=== PATIENT | male | born 1960 | race Caucasian/White ===

== ENCOUNTER 2016-07-30 10:29 | Inpatient (IN) | payer MEDICARE, MEDICAID ==
[2016-07-30] VITALS (8 sets, daily range): BP systolic 74–91; BP diastolic 51–60; PULSE 88–105; RESP 9–22; O2SAT 89–97
[~2016-07-30] VITALS: Ht 172.7 cm; Wt 64.6 kg
[~2016-07-30 10:29] MED LIST: ACET325T51 PEG; ATOR10TA66 PEG; BACL10TA PO; BISA10SU61 RC; CALCIUM PEG; CHOL500011 PEG; DEXT1DRO8 BOTH_EYES; ENTERAL NUTRITION FORMULA PEG; ESOM40CA41 PEG; FLUO20SO PEG; GLUC1VIA IJ; HYDR-4003 PEG; KPHOS TUBE; LEVO100T6 PEG; LISI-567 TUBE; NOV100I SUBQ; NPH,100V11 SUBQ; ONDA-53 TUBE
[2016-07-30] MEDS ORDERED: 0.9% Sodium Chloride 1,000 ML IV ONE ×2 (10:37→15:30)
--- NOTE | 2016-07-30 10:37 | ED.REPORT ---
HPI-General Illness Date of Service Jul 30, 2016 ED Provider: Philip Maynard MD 55 year old male with a history of DM, and ESRD presents to the ED via EMS from [facility] with decreased level of consciousness and low O2 saturation. Medics also report rhonchus breath sounds and expiratory wheezes at the intermediate. He is scheduled for dialysis today. Baseline nonverbal, post- stroke patient. Patient is DNR, DNI. Nursing Notes Stated Complaint: DECREASED LOC Nursing Notes Reviewed: Yes Allergies: Coded Allergies: No Known Allergies (Verified , 05/14/16) Scheduled ([calcium 1250mg/5ml]) 500 MG PEG q8 hours ([Kphos #2 [id number]]) 2 TAB TUBE BID ([Nepro Tube feed]) 50 CC TUBE Hr Atorvastatin Calcium (Atorvastatin Calcium) 10 Mg Tablet 5 MG TUBE HS Cholecalciferol (Vitamin D3) (Vitamin D3) 5,000 Unit Tablet 5,000 UNIT PEG DAILY Esomeprazole Magnesium (Nexium) 40 Mg Capsule.dr 40 MG PEG DAILY Fluoxetine Oral Soln (Fluoxetine Oral Soln) 20 Mg/5 Ml Solution 60 MG TUBE DAILY Levothyroxine (Levothyroxine) 100 Mcg Tablet 88 MCG PEG DAILY Lisinopril (Lisinopril) 20 Mg Tablet 20 MG TUBE DAILY NPH, Human Insulin Isophane (HUMulin-N U100 Insulin Vial) 100 Unit/1 Ml Vial 4 UNIT SUBQ q6hrs Scheduled PRN Acetaminophen (Acetaminophen) 325 Mg Tablet 650 MG PO Q4H PRN PRN For Pain Baclofen (Baclofen) 10 Mg Tablet 5 MG PO q4 hours PRN PRN For Hiccups Bisacodyl (Dulcolax Rectal) 10 Mg Supp.rect 10 MG RC DAILY PRN PRN For Constipation Dextran 70/Hypromellose/Pf (Artificial Tears Drops) 1 Each Droperette 2 DROP BOTH_EYES DAILY PRN PRN dry eyes Glucagon,Human Recombinant (Glucagen) 1 Mg/1 Ml Vial 0.5-1 MG IJ DAILY PRN PRN blood glucose abnormality Hydrocodone-Acetaminophen 5-325 mg (Hydrocodone-Acetaminophen 5-325 mg) 1 Each Tablet 1-2 TABLET PO Q4H PRN PRN For Pain Insulin Aspart (NovoLOG U100 Insulin Vial) 100 Unit/Ml Mdv 0-12 UNITS SUBQ TID PRN PRN sliding scale Ondansetron (Ondansetron) 4 Mg Tablet 8 MG TUBE q8 hours PRN PRN For Nausea General Time Seen by MD: 10:31 Transferred From: retirement Chief Complaint Altered mental status, Other (Low O2 Saturation) Hx Obtained From: EMS Arrived By: Ambulance Sudden in Onset?: No Context Related History: Reports Diabetes mellitus Past Medical History Past Medical History Notes: Code Status: DNR, DNI Pt is non-verbal and non-ambulatory at baseline post stroke Past Medical History 1. Type 1 diabetes mellitus, poorly controlled, with recurrent episodes of DKA. 2. Diabetic neuropathy. 3. Diabetic retinopathy. 4. Diabetic nephropathy. 5. End-stage renal disease, on hemodialysis (Wednesday, , and Saturdays). 6. Depression. 7. Hemorrhagic stroke in 2008 and 2014 with resulting dysphagia, expressive aphasia, and left-sided weakness. 8. Dysphagia with recurrent aspiration on modified diet (pureed with thickened liquids). 9. Cardiac arrest in 2008, VFib, thought secondary to amphetamines, hyperkalemia and DKA. 10. Seizure secondary to ruptured aneurysm/hemorrhagic stroke in 2008. 11. Hypothyroidism. 12. Anoxic brain injury secondary to cardiac arrest. 13. Hepatitis C per records. 14. Hepatitis B core antibody positive. 15. History of substance abuse. 16. Hypertension. 17. Ulcerative esophagitis with hematemesis in June 2014, with upper endoscopy at that time. 18. GERD Past Surgical History Left foot surgery Dialysis shunt Left arm fistula placed 06/29/16 Smoking History Former Smoker Social History Alcohol Use: Denies alcohol use Drug Use: In recovery, Meth Other Social History: Lives in intermediate Ambulatory Status Independent Review of Systems Unable to Obtain ROS Mental status Physical Exam Vital Signs Vital Signs Date Time Temp Pulse Resp B/P Pulse Ox O2 Delivery O2 Flow Rate FiO2 07/30/16 14:27 92 13 90/57 95 Non-Rebreather 10 07/30/16 13:25 91 14 90/55 96 Non-Rebreather 10 07/30/16 10:56 37.0 07/30/16 10:40 105 22 80/59 92 Non-Rebreather 15 Initial VS: Reviewed Head / Eyes: Atraumatic, Normocephalic Neck: Supple, Non-tender, Full range of motion Abdomen / GI: Soft, Non-tender, No guarding, No rebound, No distention Extremities: Vascular intact, Neuro intact, No swelling, No tenderness Skin: Warm, Dry, No cyanosis General/Constitutional: Well developed, Well nourished Alertness: Positive: Unresponsive Unconscious. Respiratory / Chest: No chest tenderness Wheezing / Retractions: Positive: Wheezing expiratory, Wheezing moderate Rales / Rhonchi: Positive: Rhonchi diffuse Cardiovascular: Heart rate NL, Regular rhythm, Heart sounds NL, Cap refill not delayed, Peripheral circulation NL Interpretation & Diagnostics Lab Results Interpretation Result Diagram: 07/30/16 1110 07/30/16 1110 Test 07/30/16 11:10 07/30/16 11:50 07/30/16 13:10 White Blood Count 25.3th/mm3 (3.8-10.1) Red Blood Count 3.78mil/mm3 (4.40-5.80) Hemoglobin 12.7g/dL (13.8-17.2) Hematocrit 39.1% (41.0-50.0) Mean Corpuscular Volume 103.4fL (81-100) Mean Corpuscular Hemoglobin 33.6pg (27.0-35.0) Mean Corpuscular Hemoglobin Concent 32.5% (32.0-37.0) Red Cell Distribution Width 13.2% (12.3-15.4) Platelet Count 236bil/L (150-400) Neutrophils (%) (Auto) 91.4% (40-74) Lymphocytes (%) (Auto) 3.9% (14-46) Monocytes (%) (Auto) 3.5% (4-12) Eosinophils (%) (Auto) 0.5% (0-5) Basophils (%) (Auto) 0.2% (0-3) Sodium Level 143mEq/L (134-144) Potassium Level 4.2mEq/L (3.5-5.2) Chloride Level 97mEq/L (97-108) Carbon Dioxide Level 25mmol/L (18-29) Blood Urea Nitrogen 42mg/dL (6-24) Creatinine 4.18mg/dL (0.76-1.27) Estimat Glomerular Filtration Rate 16mL/min (>59) Glucose Level 223mg/dL (60-99) Lactic Acid Level 2.0mmol/L (0.4-2.0) Calcium Level 9.3mg/dL (8.5-10.1) Phosphorus Level 6.4mg/dL (2.5-4.9) Magnesium Level 2.5mg/dL (1.6-2.6) Total Bilirubin 0.3mg/dL (0.0-1.2) Aspartate Amino Transf (AST/SGOT) 18U/L (0-50) Alanine Aminotransferase (ALT/SGPT) 18U/L (0-44) Alkaline Phosphatase 129U/L (25-150) Troponin T 0.104ug/L (0.0-0.011) Pro-B-Type Natriuretic Peptide 4201pg/mL (0-121) Total Protein 7.7g/dL (6.4-8.4) Albumin 3.6g/dL (3.4-5.0) Lipase 7U/L (13-60) Urine Color Yellow (YELLOW) Urine Appearance Hazy (CLEAR,HAZY) Urine pH 7.0 (5.0-8.0) Urine Specific [place] 1.020 (1.003-1.035) Urine Protein 100mg/dL (NEG,TRACE) Urine Glucose (UA) 500mg/dL (NEGATIVE) Urine Ketones Negativemg/dL (NEGATIVE) Urine Occult Blood Small (NEGATIVE) Urine Nitrite Negative (NEGATIVE) Urine Bilirubin Negative (NEGATIVE) Urine Urobilinogen Normalmg/dL (NORMAL) Urine Leukocyte Esterase Trace (NEGATIVE) Urine RBC 0-2/hpf (0-2) Urine WBC >50/hpf (0-5) Urine Epithelial Cells Occasional/hpf (NONE-MOD) Urine Crystals None seen (NONE SEEN) Urine Bacteria Few/hpf (NONE-FEW) Urine Hyaline Casts None/lpf (NONE) Urine Granular Casts None seen (NONE SEEN) Urine Waxy Casts None seen (NONE SEEN) Urine Red Blood Cell Casts None seen (NONE SEEN) Urine White Blood Cell Casts None seen (NONE SEEN) Urine Mucus None seen (None Seen) Urine Trichomonas None seen (NONE SEEN) Urine Yeast Few (NONE SEEN) Urinalysis Comment None Urine Culture Reflexed Indicated Prothrombin Time 10.4sec (8.1-12.5) Prothromb Time International Ratio 0.97ratio ECG Interpretation ECG Interpretation: Sinus rhythm, rate 97 Prolonged QT interval Time: 10:58 Interpreted by: ED physician X-Ray Chest Interpretation Chest Xray Interpretation: IMPRESSION: Right middle lobe atelectasis versus aspiration or pneumonia. Dictated by: Derik RODRIGUEZ Interpreted: Andra Lopez MD on 07/30/2016 at 12:21 Transcribed by: ILIANA on 07/30/2016 at 12:21 View: Portable, 1 view Interpretation / Wet Read by: Interpret - Radiologist Re-Eval/Medical Decision Source of Hx: Old records Time of Eval: 11:45 Re-Evaluation/Progress Note: Patient is still unconscious and unresponsive. Pressure is improving. Antibiotics administered. Fluids running. Awaiting radiology and laboratory results. Time of Eval: 12:35 Re-Evaluation/Progress Note: Nurse informed me that the patient is now awake and more alert. Responding to verbal stimuli. Patient is now accompanied by a family friend who is present, in lobby. Time of Eval: 13:40 Re-Evaluation/Progress Note: Talked to the friend of the patient who is concerned for the patient's health. I informed her that we are intervening maximally according to POLST form instructions, given that the patient does not want mechanical ventilation or critical care status drips. Consultation #1: Referral / Consult Name: Shaniqua Fulton MD Consulted With: Nephrology Call Returned at: 12:47 Note: Agrees to consult. Consultation #2: Requested Call at: 13:45 Call Returned at: 13:55 Note: Called patient's sister, Shonna, who is patient's power of admitted attorneys for healthcare. She affirms the accuracy of POLST form instructions. Consultation #3: Referral / Consult Name: Iván Durbin MD Consulted With: Hospitalist Call Returned at: 14:49 Health Information Systems Technician: Agrees with plan, Accepts admit Counseled Regarding: Diagnosis, Lab results Discharge & Departure Primary Impression: Sepsis Sepsis type: sepsis due to unspecified organism Qualified Code: A41.9 - Sepsis, unspecified organism Additional Impressions: Aspiration pneumonia Aspiration pneumonia type: unspecified Laterality: unspecified laterality Lung location: unspecified part of lung Qualified Code: J69.0 - Pneumonitis due to inhalation of food and vomit ESRF (end stage renal failure) Disposition: ADMITTED TO HOSPITAL Discharge Condition All VS Reviewed: Yes Condition: Stable Referrals: NOPCP (PCP) Scribe Attestation Portions of this note were transcribed by Sesar Valdovinos. I, Dr. Maynard, personally performed the history, physical exam and medical decision-making; I reviewed and confirmed the accuracy of the information in the transcribed note. Signed by: Sesar Valdovinos. 07/30/2016, *time* Philip Maynard MD Jul 30, 2016 10:37 SESAR VALDOVINOS Jul 30, 2016 10:43
[2016-07-30] MEDS ORDERED: Piperacillin-Tazo 3.375 Gm Inj 3.375 GM in Dextrose 5% Minibag Plus 50 ML IV ONE (10:40)
[2016-07-30] MEDS ORDERED: levoFLOXacin Inj 750 MG in IV Premix 1 EACH IV ONE (10:40)
[2016-07-30] MEDS ORDERED: Vancomycin Dose per Pharmacist XX ONE (10:40)
[2016-07-30 11:26] LABS: BASOPHILS % (AUTO) 0.2 % (0-3); EOSINOPHILS % (AUTO) 0.5 % (0-5); MONOCYTES % (AUTO) 3.5 % (4-12); Mean Corpuscular Hemoglobin 33.6 pg (27.0-35.0); Mean Corpuscular Volume 103.4 fL (81-100); NEUTROPHILS % (AUTO) 91.4 % (40-74); Platelet Count 236 bil/L (150-400)
[2016-07-30] MEDS ORDERED: Lidocaine 2% 6mL Topical Jelly ONE (11:28)
[2016-07-30] MEDS ORDERED: Vancomycin Inj 1,000 MG in IV Premix 1 EACH IV ONE (11:30)
[2016-07-30 12:19] LABS: Magnesium 2.5 mg/dL (1.6-2.6); Phosphorus 6.4 mg/dL (2.5-4.9)
--- NOTE | 2016-07-30 12:22 | DRSVH ---
PROCEDURE: X-RAY CHEST ONE VIEW, PORTABLE ([id number]) INDICATIONS: altered LOC, cough TECHNIQUE: One view of the chest was acquired. COMPARISON: [facility], CR, XR CHEST 1VW (PORTABLE), 07/20/2016, 10:29. FINDINGS: Surgical changes and devices: Stable positioning of right IJ double lumen dialysis catheter. Lungs and pleura: No pleural effusions or pneumothorax. Right middle lobe airspace opacity present with partial silhouetting of the right cardiac margin. Interstitium is prominent similar to prior ex amination.. Mediastinum: Mediastinal contours appear normal. Heart size is normal. Bones and chest wall: No suspicious bony lesions. Overlying soft tissues appear unremarkable. IMPRESSION: Right middle lobe atelectasis versus aspiration or pneumonia. Dictated by: Derik Spears [facility] Interpreted: Andra Lopez MD on 07/30/2016 at 12:21 Transcribed by: ILIANA on 07/30/2016 at 12:21 Approved by: Andra Lopez MD, PhD on 07/30/2016 at 16:43
[2016-07-30 12:23] LABS: TROPONIN T 0.104 ug/L (0.0-0.011)
[2016-07-30 12:54] LABS: APPEARANCE,URINE HAZY (CLEAR,HAZY); COLOR,URINE YELLOW (YELLOW); OCCULT BLOOD,URINE SMALL (NEGATIVE); UROBILINOGEN,URINE NORMAL (NORMAL); YEAST,URINE FEW (NONE SEEN)
[2016-07-30 13:32] LABS: INR 0.97 ratio
[2016-07-30] MEDS: 0.9% Sodium Chloride 1,000 ML IV SCH (14:57)
[2016-07-30] MEDS ORDERED: Alum-Mag Hydrox-Simeth 30 mL Suspension PO PRN (15:00)
[2016-07-30] MEDS ORDERED: Polyethylene Glycol (PEG) 17 Gm Powder PO PRN (15:00)
[2016-07-30] MEDS ORDERED: CALC500O PEG (15:52)
[2016-07-30] MEDS ORDERED: [UNRECOGNIZED DRUG - CODE] EXT (15:58)
[2016-07-30] MEDS ORDERED: ESOM40SU PEG (15:58)
[2016-07-30] MEDS ORDERED: LEVO150T5 PO (16:03)
[2016-07-30] MEDS ORDERED: LACT10SO60 PEG (16:11)
[2016-07-30] MEDS ORDERED: NA P1TAB PEG (16:11)
[2016-07-30] MEDS ORDERED: LISI10TA PEG (16:11)
[2016-07-30] MEDS ORDERED: [UNRECOGNIZED DRUG - OTHER] PEG (16:11)
[2016-07-30] MEDS: Heparin 5,000 Unit/mL Inj SUBQ SCH (16:30)
[2016-07-30] MEDS ORDERED: Glucose 40% Oral Gel 15 Gm Tube PO PRN (16:35)
--- NOTE | 2016-07-30 17:46 | PCM.CHPMED ---
Subjective Date of Service: Jul 30, 2016 Primary Physician: Admitting Physician: Iván Durbin MD Primary Care Physician: Nopalina Attending Physician: Iván Durbin MD Chief Complaint: Chief Complaint: decreased LOC and desat at [place]. History obtained from medical record. Pt is nonverbal. History of Present Illness: This is a very unfortunate 55 yo M with significant PMH of ESRD on HD TTS, CVA, bedridden status, dysphagia s/p G-tube placement, DM-1, HTN who was sent due to decreased LOC and desat O2. Upon arrival, he was found to be hypotensive BP 80/ 59, O2 92% with non-rebreather. Septic w/u was performed. CXR showed right middle lobe atelectasis versus aspiration or pneumonia. Rouse cath inserted with pus-like urine coming out. He received IV levaquin, vancomycin and zosyn in ED. During my visit, he remains hypotensive. We have ordered another IV bolus with NS 1 L. His initial blood work showed K of 4.2, HCO3 of 25, WBC of 25.3. Renal was consulted to continue HD while he is being hospitalized. PMH End-stage renal disease on hemodialysis Wednesday Type I diabetes mellitus History of cerebrovascular accident Traumatic brain injury Seizure disorder History of hep Bcore positive 2013 Vfib arrest AVF creation, right tunneled cath placement. HLD HTN Hypothyroidism Anemia of chronic kidney disease Diabetic retinopathy h/o [place] s/p G tube placement. Family History (+) DM, CAD in family. Social History Hx Alcohol Use: No Hx Substance Use: No Hx Tobacco Use: Yes Smoking Status: Former Smoker, Never Smoker Living Arrangement: [facility] PMH Bedside Blood Glucose: 202 Allergies: Coded Allergies: No Known Allergies (Verified , 05/14/16) Social History Hx Alcohol Use: Yes (can't verbalize how long ago, not current)Hx Substance Use : Yes (amphetamines/COCAINE in past)Hx Tobacco Use: Yes Smoking Status: Former Smoker Exam Vital Signs Vital Sign - Last Date Time Temp Pulse Resp B/P Pulse Ox O2 Delivery O2 Flow Rate FiO2 07/30/16 16:37 88 12 86/58 90 Non-Rebreather 12.00 07/30/16 15:51 36.6 General: Moderate Distress, Other (nonverbal) Head: Other (temporal muscle wasting) Eyes: Scleral Anicteric Mouth: Mucous Membranes Dry Chest & Lungs: Diminished breath sounds, Coarse breath sounds, Other (right tunneled cath in place: dry, clean and intact. ) Cardiovascular: Exam Unremarkable, Regular Rate/Rhythm, Normal S1, Normal S2 Abdomen: Distended, No hepatosplenomegaly, Other (G-tube in place, decreased BS. ) Genitourinary: Rouse Present (pus-like urine) Musculoskeletal: Other (generalized muscle atrophy) Extremities: No Edema Lab and Diagnostics Result Diagram: 07/30/16 1110 07/30/16 1110 Assessment & Plan Assessment 1. ESRD on HD TTS. 2. Septic shock 3. Suspected aspiration PNA. 4. Complicated UTI. 5. CVA, nonverbal, bedridden. 6. Dysphagia s/p G-tube placement. 7. DM-1 with nephropathy, retinopathy, neuropathy. 8. HTN with hypertensive nephrosclerosis. 9. DNR/DNI Plan: hold HD today given unstable hemodynamics and normal potassium level. start NS IVF bolus if not responded, will consider adding vasopressors. continue IV board spectrum abx. Thank you for allowing me to participate in the care of your patient. We will monitor along with you. Problems: Shaniqua Fulton MD Jul 30, 2016 17:25
--- NOTE | 2016-07-30 19:51 | NUR ---
Admit Note Pt. transferred from ED in room 2004 [facility]. Pt. arrived on a NRB mask 10L, Pt. accompanied w/ family. Pt. unable to verbalize due to CVA's, one blink is for "no" and two blinks is for "yes". Pt. hypotensive and diaphoretic, 1L of NS bolus given. SBP 70s-90's. Pt. is now on 12L NRB SpO2 100%. Pt. unable to PARSON, Q2 turns. Multiple family members at the bedside, orientated to light, Pt. seems more alert than report given by [employer]. Lung sounds coarse, rhonci, bilaterally, deep suctioning done per RTC. Sputum sample sent to lab.
[2016-07-30] MEDS: Piperacillin-Tazo 3.375 Gm Inj 3.375 GM in Dextrose 5% Minibag Plus 50 ML IV SCH (20:47)
[2016-07-30] MEDS: Insulin LISPRO 300 Unit/3 mL Inj SUBQ SCH (20:56)
--- NOTE | 2016-07-30 21:33 | PCM.HPMED ---
Subjective Date of Service Jul 30, 2016 Primary Provider: Admitting Physician: Iván Durbin MD Primary Care Physician: Nopcp Attending Physician: Iván Durbin MD Admit Status: From the Emergency Department, Full Admit, Remote Telemetry Chief Complaint: decreased LOC and desat at [place]. History obtained from medical record. Pt is nonverbal. History of Present Illness: This is a unfortunate 55-year-old, who is nonverbal secondary to a remote CVA. He also has end-stage renal disease and was due for dialysis today. He is accompanied by his caregiver. She notes that he has had recurrent aspiration pneumonia. Apparently had recently become less responsive and was brought to the hospital. In the ER he was found to be hypoxic and hypotensive. The patient was resuscitated and placed in nonrebreather. Chest x-ray indicated a probable aspiration pneumonia. Rouse was placed in the ER which indicated at purulent urine. He was started on empiric therapy for HCAP. The patient has been persistently hypotensive requiring ongoing fluid resuscitation. His white count 25,000. He was due for dialysis today however attention he will not be able to have dialysis. Nephrology has been consulted and dirty seen the patient. Typically he was dialyzed in Wednesday and Wednesday. Because he is nonverbal no other history of MRSA or review of systems is available. Review of Systems: Not obtainable Allergies Coded Allergies: No Known Allergies (Verified , 05/14/16) Home Medications Med history pending. PMH PMH End-stage renal disease on hemodialysis Wednesday Type I diabetes mellitus History of cerebrovascular accident Traumatic brain injury Seizure disorder History of hep Bcore positive 2013 Vfib arrest AVF creation, right tunneled cath placement. HLD HTN Hypothyroidism Anemia of chronic kidney disease Diabetic retinopathy h/o [place] s/p G tube placement. Surgical History Not obtainable Family History Family History (+) DM, CAD in family. Social History Hx Alcohol Use: Yes (can't verbalize how long ago, not current) Hx Substance Use: Yes (amphetamines/COCAINE in past) Hx Tobacco Use: Yes Smoking Status: Former Smoker Exam Vital Signs Vital Sign - Last Date Time Temp Pulse Resp B/P Pulse Ox O2 Delivery O2 Flow Rate FiO2 07/30/16 21:06 Supplement Oxygen 07/30/16 20:49 36.6 92 15 91/60 97 14.00 Exam The patient is nonverbal. Minimally arousable. Appears to be comfortable in no distress. Normal head. Nose and ears are normal Symmetric pupils R Dash is unremarkable. Neck is supple, no adenopathy. Normal thyroid Lungs labored breathing and scattered rhonchi Heart is regular Abdomen is soft nondistended with G-tube in place. There is no guarding or rebound Extremities are free of edema. Good radial pulses. Skin is free of rash or lesions. Muscle tone is poor. He is on a nonrebreather. He is not able to interact. Cranial nerves can not otherwise be evaluated because of inability to participate. Joints not obviously swollen or deformed Lab and Diagnostics Labs Troponin is minimally elevated, white count is elevated at 25,000 Result Diagram: 07/30/16 1110 07/30/16 1110 X-Rays, CTs and MRIs Right middle lobe infiltrate on chest x-ray Assessment & Plan 1. HCAP verses aspiration pneumonia. POA. Patient with triple antibiotic therapy for empiric coverage. 2. Acute hypoxic respiratory failure. POA. Patient is DO NOT RESUSCITATE. This point we will treat him with noninvasive oxygen delivery and if required BiPAP only. 3. End-stage renal disease. POA. For dialysis at this time. Patient is hypotensive. 4. Sepsis with hypotension. POA. Patient is given a fluid bolus and will have repeated boluses as needed. 5. Stroke with chronic hemiparesis POA. Follow clinically. 6. DM 2. POA. Correctional lispro and follow clinically. 7. Elevated troponin. POA. We will trend. I am sure the clinical significance of this given his chronic kidney disease. Patient is DO NOT RESUSCITATE. This is confirmed with his family who are at the bedside tonight. He is admitted inpatient status with a length of stay of over 2 nights anticipated Pain Evaluation: Adequate Pain Control Resuscitation Status: DNR/DNI:Do Not Resuscitate/Intubate Time spent 40 minute Iván Durbin MD Jul 30, 2016 21:33
[2016-07-30] MEDS ORDERED: 0.9% Sodium Chloride 500 ML IV ONE (22:25)
[2016-07-31] VITALS (8 sets, daily range): BP systolic 80–123; BP diastolic 49–71; PULSE 88–96; RESP 7–20; O2SAT 94–100
[2016-07-31] MEDS: 0.9% Sodium Chloride 1,000 ML IV SCH ×3 (01:00→20:57)
[2016-07-31] MEDS: Heparin 5,000 Unit/mL Inj SUBQ SCH ×3 (01:11→16:38)
[2016-07-31] MEDS: Insulin LISPRO 300 Unit/3 mL Inj SUBQ SCH ×4 (02:07→22:08)
[2016-07-31 03:50] LABS: BASOPHILS % (AUTO) 0.1 % (0-3); EOSINOPHILS % (AUTO) 0.4 % (0-5); MONOCYTES % (AUTO) 2.5 % (4-12); Mean Corpuscular Hemoglobin 33.7 pg (27.0-35.0); Mean Corpuscular Volume 104.3 fL (81-100); NEUTROPHILS % (AUTO) 93.1 % (40-74); Platelet Count 217 bil/L (150-400)
[2016-07-31 04:15] LABS: Magnesium 2.3 mg/dL (1.6-2.6)
[2016-07-31 04:17] LABS: TROPONIN T 0.082 ug/L (0.0-0.011)
--- NOTE | 2016-07-31 06:47 | NUR ---
Cardiac Pt BP systolically in 70's x2 MD notified and orders for 500mL bolus were given. Pt responded well to bolus as well as being turned onto right side. BP's systolically 80's to 100's. PT is non-verbal and does not follow commands. Tele SR 80's to 90's.
--- NOTE | 2016-07-31 10:03 | PCM.PNMED ---
Subjective Date of Service Jul 31, 2016 Subjective Patient's blood pressure has risen with some conservative fluid management. His systolic blood pressures in 100 100s. He still has some marked leukocytosis with white counts morning of 35.4 and a marked left shift. He is arousable and has a loud audible rhonchi that can be heard several pieces away from the bed. Does not appear to be in any respiratory distress at time of my evaluation. Exam Vital Signs Vital Sign - Last Date Time Temp Pulse Resp B/P Pulse Ox O2 Delivery O2 Flow Rate FiO2 07/31/16 09:21 Supplement Oxygen 07/31/16 09:04 37.0 95 20 104/61 95 8.00 Intake and Output 07/30/16 07/30/16 07/31/16 Cumulative From/Thru 15:00 23:00 07:00 07/30/16 10:56 - 07/31/16 06:46 Intake Total 1000 ml 0 ml 2640 ml 3640 ml Output Total 150 ml 0 ml 150 ml Balance 1000 ml -150 ml 2640 ml 3490 ml Intake Oral 0 ml 0 ml 0 ml IV Total 1000 ml 2640 ml 3640 ml Output Urine Total 150 ml 0 ml 150 ml Exam Lungs showed diffuse loud rhonchi in all lung drummond. There is also evidence some bibasilar rales and some occasional end expiratory wheezes. Abdomen soft systolic murmur. Abdomen soft without tenderness rebound guarding masses or hepatosplenomegaly. Extremities shows a clubbing cyanosis or edema however skin turgor is diminished. Lab and Diagnostics Result Diagram: 07/31/16 0306 07/31/16 0306 X-Rays, CTs and MRIs Right middle lobe infiltrate on chest x-ray Assessment & Plan Impression #1 end-stage renal disease dialysis dependent #2 sepsis #3 metabolic acidosis #4 dehydration #5 hypotension Recommendations #1 in light of his diabetes and fluid overloaded and his potassium being 4.2 dialysis for today and schedule him for routine treatment tomorrow. Obviously in light of his respiratory findings we need to aggressively after his pulmonary status and improve his pulmonary toilet. Resuscitation Status: DNR/DNI:Do Not Resuscitate/Intubate Cesar Guy DO Jul 31, 2016 10:03
[2016-07-31] MEDS: Piperacillin-Tazo 3.375 Gm Inj 3.375 GM in Dextrose 5% Minibag Plus 50 ML IV SCH ×2 (10:09→22:07)
--- NOTE | 2016-07-31 10:13 | NUR ---
NUTRITION ASSESSMENT: ASSESS: Pt is a 55yo M admitted to CCU for hypoxia, hypotensive and aspiration pneumonia. Pt resides at [facility] and is on long-term TF via PEG. Per [facility], home TF rate if 50ml/hr of Nepro and is NPO at baseline but according to family pt has been trying to eat again. Pt has ESRD on HD. Received verbal orders in morning rounds to start TF. According to RN, PEG tube looks a bit red and possible it may be leaking. PMHX: ESRD, T1DM, CVA, TBI, Seizures, [place], HTN, HLD LABS: Reviewed. Bun 49, [employer] 4.35, Glu 289, phos 6.0, Alb 3.3 MEDS: Reviewed. Insulin, Vit D GI: 0 BM recorded yet SKIN: Enrike 9 HOME TF: Nepro at 50ml/hr to provide 2070kcal/day and 93g pro (100% estimated needs). CURRENT WTS: 62.5kg, BMI 21.0kg/m2. DIET: NPO EST. NEEDS: Dialysis Kcals: 1875-2188kcal/day (30-35kcal/kg) Pro: 75-125g/day (1.2-2.0g/kg) Fluids: 1250-1565ml/day (20-25cc/kg) or per seed core operator NUTRITION DIAGNOSIS: 1.) Chew/swallow difficulty related to chronic dysphagia as evidence by need for jail TF via PEG and NPO per ST 2.) Increased nutrient needs related to increased demand for nutrients as evidence by pt on HD NUTRITION INTERVENTION: 1.) Recommend start TF of Nepro at 25ml/hr. Advance by 10ml q 4 hrs until reach goal rate of 50ml/hr. TF at goal rate provides 2070kcal and 93g pro (100% kcal and pro needs). If on IVF, flush 40ml q 4 hrs. If IVF off, fluid flush 100ml q 4 hrs. RN aware of TF orders MONITOR / EVAL: TF zoey/advance, wt, GI, labs, POC, nutrition status. Will continue to monitor per high nutrition risk guidelines
--- NOTE | 2016-07-31 11:49 | NUR ---
Social Work: Initial Assessment D: Per EMR review, pt is a 55 year old male admitted for aspiration pneumonis, ERSD, Sepsis. Pt is Medicare with [employer] supplement. PCP is Dr. Griselda Diana. NOK/DPOA is Shonna Miller, Sister, . Advanced directives on file. Readmit score is moderate, 4/8. Pt discussed in morning rounds. Pt comes from [facility] where he is a LTC resident. Pt with a G tube and tube feeds. [employer] [employer] [employer] met with pt's family at bedside. Family states pt is total assist at [facility] and uses a wheelchair at baseline. They would like for him to return there when ready. Pt completed dialysis at [facility], , S and transports via cabulance. t/c to [facility]; [employer] spoke with marketing information coordinatorDeepak. They can accept the pt back when medically stable. [employer] [employer] provided access. A: Pt who is a LTC resident at [facility]. P: Anticipate return to [facility] once medically ready via cabulance; [employer] to continue to follow. MIGUEL Cook Addendum: 07/31/16 at 1156 by NOVA KUO Amended: Links added.
--- NOTE | 2016-07-31 12:50 | PCM.PNMED ---
Subjective Date of Service Jul 31, 2016 Subjective Patient is more awake today. He is not able to communicate. He does not follow commands. He appears comfortable. Subjective and ROS are not obtainable. Exam Vital Signs Vital Sign - Last Date Time Temp Pulse Resp B/P Pulse Ox O2 Delivery O2 Flow Rate FiO2 07/31/16 09:21 Supplement Oxygen 07/31/16 09:04 37.0 95 20 104/61 95 8.00 Intake and Output 07/30/16 07/30/16 07/31/16 Cumulative From/Thru 15:00 23:00 07:00 07/30/16 10:56 - 07/31/16 06:46 Intake Total 1000 ml 0 ml 2640 ml 3640 ml Output Total 150 ml 0 ml 150 ml Balance 1000 ml -150 ml 2640 ml 3490 ml Intake Oral 0 ml 0 ml 0 ml IV Total 1000 ml 2640 ml 3640 ml Output Urine Total 150 ml 0 ml 150 ml Exam Awake. No distress. Normal skull. Anicteric sclerae, symmetric pupils Oropharynx no drip Neck is supple Lungs scattered rhonchi but no rales. Mild increase of rate Heart is regular without murmur Abdomen soft nondistended with a G-tube in place. Extremities are free of edema and good pedal and radial pulses. Skin is free of rash or lesions IVs and Medications Medications Reviewed: Medications were reviewed in detail Lab and Diagnostics Result Diagram: 07/31/16 0306 07/31/16 0306 X-Rays, CTs and MRIs Right middle lobe infiltrate on chest x-ray Assessment & Plan 1. HCAP verses aspiration pneumonia. POA. Patient with triple antibiotic therapy and we will hold any further vancomycin. We will treat this as aspiration with Zosyn only at this point. We will await for them microbiologic data. The patient will require some assistance with pulmonary toilet and suctioning. Iremains fairly guarded.. 2. Acute hypoxic respiratory failure. POA. Patient is DO NOT RESUSCITATE. This point we will treat him with noninvasive oxygen delivery and if required BiPAP only. The patient has not required any BiPAP and does appear slightly better today although he has more severe leukocytosis. We will follow clinically. 3. End-stage renal disease. POA. For dialysis at this time. Patient is hypotensive. This is not improved with fluid resuscitation. He was seen by nephrology and will have Drea's later today. His potassium is 4.2. 4. Sepsis with hypotension. POA. Patient is given a fluid bolus and will have repeated boluses were also given his blood pressure is better now. 5. Stroke with chronic hemiparesis POA. Follow clinically. 6. DM 2. POA. Correctional lispro and follow clinically. Continue with correctional lispro. 7. Elevated troponin. POA. We will trend. I am sure the clinical significance of this given his chronic kidney disease. No further workup. Patient is DO NOT RESUSCITATE. This is confirmed with his family who are at the bedside tonight. He is admitted inpatient status with a length of stay of over 2 nights anticipated Pain Evaluation: Adequate Pain Control Resuscitation Status: DNR/DNI:Do Not Resuscitate/Intubate Time spent 30 minute Iván Durbin MD Jul 31, 2016 12:50
--- NOTE | 2016-07-31 18:08 | NUR ---
Wound Care Pressure ulcer protocol received pt seen at bedside. 55 yo male, [facility] care resident Med hx Cardiac, CVA, tube feeding. Presents on P500 RICKEY bed, has stage 2 pressure injury right buttock 3 cm in diameter, present on admission. Heel red but blanches, fistula on left elbow. Recommend mepilex foam dressing at pressure ulcer, change q 48 hrs, frequent repositioning.
--- NOTE | 2016-07-31 18:42 | NUR ---
Shift Note Pt is non-verbal Tele SR 80-90s. No signs of symptoms of chest pain. Per shift report pt had been hypotensive overnight. Pt remained in high 90's to 100s systolically during day shift. Resp: Pt lungs upon initial assessment demonstrated audible wheezes/rhonchi/crackles. Nasal suctioning by RT produced large amounts of creamy frothy fluid from pt's nose and mouth. After suctioning there was an audible decrease in pt lung sounds. Pt placed on oxymask at 8L SAO2 95%. GI/: Pt started on Nepro tube feed @ 25ml/hr. Tolerating well. Pt. has a mid abdomen PEG tube, tube dressing changed and reinforced, some drainage noted from drain. Rouse in place draining to gravity. Urine leora with creamy sediment. Pt output approximately 100ml during shift. Neuro: Pt non verbal due to multiple strokes. Will open eyes to verbal. Per family he is not responding at his normal baseline.
[2016-08-01] VITALS (11 sets, daily range): BP systolic 95–127; BP diastolic 52–74; PULSE 87–105; RESP 10–22; O2SAT 84–96
[2016-08-01] MEDS: Heparin 5,000 Unit/mL Inj SUBQ SCH ×3 (01:31→16:21)
[2016-08-01] MEDS: Insulin LISPRO 300 Unit/3 mL Inj SUBQ SCH ×4 (03:40→21:36)
--- NOTE | 2016-08-01 06:18 | NUR ---
Tube Feed/Mentation/Skin Pt was increased on Nepro tube feed from 25ml/hr to 35ml/hr at 0330 The next 10ml/hr tube feed increase will be at 0730. Pt's tube feed goal is 50ml/hr. Pt has been refusing to answer all questions. Per report pt uses eye blinking to answer yes/no to questions when asked. Pt does look at the person whom is speaking to him but refused to answer questions. Pt's skin was sweaty and pt had frequent linen changes throughout the shift. Pt had a BM and had the mepilex covering the sacral area wounds replaced.
[2016-08-01] MEDS: 0.9% Sodium Chloride 1,000 ML IV SCH ×2 (06:57→16:57)
--- NOTE | 2016-08-01 08:51 | NUR ---
[facility] [place] arrived [place] [facility] [place] 243[facility]1 via bed for ordered dialysis per certified dialysis technician, Shakila. Report received from primary RN, Emely. Patient on tube feeding, oxymask on 8L, with right hand peripheral IV running at a TKO rate. Patient able to nod head and blink to communicate.
--- NOTE | 2016-08-01 09:27 | PCM.PNMED ---
Subjective Date of Service Aug 01, 2016 Subjective The patient's condition is about the same. He has had a slight dip in his blood pressure within the first 30 minutes of dialysis and this was corrected with turning off the ultrafiltration rate. Exam Vital Signs Vital Sign - Last Date Time Temp Pulse Resp B/P Pulse Ox O2 Delivery O2 Flow Rate FiO2 08/01/16 09:14 87 08/01/16 07:41 36.8 126/74 96 OxyMask 8.00 08/01/16 03:28 12 Intake and Output 07/31/16 07/31/16 08/01/16 Cumulative From/Thru 15:00 23:00 07:00 07/30/16 10:56 - 08/01/16 05:58 Intake Total 1079 ml 483 ml 5202 ml Output Total 75 ml 200 ml 425 ml Balance 1004 ml 283 ml 4777 ml Intake Oral 0 ml 0 ml 0 ml IV Total 987 ml 160 ml 4787 ml Tube Feeding 92 ml 293 ml 385 ml Tube Irrigant 30 ml 30 ml Output Urine Total 75 ml 200 ml 425 ml # Bowel Movements 1 1 Exam Patient is minimally arousable. Neck is supple without adenopathy thyromegaly or tenderness or distention. Lungs clear to auscultation though there were some rhonchi noted. Heart regular with soft systolic murmur. Abdomen is soft without any tenderness or rebound guarding masses or hepatosplenomegaly. Her saturation clubbing cyanosis or edema. Lab and Diagnostics Result Diagram: 07/31/16 0306 07/31/16 0306 X-Rays, CTs and MRIs Right middle lobe infiltrate on chest x-ray Assessment & Plan Impression #1 end-stage renal disease dialysis dependent #2 hypertension with hypertensive heart disease and hypertensive nephrosclerosis Recommendations #1 patient dialyzed today for for almost 2 potassium bath. We will try to take off minimal fluid in light of his pressure issues. Resuscitation Status: DNR/DNI:Do Not Resuscitate/Intubate Cesar Guy DO Aug 01, 2016 09:27
[2016-08-01] MEDS ORDERED: Ertapenem Inj 1,000 MG in 0.9% Sodium Chloride 50 ML IV SCH ×2 (12:00→12:30)
--- NOTE | 2016-08-01 12:04 | NUR ---
Dialysis note 4 hr HD tx. No net UF removed. Initial goal set for 1kg UF but pt hypotensive quickly within first [address] Guy said no UF for tx. See DTR for complete vitals. Off BP 131/79 HR 89.QB 400 thru R tunn catheter. Pt slept thru most of tx. Awake last hr. Lungs course with audible upper mucus and pt unable to follow cough command. Attempted to suction and pt tightly closes mouth. Catheter dsg changed. Dwelled with 1000/1 U heparin and secured. Report given and pt returned to floor stable.
--- NOTE | 2016-08-01 12:20 | NUR ---
NUTRITION FOLLOW-UP: ASSESS: 55 YO male admitted to CCU with hypoxia, hypotension and aspiration pneumonia. Pt resides at [facility] and requires PEG enteral feeding to meet his nutrient needs. Per [facility], home enteral feeding rate is 50ml/hr of Nepro, and patient is NPO at baseline, but according to family, pt has been trying to eat again. Enteral feeding initiated yesterday and is advancing toward goal rate. PMHX: ESRD requiring hemodialysis, T1DM, CVA, TBI, Seizures, PA, HTN, HLD. LABS: Reviewed. BUN 49, Cr 4.35, Glu 289, Phos 6.0, Alb 3.3. MEDS: Reviewed. Insulin. GI: BM x 1 today. SKIN: Enrike 9. Per Ciln[employer]ist, there is a stage 2 pressure injury right buttock. HOME PEG TF: Nepro at 50ml/hr to provide 2070kcal/day and 93g pro (100% estimated needs). CURRENT TF: Nepro rate currently 45 ml/hr, approaching goal rate 50 ml/hr. If on IVF, flush 40ml q 4 hrs. If IVF off, fluid flush 100ml q 4 hrs. WT:63.5 kg, BMI 21.0 kg/m2. Admit weight: 62.5kg, BMI 21.0kg/m2. DIET: NPO EST. 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 2) Increased nutrient needs related to increased demand for nutrients as evidence by pt on HD with chronic wounds - PERSISTS. NUTRITION INTERVENTION: 1) Recommend continuing advancing enteral feeding to goal rate, unless diet advanced by ST. Once PO intake consistently > 50% trays, recommend begin to taper enteral feeding. MONITOR / EVAL: Enteral feeding tolerance / advance, wt, GI, labs, POC, nutrition status. Will continue to monitor per moderate nutrition risk guidelines.
[2016-08-01] MEDS ORDERED: Ertapenem Inj 500 MG in 0.9% Sodium Chloride 50 ML IV SCH (12:27)
--- NOTE | 2016-08-01 12:31 | NUR ---
ANUJ Signed Verbal Consent from Family
[2016-08-01] MEDS: Ertapenem Inj 500 MG in 0.9% Sodium Chloride 50 ML IV SCH (14:34)
--- NOTE | 2016-08-01 14:36 | PCM.PNMED ---
Subjective Date of Service Aug 01, 2016 Subjective The patient is more awake and alert. He is able to try a speak but not really understandable. ROS and subjective not obtainable Exam Vital Signs Vital Sign - Last Date Time Temp Pulse Resp B/P Pulse Ox O2 Delivery O2 Flow Rate FiO2 08/01/16 09:14 87 08/01/16 07:41 36.8 126/74 96 OxyMask 8.00 08/01/16 03:28 12 Intake and Output 07/31/16 07/31/16 08/01/16 Cumulative From/Thru 15:00 23:00 07:00 07/30/16 10:56 - 08/01/16 05:58 Intake Total 1079 ml 483 ml 5202 ml Output Total 75 ml 200 ml 425 ml Balance 1004 ml 283 ml 4777 ml Intake Oral 0 ml 0 ml 0 ml IV Total 987 ml 160 ml 4787 ml Tube Feeding 92 ml 293 ml 385 ml Tube Irrigant 30 ml 30 ml Output Urine Total 75 ml 200 ml 425 ml # Bowel Movements 1 1 Exam Awake. No distress. Normal skull. Neck. Lungs are normal for scattered rhonchi but not labored. Normal rate. Heart is regular without murmur Abdomen is soft there is a G-tube in place. Extremities are free of edema. Good radial and pedal pulses No skin rash or lesions. IVs and Medications Medications Reviewed: Medications were reviewed in detail Lab and Diagnostics Result Diagram: 07/31/16 0306 07/31/16 0306 X-Rays, CTs and MRIs Right middle lobe infiltrate on chest x-ray Assessment & Plan 1. HCAP verses aspiration pneumonia. POA. Sputum indicates Escherichia coli, ESBL. The patient clinically improved on Zosyn. At this point we will renal dose him with ertapenem at 500 mg every 24 hours. He has end-stage renal disease.. 2. Acute hypoxic respiratory failure. POA. Patient is DO NOT RESUSCITATE. This point we will treat him with noninvasive oxygen delivery and if required BiPAP only. The patient has not required any BiPAP and does appear slightly better today although he has more severe leukocytosis. We will follow clinically. The patient is improving and has not required BiPAP in fact looks much better than 2 days ago. 3. End-stage renal disease. POA. For dialysis at this time. Hemodialysis per nephrology, including today. 4. Sepsis with hypotension. POA. Resolved 5. Stroke with chronic hemiparesis POA. Follow clinically. 6. DM 2. POA. Correctional lispro and follow clinically. Continue with correctional lispro. The patient has had hyperglycemia we will increase his Lantus and correctional lispro. 7. Elevated troponin. POA. We will trend. I am sure the clinical significance of this given his chronic kidney disease. No further workup. Patient is DO NOT RESUSCITATE. This is confirmed with his family who are at the bedside tonight. He is admitted inpatient status with a length of stay of over 2 nights anticipated Pain Evaluation: Adequate Pain Control Resuscitation Status: DNR/DNI:Do Not Resuscitate/Intubate Time spent 30 minute Iván Durbin MD Jul 31, 2016 12:50 Resuscitation Status: DNR/DNI:Do Not Resuscitate/Intubate Time spent 30 minutes Iván Durbin MD Aug 01, 2016 14:36
[2016-08-01] MEDS: Albuterol 2.5 mg/3 mL Inhalation Solution NEB PRN ×2 (18:07→20:56)
--- NOTE | 2016-08-01 18:35 | NUR ---
Shift Note Pt is non-verbal Tele SR 80-90s. No signs of symptoms of chest pain Pt on 6L NC by RT after nasal pharyngeal suctioning. Suctioning produced creamy sputum/discharge with some streaks of blood. Pt tube feed increased to 45ml/hr. Tolerating rate well. No bowel movement today, Rouse draining minimal creamy yellow urine to gravity Pt has been verbalizing today, words have been unidentifiable. Pt mostly non verbal due to multiple strokes. Will open eyes to verbal and look at the person speaking, will give thumbs up and nod head, pt has also smiled today.
[2016-08-02] VITALS (8 sets, daily range): BP systolic 111–142; BP diastolic 59–80; PULSE 94–101; RESP 16–18; O2SAT 89–94
[2016-08-02] MEDS: Insulin LISPRO 300 Unit/3 mL Inj SUBQ SCH ×4 (03:55→21:47)
[2016-08-02] MEDS: Heparin 5,000 Unit/mL Inj SUBQ SCH ×3 (03:55→16:18)
[2016-08-02] MEDS: 0.9% Sodium Chloride 1,000 ML IV SCH ×2 (03:55→12:30)
--- NOTE | 2016-08-02 06:47 | NUR ---
Nutrition/BGs/BP&HR Pt is now at tube feed goal of 50ml/hr and is tolerating the increase well. Pt's BGs have increased and pt is currently on low dose algorithm insulin. Last 2 BGs were 358 and 464. Pt's BP was low with SBP in the low 90s and pt was ST 100s. Pt NS was increased from 10ml/hr to 50ml/hr and the pt's SBP increased into the 100-110s and the HR decreased into the 90s-100s.
[2016-08-02] MEDS ORDERED: Insulin GLARgine 100 Unit/mL Syringe SUBQ ONE ×2 (10:30→22:20)
--- NOTE | 2016-08-02 10:52 | PCM.PNMED ---
Subjective Date of Service Aug 02, 2016 Subjective Patient's vital signs are stable as morning otherwise vision or change in his condition. Exam Vital Signs Vital Sign - Last Date Time Temp Pulse Resp B/P Pulse Ox O2 Delivery O2 Flow Rate FiO2 08/02/16 08:32 98 18 132/70 92 Nasal Cannula 5.00 08/02/16 03:37 36.8 Intake and Output 08/01/16 08/01/16 08/02/16 Cumulative From/Thru 15:00 23:00 07:00 07/30/16 10:56 - 08/02/16 06:45 Intake Total 92 ml 1401 ml 6695 ml Output Total 0 ml 50 ml 150 ml 625 ml Balance 0 ml 42 ml 1251 ml 6070 ml Intake Oral 0 ml 0 ml 0 ml IV Total 92 ml 368 ml 5247 ml Tube Feeding 972 ml 1357 ml Tube Irrigant 61 ml 91 ml Output Urine Total 50 ml 150 ml 625 ml Ultrafiltrate 0 ml 0 ml # Bowel Movements 1 Exam Patient is comatose and is arousable only to severe stimuli. Lungs clear to auscultations somewhat diminished bilaterally. Heart was regular and rhythmical with a soft systolic murmur. Abdomen soft nontender rebound guarding masses or hepatosplenomegaly. Extremities shows a clubbing cyanosis or edema. Lab and Diagnostics Result Diagram: 07/31/16 0306 07/31/16 0306 X-Rays, CTs and MRIs Right middle lobe infiltrate on chest x-ray Assessment & Plan Impression #1 end-stage renal disease dialysis dependent due to hypertension with hypertensive heart disease hypertensive nephrosclerosis Recommendations #1 intravenous dialysis on Wednesday. VTE Mechanical Devices: Intermittant Pneumatic CD Resuscitation Status: DNR/DNI:Do Not Resuscitate/Intubate Cesar Guy DO Aug 02, 2016 10:51
[2016-08-02 10:59] LABS: Mean Corpuscular Hemoglobin 33.5 pg (27.0-35.0); Mean Corpuscular Volume 103.2 fL (81-100)
--- NOTE | 2016-08-02 12:04 | DRSVH ---
PROCEDURE: X-RAY CHEST ONE VIEW, PORTABLE ([id number]) INDICATIONS: dyspnea TECHNIQUE: One view of the chest was acquired. COMPARISON: [facility], CR, XR CHEST 1VW (PORTABLE), 07/30/2016, 11:10. FINDINGS: Surgical changes and devices: Dual lumen dialysis catheter is stable. Lungs and pleura: No pleural effusions or pneumothorax. Increased opacification the lungs bilateral ly. Cephalization of pulmonary vasculature. Focal opacity in the mesial aspect of the right lung ba se is decreased in size compared to prior examination. Mediastinum: Mediastinal contours appear normal. Heart size is normal. Bones and chest wall: No suspicious bony lesions. Overlying soft tissues appear unremarkable. IMPRESSION: Findings suspicious for pulmonary edema as related to fluid overload. Please correlate with clinical data. Dictated by: Andra Lopez MD, PhD on 08/02/2016 at 12:02 Approved by: Andra Lopez MD, PhD on 08/02/2016 at 12:02
[2016-08-02] MEDS: Ertapenem Inj 500 MG in 0.9% Sodium Chloride 50 ML IV SCH (12:26)
--- NOTE | 2016-08-02 13:30 | PCM.PNMED ---
Subjective Date of Service Aug 02, 2016 Subjective Patient is awake. No distress. He can not speak at baseline. No distress. R less than subjective not obtainable Exam Vital Signs Vital Sign - Last Date Time Temp Pulse Resp B/P Pulse Ox O2 Delivery O2 Flow Rate FiO2 08/02/16 11:40 37.2 94 18 111/59 91 Nasal Cannula 5.00 Intake and Output 08/01/16 08/01/16 08/02/16 Cumulative From/Thru 15:00 23:00 07:00 07/30/16 10:56 - 08/02/16 06:45 Intake Total 92 ml 1401 ml 6695 ml Output Total 0 ml 50 ml 150 ml 625 ml Balance 0 ml 42 ml 1251 ml 6070 ml Intake Oral 0 ml 0 ml 0 ml IV Total 92 ml 368 ml 5247 ml Tube Feeding 972 ml 1357 ml Tube Irrigant 61 ml 91 ml Output Urine Total 50 ml 150 ml 625 ml Ultrafiltrate 0 ml 0 ml # Bowel Movements 1 Exam Patient's no acute distress. Normal skull. Anicteric sclera, conjugate gaze Neck supple Lungs are clear and scattered rhonchi normal effort rate Heart is regular without murmur gallop rub Abdomen is soft, G-tube in place Extremities are free of edema good pedal and radial pulses IVs and Medications Medications Reviewed: Medications were reviewed in detail Lab and Diagnostics Result Diagram: 08/02/16 1016 08/02/16 1016 X-Rays, CTs and MRIs Right middle lobe infiltrate on chest x-ray Assessment & Plan 1. HCAP verses aspiration pneumonia. POA. Sputum indicates Escherichia coli, ESBL. The patient clinically improved on Zosyn. At this point we will renal dose him with ertapenem at 500 mg every 24 hours. He has end-stage renal disease.. Patient is clinically improving. He has decreased oxygen demand. He may be appropriate for discharge next 1-2 days back to custodial facility. We will likely continue a 7-10 day course of ertapenem IV. 2. Acute hypoxic respiratory failure. POA. Patient is DO NOT RESUSCITATE. This point we will treat him with noninvasive oxygen delivery and if required BiPAP only. The patient has not required any BiPAP and does appear slightly better today although he has more severe leukocytosis. We will follow clinically. The patient is improving and has not required BiPAP in fact looks much better than 2 days ago. The patient continues to improve clinically. 3. End-stage renal disease. POA. For dialysis at this time. Hemodialysis per nephrology, next is tomorrow.. 4. Sepsis with hypotension. POA. Resolved 5. Stroke with chronic hemiparesis POA. Follow clinically. 6. DM 2. POA. Correctional lispro and follow clinically. Continue with correctional lispro. The patient has had hyperglycemia and will require more Lantus today. This is suggested. 7. Elevated troponin. POA. We will trend. I am sure the clinical significance of this given his chronic kidney disease. No further workup. VTE Mechanical Devices: Intermittant Pneumatic CD Resuscitation Status: DNR/DNI:Do Not Resuscitate/Intubate Time spent 30 minutes Iván Durbin MD Aug 02, 2016 13:30
--- NOTE | 2016-08-02 18:10 | NUR ---
activity, tube feeds, bg pt. turned q2hr; mepilex in place over sacrum, c/d/i; pt. able to suction mouth after coughing. Pt. at goal with tube feeds at 50 ml/hr and 10 ml flush q4 hrs. BG's 400's; notified; new order received for lantus 10 units.
[2016-08-02] MEDS ORDERED: Insulin GLARgine 100 Unit/mL Syringe SUBQ SCH (21:00)
[2016-08-02] MEDS ORDERED: Insulin Human REGular 300 Unit/3 mL Inj SUBQ ONE (22:20)
[2016-08-03] MEDS: Heparin 5,000 Unit/mL Inj SUBQ SCH ×3 (01:09→16:42)
[2016-08-03] MEDS ORDERED: Insulin Human REGular 300 Unit/3 mL Inj SUBQ ONE ×2 (02:00→02:55)
[2016-08-03 03:55] VITALS: BP 143/83; PULSE 99; RESP 16; O2SAT 91
--- NOTE | 2016-08-03 04:56 | NUR ---
Cardiac/Respiratory/GI/BGs Pt's BP this evening was SBP in the 140s. Tele: STachy 90s-110s. Pt SpO2 decreased to mid 80s so pt was increased from 5L NC to 8L oxymask and the pt's SpO2 is now 91-94%. RT was called to suction pt. Pt has been frequently encouraged to takes deep breaths and cough to clear secretions. Pt's tube feed is at goal rate of 50ml/hr and pt is tolerating the rate well. Pt's BG was 512 and when repeated the BG was 525. Pt was given the 5Units of Lispro per the low-dose algorithm that was in place in the [facility] and was given 10Units of Lantus. MD was notified and ordered that the pt be given 10Units Regular insulin and increase the Lantus to 20Units. Pt received another 10Units of Lantus to equal the 20Units ordered by the MD and received the 10Units of Regular. DC'd Lispro low-dose algorithm and replaced it with the Q6H Regular Insulin Medium Dose Algorithm. Pt's last BG was 441 and pt was given 10Units of Regular insulin at that time per MD's orders.
[2016-08-03 08:00] VITALS: PULSE 97
[2016-08-03 08:23] VITALS: BP 131/84; PULSE 99; RESP 20; O2SAT 98
[2016-08-03] MEDS: Insulin Human REGular 300 Unit/3 mL Inj SUBQ SCH ×3 (08:34→21:47)
[2016-08-03] MEDS ORDERED: Insulin GLARgine 100 Unit/mL Syringe SUBQ ONE (09:25)
--- NOTE | 2016-08-03 10:27 | PCM.PNMED ---
Subjective Date of Service Aug 03, 2016 Subjective The patient's condition is about the same. There was some problems with secretion mobilization however the time my evaluation his saturation of oxygen was 97%. Exam Vital Signs Vital Sign - Last Date Time Temp Pulse Resp B/P Pulse Ox O2 Delivery O2 Flow Rate FiO2 08/03/16 08:36 Supplement Oxygen 08/03/16 08:23 37.5 99 20 131/84 98 8.00 Intake and Output 08/02/16 08/02/16 08/03/16 Cumulative From/Thru 15:00 23:00 07:00 07/30/16 10:56 - 08/03/16 04:49 Intake Total 770 ml 656 ml 8121 ml Output Total 250 ml 225 ml 1100 ml Balance 520 ml 431 ml 7021 ml Intake Oral 0 ml 0 ml 0 ml IV Total 230 ml 104 ml 5581 ml Tube Feeding 505 ml 522 ml 2384 ml Tube Irrigant 35 ml 30 ml 156 ml Output Urine Total 250 ml 225 ml 1100 ml Gastric Drainage Total 0 ml 0 ml Ultrafiltrate 0 ml # Bowel Movements 1 Exam Lungs scattered rhonchi and diminished breath sounds bilaterally. Heart is regular with soft systolic murmur. Abdomen soft with diminished bowel sounds. Extremities show any evidence of edema. Lab and Diagnostics Result Diagram: 08/02/16 1016 08/02/16 1016 X-Rays, CTs and MRIs Right middle lobe infiltrate on chest x-ray Assessment & Plan Impression #1 end-stage renal disease dialysis dependent Recommendations number 1O Sameer ranges for his dialysis in the morning. VTE Mechanical Devices: Intermittant Pneumatic CD Resuscitation Status: DNR/DNI:Do Not Resuscitate/Intubate Cesar Guy DO Aug 03, 2016 10:27
[2016-08-03 10:57] LABS: Mean Corpuscular Hemoglobin 34.1 pg (27.0-35.0); Mean Corpuscular Volume 101.2 fL (81-100)
[2016-08-03 11:28] VITALS: BP 130/81; PULSE 100; RESP 22; O2SAT 89
[2016-08-03] MEDS: Ertapenem Inj 500 MG in 0.9% Sodium Chloride 50 ML IV SCH (13:05)
--- NOTE | 2016-08-03 13:34 | PCM.PNMED ---
Subjective Date of Service Aug 03, 2016 Subjective Patient is not able to communicate because of the chronic stroke. ROS and subjective are not obtainable. Exam Vital Signs Vital Sign - Last Date Time Temp Pulse Resp B/P Pulse Ox O2 Delivery O2 Flow Rate FiO2 08/03/16 11:28 37.4 100 22 130/81 89 Venturi Mask 8.00 Intake and Output 08/02/16 08/02/16 08/03/16 Cumulative From/Thru 15:00 23:00 07:00 07/30/16 10:56 - 08/03/16 04:49 Intake Total 770 ml 656 ml 8121 ml Output Total 250 ml 225 ml 1100 ml Balance 520 ml 431 ml 7021 ml Intake Oral 0 ml 0 ml 0 ml IV Total 230 ml 104 ml 5581 ml Tube Feeding 505 ml 522 ml 2384 ml Tube Irrigant 35 ml 30 ml 156 ml Output Urine Total 250 ml 225 ml 1100 ml Gastric Drainage Total 0 ml 0 ml Ultrafiltrate 0 ml # Bowel Movements 1 Exam Patient's no acute distress. Normal skull. Anicteric sclera, conjugate gaze Neck supple Lungs are clear and scattered rhonchi normal effort rate Heart is regular without murmur gallop rub Abdomen is soft, G-tube in place Extremities are free of edema good pedal and radial pulses Overall the patient appears fairly bright. He is slightly tachypneic today. IVs and Medications Medications Reviewed: Medications were reviewed in detail Lab and Diagnostics Result Diagram: 08/03/16 1015 08/03/16 1015 X-Rays, CTs and MRIs Right middle lobe infiltrate on chest x-ray Assessment & Plan 1. HCAP verses aspiration pneumonia. POA. Sputum indicates Escherichia coli, ESBL. The patient clinically improved on Zosyn. At this point we will renal dose him with ertapenem at 500 mg every 24 hours. He has end-stage renal disease.. Patient is clinically improving. He has decreased oxygen demand. He may be appropriate for discharge next 1-2 days back to [facility] facility. We will likely continue a 7-10 day course of ertapenem IV. No other real change today. He has slightly more check And likely this is resultant mild volume overload from his IV fluids. He is due for dialysis tomorrow and I think that he will be fine until then. 2. Acute hypoxic respiratory failure. POA. Patient is DO NOT RESUSCITATE. This point we will treat him with noninvasive oxygen delivery and if required BiPAP only. The patient has not required any BiPAP and does appear slightly better today although he has more severe leukocytosis. We will follow clinically. The patient is improving and has not required BiPAP in fact looks much better than 2 days ago. The patient continues to improve clinically. No new changes for today. 3. End-stage renal disease. POA. For dialysis at this time. Hemodialysis per nephrology, Wednesday is the next dialysis... 4. Sepsis with hypotension. POA. Resolved 5. Stroke with chronic hemiparesis POA. Follow clinically. This is stable. 6. DM 2. POA. Correctional lispro and follow clinically. Continue with correctional lispro. The patient needs to be hyperglycemic. We will give him additional load of Lantus this morning and increase his evening Lantus. We will continue correctional lispro every 6 hours. 7. Elevated troponin. POA. We will trend. I am sure the clinical significance of this given his chronic kidney disease. No further workup. Pain Evaluation: Adequate Pain Control VTE Mechanical Devices: Intermittant Pneumatic CD Resuscitation Status: DNR/DNI:Do Not Resuscitate/Intubate Time spent 30 minutes Iván Durbin MD Aug 03, 2016 13:34
[2016-08-03 16:30] VITALS: BP 144/85; PULSE 97; RESP 20; O2SAT 100
--- NOTE | 2016-08-03 18:41 | NUR ---
GI//respiratory/BG/activity Pt incontinent of stool this shift. Increasing urinary output, urine appears clear with some sediment. Cardiac: Pt SPO2 90-95% on 8L oxymask. BS continue to be above 300. AM dose of Glargine given with addition of Sliding scale Humulin insulin. Pt very somnolent during shift. Awake for only brief amounts of time before sleeping again.
[2016-08-03] MEDS ORDERED: Insulin GLARgine 100 Unit/mL Syringe SUBQ SCH (21:00)
[2016-08-03 21:16] VITALS: BP 143/83; PULSE 100; RESP 16; O2SAT 95
[2016-08-03] MEDS: Insulin GLARgine 100 Unit/mL Syringe SUBQ SCH (21:32)
[2016-08-04] VITALS (9 sets, daily range): BP systolic 114–146; BP diastolic 70–90; PULSE 94–103; RESP 16–24; O2SAT 91–97
[2016-08-04] MEDS: Heparin 5,000 Unit/mL Inj SUBQ SCH ×3 (00:05→16:27)
--- NOTE | 2016-08-04 02:52 | NUR ---
Vomit/Poss Aspiration Pt noted to have moist/gargled upper airway, LS coarse/ronchi throughout. Around midnight nursing encouraged pt to have pt cough up sputum but pt unable. Sats mid 90s on 8L. RT stated to try yanker suctioning before NT suctioning. Not much came out. Pt encouraged to cough again right after and then vomited maybe 50cc. Pt suctioned immediately and O2 turned up to 10L, RT called to do NT suction. Hard to tell if output was sputum or feeding as prior sputum suctioned in canister had yellowish tint in color too, (per RT this color of sputum has been pt's norm). RT stated original output w/ NT suctioning a little chunky, and rest looked more like sputum d/t mucous consistency. Pt sats 95-97 on 10L oxymask, no further vomiting. gastric residual checked after and was 10mL. notified, order given to give pt one of his PRN neb treatments and to order routine portable chest xray for this morning. Pt weaned back to 8L oxymask, current sats 93-95%, pt asleep, no s/sx of pain/distress Feeding was resumed and next gastric residual checked was 0 cc
[2016-08-04] MEDS: Insulin Human REGular 300 Unit/3 mL Inj SUBQ SCH ×4 (03:34→21:09)
[2016-08-04] MEDS: Albuterol 2.5 mg/3 mL Inhalation Solution NEB PRN (04:12)
[2016-08-04 05:37] LABS: BASOPHILS % (AUTO) 0.2 % (0-3); MONOCYTES % (AUTO) 4.9 % (4-12); Mean Corpuscular Hemoglobin 34.3 pg (27.0-35.0); Mean Corpuscular Volume 102.3 fL (81-100); NEUTROPHILS % (AUTO) 86.1 % (40-74); Platelet Count 241 bil/L (150-400)
--- NOTE | 2016-08-04 08:51 | DRSVH ---
PROCEDURE: X-RAY CHEST ONE VIEW, PORTABLE ([id number]) INDICATIONS: POSSIBLE ASPIRATION TECHNIQUE: One view of the chest was acquired. COMPARISON: [facility], CR, XR CHEST 1VW (PORTABLE), 08/02/2016, 11:12. [facility], CR, XR CHEST 1VW (PORTABLE), 07/30/2016, 11:10. [facility], CR, XR CHEST 1VW (PO RTABLE), 07/20/2016, 10:29. FINDINGS: Surgical changes and devices: Right internal jugular ventral hemodialysis catheter has been placed, t ip of which is in the mid SVC. Lungs and pleura: No pleural effusions or pneumothorax. There is moderate to severe diffuse intersti tial pulmonary opacity, which appears slightly increased compared to 1.1.17. Mediastinum: Mediastinal contours appear normal. Heart size is normal. Bones and chest wall: No suspicious bony lesions. Overlying soft tissues appear unremarkable. IMPRESSION: 1. Increased bilateral edema versus atypical pneumonia. Dictated by: Royer Cowan M.D. on 08/04/2016 at 8:49 Approved by: Royer Cowan M.D. on 08/04/2016 at 8:49
--- NOTE | 2016-08-04 09:09 | NUR ---
Off floor for dialysis Report given to MOC RN and Shakila pickle pumper. Tele notified.
--- NOTE | 2016-08-04 10:14 | PCM.PNMED ---
Subjective Date of Service Aug 04, 2016 Subjective The patient is unchanged. He is scheduled for dialysis today and his orders have been written. Exam Vital Signs Vital Sign - Last Date Time Temp Pulse Resp B/P Pulse Ox O2 Delivery O2 Flow Rate FiO2 08/04/16 09:05 Supplement Oxygen 08/04/16 08:26 36.8 103 24 146/90 93 8.00 Intake and Output 08/03/16 08/03/16 08/04/16 Cumulative From/Thru 15:00 23:00 07:00 07/30/16 10:56 - 08/04/16 06:23 Intake Total 891 ml 0 ml 9012 ml Output Total 250 ml 150 ml 1500 ml Balance 641 ml -150 ml 7512 ml Intake Oral 0 ml 0 ml 0 ml IV Total 185 ml 5766 ml Tube Feeding 671 ml 3055 ml Tube Irrigant 35 ml 191 ml Output Urine Total 250 ml 150 ml 1500 ml Gastric Drainage Total 0 ml Ultrafiltrate 0 ml # Bowel Movements 1 Exam Neck is supple without adenopathy thyromegaly or jugular venous distention. Lungs showed some scattered rhonchi. Heart is regular with a soft systolic murmur. Abdomen soft without any tenderness rebound guarding masses or hepatosplenomegaly. Extremities do not transiting clubbing cyanosis or edema. Lab and Diagnostics Result Diagram: 08/04/16 0400 08/04/16 0400 X-Rays, CTs and MRIs Right middle lobe infiltrate on chest x-ray Assessment & Plan Impression #1 end-stage renal disease dialysis dependent Recommendations #1 patient to be dialyzed today. 4 hours for routine treatment on a 3 potassium bath. He will be given 1200 heparin and 500 in our for anticoagulation and attempt to 3-4 L of fluid off as tolerated. From my point of view he can be discharged whenever primary team's says it is appropriate. VTE Mechanical Devices: Intermittant Pneumatic CD Resuscitation Status: DNR/DNI:Do Not Resuscitate/Intubate Cesar Guy DO Aug 04, 2016 10:14
--- NOTE | 2016-08-04 13:06 | NUR ---
NUTRITION FOLLOW-UP: ASSESS: 55 YO male admitted to CCU with hypoxia, hypotension and aspiration pneumonia. Pt resides at [facility] and requires PEG enteral feeding to meet his nutrient needs. Per [facility], home enteral feeding rate is 50 ml/hr of Nepro, and patient is NPO at baseline, but according to family, pt has been trying to eat again. Enteral feeding advanced to goal, appears well tolerated. PMHX: ESRD requiring hemodialysis, T1DM, CVA, TBI, Seizures, [place], HTN, HLD. LABS: Reviewed. K+ 3.4, BUN 65, Cr 4.81, Glu 185, Alb 2.4 MEDS: Reviewed. Insulin. GI: 1 BM 08/01. SKIN: Enrike 9. Per [employer], there is a stage 2 pressure injury right buttock. HOME PEG TF: Nepro at 50ml/hr to provide 2070kcal/day and 93g pro (100% estimated needs). CURRENT TF: Nepro rate at goal rate 50 ml/hr. If on IVF, flush 40ml q 4 hrs. If IVF off, fluid flush 100ml q 4 hrs. WT:64.0 kg, BMI 21.5 kg/m2. Admit weight: 62.5 kg, BMI 21.0 kg/m2. DIET: NPO ESTIMATED NEEDS: Dialysis Calories: 0875-6692 kcal/day (30-35 kcal/kg BW) Protein: 75-125 g/day (1.2-2.0 g/kg BW) Fluids: 0770-0563 ml/day (20-25 cc/kg) or per labor supervisor NUTRITION DIAGNOSIS: 1) Chew/swallow difficulty related to chronic dysphagia as evidence by need for snf TF via PEG and NPO per ST - [facility]. 2) Increased nutrient needs related to increased demand for nutrients as evidence by pt on HD with chronic wounds - [facility]. NUTRITION INTERVENTION: 1) Continue current TF as ordered. MONITOR/EVALUATE: Enteral feeding tolerance, wt, GI, labs, POC, nutrition status. Follow per moderate nutrition risk guidelines.
--- NOTE | 2016-08-04 14:05 | NUR ---
Dialysis Complete Pt completed dialysis. Per report from accountant assistant removed 1.8L. [employer] notified.
--- NOTE | 2016-08-04 14:11 | NUR ---
Dialysis note 4 hr HD tx. 1900ml net UF removed. UF rate adj for BP changes. See DTR for complete vitals. SBP in the 80's-low 100's. Off BP 101/68. Isolation droplet/contract for EColi sputum Pt appears comfortable, non-verbal, turned Q2. Tube feeds running. QB 500 thru R tunn catheter. Dsg c/d/i. Dwelled with 1000/1 U Heparin and returned to floor stable.
[2016-08-04] MEDS: Ertapenem Inj 500 MG in 0.9% Sodium Chloride 50 ML IV SCH (14:13)
--- NOTE | 2016-08-04 15:48 | NUR ---
Social Work Note: Continued Discharge Planning Data& Assessment:Per MD in morning rounds, pt is slowly medically improving and getting closer to being medically ready to discharge. Pt oxygen needs are decreasing and pt no longer requires Bipap at this time. SW to continue to follow for possible IV abx at discharge, SW requested if this is prescribed, if it could be arranged to be administered during dialysis. SW to continue to follow for discharge planning needs. No other discharge needs identified at this time. 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 SW to continue to follow to r/o IV abx. No other discharge needs identified at this time. MIGUEL Lema
--- NOTE | 2016-08-04 17:11 | PCM.PNMED ---
Subjective Date of Service Aug 04, 2016 Subjective Patient is unable to communicate. No ROS or subjective or obtainable. He appears to be comfortable. Exam Vital Signs Vital Sign - Last Date Time Temp Pulse Resp B/P Pulse Ox O2 Delivery O2 Flow Rate FiO2 08/04/16 09:05 Supplement Oxygen 08/04/16 08:26 36.8 103 24 146/90 93 8.00 Intake and Output 08/03/16 08/03/16 08/04/16 Cumulative From/Thru 15:00 23:00 07:00 07/30/16 10:56 - 08/04/16 06:23 Intake Total 891 ml 0 ml 9012 ml Output Total 250 ml 150 ml 1500 ml Balance 641 ml -150 ml 7512 ml Intake Oral 0 ml 0 ml 0 ml IV Total 185 ml 5766 ml Tube Feeding 671 ml 3055 ml Tube Irrigant 35 ml 191 ml Output Urine Total 250 ml 150 ml 1500 ml Gastric Drainage Total 0 ml Ultrafiltrate 0 ml # Bowel Movements 1 Exam Alert. No distress. Neck is supple Lungs are clear with scattered rhonchi normal effort. Heart is regular without murmur. Abdomen soft nondistended, PEG tube is in place. Extremities are free of edema with good pedal pulses. Skin is free of rash Lab and Diagnostics Result Diagram: 08/04/16 0400 08/04/16 0400 X-Rays, CTs and MRIs Right middle lobe infiltrate on chest x-ray Assessment & Plan 1. HCAP verses aspiration pneumonia. POA. Sputum indicates Escherichia coli, ESBL. The patient clinically improved on Zosyn. At this point we will renal dose him with ertapenem at 500 mg every 24 hours. He has end-stage renal disease.. Patient is clinically improving. He has decreased oxygen demand. He may be appropriate for discharge next 1-2 days back to long-term facility. We will likely continue a 7-10 day course of ertapenem IV. No other real change today. He has slightly more check And likely this is resultant mild volume overload from his IV fluids. The patient appears to be slowly improving clinically. He did have a fever yesterday. We will continue him on his current regimen but Q potentially transfer him back to long-term facility in the next 1-2 days and continue IV ertapenem there. 2. Acute hypoxic respiratory failure. POA. Patient is DO NOT RESUSCITATE. This point we will treat him with noninvasive oxygen delivery and if required BiPAP only. The patient has not required any BiPAP and does appear slightly better today although he has more severe leukocytosis. We will follow clinically. The patient is improving and has not required BiPAP in fact looks much better than 2 days ago. The patient continues to improve clinically. No new changes for today. The patient has been stable and required no additional ventilatory support. 3. End-stage renal disease. POA. For dialysis at this time. Hemodialysis per nephrology, he dialyzed today. 4. Sepsis with hypotension. POA. Resolved 5. Stroke with chronic hemiparesis POA. Follow clinically. This is stable. 6. DM 2. POA. Correctional lispro and follow clinically. Continue with correctional lispro. The patient needs to be hyperglycemic. We will give him additional load of Lantus this morning and increase his evening Lantus. We will continue correctional lispro every 6 hours. 7. Elevated troponin. POA. We will trend. I am sure the clinical significance of this given his chronic kidney disease. No further workup. Pain Evaluation: Adequate Pain Control VTE Mechanical Devices: Intermittant Pneumatic CD VTE Mechanical Devices: Intermittant Pneumatic CD Resuscitation Status: DNR/DNI:Do Not Resuscitate/Intubate Time spent 30 minutes Iván Durbin MD Aug 04, 2016 17:11
[2016-08-04] MEDS: Insulin GLARgine 100 Unit/mL Syringe SUBQ SCH (21:10)
[2016-08-05 00:23] VITALS: BP 105/65; PULSE 94; RESP 24; O2SAT 95
[2016-08-05] MEDS: Heparin 5,000 Unit/mL Inj SUBQ SCH ×2 (00:27→08:24)
[2016-08-05] MEDS: Insulin Human REGular 300 Unit/3 mL Inj SUBQ SCH ×3 (02:14→15:07)
[2016-08-05 04:49] VITALS: BP 104/63; PULSE 91; RESP 20; O2SAT 99
--- NOTE | 2016-08-05 06:14 | NUR ---
O2/Diarrhea Pt sats maintaining mid to high 90s, O2 titrated down to 6.5L oxymask at one point and sats maintained. PRN suctioning done with yanker and once RT did NT suctioning at beginning of shift. Pt sats down to 90-91 this morning, O2 turned back to 8L, sats now 94-95%. Pt's upper airway sounds gargled and he is not able to clear secretions, yanker not forced too far as pt gags easily and vomited a little during shift report. RT called to try NT suctioning again this morning when able. Pt having diarrhea throughout night. This has been irritating to pt's sore on his buttock. Pt checked and cleaned w/ change in mepilex often. informed of new diarrhea in pt w/ tube feedings and antibiotics, in case any stool samples should be sent, no orders given at this time.
[2016-08-05 08:14] VITALS: BP 127/76; PULSE 90; RESP 24; O2SAT 97
[2016-08-05 10:22] VITALS: PULSE 92
--- NOTE | 2016-08-05 10:38 | NUR ---
Spoke with Deepak in admissions at [facility] and he said yes they can accept patient today as long as patient can get dose of ABX here before discharge. They can accommodate up to 8L of oxygen as well. Updated MIGUEL and Addendum: 08/05/16 at 1501 by HORACE SCHNEIDER CM Arranged BLS transport via [facility] for 1600 returning to [facility] and they know patient is on 6.5 liters of oxygen. Updated MIGUEL
--- NOTE | 2016-08-05 11:40 | PCM.DIMED ---
Discharge Instructions Date of Service Aug 05, 2016 Dates of Hospitalization Jul 30, 2016 at 15:03 Discharge Diagnosis Discharge Diagnosis 1. Aspiration pneumonia, improving. 2. Sepsis with hypotension. Improved. 3. End-stage renal disease, POA. Continues with dialysis. 4. Diabetes mellitus 2, controlled. 5. Remote CVA with hemiparesis, POA. Stable 6. Acute hypoxic respiratory failure, improved Diet Other (PEG tube for tube feeds, nothing by mouth otherwise) Activity No restrictions Call your provider Fever or Chills, Shortness of breath Patient Instructions 1. Resume tube feedings at C4. 2. Ertapenem 500 mg IV daily through Aug 08. Iván Durbin MD Aug 05, 2016 11:40
[2016-08-05] MEDS ORDERED: ERTA1VIA2 IV (11:47)
[2016-08-05 11:56] VITALS: BP 136/80; PULSE 91; RESP 18; O2SAT 95
[2016-08-05 11:57] LABS: Mean Corpuscular Hemoglobin 33.8 pg (27.0-35.0); Mean Corpuscular Volume 101.7 fL (81-100)
[2016-08-05] MEDS: Ertapenem Inj 500 MG in 0.9% Sodium Chloride 50 ML IV SCH (12:13)
--- NOTE | 2016-08-05 15:18 | NUR ---
Social Work Note: Discharge Data& Assessment: Per pt is medically improved and ready to discharge back to [facility] as a [facility] care pt via BLS at 4:00p.m. Sameer Person is a 55 year old male admitted on 07/30/2017 for ESRD, Sepsis and aspiration pneumonia. Per MD pt is medically improved and ready to discharge on IV ertapenem. Pt sister, pt, MD, RN and facility all updated and agreeable to plan. Pt remains on . Ambulance company aware. Pt sister communicated understanding that pt meets criteria for BLS transportation at this time but if for some reason Medicare does not agree, the pt would be liable for the cost. Pt and pt sister deny any other needs. No other discharge needs identified. All updated and agreeable to plan. Plan: Per pt is medically improved and ready to discharge back to [facility] as a [facility] care pt via BLS at 4:00p.m. Pt and pt sister deny any other needs. No other discharge needs identified. All updated and agreeable to plan. MIGUEL Lema
--- NOTE | 2016-08-05 16:21 | PCM.PNMED ---
Subjective Date of Service Aug 05, 2016 Subjective Nursing reports diarrhea overnight. No blood noted. Patient remains unchanged. He is nonverbal but follows commands appropriately with hand shaking and closing /opening eyes upon command. He tolerated dialysis with no complications yesterday. I/O was 2518/2049 yesterday. Exam Vital Signs Vital Sign - Last Date Time Temp Pulse Resp B/P Pulse Ox O2 Delivery O2 Flow Rate FiO2 08/05/16 11:56 36.7 91 18 136/80 95 Room Air 08/05/16 08:14 8.00 Intake and Output 08/04/16 08/04/16 08/05/16 Cumulative From/Thru 15:00 23:00 07:00 07/30/16 10:56 - 08/05/16 06:49 Intake Total 749 ml 770 ml 465 ml 54675 ml Output Total 1900 ml 50 ml 3450 ml Balance -1151 ml 770 ml 415 ml 7546 ml Intake Oral 0 ml 0 ml IV Total 129 ml 165 ml 18 ml 6078 ml Tube Feeding 559 ml 540 ml 407 ml 4561 ml Tube Irrigant 61 ml 65 ml 40 ml 357 ml Output Urine Total 50 ml 1550 ml Gastric Drainage Total 0 ml Ultrafiltrate 1900 ml 1900 ml # Bowel Movements 4 5 Exam General: nonverbal, somnolent, chronically-ill appearance, no acute distress. Neck: supple without adenopathy thyromegaly or jugular venous distention. Lungs: coarse breath sounds with some scattered rhonchi. Heart: regular rate and rhythm with a soft systolic murmur. Abdomen: soft without any tenderness rebound guarding masses or hepatosplenomegaly. Extremities: no clubbing, cyanosis, or edema. IVs and Medications Medications Reviewed: Medications were reviewed in detail Lab and Diagnostics Result Diagram: 08/05/16 1150 08/05/16 1150 X-Rays, CTs and MRIs Right middle lobe infiltrate on chest x-ray Assessment & Plan 55 yo M with significant PMH of ESRD on HD TTS, CVA, bedridden status, dysphagia s/p G-tube placement, DM-1, HTN who was sent due to decreased LOC and desat O2. 1. ESRD, chronic. - can be discharged whenever primary team's says it is appropriate. - Continue HD dialysis outpatient. 2. DM 2. POA. - continue home medications on discharge. Pain Evaluation: Adequate Pain Control VTE Mechanical Devices: Intermittant Pneumatic CD Resuscitation Status: DNR/DNI:Do Not Resuscitate/Intubate Attending Statement Patient was seen and examined with the family development extension specialist discussed the patient's plan. he can be discharged. Tatiana Li DO Aug 05, 2016 16:21 Cesar Guy DO Aug 05, 2016 16:31
--- NOTE | 2016-08-05 16:31 | NUR ---
Discharge Pt discharged for transport by [facility] ambulance to [facility] [place], [place]. Pt IV's dc'd intact. Telemetry was removed and tech notified. Pt tubefeed was discontinued, tubing was flushed and tube was secured for transport. RN to RN report was given to Pauline at [facility]. Pt's belongings were gathered for transport with patient. Report was given to EMT's for transport.
--- NOTE | 2016-09-07 13:23 | PCM.DC.MED ---
Discharge Summary Date of Service Aug 05, 2016 Dates of Hospitalization Date of Hospital Admission Jul 30, 2016 at 15:03 Date of Discharge: Sep 05, 2016 Providers: Admitting Physician: Didier Durbin MD Primary Care Physician: Nopcp Attending Physician: Didier Durbin MD Diagnosis at Time of Discharge Diagnosis at Time of Discharge 1. Aspiration pneumonia, improving. 2. Sepsis with hypotension. Improved. 3. End-stage renal disease, POA. Continues with dialysis. 4. Diabetes mellitus 2, controlled. 5. Remote CVA with hemiparesis, POA. Stable 6. Acute hypoxic respiratory failure, improved Consultations Nephrology, Dr. Guy Procedures XRay, CTs & MRIs Right middle lobe infiltrate on chest x-ray Other Diagnostics None Brief History This is a unfortunate 55-year-old, who is nonverbal secondary to a remote CVA. He also has end-stage renal disease and was due for dialysis today. He is accompanied by his caregiver. She notes that he has had recurrent aspiration pneumonia. Apparently had recently become less responsive and was brought to the hospital. In the ER he was found to be hypoxic and hypotensive. The patient was resuscitated and placed in nonrebreather. Chest x-ray indicated a probable aspiration pneumonia. Rouse was placed in the ER which indicated at purulent urine. He was started on empiric therapy for HCAP. The patient has been persistently hypotensive requiring ongoing fluid resuscitation. His white count 25,000. He was due for dialysis today however attention he will not be able to have dialysis. Nephrology has been consulted and dirty seen the patient. Typically he was dialyzed in Wednesday and Wednesday. Because he is nonverbal no other history of MRSA or review of systems is available. Hospital Course 55 yo M with significant PMH of ESRD on HD TTS, CVA, bedridden status, dysphagia s/p G-tube placement, DM-1, HTN who was sent due to decreased LOC and desat O2. 1. ESRD, chronic. - can be discharged whenever primary team's says it is appropriate. - Continue HD dialysis outpatient. 2. DM 2. POA. - continue home medications on discharge. Hospital course: Patient was admitted for recurrent aspiration pneumonia. He was treated for pna with IV Abx. He was dialyzed while in the hospital and improved substantially. At the time of discharge he was felt to be stable for discharge. Exam As documented. Exam Alert and oriented, Lungs clear CV RRR, no MGR Abdomen soft, NT No edema PEG Test 07/30/16 11:10 07/30/16 11:50 07/30/16 13:10 07/31/16 03:06 Lactic Acid Level 2.0mmol/L (0.4-2.0) Pro-B-Type Natriuretic Peptide 4201pg/mL (0-121) Lipase 7U/L (13-60) Urine Color Yellow (YELLOW) Urine Appearance Hazy (CLEAR,HAZY) Urine pH 7.0 (5.0-8.0) Urine Specific [place] 1.020 (1.003-1.035) Urine Protein 100mg/dL (NEG,TRACE) Urine Glucose (UA) 500mg/dL (NEGATIVE) Urine Ketones Negativemg/dL (NEGATIVE) Urine Occult Blood Small (NEGATIVE) Urine Nitrite Negative (NEGATIVE) Urine Bilirubin Negative (NEGATIVE) Urine Urobilinogen Normalmg/dL (NORMAL) Urine Leukocyte Esterase Trace (NEGATIVE) Urine RBC 0-2/hpf (0-2) Urine WBC >50/hpf (0-5) Urine Epithelial Cells Occasional/hpf (NONE-MOD) Urine Crystals None seen (NONE SEEN) Urine Bacteria Few/hpf (NONE-FEW) Urine Hyaline Casts None/lpf (NONE) Urine Granular Casts None seen (NONE SEEN) Urine Waxy Casts None seen (NONE SEEN) Urine Red Blood Cell Casts None seen (NONE SEEN) Urine White Blood Cell Casts None seen (NONE SEEN) Urine Mucus None seen (None Seen) Urine Trichomonas None seen (NONE SEEN) Urine Yeast Few (NONE SEEN) Urinalysis Comment None Urine Culture Reflexed Indicated Prothrombin Time 10.4sec (8.1-12.5) Prothromb Time International Ratio 0.97ratio Phosphorus Level 6.0mg/dL (2.5-4.9) Magnesium Level 2.3mg/dL (1.6-2.6) Troponin T 0.082ug/L (0.0-0.011) Test 08/02/16 02:30 08/04/16 04:00 08/05/16 11:50 Procalcitonin 7.12ng/mL (See Comment) Neutrophils (%) (Auto) 86.1% (40-74) Lymphocytes (%) (Auto) 6.3% (14-46) Monocytes (%) (Auto) 4.9% (4-12) Eosinophils (%) (Auto) 2.0% (0-5) Basophils (%) (Auto) 0.2% (0-3) White Blood Count 19.0th/mm3 (3.8-10.1) Red Blood Count 3.61mil/mm3 (4.40-5.80) Hemoglobin 12.2g/dL (13.8-17.2) Hematocrit 36.7% (41.0-50.0) Mean Corpuscular Volume 101.7fL (81-100) Mean Corpuscular Hemoglobin 33.8pg (27.0-35.0) Mean Corpuscular Hemoglobin Concent 33.2% (32.0-37.0) Red Cell Distribution Width 13.6% (12.3-15.4) Platelet Count 192bil/L (150-400) Sodium Level 137mEq/L (134-144) Potassium Level 4.0mEq/L (3.5-5.2) Chloride Level 96mEq/L (97-108) Carbon Dioxide Level 25mmol/L (18-29) Blood Urea Nitrogen 46mg/dL (6-24) Creatinine 3.20mg/dL (0.76-1.27) Estimat Glomerular Filtration Rate 22mL/min (>59) Glucose Level 202mg/dL (60-99) Calcium Level 8.5mg/dL (8.5-10.1) Total Bilirubin 0.3mg/dL (0.0-1.2) Aspartate Amino Transf (AST/SGOT) 60U/L (0-50) Alanine Aminotransferase (ALT/SGPT) 44U/L (0-44) Alkaline Phosphatase 146U/L (25-150) Total Protein 6.8g/dL (6.4-8.4) Albumin 2.8g/dL (3.4-5.0) Microbiology Results Bood and sputum Cx negative at tie of discharge Discharge Medications Discharge Medications ([Nepro Tube feed]) 50 CC PEG Hr (Reported) Atorvastatin Calcium (Atorvastatin Calcium) 10 Mg Tablet 5 MG PEG HS (Reported) Calcium Carbonate (Calcium Carbonate) 500 Mg/5 Ml Oral.susp 500 MG PEG TID ( Reported) Cholecalciferol (Vitamin D3) (Vitamin D3) 5,000 Unit Tablet 5,000 UNIT PEG DAILY (Reported) Ertapenem Sodium (Invanz) 1 Gm Vial.port 500 MG IV DAILY Prescribed by: DIDIER DURBIN MD Esomeprazole Magnesium (Nexium Powder Pack) 40 Mg Suspdr.pkt 40 MG PEG DAILY ( Reported) Fluoxetine Oral Soln (Fluoxetine Oral Soln) 20 Mg/5 Ml Solution 60 MG PEG DAILY (Reported) Lactulose (Lactulose) 20 Gm/30 Ml Solution 20 GM PEG DAILY (Reported) Levothyroxine (Levothyroxine) 150 Mcg Tablet 150 MCG PO DAILY (Reported) Lisinopril (Lisinopril) 10 Mg Tablet 10 MG PEG DAILY (Reported) NPH, Human Insulin Isophane (HUMulin-N U100 Insulin Vial) 100 Unit/1 Ml Vial 0- 7 UNIT SUBQ q6hrs (Reported) Na Phos,M-B/K Phos,Monob (K-Phos #2 Tablet) 1 Each Tablet 1 EACH PEG BID ( Reported) Phosphorus (K-Phos Neutral Tablet) 250 Mg Tablet 250 MG PEG BID (Reported) As needed Acetaminophen (Acetaminophen) 325 Mg Tablet 650 MG PEG Q4H PRN PRN pain/fever ( Reported) Baclofen (Baclofen) 10 Mg Tablet 5 MG PO q4 hours PRN PRN For Hiccups (Reported ) Bisacodyl (Dulcolax Rectal) 10 Mg Supp.rect 10 MG RC DAILY PRN PRN For Constipation (Reported) Dextran 70/Hypromellose/Pf (Artificial Tears Drops) 1 Each Droperette 2 DROP BOTH_EYES DAILY PRN PRN dry eyes (Reported) Glucagon,Human Recombinant (Glucagen) 1 Mg/1 Ml Vial 0.5-1 MG IJ DAILY PRN PRN blood glucose abnormality (Reported) Hydrocodone-Acetaminophen 5-325 mg (Hydrocodone-Acetaminophen 5-325 mg) 1 Each Tablet 1-2 TABLET PEG Q4H PRN PRN For Pain (Reported) Insulin Aspart (NovoLOG U100 Insulin Vial) 100 Unit/Ml Mdv 0-12 UNITS SUBQ TID PRN PRN sliding scale (Reported) Mineral Oil/I-Prop Myr/Water (Hydrocerin Lotion) 236 Ml Lotion 1 APPLIC EXT Q6H PRN PRN dry skin (Reported) Ondansetron (Ondansetron) 4 Mg Tablet 8 MG TUBE q8 hours PRN PRN For Nausea ( Reported) Followup Plan Disposition: SNF Discharge Diet: Other (PEG tube for tube feeds, nothing by mouth otherwise) Discharge Activity: No restrictions Patient Instructions 1. Resume tube feedings at C4. 2. Ertapenem 500 mg IV daily through Aug 08. Time spent 40 minutes Didier Durbin MD Sep 07, 2016 13:23
== END 2016-08-05 16:10 | DRG 871 ==
LOC: SED 10:29 → PCC 15:03
PROVIDERS: ADMIT Hospitalist; ATTEND Hospitalist
PROC: 3E0G76Z Introduction of Nutritional Substance into Upper GI, Via Natural or Artificial Opening (ICD-10-PCS; 2016-07-31)
PROC: 0HD8XZZ Extraction of Buttock Skin, External Approach (ICD-10-PCS; 2016-07-31)
PROC: 5A1D60Z (ICD-10-PCS; principal; 2016-08-04)
DX: A41.9 Sepsis, unspecified organism (principal); N18.6 End stage renal disease; J69.0 Pneumonitis due to inhalation of food and vomit; J96.01 Acute respiratory failure with hypoxia; I12.0 Hypertensive chronic kidney disease with stage 5 chronic kidney disease or end stage renal disease; G81.94 Hemiplegia, unspecified affecting left nondominant side; Z66 Do not resuscitate; E03.9 Hypothyroidism, unspecified; G40.909 Epilepsy, unspecified, not intractable, without status epilepticus; D63.1 Anemia in chronic kidney disease; E11.319 Type 2 diabetes mellitus with unspecified diabetic retinopathy without macular edema; I69.991 Dysphagia following unspecified cerebrovascular disease; I69.920 Aphasia following unspecified cerebrovascular disease; E78.5 Hyperlipidemia, unspecified; E11.21 Type 2 diabetes mellitus with diabetic nephropathy; F32.9 Major depressive disorder, single episode, unspecified; K21.9 Gastro-esophageal reflux disease without esophagitis; E11.40 Type 2 diabetes mellitus with diabetic neuropathy, unspecified; Z74.01 Bed confinement status; Z79.4 Long term (current) use of insulin; Z99.2 Dependence on renal dialysis; Z87.820 Personal history of traumatic brain injury

== ENCOUNTER 2016-08-06 10:16 | Emergency (ER) | payer MEDICARE, MEDICAID ==
[~2016-08-06 10:16] MED LIST changes: +CALC500O PEG; -CALCIUM PEG; +ERTA1VIA2 IV; -ESOM40CA41 PEG; +ESOM40SU PEG; -KPHOS TUBE; +LACT10SO60 PEG; -LEVO100T6 PEG; +LEVO150T5 PO; -LISI-567 TUBE; +LISI10TA PEG; +NA P1TAB PEG; +[UNRECOGNIZED DRUG - CODE] EXT; +[UNRECOGNIZED DRUG - OTHER] PEG
--- NOTE | 2016-08-06 10:27 | ED.REPORT ---
HPI-General Illness Date of Service Aug 06, 2016 ED Provider: Dr. Lockhart Pt is a 55 y/o male w/ a hx of nonverbal secondary to remote CVA, recurrent aspiration pneumonia secondary to chronic dysphagia, ESRD on hemodialysis (T/R/S ), type 1 diabetes, V-fib cardiac arrest, anoxic brain injury, HTN, ulcerative esophagitis, presenting to the ED via EMS from [facility] due to decreased LOC today. He was recently admitted 07/30/16 and discharged 08/05/16 due to aspiration pneumonia in the setting of becoming increasingly unresponsive. At that time he was hypoxic and hypotensive and required aggressive fluid resuscitation. The discharge summary from that visit has not yet been written at the time of interview. He is somnolent and nonverbal, nobody is at bedside, therefore no further history able to be obtained. According to his SNF. His baseline is being able to communicate by using thumbs up or down. Nursing Notes Stated Complaint: DECREASED LOC Nursing Notes Reviewed: Yes Allergies: Coded Allergies: No Known Allergies (Verified , 05/14/16) Scheduled ([Nepro Tube feed]) 50 CC PEG Hr Atorvastatin Calcium (Atorvastatin Calcium) 10 Mg Tablet 5 MG PEG HS Calcium Carbonate (Calcium Carbonate) 500 Mg/5 Ml Oral.susp 500 MG PEG TID Cholecalciferol (Vitamin D3) (Vitamin D3) 5,000 Unit Tablet 5,000 UNIT PEG DAILY Ertapenem Sodium (Invanz) 1 Gm Vial.port 500 MG IV DAILY Esomeprazole Magnesium (Nexium Powder Pack) 40 Mg Suspdr.pkt 40 MG PEG DAILY Fluoxetine Oral Soln (Fluoxetine Oral Soln) 20 Mg/5 Ml Solution 60 MG PEG DAILY Lactulose (Lactulose) 20 Gm/30 Ml Solution 20 GM PEG DAILY Levothyroxine (Levothyroxine) 150 Mcg Tablet 150 MCG PO DAILY Lisinopril (Lisinopril) 10 Mg Tablet 10 MG PEG DAILY NPH, Human Insulin Isophane (HUMulin-N U100 Insulin Vial) 100 Unit/1 Ml Vial 0- 7 UNIT SUBQ q6hrs Na Phos,M-B/K Phos,Monob (K-Phos #2 Tablet) 1 Each Tablet 1 EACH PEG BID Phosphorus (K-Phos Neutral Tablet) 250 Mg Tablet 250 MG PEG BID Scheduled PRN Acetaminophen (Acetaminophen) 325 Mg Tablet 650 MG PEG Q4H PRN PRN pain/fever Baclofen (Baclofen) 10 Mg Tablet 5 MG PO q4 hours PRN PRN For Hiccups Bisacodyl (Dulcolax Rectal) 10 Mg Supp.rect 10 MG RC DAILY PRN PRN For Constipation Dextran 70/Hypromellose/Pf (Artificial Tears Drops) 1 Each Droperette 2 DROP BOTH_EYES DAILY PRN PRN dry eyes Glucagon,Human Recombinant (Glucagen) 1 Mg/1 Ml Vial 0.5-1 MG IJ DAILY PRN PRN blood glucose abnormality Hydrocodone-Acetaminophen 5-325 mg (Hydrocodone-Acetaminophen 5-325 mg) 1 Each Tablet 1-2 TABLET PEG Q4H PRN PRN For Pain Insulin Aspart (NovoLOG U100 Insulin Vial) 100 Unit/Ml Mdv 0-12 UNITS SUBQ TID PRN PRN sliding scale Mineral Oil/I-Prop Myr/Water (Hydrocerin Lotion) 236 Ml Lotion 1 APPLIC EXT Q6H PRN PRN dry skin Ondansetron (Ondansetron) 4 Mg Tablet 8 MG TUBE q8 hours PRN PRN For Nausea General Time Seen by MD: 10:26 Chief Complaint Other Hx Obtained From: EMS Unable to Obtain Hx: Patient condition Arrived By: Ambulance Past Medical History Past Medical History Notes: Code Status: DNR, DNI Pt is non-verbal and non-ambulatory at baseline post stroke Past Medical History 1. Type 1 diabetes mellitus, poorly controlled, with recurrent episodes of DKA. 2. Diabetic neuropathy. 3. Diabetic retinopathy. 4. Diabetic nephropathy. 5. End-stage renal disease, on hemodialysis (Wednesday, , and Saturdays). 6. Depression. 7. Hemorrhagic stroke in 2008 and 2014 with resulting dysphagia, expressive aphasia, and left-sided weakness. 8. Dysphagia with recurrent aspiration on modified diet (pureed with thickened liquids). 9. Cardiac arrest in 2008, VFib, thought secondary to amphetamines, hyperkalemia and DKA. 10. Seizure secondary to ruptured aneurysm/hemorrhagic stroke in 2008. 11. Hypothyroidism. 12. Anoxic brain injury secondary to cardiac arrest. 13. Hepatitis C per records. 14. Hepatitis B core antibody positive. 15. History of substance abuse. 16. Hypertension. 17. Ulcerative esophagitis with hematemesis in June 2014, with upper endoscopy at that time. 18. GERD 19. Recurrent aspiration pneumonia Past Surgical History Left foot surgery Dialysis shunt Left arm fistula placed 06/29/16 Smoking History Former Smoker Social History Alcohol Use: Denies alcohol use Drug Use: In recovery, Meth Other Social History: Lives in halfway Ambulatory Status Independent Review of Systems Unable to Obtain ROS Mental status Physical Exam Vital Signs Vital Signs Date Time Temp Pulse Resp B/P Pulse Ox O2 Delivery O2 Flow Rate FiO2 08/06/16 10:31 36.6 82 16 125/76 98 Nasal Cannula 4 Initial VS: Reviewed, Vital signs normal ENT: Mucous membranes moist, Conjunctiva normal, No scleral icterus General/Constitutional: No acute distress Appearance / Presentation: Positive: Cachectic Somnolent Head / Eyes: Atraumatic, Normocephalic, PERRL (2mm bilat) Respiratory / Chest: Atraumatic, No respiratory distress, No retractions Spontaneously breathing with oxygen saturation of 96% on 5L O2 of nasal cannula. Very coarse breath sounds bilaterally Dialysis catheter present in the right anterior chest wall, clean dressing with no signs of infection Cardiovascular: Heart rate NL, Regular rhythm, Heart sounds NL, No gallop, No murmurs, No rubs, Cap refill not delayed, Peripheral circulation NL Abdomen: Atraumatic, Soft, Non-tender, No palpable mass Abdominal G-tube present in the LUQ. Clean dressings with no signs of infection. Lower Extremity / Pelvis / MS: Atraumatic, No deformity, Neurologic intact, Vascular intact Wasting of the peripheral muscles Contractures about the bilateral feet Skin: Atraumatic, No rash, Warm, Dry Rash / Lesion Notes: No rash about groin region NEURO: Somnolent Does not participate in exam Chronic appearing contractures of lower extremities No gross lateralizing deficits Extremely limited due to underlying deficits and current impairment Interpretation & Diagnostics Lab Results Interpretation Result Diagram: 08/06/16 1106 08/06/16 1106 Test 08/06/16 11:06 White Blood Count 15.5th/mm3 (3.8-10.1) Red Blood Count 3.30mil/mm3 (4.40-5.80) Hemoglobin 11.0g/dL (13.8-17.2) Hematocrit 33.7% (41.0-50.0) Mean Corpuscular Volume 102.1fL (81-100) Mean Corpuscular Hemoglobin 33.3pg (27.0-35.0) Mean Corpuscular Hemoglobin Concent 32.6% (32.0-37.0) Red Cell Distribution Width 13.3% (12.3-15.4) Platelet Count 208bil/L (150-400) Neutrophils (%) (Auto) 72.6% (40-74) Lymphocytes (%) (Auto) 10.3% (14-46) Monocytes (%) (Auto) 7.2% (4-12) Eosinophils (%) (Auto) 8.3% (0-5) Basophils (%) (Auto) 0.2% (0-3) Sodium Level 133mEq/L (134-144) Potassium Level 4.0mEq/L (3.5-5.2) Chloride Level 91mEq/L (97-108) Carbon Dioxide Level 23mmol/L (18-29) Blood Urea Nitrogen 66mg/dL (6-24) Creatinine 4.08mg/dL (0.76-1.27) Estimat Glomerular Filtration Rate 16mL/min (>59) Glucose Level 337mg/dL (60-99) Lactic Acid Level 1.2mmol/L (0.4-2.0) Calcium Level 8.5mg/dL (8.5-10.1) Total Bilirubin 0.3mg/dL (0.0-1.2) Aspartate Amino Transf (AST/SGOT) 48U/L (0-50) Alanine Aminotransferase (ALT/SGPT) 39U/L (0-44) Alkaline Phosphatase 158U/L (25-150) Total Protein 6.6g/dL (6.4-8.4) Albumin 2.6g/dL (3.4-5.0) ECG Interpretation ECG Interpretation: Sinus rhythm rate 82 Q waves anteroseptal leads Time: 10:52 Interpreted by: ED physician Normal ECG Interpretation: No acute ischemic changes, Normal axis, No change from prior ECGs (07/30/16) X-Ray Chest Interpretation Chest Xray Interpretation: IMPRESSION: Persistent, although improved appearance of increased pulmonary vascularity and bilateral opacities. Dictated by: Trudi Man M.D. on 08/06/2016 at 11:03 Approved by: Trudi Man M.D. on 08/06/2016 at 11:03 View: Portable, 1 view Interpretation / Wet Read by: Interpret - Radiologist CT Head Interpretation IMPRESSION: 1. No acute intracranial findings. 2. Extensive findings likely associated with chronic microvascular ischemic changes. Dictated by: Pauline Radford M.D. on 08/06/2016 at 12:03 Approved by: Pauline Radford M.D. on 08/06/2016 at 12:03 Study: Head CT no contrast Interpretation / Wet Read by: Interpret - Radiologist Re-Eval/Medical Decision Med Decision/Clinical Course Pt is a 55 y/o male w/ a hx of nonverbal secondary to remote CVA, recurrent aspiration pneumonia secondary to chronic dysphagia, ESRD on hemodialysis (T/R/S ), type 1 diabetes, V-fib cardiac arrest, anoxic brain injury, HTN, ulcerative esophagitis, presenting to the ED via EMS due to decreased LOC today. He was recently admitted 07/30/16 and discharged 08/05/16 due to aspiration pneumonia in the setting of becoming increasingly unresponsive. At that time he was hypoxic and hypotensive and required aggressive fluid resuscitation. The discharge summary from that visit has not yet been written at the time of interview. He is somnolent and nonverbal, nobody is at bedside, therefore no further history able to be obtained. The patient is with afebrile stable vital signs. Labs notable as below: CBC: Leukocytosis of 15.5, HCT of 33.7. CMP: BUN of 66, creatinine of 4.08 which is unremarkable due to hemodialysis, potassium 4.0, glucose 337, albumin low at 2.6, lactic acid 1.2 EKG and chest x-ray were obtained as documented above. The patient has significant alteration of mental status. It is unclear whether or not this is his baseline and chart review he is nonverbal. We considered several causes of the presumed alteration of mental status. We considered major head trauma, intracranial hemorrhage, subdural hematoma, epidural hematoma, brain tumor, cerebral mass lesion, cerebral contusion or stroke. For that reason, we obtained a CT of the head which showed no bleeding or brain abnormalities. We considered electrolyte or metabolic abnormality including hepatic encephalopathy, hyponatremia, acidosis, hypokalemia, hyperkalemia, hypoglycemia, and acute on chronic renal failure. His renal failure appears to be at baseline. He is somewhat hyperglycemic though I do not expect that this would explain his presentation today. We considered infectious etiologies, but the patient has no fever, and the lab tests are not compatible. He appears to be resolving. In addition, there is no evidence of cellulitis, or intra- abdominal infection. We considered toxicity of ethanol or drugs as an etiology of the alteration of mental status and we sent an ethanol concentration. The etiology of the alteration of mental status remained unclear at this point. We did administer Narcan with some improvement in his mental status. We contacted the patient's care facility and discussed his presentation today as I am unclear whether or not he is now at his regular baseline. As per that conversation he is not significantly off his regular baseline. The patient was discussed with Dr. Guy who is also quite familiar with the patient and asserts that he is at his regular baseline. At this time I see no indication for emergent admission. The patient can receive his dialysis later today or tomorrow. He is discharged back to his care facility in stable condition. Follow-up and return precautions were provided. Source of Hx: Old records Time of Eval: 12:36 Re-Evaluation/Progress Note: Pt rechecked. He is at his baseline as per many medical office technician. He will be discharged back to his SNF. Consultation : Referral / Consult Name: Cesar Guy DO Consulted With: Nephrology Call Returned at: 12:35 Pst Supervisor: Agrees with eval, Agrees with plan Note: Will consult during admit. They believe he is at his baseline and recommend he be discharged. He does not emergency need hemodialysis. Counseled Regarding: Diagnosis, Lab results, Need for follow-up, When/why to return to ED Discharge & Departure Primary Impression: Altered mental status Altered mental status type: unspecified Qualified Code: R41.82 - Altered mental status, unspecified Additional Impressions: Weakness Renal failure Gastrostomy tube dependent Dialysis patient Nonverbal Disposition: Home Discharge Condition All VS Reviewed: Yes Condition: Stable Referrals: NOPCP (PCP) Scribe Attestation Portions of this note were transcribed by Ap Abdi. I, Dr. Lockhart personally performed the history, physical exam and medical decision-making; I reviewed and confirmed the accuracy of the information in the transcribed note. Signed by Ap Abdi - Scribe - 08/06/16 - 1044 Cosme Lockhart MD Aug 06, 2016 10:27 AP ABDI Aug 06, 2016 10:52
[2016-08-06 10:31] VITALS: BP 125/76; PULSE 82; RESP 16; O2SAT 98
--- NOTE | 2016-08-06 11:05 | DRSVH ---
PROCEDURE: X-RAY CHEST ONE VIEW, PORTABLE ([id number]) INDICATIONS: dec SpO2 TECHNIQUE: One view of the chest was acquired. COMPARISON: [facility], CR, XR CHEST 1VW (PORTABLE), 08/04/2016, 3:10. FINDINGS: Surgical changes and devices: Right-sided dialysis catheter. Lungs and pleura: There is diffuse appearance of increased pulmonary vascularity and bilateral opacit ies, improved compared to 08/04/16. Mediastinum: Mediastinal contours appear normal. Heart size is normal. Bones and chest wall: No suspicious bony lesions. Overlying soft tissues appear unremarkable. IMPRESSION: Persistent, although improved appearance of increased pulmonary vascularity and bilateral opacities. Dictated by: Trudi Man M.D. on 08/06/2016 at 11:03 Approved by: Trudi Man M.D. on 08/06/2016 at 11:03
[2016-08-06 11:11] LABS: BASOPHILS % (AUTO) 0.2 % (0-3); EOSINOPHILS % (AUTO) 8.3 % (0-5); MONOCYTES % (AUTO) 7.2 % (4-12); Mean Corpuscular Hemoglobin 33.3 pg (27.0-35.0); Mean Corpuscular Volume 102.1 fL (81-100); NEUTROPHILS % (AUTO) 72.6 % (40-74); Platelet Count 208 bil/L (150-400)
[2016-08-06] MEDS ORDERED: Lidocaine 2% 6mL Topical Jelly ONE (11:43)
--- NOTE | 2016-08-06 12:05 | DRSVH ---
PROCEDURE: CT BRAIN WITHOUT CONTRAST ([id number]) INDICATIONS: ams TECHNIQUE: Noncontrast 4.5 mm thick angled axial sections acquired from the foramen magnum to the vertex, with c oronal reformats. COMPARISON: [facility], CT, CT BRAIN WO CON, 04/02/2015, 13:31. FINDINGS: Image quality: Excellent. CSF spaces: Basal cisterns are patent. No extra-axial fluid collections. The ventricles are symmet allan in size and shape. Brain: No intracranial bleeds or masses. There is marked cerebral volume loss for age, with resulta nt ventricular and sulcal prominence. There are extensive periventricular and deep white matter chronic condition nurse logan small vessel ischemic changes. There is intracranial internal carotid artery atherosclerosis. Skull and face: Calvarium and visualized facial bones appear intact, without suspicious lesions. Sinuses: Visualized sinuses and mastoids are clear. IMPRESSION: 1. No acute intracranial findings. 2. Extensive findings likely associated with chronic microvascular ischemic changes. Dictated by: Pauline Radford M.D. on 08/06/2016 at 12:03 Approved by: Pauline Radford M.D. on 08/06/2016 at 12:03
[2016-08-06 13:06] VITALS: BP 121/71; PULSE 81; RESP 16; O2SAT 98
--- NOTE | 2016-08-07 14:48 | PCM.DC.MED ---
Discharge Summary Date of Service Aug 05, 2016 Dates of Hospitalization Date of Hospital Admission 07/30/2016 Date of Discharge: Aug 05, 2016 Providers: Admitting Physician: Primary Care Physician: Nopcp Attending Physician: Diagnosis at Time of Discharge Diagnosis at Time of Discharge 1. Aspiration pneumonia, POA. Improved 2. Acute hypoxic respiratory failure, POA. Improved 3. Remote CVA with chronic hemiparesis and difficulty speaking. POA 4. End-stage renal disease, POA. Ongoing hemodialysis while in hospital. Consultations Dr. Guy, nephrology Procedures XRay, CTs & MRIs Serial chest x-rays, right middle lobe infiltrate. Brief History Patient presented with acute hypoxic respiratory failure, fever and a cough with a chest x-ray indicating pneumonia and context of chronic dysphagia.. Hospital Course This is a pleasant patient to has a chronic history of dysphagia and right hemiparesis secondary to stroke. Uses a G-tube for all feedings. He had apparently elected to start taking some food in through his mouth several weeks ago. He presented with acute dyspnea, hypoxic respiratory failure, in context of cough and probable aspiration pneumonia. The patient is admitted and treated with appropriate broad spectrum antibiotics. I will rub microbiologic tests were negative. The patient did clinically improve. He had a fairly significant oxygen demand which improved over the next 4 days. He had no fevers for lasting a half of his stay and his respiratory status was much better. He had minimal secretions are coughing. He was dialyzed serially throughout his stay without difficulty. On the day of discharge he appeared to be at baseline and stable for discharge. Exam Vital Signs (Last) Date Time Temp Pulse Resp B/P Pulse Ox O2 Delivery O2 Flow Rate FiO2 08/06/16 13:06 81 16 121/71 98 Nasal Cannula 4.5 08/06/16 10:31 36.6 Exam No acute distress. days Oropharynx without droop Neck supple. Lungs clear with normal effort Heart regular without murmur. Abdomen soft nondistended with a PEG in place. Extremities free of edema good pedal pulses. Test 08/06/16 11:06 White Blood Count 15.5th/mm3 (3.8-10.1) Red Blood Count 3.30mil/mm3 (4.40-5.80) Hemoglobin 11.0g/dL (13.8-17.2) Hematocrit 33.7% (41.0-50.0) Mean Corpuscular Volume 102.1fL (81-100) Mean Corpuscular Hemoglobin 33.3pg (27.0-35.0) Mean Corpuscular Hemoglobin Concent 32.6% (32.0-37.0) Red Cell Distribution Width 13.3% (12.3-15.4) Platelet Count 208bil/L (150-400) Neutrophils (%) (Auto) 72.6% (40-74) Lymphocytes (%) (Auto) 10.3% (14-46) Monocytes (%) (Auto) 7.2% (4-12) Eosinophils (%) (Auto) 8.3% (0-5) Basophils (%) (Auto) 0.2% (0-3) Sodium Level 133mEq/L (134-144) Potassium Level 4.0mEq/L (3.5-5.2) Chloride Level 91mEq/L (97-108) Carbon Dioxide Level 23mmol/L (18-29) Blood Urea Nitrogen 66mg/dL (6-24) Creatinine 4.08mg/dL (0.76-1.27) Estimat Glomerular Filtration Rate 16mL/min (>59) Glucose Level 337mg/dL (60-99) Lactic Acid Level 1.2mmol/L (0.4-2.0) Calcium Level 8.5mg/dL (8.5-10.1) Total Bilirubin 0.3mg/dL (0.0-1.2) Aspartate Amino Transf (AST/SGOT) 48U/L (0-50) Alanine Aminotransferase (ALT/SGPT) 39U/L (0-44) Alkaline Phosphatase 158U/L (25-150) Total Protein 6.6g/dL (6.4-8.4) Albumin 2.6g/dL (3.4-5.0) Discharge Medications Discharge Medications ([Nepro Tube feed]) 50 CC PEG Hr (Reported) Atorvastatin Calcium (Atorvastatin Calcium) 10 Mg Tablet 5 MG PEG HS (Reported) Calcium Carbonate (Calcium Carbonate) 500 Mg/5 Ml Oral.susp 500 MG PEG TID ( Reported) Cholecalciferol (Vitamin D3) (Vitamin D3) 5,000 Unit Tablet 5,000 UNIT PEG DAILY (Reported) Ertapenem Sodium (Invanz) 1 Gm Vial.port 500 MG IV DAILY Prescribed by: DIDIER HANDY MD Esomeprazole Magnesium (Nexium Powder Pack) 40 Mg Suspdr.pkt 40 MG PEG DAILY ( Reported) Fluoxetine Oral Soln (Fluoxetine Oral Soln) 20 Mg/5 Ml Solution 60 MG PEG DAILY (Reported) Lactulose (Lactulose) 20 Gm/30 Ml Solution 20 GM PEG DAILY (Reported) Levothyroxine (Levothyroxine) 150 Mcg Tablet 150 MCG PO DAILY (Reported) Lisinopril (Lisinopril) 10 Mg Tablet 10 MG PEG DAILY (Reported) NPH, Human Insulin Isophane (HUMulin-N U100 Insulin Vial) 100 Unit/1 Ml Vial 0- 7 UNIT SUBQ q6hrs (Reported) Na Phos,M-B/K Phos,Monob (K-Phos #2 Tablet) 1 Each Tablet 1 EACH PEG BID ( Reported) Phosphorus (K-Phos Neutral Tablet) 250 Mg Tablet 250 MG PEG BID (Reported) As needed Acetaminophen (Acetaminophen) 325 Mg Tablet 650 MG PEG Q4H PRN PRN pain/fever ( Reported) Baclofen (Baclofen) 10 Mg Tablet 5 MG PO q4 hours PRN PRN For Hiccups (Reported ) Bisacodyl (Dulcolax Rectal) 10 Mg Supp.rect 10 MG RC DAILY PRN PRN For Constipation (Reported) Dextran 70/Hypromellose/Pf (Artificial Tears Drops) 1 Each Droperette 2 DROP BOTH_EYES DAILY PRN PRN dry eyes (Reported) Glucagon,Human Recombinant (Glucagen) 1 Mg/1 Ml Vial 0.5-1 MG IJ DAILY PRN PRN blood glucose abnormality (Reported) Hydrocodone-Acetaminophen 5-325 mg (Hydrocodone-Acetaminophen 5-325 mg) 1 Each Tablet 1-2 TABLET PEG Q4H PRN PRN For Pain (Reported) Insulin Aspart (NovoLOG U100 Insulin Vial) 100 Unit/Ml Mdv 0-12 UNITS SUBQ TID PRN PRN sliding scale (Reported) Mineral Oil/I-Prop Myr/Water (Hydrocerin Lotion) 236 Ml Lotion 1 APPLIC EXT Q6H PRN PRN dry skin (Reported) Ondansetron (Ondansetron) 4 Mg Tablet 8 MG TUBE q8 hours PRN PRN For Nausea ( Reported) Followup Plan Disposition: [facility] facility Discharge Diet: Other (per PEG tube, resume previous tube feed instructions and type) Discharge Activity: No restrictions Follow-up with PCP in: 2 weeks Time spent 40 minutes Didier Handy MD Aug 07, 2016 14:48
== END 2016-08-06 13:12 | disposition home or self-care (01) ==
LOC: EDBD 10:16 → SED 10:16
DX: R41.82 Altered mental status, unspecified (principal); R53.1 Weakness; I12.9 Hypertensive chronic kidney disease with stage 1 through stage 4 chronic kidney disease, or unspecified chronic kidney disease; N19 Unspecified kidney failure; E10.29 Type 1 diabetes mellitus with other diabetic kidney complication; K21.9 Gastro-esophageal reflux disease without esophagitis; Z87.891 Personal history of nicotine dependence; Z87.19 Personal history of other diseases of the digestive system; Z86.73 Personal history of transient ischemic attack (TIA), and cerebral infarction without residual deficits; Z99.2 Dependence on renal dialysis; Z93.2 Ileostomy status; Z79.4 Long term (current) use of insulin; E10.40 Type 1 diabetes mellitus with diabetic neuropathy, unspecified; E10.319 Type 1 diabetes mellitus with unspecified diabetic retinopathy without macular edema; E10.21 Type 1 diabetes mellitus with diabetic nephropathy

== ENCOUNTER 2016-09-14 10:58 | Inpatient (IN) | payer MEDICARE, MEDICAID ==
[~2016-09-14] VITALS: Ht 172.7 cm; Wt 58.3 kg
[2016-09-14 10:40] VITALS: BP 142/78; PULSE 91; RESP 18; O2SAT 100
--- NOTE | 2016-09-14 11:18 | NUR ---
Admit Pt admitted from [facility] at 1045 via BLS transport. Report taken from RN at [facility]. Pt is A&Ox3. Max assist to bed from stretcher. 4L O2. VSS. Mepilex on sacrum changed. Put order in for p500 bed and wound consult. Blanchable redness on heels floated on pillows. Care continues.
[2016-09-14] MEDS ORDERED: Alum-Mag Hydrox-Simeth 30 mL Suspension PO PRN (13:10)
[2016-09-14] MEDS ORDERED: Ondansetron 2 mg/mL 2 mL Inj IVPUSH PRN (13:10)
[2016-09-14] MEDS ORDERED: Polyethylene Glycol (PEG) 17 Gm Powder PO PRN (13:10)
[2016-09-14 13:46] VITALS: BP 162/86; PULSE 89; RESP 20; O2SAT 98
--- NOTE | 2016-09-14 13:52 | PCM.HPMED ---
Subjective Date of Service Sep 14, 2016 Primary Provider: Admitting Physician: Sonu aPyne MD Primary Care Physician: Lamont Guerin MD Attending Physician: Sonu Payne MD Admit Status: Direct Admit Chief Complaint: History renal disease and hemodialysis. Basilar vein transposition History of Present Illness: This is a 55 years old male with multiple medical history lives at snf following an intracranial bleed. Patient is dysphoric, aphasic and unable to provide information about her condition. Was information was retrieved from his chart and from records sent from the snf., Patient is here today for hemodialysis and basilar vein transposition. No report of chest pain, shortness of breath, fever, chills, nausea, vomiting, abdominal pain, constipation, diarrhea. Patient is being arranged for surgery for tomorrow September 03/2017 Review of Systems: Review of system cannot be obtained. Patient is aphasic and dysphonic Allergies Coded Allergies: No Known Allergies (Verified , 09/14/16) Home Medications Tylenol 325 mg orally every 4 hours as needed Amlodipine 10 mg orally daily Artificial tears Atorvastatin 10 mg PEG tube daily Baclofen 10 mg half tablet every 4 hours as needed Referring doing milligram orally daily Dulcolax suppository as nasal constipation Fluoxetine 20 mg/5 mL solution the epidural and in GlucaGen as needed for hypoglycemia Humalog per sliding scale Hydrocortisone 5 mg via PEG tube every 4-6 hours when necessary for pain Levothyroxine 88 g orally daily Lisinopril 20 mg orally daily Nexium 40 mg orally daily Prozac 20 mg PEG Tube Daily Vitamin D3 5000 Units Via PEG Tube Daily Zofran 8 Mg Via PEG Tube Every 8 Hours When Necessary PMH Hypertension, CVA, intracranial bleed, dysphagia, hypothyroidism, insulin- dependent diabetes, depression, dysphonia, BPH, history of cardiac arrest ventricular fibrillation, history of aspiration pneumonia, anemia of chronic disease, end-stage renal disease on hemodialysis diabetes with retinopathy, history of MS, Surgical History PEG tube placement Family History Mother of complication of diabetes Social History Hx Alcohol Use: Yes (can't verbalize how long ago, not current) Hx Substance Use: Yes (amphetamines/COCAINE in past) Hx Tobacco Use: Yes Smoking Status: Former Smoker Living Arrangement: Jail Facility Exam Vital Signs Vital Sign - Last Date Time Temp Pulse Resp B/P Pulse Ox O2 Delivery O2 Flow Rate FiO2 09/14/16 11:36 Supplement Oxygen 09/14/16 10:40 91 18 142/78 100 4.00 Exam Gen. Chronically ill-appearing in bed comfortably Neck: Supple, no JVD Chest: Normal respiratory efforts Lung: Clear bilaterally,, no wheezing Heart: s1-s2 regular rate and rhythm, no gallop, no murmur Abdomen: soft nontender, nondistended. peg tube in place, entry site is clean and not apparently infected Extremity: No edema, tenderness Neuro: Aphasic. Lab and Diagnostics Labs Data pending Assessment & Plan 1. ESRD on HD via permacath : Patient is on hemodialysis via right IJ permacath. He is transferred here for left iliac vein transposition. Vascular surgery Dr. Durbin is on the case. Patient is scheduled for surgery tomorrow 09/15/2016 2. Dysphagia : As a result of CVA. Patient is Peg tube feed : Continue with his previous formula. Nutrition PermCath 3. Insulin-dependent diabetes : Resume home insulin therapy. Sliding scale insulin with coverage. Obtain albumin A1c was admitted to control 4. Hypertension: Controlled. Continue hormone therapy considered 5. Hypothyroidism: Continue hormonal supplement 6. Hyperlipidemia: On statin 7. Anemia of chronic disease/anemia of renal failure This is a 55 years old male with past medical history of insulin- dependent diabetes mellitus type II, hypertension, hyperlipidemia. Patient is bedridden, aphasic, has severe dysphagia and PEG tube feeding following an intracranial hemorrhage with blood and a ventricular left thalamus back in 2014. Patient is in today to the hospital from snf by his primary care for basilic ventricles position by doctor Ash Durbin. Patient is admitted under the hospitalist services. Plan of care is detailed above. Obtain CBC, metabolic panel, hemoglobin A1c. Nothing by mouth after midnight Hemodialysis expected for today. Pain Evaluation: Adequate Pain Control VTE Prophylaxis: Sub-Q Heparin (Unfractionated) Resuscitation Status: DNR/DNI:Do Not Resuscitate/Intubate Time spent 75 minutes Sonu Payne MD Sep 14, 2016 13:52
[2016-09-14 14:13] LABS: BASOPHILS % (AUTO) 0.5 % (0-3); EOSINOPHILS % (AUTO) 7.9 % (0-5); MONOCYTES % (AUTO) 9.5 % (4-12); Mean Corpuscular Hemoglobin 34.3 pg (27.0-35.0); Mean Corpuscular Volume 102.8 fL (81-100); NEUTROPHILS % (AUTO) 66.8 % (40-74); Platelet Count 231 bil/L (150-400)
[2016-09-14] MEDS: Insulin Human REGular 300 Unit/3 mL Inj SUBQ SCH ×2 (14:17→22:20)
--- NOTE | 2016-09-14 14:17 | NUR ---
Pt off Unit Pt off unit to [facility] for HD.
[2016-09-14 14:25] VITALS: BP 124/72; PULSE 87
[2016-09-14 14:37] LABS: Magnesium 2.6 mg/dL (1.6-2.6)
[2016-09-14 14:57] VITALS: BP 97/57; PULSE 77; RESP 16; O2SAT 98
--- NOTE | 2016-09-14 14:59 | NUR ---
pt arrived to [facility] for DIALYSIS at ~1410 via bed report received from SS RN ([facility]) pt alert and cooperative 98% sat on 2.5L NC mainframe systems programmer at bedside
[2016-09-14] MEDS ORDERED: LISI-571 G-TUBE (15:09)
[2016-09-14] MEDS ORDERED: Albuterol-Ipratropium 3 mL Inhalation Solution NEB PRN ×2 (15:15)
[2016-09-14] MEDS ORDERED: NA P1TAB PEG (15:54)
--- NOTE | 2016-09-14 15:55 | NUR ---
Med Req Pt's med req was faxed from [facility] and completed.
[2016-09-14] MEDS ORDERED: Ondansetron 8 mg ODT Tablet TUBE PRN (17:20)
[2016-09-14] MEDS ORDERED: [UNRECOGNIZED DRUG - OTHER] PEG SCH (17:20)
[2016-09-14] MEDS ORDERED: Artificial Tears 15 mL Ophthalmic Solution BOTH_EYES PRN (17:20)
--- NOTE | 2016-09-14 18:47 | NUR ---
Dialysis note: 4 hrs tx. 2000 ml net UF. Right catheter, dsg changed, no s/s of infection noted. Pls see DTR for VS details. Qb 400. Heparin prime given. O2 @ 2.5 L via NC on. Pt tolerated treatment. Catheter flushed, heparin dwelled and secured. Report given to Deanna ALLISON. Stable at time of transfer.
--- NOTE | 2016-09-14 18:48 | NUR ---
pt returned to [facility] post DIALYSIS at ~1850 via bed see database administrator note, intervention, and/or graphic flow for treatment details report returned to primary nurse SS RN
[2016-09-14 19:52] VITALS: BP 108/70; PULSE 90; RESP 18; O2SAT 99
[2016-09-14] MEDS ORDERED: HYDROcodone-APAP 5-325 mg Tablet PO PRN (20:20)
--- NOTE | 2016-09-14 20:56 | CONS ---
[address] [address] CONSULTATION REPORT PATIENT: JOANNE FIGUEROA : 1960 MR#: [id number] ADMIT: 09/14/2016 JOB ID: [id number] DATE OF SERVICE: HISTORY: The patient is a rather unfortunate, 55-year-old, white male, who was admitted for medical stabilization prior to a basilic vein transposition for his dialysis access. Renal consultation is being sought for further evaluation and management of his chronic kidney disease and end-stage renal disease. The patient has a history of multiple medical problems including a significant stroke, which has left him with residual right-sided weakness, swallowing difficulties, and aphasia. This occurred in approximately 2008. He also has a history of hypertension, intracranial hemorrhage, insulin-requiring diabetes mellitus, and cardiac arrest. He has been on dialysis for several years. He normally dialyzes on Wednesday, Wednesday, and Wednesday, and today is his regular dialysis day. He was recently hospitalized last month for pneumonia, and he was sent back to an extended care facility where he lives. He denies any chest pain, shortness of breath, or fever. He does endorse some degree of coughing. Again, the patient is aphasic and is somewhat difficult to get a full history on. PAST MEDICAL HISTORY: 1. Significant for end-stage renal disease, dialysis dependent, secondary to diabetes and hypertensive renal disease. 2. Hypertension with hypertensive heart disease and hypertensive nephrosclerosis. 3. Diabetic nephropathy. 4. Prior stroke with intracranial hemorrhage, hypothyroidism, BPH, and history of VFib arrest, aspiration pneumonia, and myocardial infarction. PAST SURGICAL HISTORY: Significant for several access placements and a PEG tube placement. ALLERGIES: He is not allergic to any food or any medication. SOCIAL HISTORY: He currently resides in an extended care facility and is cared for by the nursing staff. There is a remote history of alcohol, tobacco, and substance abuse. FAMILY HISTORY IS: Unknown. REVIEW OF SYSTEMS: As detailed above, otherwise unobtainable. HOME MEDICATIONS INCLUDE: Amlodipine, atorvastatin, baclofen, fluoxetine, insulin, hydrocortisone via his PEG tube, levothyroxine, lisinopril, Nexium, Prozac, and vitamin D. PHYSICAL EXAMINATION: Revealed a pale somewhat cachectic appearing, 55-year-old, white male who looks considerably older than his stated age. His blood pressure was 98/56 with a heart rate of 82. HEENT examination is remarkable for pale sclerae. Neck is supple without adenopathy, thyromegaly, or jugular venous distention. Lungs showed diffuse rhonchi and expiratory wheezes in both lung drummond more pronounced on the right as compared to the left and a few bibasilar rales were noted. Heart was regular and rhythmical with a soft systolic murmur. Abdomen was soft with a PEG tube in place. There was no tenderness, rebound guarding, masses or hepatosplenomegaly. Extremities do not show us any clubbing, cyanosis, or edema. Skin turgor was good and there is no evidence of any rashes. His right side had a spastic paralysis noted. LABORATORY EXAMINATION: On admission, his white count was 13,000, hemoglobin 10.9, hematocrit 32.7, MCV was elevated at 102. His differential showed 66 segs and 8% eos. Sodium is 134, potassium 4.6, chloride 91, CO2 of 26, BUN and creatinine were 51 and 3.3, his glucose was 284. There is no current chest x-ray noted. IMPRESSION: 1. End-stage renal disease, dialysis dependent. 2. Pneumonia. 3. Diabetic nephropathy. 4. Hypertension with hypertensive heart disease and hypertensive nephrosclerosis. RECOMMENDATION: I would like to get a chest x-ray and start him on some albuterol treatments, and I will notify the primary team to address his pulmonary issues including antibiotics. At this point, until we get the pulmonary issues stabilized, I feel we should probably hold his planned surgery for a day or so. The patient was seen in dialysis and his current orders are four hours of on a Revaclear dialyzer, 2 potassium bath with 137 sodium. His blood flow is to be 400 with a dialysate flow of 600 and a bicarb of 35. Will try to take 2-3 L of fluid off. Once again, I would like to thank you for allowing me to participate in the care of this rather unfortunate patient. I will be following him closely with you.
--- NOTE | 2016-09-14 21:04 | DRSVH ---
PROCEDURE: X-RAY CHEST ONE VIEW, PORTABLE ([id number]) INDICATIONS: pneumonia TECHNIQUE: One view of the chest was acquired. COMPARISON: [facility], CR, XR CHEST 1VW (PORTABLE), 08/06/2016, 10:29. FINDINGS: Surgical changes and devices: Right internal jugular central venous catheter is unchanged in position with the tip in the superior vena cava approximately 2 cm from the cavoatrial junction. Lungs and pleura: No pleural effusions or pneumothorax. There is diffuse bilateral pulmonary edema which appears slightly increased. A few more confluent peripheral left opacities are redemonstrated. Mediastinum: Mediastinal contours appear prominent likely due to technique. Heart size is normal. Bones and chest wall: No suspicious bony lesions. Overlying soft tissues appear unremarkable. IMPRESSION: 1. Slightly increased pulmonary edema with persistent peripheral left-sided opacities which may refl ect infection or asymmetric edema. Dictated by: Yoshi Kendall M.D. on 09/14/2016 at 21:00 Approved by: Yoshi Kendall M.D. on 09/14/2016 at 21:02
[2016-09-14] MEDS: Calcium Carbonate 1250 mg/5 mL Suspension PEG SCH (22:19)
[2016-09-14] MEDS: Sodium-Potassium Phosphorus Packet PEG SCH (22:19)
--- NOTE | 2016-09-14 23:47 | PROG NOTE ---
[address] [address] PROGRESS NOTE PATIENT: JOANNE FIGUEROA : 1960 MR#: [id number] ADMIT: 09/14/2016 JOB ID: [id number] DATE: 09/14/2016 PROGRESS NOTE: The patient is admitted for preoperative stabilization prior to a planned left brachial basilic fistula transposition for tomorrow. He has previously been come into Day Surgery and had very high glucoses. He is being admitted to the Hospitalist Service. I spoke with Dr. Miguel Cheatham yesterday as well as a couple of weeks ago about him. I also spoke with Dr. Peters about his need for inpatient dialysis. This was done so that he would be stabilized and ready for his operation tomorrow and not have to cancel like he has had to in the past. The patient is aphasic but is able to communicate by raising his thumb. He understands he is to have his operation tomorrow. He was able to raise his thumb and indicates to me that it is on his left upper extremity. I have then marked him. PLAN: Proceed tomorrow to the operating room.
[2016-09-15] VITALS (11 sets, daily range): BP systolic 98–117; BP diastolic 54–68; PULSE 86–94; RESP 11–18; O2SAT 94–100
[2016-09-15] MEDS: Insulin Human REGular 300 Unit/3 mL Inj SUBQ SCH ×4 (02:16→20:40)
--- NOTE | 2016-09-15 02:21 | NUR ---
care activity patient remains npo for surgery in am. turned every 2 hours with heels floated. changed mepilex to sacrum. multiple open areas (whitish color) with small amt of yellow drainage, dry flaky red skin. patient on p500 bed. denies pain at this time. care ongoing.
[2016-09-15] MEDS ORDERED: 0.9% Sodium Chloride 500 ML IV SCH ×2 (05:00→09:05)
--- NOTE | 2016-09-15 06:54 | PCM.HPANE ---
Patient Data Surgeon Admitting Provider:Sonu Payne MD Attending Provider:Sonu Payne MD Primary Care Physician:Lamont Guerin MD Other Provider:Beverly Guajardo Anesthesia Reason for Visit End Stage Renal Failure Ht/WT & BMI Height (Feet): 5 Height (Inches): 8.00 Weight (Kilograms): 59.900 Body Mass Index 20.01 Allergies Coded Allergies: No Known Allergies (Verified , 09/14/16) Past Anesthesia History Anesthesia History: Denies:: Anesthesia Reactions, Fam Anesthesia Reaction, Fam Malignant Hypertherm, Malignant Hyperthermia Diabetes History Hx Diabetes?: Yes Type of Diabetes: Type I Glycemic Control: Insulin Dependent Current Bedside Blood Glucose: 146 MRSA MRSA: Yes (HX of) Medications Blood Thinner: Aspirin Reported Medications Na Phos,M-B/K Phos,Monob (K-Phos #2 Tablet)1 Each Tablet2 Each PEG BID 09/14/16 Lisinopril 5 Mg Tablet5 Mg G-TUBE DAILY #30 TABLET Ref 0 09/14/16 Lactulose 20 Gm/30 Ml Hcjdoifo82 Gm PEG DAILY 07/30/16 Levothyroxine 150 Mcg Ighcdo214 Mcg PO DAILY Ref 0 07/30/16 Esomeprazole Magnesium (Nexium Powder Pack)40 Mg Suspdr.pkt40 Mg PEG DAILY Ref 0 07/30/16 Calcium Carbonate 500 Mg/5 Ml Oral.jsbr845 Mg PEG TID 07/30/16 Hydrocodone-Acetaminophen 5-325 mg 1 Each Tablet1-2 Tablet PEG Q4H PRN For Pain Ref 0 02/17/16 Cholecalciferol (Vitamin D3) (Vitamin D3)5,000 Unit Tablet5,000 Unit PEG DAILY 02/17/16 Insulin Aspart (NovoLOG U100 Insulin Vial)100 Unit/Ml Mdv0-12 Units SUBQ TID PRN sliding scale #10 02/17/16 NPH, Human Insulin Isophane (HUMulin-N U100 Insulin Vial)100 Unit/1 Ml Vial0-7 Unit SUBQ q6hrs #1 VIAL Ref 0 02/17/16 [Nepro Tube feed] No Conflict Check50 Cc PEG Hr 01/13/16 Ondansetron 4 Mg Tablet8 Mg TUBE q8 hours PRN For Nausea 09/09/15 Fluoxetine Oral Soln 20 Mg/5 Ml Grxshldo92 Mg PEG DAILY #120 08/12/15 Glucagon,Human Recombinant (Glucagen)1 Mg/1 Ml Vial0.5-1 Mg IJ DAILY PRN blood glucose abnormality 08/12/15 Bisacodyl (Dulcolax Rectal)10 Mg Supp.rect10 Mg RC DAILY PRN For Constipation 30 Days Ref 0 08/12/15 Baclofen 10 Mg Tablet5 Mg PO q4 hours PRN For Hiccups Ref 0 08/12/15 Acetaminophen 325 Mg Dkevse819 Mg PEG Q4H PRN pain/fever Ref 0 08/12/15 Dextran 70/Hypromellose/Pf (Artificial Tears Drops)1 Each Droperette2 Drop BOTH_ EYES DAILY PRN dry eyes #1 BOTTLE 08/12/15 Atorvastatin Calcium 10 Mg Tablet5 Mg PEG HS 09/13/14 Discontinued Reported Medications Lisinopril 10 Mg Mkbmha59 Mg PEG DAILY 30 Days Ref 0 07/30/16 Phosphorus (K-Phos Neutral Tablet)250 Mg Kdxwfj921 Mg PEG BID 30 Days Ref 0 07/30/16 Na Phos,M-B/K Phos,Monob (K-Phos #2 Tablet)1 Each Tablet1 Each PEG BID 07/30/16 Mineral Oil/I-Prop Myr/Water (Hydrocerin Lotion)236 Ml Lotion1 Applic EXT Q6H PRN dry skin 07/30/16 Discontinued Scripts Ertapenem Sodium (Invanz)1 Gm Vial.enjt115 Mg IV DAILY #3 Prov:Iván Durbin MD 08/05/16 History History of ENT Problems?: Yes HEENT History: Positive for:: Cataracts (S/P EYE LASER PROCEDURES (DIABETIC RETINOPATHY)) Dysphagia (late effect of stroke) Denies:: Sinus Problem Hx of Heart Problems?: Yes Cardiovascular History: Positive for:: Chest Pain Hypertension (hyperlipidemia) Denies:: Cardiac Surgery Congestive Heart Failure Edema Heart Murmur (ECHO 08/2015 EF 75-80%) Irregular Heartbeat Pacemaker Thrombophlebitis Valvular Heart Disease Hx of Respiratory Problem?: Yes Respiratory History: Positive for:: Pneumonia (Aspiration pneumonia. 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) Dizziness Seizures (R/T RUPT BRAIN ANEURYSM 08/2008 ON NO SEIZURE MEDS CURRENTLY) Denies:: Alzheimer's Disease Headaches Parkinson's Disease Hx of GI Problems?: Yes Gastrointestinal History: Positive for:: Gastroesphageal Reflux Hepatitis (Hepatitis C & B) Denies:: Diverticulitis Gastrointestinal Bleeding Heartburn Hiatal Hernia Rectal Bleeding Hx of Problems?: Yes Genitourinary History: Positive for:: HX of Hemodialysis (DIALYSIS // S /P A/V FISTULA ESRD/DIALYSIS ACCESS=CURRENT PROBLEM) Urinary Tract Infection (Several times per family) Denies:: Kidney Stones HX of Peritoneal Dialysis: No Male Hx: Denies:: Prostate Problems Scrotal Mass Testicular Surgery Skin History: Positive for:: Pressure Ulcers (COCCYX WOUND) Denies:: History Skin Disorders? (eczema) Hx Musculoskeletal Problems?: Yes Musculoskeletal History: Positive for:: Musculoskeletal Trauma (S/P LT FOOT RPR) Denies:: Back Injury Joint Replacement Hx of Psycho/Social Problems?: Yes Psycho Social History: Positive for:: Hx Depression Suicide Attempt (has had in the past) Denies:: Anxiety Bipolar Disorder Hx Surgeries?: Yes (A/V FISTULA,LT FOOT RPR,PEG TUBE,EYE LASER PROCEDURES) Hx Any Other Health Problems?: Yes Other History: Positive for:: Endocrine Disease (VERY INCONSISTENT BG'S) Hospitalization (Multiple hospitalizations for DKA and cardiac arrest ) Thyroid Disease Denies:: Cancer History Blood Transfusions: Denies:: Blood Transfuse Reaction Blood Transfusions Hx Diabetes: YesBedside Blood Glucose: 146 Hx Alcohol Use: Yes (can't verbalize how long ago, not current)Hx Substance Use : Yes (amphetamines/COCAINE in past) Smoking Status: Former Smoker Have You Smoked inLast 12 mo: No Stop/Bang Treated for Sleep Apnea?: No Do You Have a CPAP Machine?: No S-Snoring: Do You Snore Loudly: No T-Tired: feel tired, fatigued: No O-Obsered: Observed not breath: No P-Blood Pressure: treated: Yes B- Body Mass Index > 35 kg/m2: No A- Age over 50: Yes N- Neck Large Circumference: No G- Gender Male: Yes LEMUEL Total Score: 2 Risk Assessment Category Category 1A: Patient has history of documented sleep apnea, and HAS NOT received any narcotic, sedative or anesthesia administration during this stay. Category 1B: Patient has history of documented sleep apnea, and HAS received any narcotic , sedative or anesthesia administration during this stay Category 2: Patient has SUSPECTED Obstructive Sleep Apnea, and HAS received any narcotic , sedative or anesthesia administration during this stay. Category 3: Patient has SUSPECTED Obstructive Sleep Apnea and HAS NOT received narcotic, sedative or anesthesia administration during this stay. Category 4: Outpatient in Procedural Areas with known sleep apnea or who screen positive for High Risk via the STOP/BANG questionnaire. Exam Exam Vital Signs Vital Signs Date Time Temp Pulse Resp B/P Pulse Ox O2 Delivery O2 Flow Rate FiO2 09/15/16 04:39 36.5 94 18 117/62 94 Nasal Cannula 2.00 General Appearance: Alert, Oriented X3, Cooperative HEENT/AIRWAY: MP 2, Neck Movement ([place], no teeth, FROM), Mouth Opening (WNL) , Other Lungs: Clear to Auscultation Heart: Exam Unremarkable Additional Information S/p CVA Aphasic - does give thumbs up and whispers short reponses. Meds/Labs/Diagnostics Admission Meds Current Medications Insulin Human Regular (HUMulin-R Insulin Inj) * Medium Dose Insu... Q6 SUBQ Last administered on 09/14/16 22:20; Start 09/14/16 at 14:30 Atorvastatin Calcium (Lipitor) 5 mg HS PEG Last administered on 09/14/16 22:19 ; Start 09/14/16 at 21:00 Calcium Carbonate (Calcium Carbonate Suspension) 500 mg TID PEG Last administered on 09/14/16 22:19; Start 09/14/16 at 20:30 Potassium/ Phosphorus/Sodium (Phos-NaK Powder) 2 ea BID PEG Last administered on 09/14/16 22:19; Start 09/14/16 at 20:30 Bedside Blood Glucose: 146 Labs Test 09/14/16 13:59 09/14/16 14:50 White Blood Count 13.0th/mm3 (3.8-10.1) Red Blood Count 3.18mil/mm3 (4.40-5.80) Hemoglobin 10.9g/dL (13.8-17.2) Hematocrit 32.7% (41.0-50.0) Mean Corpuscular Volume 102.8fL (81-100) Mean Corpuscular Hemoglobin 34.3pg (27.0-35.0) Mean Corpuscular Hemoglobin Concent 33.3% (32.0-37.0) Red Cell Distribution Width 13.3% (12.3-15.4) Platelet Count 231bil/L (150-400) Neutrophils (%) (Auto) 66.8% (40-74) Lymphocytes (%) (Auto) 13.9% (14-46) Monocytes (%) (Auto) 9.5% (4-12) Eosinophils (%) (Auto) 7.9% (0-5) Basophils (%) (Auto) 0.5% (0-3) Sodium Level 134mEq/L (134-144) Potassium Level 4.6mEq/L (3.5-5.2) Chloride Level 91mEq/L (97-108) Carbon Dioxide Level 26mmol/L (18-29) Blood Urea Nitrogen 51mg/dL (6-24) Creatinine 3.30mg/dL (0.76-1.27) Estimat Glomerular Filtration Rate 21mL/min (>59) Glucose Level 284mg/dL (60-99) Calcium Level 9.1mg/dL (8.5-10.1) Magnesium Level 2.6mg/dL (1.6-2.6) Hemoglobin A1c 8.0% (4.8-5.6) Plan Impression Patient chart reviewed, patient interviewed and anesthestic plan with risks, benefits, and alternatives discussed, and informed consent obtained. NPO Status: MN, TUBE FEEDING STOPED, MED'S GIVEN PER TUBE AT 0530 ASA Physical Status: ASA4 Life Threatening Anesthetic Plan: GA Bene/Risks/Altern/Consents: Yes HP Complete Prior to Induction: Yes Pedro Luis Tyler MD Sep 15, 2016 06:54
--- NOTE | 2016-09-15 07:26 | NUR ---
iv access- npo called iv therapy for iv access. informed of fistula placement on the left. patient has been npo since midnight.
[2016-09-15] MEDS ORDERED: Propofol 10,000 mCg/mL 20 mL Inj ONE (07:42)
[2016-09-15] MEDS ORDERED: Phenylephrine/NS 100 mCg/mL 10 mL Syringe IVPUSH ONE (07:42)
[2016-09-15] MEDS ORDERED: fentaNYL-PF 50 mCg/mL 2 mL Inj ONE (07:42)
[2016-09-15] MEDS ORDERED: EPHEDrine/NS 5 mg/mL 5 mL Syringe ONE (07:42)
[2016-09-15] MEDS ORDERED: Insulin GLARgine 100 Unit/mL Syringe SUBQ ONE (07:55)
[2016-09-15] MEDS ORDERED: Insulin LISPRO 300 Unit/3 mL Inj SUBQ ONE (08:05)
--- NOTE | 2016-09-15 08:15 | NUR ---
OR/Blood sugar Pt blood sugar was 200 this am, Dr Payne at bedside, Verbal order received to give 10 Units Regular insulin before surgery. 10 Units administered, Angie and Shayla RNs aware, will recheck BS in OR. Pt left for OR at 0805
[2016-09-15] MEDS: Azithromycin Inj 500 MG in Dextrose 5% w/Vial Mate 250 ML IV SCH ×2 (08:30→09:23)
[2016-09-15] MEDS: Lactulose 20 Gm/30 mL 30 mL Syrup PEG SCH (08:30)
[2016-09-15] MEDS: Sodium-Potassium Phosphorus Packet PEG SCH ×2 (08:30→22:13)
[2016-09-15] MEDS: Calcium Carbonate 1250 mg/5 mL Suspension PEG SCH ×2 (08:30→14:30)
[2016-09-15] MEDS: FLUoxetine 4 mg/mL 118 mL Solution PEG SCH (08:30)
[2016-09-15] MEDS: Piperacillin-Tazo 3.375 Gm Inj 3.375 GM in Dextrose 5% Minibag Plus 50 ML IV SCH ×3 (08:30→20:46)
--- NOTE | 2016-09-15 08:54 | PCM.PNMED ---
Subjective Date of Service Sep 15, 2016 Subjective Patient seen and examined at bedside. No significant overnight events /. He is afebrile, no leukocytosis but chest x- ray is worrisome for persistent left lower lobe opacity . No chest pain, no shortness of breath, no fever, no chills. Blood sugars under 200 his morning . Insulin regimen being a diagnosis for goal of bs less than 150. Patient is scheduled for basilar vein transposition today Exam Vital Signs Vital Sign - Last Date Time Temp Pulse Resp B/P Pulse Ox O2 Delivery O2 Flow Rate FiO2 09/15/16 04:39 36.5 94 18 117/62 94 Nasal Cannula 2.00 Intake and Output 09/14/16 09/14/16 09/15/16 Cumulative From/Thru 15:00 23:00 07:00 09/14/16 11:23 - 09/15/16 05:59 Intake Total 60 ml 0 ml 60 ml Output Total 2000 ml 80 ml 2080 ml Balance -2000 ml -20 ml 0 ml -2020 ml Intake Oral 0 ml 0 ml Tube Irrigant 60 ml 60 ml Output Gastric Drainage Total 80 ml 80 ml Ultrafiltrate 2000 ml 2000 ml # Voids 1 1 Exam Gen. Chronically ill-appearing in bed comfortably. No acute distress Neck: Supple, no JVD, trachea is midline Chest: Normal respiratory efforts, no chest wall tenderness Lung: Clear bilaterally,, no wheezing Heart: s1-s2 regular rate and rhythm, no gallop, no murmur Abdomen: soft non tender, non distended. peg tube in place, entry site is clean and not apparently infected. Audible bowel sounds all quadrants Extremity: No edema, tenderness, no cyanosis Neuro: Aphasic. IVs and Medications Medications Reviewed: Medications were reviewed in detail Lab and Diagnostics Result Diagram: 09/14/16 1359 09/14/16 1359 X-Rays, CTs and MRIs Chest x-ray reviewed : Slightly increased pulmonary edema with persistent peripheral left-sided opacities which may reflect infection or asymmetric edema. Assessment & Plan 1. ESRD on HD via permacath : Patient is on hemodialysis via right IJ permacath. He is transferred here for left iliac vein transposition. Vascular surgery Dr. Durbin is on the case. Patient is scheduled for surgery tomorrow 09/15/2016 2. Dysphagia : As a result of CVA. Patient is Peg tube feed : Continue with his previous formula. Nutrition PermCath 3. Insulin-dependent diabetes : Resume home insulin therapy. Sliding scale insulin with coverage. Obtain albumin A1c was admitted to control 4. Hypertension: Controlled. Continue hormone therapy considered 5. Hypothyroidism: Continue hormonal supplement 6. Hyperlipidemia: On statin 7. Anemia of chronic disease/anemia of renal failure 8 . HCAP : chest x-ray showed slightly increased pulmonary edema with persistent peripheral left-sided opacities which may reflect infection or asymmetric edema. Patient is afebrile, has no leukocytosis but possibility of pneumonia is being entertained. This is a very sick patient with a myriad of medical issues, immunocompromised and has Motrin for compensation. We will start the Zosyn and azithromycin. Patient is clinically and hemodynamically stable. He underwent dialysis yesterday. Nephrology following, case discussed over the phone. Possibility of ongoing pneumonia is being considered Checks x-ray showed slightly increased pulmonary edema compared with previous x- ray and there is persistent peripheral left-sided opacities which may reflect infection or asymmetric edema. Empiric antibiotics started as patient does not have too much room for compensation. Obtain procalcitonin level. Start Lantus 10 units subcutaneously daily for uncontrolled diabetes. A1c is 8. His blood sugar is 200 his morning. Regular Insulin 10 units is being given prior to surgery. Goal blood sugar of less than 150. I discuss with the staff in the operating room anesthesiology team to keep in touch with me if his blood sugar continued to rise. Pre and post operatively Patient is scheduled for basilar vein transposition today. Repeat CBC and BMP in a.m.. VTE Prophylaxis: Sub-Q Heparin (Unfractionated) Resuscitation Status: DNR/DNI:Do Not Resuscitate/Intubate Time spent 35 minutes Sonu Payne MD Sep 15, 2016 08:54
[2016-09-15] MEDS ORDERED: Atropine 0.4 mg/mL Inj IVPUSH PRN (09:05)
[2016-09-15] MEDS ORDERED: Phenylephrine 10,000 mCg/mL Inj IVPUSH PRN (09:05)
[2016-09-15] MEDS ORDERED: Ondansetron 2 mg/mL 2 mL Inj IVPUSH PRN (09:05)
[2016-09-15] MEDS ORDERED: HYDROmorphone 1 mg/mL Inj IVPUSH PRN (09:05)
[2016-09-15] MEDS ORDERED: Labetalol 5 mg/mL 4 mL Inj IV PRN (09:05)
[2016-09-15] MEDS ORDERED: fentaNYL-PF 50 mCg/mL 2 mL Inj IVPUSH PRN (09:05)
[2016-09-15] MEDS ORDERED: hydrALAZINE 20 mg/mL Inj IVPUSH PRN (09:05)
[2016-09-15] MEDS ORDERED: EPHEDrine Sulfate 50 mg/mL Inj IVPUSH PRN (09:05)
[2016-09-15] MEDS ORDERED: 0.9% Sodium Chloride 500 ML IV ONE (09:36)
[2016-09-15] MEDS ORDERED: Heparin 1,000 Unit/mL 10 mL Inj IRRIGATION ONE (09:42)
[2016-09-15] MEDS ORDERED: Bupivacaine-MPF 0.5% 30 mL Inj INFILTRATE ONE (09:42)
[2016-09-15] MEDS ORDERED: HYDROmorphone 1 mg/mL 2 mL Solution PO PRN (12:20)
--- NOTE | 2016-09-15 12:24 | PCM.ANEP1 ---
Post Anesthesia Phase 1 PACU Phase 1 Assessment Vital Signs Vital Signs Date Time Temp Pulse Resp B/P Pulse Ox O2 Delivery O2 Flow Rate FiO2 09/15/16 12:10 90 12 100/66 100 Simple Mask 10 09/15/16 11:55 89 12 107/62 100 Simple Mask 10 09/15/16 11:51 36.6 86 12 109/68 99 Simple Mask 10 09/15/16 04:39 36.5 94 18 117/62 94 Nasal Cannula 2.00 Anesthetic Administered: GA Level of Alertness: Sleeping, hard to arouse PARSON's with Equal Strength: Yes Pain: Yes Nausea or Vomiting: No Airway Device: Oralpharangeal Airway Oxygen Delivery: Simple Mask Lungs: Normal Air Movement Pedro Luis Tyler MD Sep 15, 2016 12:24
--- NOTE | 2016-09-15 13:24 | NUR ---
Post op pt arrived back at 1300, no complaints of pain or nausea, resting comfortably, JR drain to left arm, incision line C/D/I. See post op assessment.
--- NOTE | 2016-09-15 13:41 | PCM.ANEP2 ---
Post Anesthesia Evaluation ASA/CMS Post Anesthesia VS in Patient's Normal Range?: Yes Resp Stable; Airway Patent?: Yes CV Function & Hydration Stable: Yes Mental Status Recovered?: Yes Pain control Satisfactory?: Yes N/V Control Satisfactory?: Yes Pedro Luis Tyler MD Sep 15, 2016 13:40
--- NOTE | 2016-09-15 14:15 | NUR ---
NUTRITION ASSESSMENT: ASSESS: 55 yo M admitted for end stage renal failure. Pt to have basilar vein transposition today. Pt with PEG tube and chronic PEG tube feeding of Nepro at 50 ML/hr per last admit. Pt may have been starting to eat at home. Pt has history of severe dysphagia but has a renal diet ordered. RD spoke with RN and MD about making pt NPO until ST eval can be completed. Unsigned TF ordered have been placed in chart pending MD authorization. PMHX: ESRD on HD, T1DM, CVA, TBI, Seizures, SD, HTN, HLD, intracranial hemorrhage. LABS: Reviewed. BUN 51, Cr 3.30, Glu 284, A1C 8.0. MEDS: Reviewed. GI: 0 BM recorded yet HOME TF: Nepro at 50 ml/hr to provide 2070 kcal/day and 93 g pro (100% estimated needs). CURRENT WTS: 59.9 kg. DIET: Renal EST. NEEDS: Dialysis Kcals: 3115-7717 kcal/day (30-35 kcal/kg) Pro: 70-120 g/day (1.2-2.0 g/kg) NUTRITION DIAGNOSIS: 1.) Chew/swallow difficulty related to chronic dysphagia as evidence by need for intermediate TF via PEG. 2.) Increased nutrient needs related to increased demand for nutrients as evidence by pt on HD NUTRITION INTERVENTION: 1.) Recommend TF of Nepro at 25ml/hr. Advance by 10ml every 4 hours as tolerated until goal rate of 50ml/hr. TF at goal rate provides 2070 kcal and 93 g pro (100% kcal and pro needs). If on IVF, flush 40 ml every 4 hrs. If IVF off, fluid flush 50 ml every 2 hours. Unsigned orders placed in chart pending MD authorization. 2.) Strongly recommend pt be made NPO until ST eval can be completed as pt with history of severe dysphagia. MD aware of this recommendations. MONITOR / EVAL: TF start/tolerance/advance, ST eval, weight, GI, labs, nutrition status. Will continue to monitor per high nutrition risk guidelines Addendum: 09/16/16 at [address] Tube feedings started 09/15. Pt tolerating well.
--- NOTE | 2016-09-15 15:56 | NUR ---
Social Work-attempted initial assessment: Data:EMR Reviewed. Pt is on day 55 y/o male who was admitted on 09/14/16 for end stage renal per H&P. Pt's insurance is [facility] and [facility] supp and PCP is Rik Guerin MD. EMR reviewed. SW attempted to see pt and complete initial assessment, but pt currently out for room for procedure. SW spoke with Leelee admissions at 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 Guerin to follow. SW will continue to follow. Assessment:Pt who is a senior care care at [facility]. Plan:Pt to discharge back to [facility] with Dr. Guerin to follow. Paperwork in the chart. SW will continue to follow. MIGUEL Payton
--- NOTE | 2016-09-15 18:03 | NUR ---
Diet/Tube feeding Pt had a general Renal diet ordered, eat some with SOURCING COORDINATOR 1:1 feed, family arrived after and stated he is always NPO since he silently aspirates. informed MD. Diet changed to NPO. Tube feeding started in his Peg tube at 25mls/hour will advance as per protocol to goal range. Pt complained of arm pain where procedure was done, administered liquid Dilaudid into Peg tube, pt stated pain was good.
--- NOTE | 2016-09-15 18:19 | NUR ---
Wound Care Pt presents with multiple stage 2 pressure ulcers at his right, left buttock and coccyx all POA. Buttock pressure ulcers are 2 cm L x 1.5 cm W x0.1 cm D. Coccyx ulcer 1` cm L x 0.8 cm x 0.2 cm deep. Recommend shield wipes to periwound skin daily and mepilex sacral dressing changed PRN. Pt is on a P500 bed.
--- NOTE | 2016-09-15 22:03 | OP ---
[address] [address] OPERATIVE REPORT PATIENT: JOANNE FIGUEROA : 1960 MR#: [id number] ADMIT: 09/14/2016 JOB ID: [id number] DATE OF SURGERY: 09/15/2016 SURGEON: Ash Durbin MD. B[employer] M[employer] CARRIAGE OPERATOR: 1. Nora Adkins MD. 2. Gary Harris PA-C. PREOPERATIVE DIAGNOSIS(ES): 1. End-stage renal failure. 2. Insulin-dependent diabetes mellitus. 3. History of intracerebral hemorrhage. POSTOPERATIVE DIAGNOSIS(ES): 1. End-stage renal failure. 2. Insulin-dependent diabetes mellitus. 3. History of intracerebral hemorrhage. PROCEDURE: Left upper arm basilic vein transposition. INDICATIONS: A 55-year-old man who has an intracerebral bleed. He is a brittle diabetic and has end-stage renal failure, on dialysis. He has had poor venous access. Currently dialyzed through a tunneled catheter. Three months ago, I performed a left brachiobasilic fistula and he is now here for transposition. He was admitted yesterday because of his brittle diabetes and to have inpatient dialysis prior to his operation today. FINDINGS: He had an excellent thrill in the fistula, but his fistula was not very long. It was not long enough to be tunneled and so I superficialized it by elevating it and creating subcutaneous bridges beneath it, but at the conclusion of the procedure, he again had an excellent thrill in his fistula. PROCEDURE: At the beginning and end of the operation, SCOAP checklist was completed. An LMA anesthetic was induced. Using ChloraPrep, he was prepped and draped in the usual fashion. An incision was designed along his left medial upper arm and infiltrated with 0.5% plain bupivacaine. The incision was started distally and then progressed proximally. The fistula was identified and the vein was exposed. Branches were divided after placing 3-0 silk ties and clips, or on larger veins, 3-0 silk suture ligature on both sides and then the vein divided. After completely freeing up the vein, it was divided distally at an oblique angle and then withdrawn to get it out from the sensory forearm nerve. Prior to doing so, I made a francine along its anterior border to prevent twisting. As stated above, it was apparent I would not have the length to do typical tunneling. The vein was flushed with heparinized saline, and then I reanastomosed the vein to itself with running 6-0 Prolene. The vein was once again flushed with heparinized saline prior to completing the anastomosis. After completing the anastomosis, there was excellent antegrade flow through the fistula. To superficialize it, I placed horizontal mattress sutures of 3-0 Vicryl deep to the vein, elevating it. After that was done, deep to the subcutaneous tissue and into the open space of his upper arm, I placed a 15-Turkish Hemovac drain and it was secured with 2-0 nylon. The skin was closed with running subcuticular 4-0 Vicryl, then a sterile dressing applied. The estimated blood loss was 25 cc. There were no apparent complications. The final sponge, needle, and instrument counts were announced as correct and he was returned to the recovery room in stable condition. Critical assistance was provided by Nora Adkins MD. Without his assistance, I could not have done the operation.
[2016-09-16] VITALS (7 sets, daily range): BP systolic 95–128; BP diastolic 58–74; PULSE 74–93; RESP 16–18; O2SAT 98–100
[2016-09-16] MEDS: Calcium Carbonate 1250 mg/5 mL Suspension PEG SCH ×4 (04:21→19:53)
[2016-09-16] MEDS: Insulin Human REGular 300 Unit/3 mL Inj SUBQ SCH (04:27)
--- NOTE | 2016-09-16 06:20 | NUR ---
Blood sugar/ Late Meds Bloos sugar 366, sliding scale , 8 units Humulin R- , On tube feed, @ 35, . 2030 Meds administered by Student RN and Teacher/ clinical instructor.
[2016-09-16] MEDS: Azithromycin Inj 500 MG in Dextrose 5% w/Vial Mate 250 ML IV SCH (08:54)
[2016-09-16] MEDS ORDERED: Insulin GLARgine 100 Unit/mL Syringe SUBQ ONE (09:20)
[2016-09-16] MEDS: Piperacillin-Tazo 3.375 Gm Inj 3.375 GM in Dextrose 5% Minibag Plus 50 ML IV SCH ×2 (10:26→19:53)
[2016-09-16] MEDS: Lactulose 20 Gm/30 mL 30 mL Syrup PEG SCH (10:28)
[2016-09-16] MEDS: FLUoxetine 4 mg/mL 118 mL Solution PEG SCH (10:29)
[2016-09-16] MEDS: Sodium-Potassium Phosphorus Packet PEG SCH ×2 (10:29→19:54)
[2016-09-16 10:38] LABS: Mean Corpuscular Hemoglobin 34.1 pg (27.0-35.0); Mean Corpuscular Volume 104.8 fL (81-100)
--- NOTE | 2016-09-16 12:47 | PCM.PNMED ---
Subjective Date of Service Sep 16, 2016 Subjective Follow-up follow uncontrolled diabetes, healthcare associated pneumonia. Patient seen and examined at bedside. Plan of care discussed with nursing staff . He is aphasic and cannot be interviewed. He nodded no pain. Blood sugar is quite elevated today, with fingertips of 430. Patient is afebrile Exam Vital Signs Vital Sign - Last Date Time Temp Pulse Resp B/P Pulse Ox O2 Delivery O2 Flow Rate FiO2 09/16/16 11:16 Supplement Oxygen 09/16/16 08:44 36.7 86 16 123/70 100 2.50 Intake and Output 09/15/16 09/15/16 09/16/16 Cumulative From/Thru 14:59 22:59 06:59 09/14/16 11:23 - 09/16/16 06:08 Intake Total 701 ml 400 ml 204 ml 1365 ml Output Total 25 ml 20 ml 20 ml 2145 ml Balance 676 ml 380 ml 184 ml -780 ml Intake Oral 400 ml 0 ml 400 ml IV Total 701 ml 204 ml 905 ml Tube Irrigant 60 ml Output Gastric Drainage Total 80 ml Drainage Total 20 ml 20 ml 40 ml Ultrafiltrate 2000 ml Estimated Blood Loss 25 ml 25 ml # Voids 0 1 Exam General: Acutely ill-appearing. In no active distress. Airway cannot Neck: Supple no JVD, trachea is midline. Chest: Normal respiratory effort, no chest wall tenderness. Normal lung bilaterally, no crackle, no wheezing. Heart: S1-S2 regular rate and rhythm no gallop no murmur. Abdomen: Entry site of PEG tube is clean, dry not infected. Audible bowel sounds all quadrants, no tenderness. Extremity: No edema, no cyanosis. Neurologically: Aphasic. No acute deficit Psych: al mood is depressed IVs and Medications Medications Reviewed: Medications were reviewed in detail Lab and Diagnostics Result Diagram: 09/16/16 1015 09/16/16 1015 X-Rays, CTs and MRIs Chest x-ray reviewed : Slightly increased pulmonary edema with persistent peripheral left-sided opacities which may reflect infection or asymmetric edema. Assessment & Plan 1. ESRD on HD via permacath : Patient is on hemodialysis via right IJ permacath. Patient is status left basilar vein transposition. 2. Dysphagia : As a result of CVA. Patient is Peg tube feed : Continue with his previous formula. 3. Insulin-dependent diabetes : Blood sugar is out of control and has been in and 300 range since peg feeding resumed despite use of basal insulin with Lantus and sliding scale. His morning blood sugar was 430 and patient is started and insulin drip . Close monitoring and adjustment of insulin regimen for diabetic control. 4. Hypertension: Controlled. 5. Hypothyroidism: Continue hormonal supplement 6. Hyperlipidemia: On statin 7. Anemia of chronic disease/anemia of renal failure 8 . HCAP : chest x-ray showed slightly increased pulmonary edema with persistent peripheral left-sided opacities which may reflect infection or asymmetric edema. Patient is afebrile, has no leukocytosis but possibility of pneumonia is being entertained. This is a very sick patient with a myriad of medical issues, immunocompromised . Empiric Zosyn and azithromycin started. Repeat chest x-ray in am Patient is clinically and hemodynamically stable though he requested today and physical examination. Retrograde has been uncontrollable and 430 today. He is put on an insulin drip. Hemodialysis per nephrology Repeat CBC , BMP, chest x-ray in a.m.. Pain Evaluation: Adequate Pain Control VTE Prophylaxis: Sub-Q Heparin (Unfractionated) VTE Mechanical Devices: Intermittant Pneumatic CD Resuscitation Status: DNR/DNI:Do Not Resuscitate/Intubate Time spent 35 minutes Sonu Payne MD Sep 16, 2016 12:47
--- NOTE | 2016-09-16 13:29 | PROG NOTE ---
[address] [address] PROGRESS NOTE PATIENT: JOANNE FIGUEROA : 1960 MR#: [id number] ADMIT: 09/14/2016 JOB ID: [id number] DATE: 09/16/2016 SUBJECTIVE: The patient is seen in followup. He is postoperative day one following his left basilic vein transposition. Postoperatively he has been running very high glucoses. He has a glucose this morning of 460. DATE: EXAMINATION: He is alert, in no distress. Pain seems to be minimal. Temperature 36.7, brachial blood pressure 123/70, pulse 86, respiratory rate 16, O2 sat on 2.5 L is 100%. His left arm incision is healing well. He has an excellent thrill in his fistula. His Boby-Bliss drain has put out 20 cc overnight. LABORATORY RESULTS: White blood cell count is 11.2, hematocrit 32.6, platelet count 247,000. A procalcitonin was drawn yesterday at noon just after his operation. It is 1.19. Sodium 134, potassium 4.3, glucose this morning 460. IMPRESSION: 1. Postoperative day one, left basilic vein transposition. His fistula is patent and incision looks good and his Boby-Bliss drainage is typical. 2. Diabetes, very out of control, very common after operations because of the stress response with surgery and ideally glucoses are kept under 180. I would recommend an insulin drip. 3. Possible pneumonia. I have reviewed his chest x-ray with Dr. Cowan in Radiology. The problem with the procalcitonin is that the general anesthetic that he had causes a false positive elevation of a procalcitonin, and by the timing, it was drawn just after his operation. I am not entirely convinced he has a pneumonia. 4. He needs significantly better control of his glucoses.
[2016-09-16] MEDS: Insulin Human REGular 100 Units/100 mL NS IV SCH ×2 (13:58)
--- NOTE | 2016-09-16 14:26 | NUR ---
blood sugar P: bed side blood glucose around noon 453 I: Primary RN notified , new order obtained for insulin drip E: RN started insulin drip per non DKA insulin drip protocol
[2016-09-16] MEDS ORDERED: Insulin Human REGular 300 Unit/3 mL Inj SUBQ SCH (14:30)
--- NOTE | 2016-09-16 14:32 | PCM.PNMED ---
Subjective Date of Service Sep 16, 2016 Subjective Patient is doing well postoperatively. He has a Boby-Bliss drain in the left antecubital area and has minimal pain. Exam Vital Signs Vital Sign - Last Date Time Temp Pulse Resp B/P Pulse Ox O2 Delivery O2 Flow Rate FiO2 09/16/16 14:06 36.4 92 18 128/73 99 Nasal Cannula 2.00 Intake and Output 09/15/16 09/15/16 09/16/16 Cumulative From/Thru 15:00 23:00 07:00 09/14/16 11:23 - 09/16/16 06:08 Intake Total 701 ml 400 ml 204 ml 1365 ml Output Total 25 ml 20 ml 20 ml 2145 ml Balance 676 ml 380 ml 184 ml -780 ml Intake Oral 400 ml 0 ml 400 ml IV Total 701 ml 204 ml 905 ml Tube Irrigant 60 ml Output Gastric Drainage Total 80 ml Drainage Total 20 ml 20 ml 40 ml Ultrafiltrate 2000 ml Estimated Blood Loss 25 ml 25 ml # Voids 0 1 Exam Neck is supple without adenopathy thyromegaly or mass distention. Lungs scattered rhonchi but are much more clear than previous exam. A soft systolic murmur. Abdomen is soft without any tenderness rebound guarding masses or hepatosplenomegaly. Extremities do not show any evidence of clubbing cyanosis or edema. Skin turgor is good Lab and Diagnostics Result Diagram: 09/16/16 1015 09/16/16 1015 X-Rays, CTs and MRIs Chest x-ray reviewed : Slightly increased pulmonary edema with persistent peripheral left-sided opacities which may reflect infection or asymmetric edema. Assessment & Plan Impression #1 end-stage renal disease dialysis dependent Recommendations #1 issue is we dialyze today for 4 hours on a revaclear dialyzer , 3 potassium bath, blood flow of 300-400, dialysate flow 600, temperature 35, 35 bicarbonate and 5% so sodium modeling. VTE Prophylaxis: Sub-Q Heparin (Unfractionated) VTE Mechanical Devices: Intermittant Pneumatic CD Resuscitation Status: DNR/DNI:Do Not Resuscitate/Intubate Cesar Guy DO Sep 16, 2016 14:32
--- NOTE | 2016-09-16 15:47 | NUR ---
Social Work: Initial Assessment Data: See Initial Assessment. Pt is a 55 year old male admitted 09/14/16 for end stage renal failure per H&P. Pt's insurance is Medicare with [facility] Supp and PCP is Rik Geurin MD. PATRICIAK is sister Shonna Miller, . Pt is unable to speak, but will thumbs up/thumbs down. EMR reviewed. SW met with pt at bedside to discuss discharge plan, SW role explained. 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 Pt uses wheelchair at baseline and has a peg tube. Pt is agreeable to returning to [facility] upon discharge. SHAYLA called Juanita, admissions at [facility] [phone], and [facility] has agreed to take pt back upon discharge with Dr. Guerin to follow. Paperwork in chart. Pt has no terminal make up operator care insurance or VA benefits. SHAYLA called sister, Shonna, to verify that DPOA paperwork is on file. Shonna is DPOA. Shonna agreeable for pt to discharge back to [facility] when medically stable. SW will continue to follow. Assessment: Pt who will return to [facility] Plan: Pt to discharge back to [facility] when medically stable with Dr. Guerin to follow. 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 Paperwork in chart. Social Work will continue to follow. MIGUEL Garcia Addendum: 09/16/16 at 1609 by JOAQUIM REBOLLAR SS Amended: Links added.
--- NOTE | 2016-09-16 16:18 | NUR ---
Insulin Drip Pt BGL checked at approx 1200 was 453. Spoke to hospitalist, ordered insulin drip. Pt needed new IV, two staff members attempted x3, called IVT successful Insulin gtt started at approx 1353, per algorithm started at 5u/hr. Pt taken up to [facility] for dialysis at 1400.
--- NOTE | 2016-09-16 18:42 | NUR ---
Dialysis MOC Patient arrived to unit in hospital bed. Report received by hiram Jhaveri RN. Insulin infusing and titrated to goal range. Currently infusing at 0.5 unit/hr. Report given to [facility]EE[facility]. Will transport when staff available.
--- NOTE | 2016-09-16 18:50 | NUR ---
Dialysis Note: 4 hr tx, 0 net UF. Attempted to remove 1.3 mL UF but turned UF off r/t hypotension. Dresg changed CHG. No s/s infection. Pt slept or rested through tx. On insulin drip titrated down to 0.2 through tx. Last BG at 1835 was 121. Blood returned and limbs dwelled with Heparin 1000 and secured. Pt returned to floor stable. Please see DTR for complete record of VS.
--- NOTE | 2016-09-16 19:00 | NUR ---
PM Assessment Unable to perform as patient was off the unit from 1400 to 1900
[2016-09-16] MEDS ORDERED: Insulin GLARgine 100 Unit/mL Syringe SUBQ SCH (21:00)
--- NOTE | 2016-09-17 04:04 | NUR ---
Pain/ Insulin Drip Pt. had facial grimaces that looked like pt. was in pain. When asked if in pain, pt. thumbed up yes. PO Tylenol given. Pt. is now sleeping. Pt's blood sugars have now stabilized in the 110's. Will continue to monitor.
[2016-09-17 05:30] VITALS: BP 96/57; PULSE 77; RESP 16; O2SAT 92
[2016-09-17 05:52] VITALS: PULSE 78; RESP 18; O2SAT 99
[2016-09-17 08:01] LABS: Mean Corpuscular Hemoglobin 33.8 pg (27.0-35.0); Mean Corpuscular Volume 105.8 fL (81-100)
[2016-09-17] MEDS ORDERED: 0.9% Sodium Chloride 250 ML ONE (08:45)
[2016-09-17] MEDS: Sodium-Potassium Phosphorus Packet PEG SCH (08:48)
[2016-09-17] MEDS: Calcium Carbonate 1250 mg/5 mL Suspension PEG SCH ×2 (08:48→16:16)
[2016-09-17] MEDS: Azithromycin Inj 500 MG in Dextrose 5% w/Vial Mate 250 ML IV SCH (08:48)
[2016-09-17] MEDS: Lactulose 20 Gm/30 mL 30 mL Syrup PEG SCH (08:49)
[2016-09-17] MEDS: FLUoxetine 4 mg/mL 118 mL Solution PEG SCH (08:49)
--- NOTE | 2016-09-17 08:51 | DRSVH ---
PROCEDURE: X-RAY CHEST ONE VIEW, PORTABLE ([id number]) INDICATIONS: Pneumonia TECHNIQUE: One view of the chest was acquired. COMPARISON: [facility], CR, XR CHEST 1VW (PORTABLE), 09/14/2016, 19:26. FINDINGS: Surgical changes and devices: Stable position of right IJ double-lumen dialysis catheter. Lungs and pleura: No pleural effusions or pneumothorax. Interval increase in diffuse, widespread bi lateral interstitial and basilar air space opacities.. Mediastinum: Mediastinal contours appear normal. Heart size is normal. Bones and chest wall: No suspicious bony lesions. Overlying soft tissues appear unremarkable. IMPRESSION: Diffuse pulmonary edema likely related to fluid overload but pneumonia involving the lung bases cannot be excluded. Dictated by: Derik Spears RR Interpreted: Lorraine Pickens MD on 09/17/2016 at 8:49 Transcribed by: SHIRAZ on 09/17/2016 at 8:50 Approved by: Lorraine Pickens M.D. on 09/17/2016 at 9:06
--- NOTE | 2016-09-17 09:05 | PROG NOTE ---
[address] [address] PROGRESS NOTE PATIENT: JOANNE FIGUEROA : 1960 MR#: [id number] ADMIT: 09/14/2016 JOB ID: [id number] DATE: 09/17/2016 SUBJECTIVE: The patient is postoperative day two following left basilic vein transposition. Yesterday, he had very high glucoses. He is on an insulin infusion. Much better control today. The patient actually for the first time since I have met him spoke legibly. He told me he is not having pain. He was dialyzed yesterday. PHYSICAL EXAMINATION: Temperature is 36.3, brachial blood pressure 96/57, pulse 78, respiratory rate 18, O2 sat on 2 L is 99%. His left upper arm incision is healing well. He has an excellent thrill in his fistula. His Boby-Bliss drain put out 10 cc of light serosanguineous fluid overnight. I stripped it, and it is not thrombosed. He had 20 cc out all of yesterday. LABORATORY RESULTS: White count 10,200, hematocrit is 31, platelet count 235,000. His electrolytes from today are pending. His last bedside glucose was 103. IMPRESSION: Improved. PLAN: He remains on Zosyn for possible pneumonia. He is also on azithromycin. The question is does he truly have a pneumonia. If he does not, the antibiotics can be stopped, and he can be discharged. At this time I would plan to take out the Boby-Bliss drain before discharge. If he is to stay here today, then it will come out tomorrow.
[2016-09-17 09:32] VITALS: PULSE 77; RESP 16; O2SAT 98
[2016-09-17] MEDS ORDERED: Insulin GLARgine 100 Unit/mL Syringe SUBQ ONE (11:20)
[2016-09-17] MEDS: Piperacillin-Tazo 3.375 Gm Inj 3.375 GM in Dextrose 5% Minibag Plus 50 ML IV SCH (11:24)
--- NOTE | 2016-09-17 11:26 | NUR ---
NUTRITION FOLLOW-UP: ASSESS: 55 yo M admitted for end stage renal failure. Pt is POD 2 for basilar vein transposition. Pt with PEG tube and chronic PEG tube feeding of Nepro at 50 ML/hr. Shahla TF well at goal rate. BG levels were running high post-op, likely due to stress from surgery but are now controlled much better. Pt's wt has decreased ~5kg since last admit in August. He is currently NPO. There is some concern for pneumonia. Pt is on chronic dialysis for ESRD. Nephrology is following. Pt has been experiencing diarrhea, likely due to lactulose. PMHX: ESRD on HD, T1DM, CVA, TBI, Seizures, WI, HTN, HLD, intracranial hemorrhage. LABS: Reviewed. Mathematical Sciences Professor 1.88, Ca 8.2, Alb 3.0 MEDS: Reviewed. Insulin, calcium carbonate GI: BMx1 09/17, diarrhea HOME TF: Nepro at 50 ml/hr to provide 2070 kcal/day and 93 g pro (100% estimated needs). CURRENT TF: Nepro at 50ml/hr to provide 2070 kcal/day and 93 g pro (100% estimated needs). CURRENT WTS: 58.3kg, BMI 19.5kg/m2, admit wt 59.9kg. wt at last admit 08/05/16: 64kg. IBW 70kg DIET: NPO EST. NEEDS: Dialysis Kcals: 3391-7497 kcal/day (30-35 kcal/kg) Pro: 70-120 g/day (1.2-2.0 g/kg) NUTRITION DIAGNOSIS: 1.) Chew/swallow difficulty related to chronic dysphagia as evidence by need for halfway TF via PEG.-PERSISTS 2.) Increased nutrient needs related to increased demand for nutrients as evidence by pt on HD-PERSISTS NUTRITION INTERVENTION: 1.) Continue TF at goal rate of 50ml/hr. TF at goal rate provides 2070 kcal and 93 g pro (100% kcal and pro needs). If on IVF, flush 40 ml every 4 hrs. If IVF off, fluid flush 50 ml every 2 hours. 2.) If pt's wt continues to decrease, recommend re-evaluate TF goal rate to help prevent further wt loss. 3.) Pt has not had a ST eval so recommend continue with NPO status as pt has severe dysphagia. MONITOR / EVAL: TF tolerance, ST eval, weight, GI, labs, nutrition status. Will continue to monitor per high nutrition risk guidelines
[2016-09-17] MEDS ORDERED: INSU100V7 SUBQ (11:27)
--- NOTE | 2016-09-17 11:31 | PCM.DIMED ---
Discharge Instructions Date of Service Sep 17, 2016 Dates of Hospitalization Sep 14, 2016 at 10:59 Discharge Diagnosis Discharge Diagnosis Uncontrolled diabetes, ESRD on HD, Dysphagia , H/o CVA , Hypertension, Depreesion, HCAP , hypothyroidism, Hyperlipidemia, PEG feeding , Anemia of renal failure, H/o ICB Diet Diabetic Activity No restrictions Call your provider Fever or Chills, Shortness of breath Patient Instructions cbc in 3 days to follow up white cell count Follow-up with PCP in: 1 week (Primary care doctor ) Sonu Payne MD Sep 17, 2016 11:31
[2016-09-17] MEDS ORDERED: PIPE3.376 IV (11:33)
[2016-09-17] MEDS ORDERED: AZIT500T5 PEG (11:33)
[2016-09-17] MEDS: Insulin Human REGular 100 Units/100 mL NS IV SCH ×2 (12:25)
--- NOTE | 2016-09-17 12:43 | NUR ---
faxed dc orders to [facility], packet ready and on chart. Addendum: 09/17/16 at 1525 by AMY JUNE SS faxed [facility] transport request in, requesting pt be picked up at 2pm. Received CB they will be picking up pt at 4:15p. Advised CUSHION FORMER>
--- NOTE | 2016-09-17 13:34 | NUR ---
Social Work Discharge: Order for discharge acknowledged. Plan is SNF transfer to [facility]. SW met with patient at bedside who was made aware of transfer today and states being in agreement. SW spoke to [facility] rep who was made aware and bed available today. 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 Discharge paperwork faxed by UR specialist to facility. SW contacted and left voice mail message for patient family Shonna, who was advised of transfer today. SW to follow. PLAN: Transfer to [facility] today, Transport at 3pm today. SW to follow Gurwinder RIVERA
--- NOTE | 2016-09-17 14:15 | PCM.DC.MED ---
Discharge Summary Date of Service Sep 17, 2016 Dates of Hospitalization Date of Hospital Admission Sep 14, 2016 at 10:59 Date of Discharge: Sep 17, 2016 Providers: Admitting Physician: Sonu Yap MD Primary Care Physician: Lamont Guerin MD Attending Physician: Sonu Yap MD Diagnosis at Time of Discharge Diagnosis at Time of Discharge Uncontrolled diabetes, ESRD on HD, Dysphagia , H/o CVA , Hypertension, Depreesion, HCAP , hypothyroidism, Hyperlipidemia, PEG feeding , Anemia of renal failure, H/o ICB Consultations Vascular surgery, nephrology Procedures XRay, CTs & MRIs Chest x-ray reviewed : Slightly increased pulmonary edema with persistent peripheral left-sided opacities which may reflect infection or asymmetric edema. Brief History This is a 55 years old male with multiple medical history [facility]. Patient is dysphoric, aphasic and unable to provide information about her condition. Was information was retrieved from his chart and from records [facility] Patient is here today for hemodialysis and basilar vein transposition. No report of chest pain, shortness of breath, fever, chills, nausea, vomiting, abdominal pain, constipation, diarrhea. Hospital Course 1. ESRD on HD via permacath : Patient is on hemodialysis via right IJ permacath. Patient is status left basilar vein transposition. 2. Dysphagia : As a result of CVA. Patient is Peg tube feed he will continue with his formula via [facility] 3. Insulin-dependent diabetes Blood sugar was quite elevated and given a course of hospitalization ranging from 300-500 at some point . He was present insulin drip with significant improvement Patient is placed in basal insulin 20 units subcutaneous tennis daily. Will continue on a sliding scale insulin at the [facility]. Hemoglobin A1c is 8. Primary care doctor to adjust insulin regimen for adequate blood sugar control 4. Hypertension: Controlled. 5. Hypothyroidism: Continue hormonal supplement 6. Hyperlipidemia: On statin 7. Anemia of chronic disease/anemia of renal failure 8 . HCAP chest x-ray done during the course of hospitalization showed left-sided opacities which may reflect infection or asymmetric edema. Patient is afebrile, has no leukocytosis but possibility of pneumonia or aspiration pneumonia were considered This is a very sick patient with a myriad of medical issues, immunocompromised . He was treated with Empiric Zosyn and azithromycin . We will continue with the current antibiotics for another 3 days as outpatient. [facility] is [facility] to [facility] in [facility] condition. Case discussed with nephrology Dr. Guy prior to discharge Exam Vital Signs (Last) Date Time Temp Pulse Resp B/P Pulse Ox O2 Delivery O2 Flow Rate FiO2 09/17/16 09:32 77 16 98 Nasal Cannula 2.00 09/17/16 05:30 36.3 96/57 Exam General: In bed comfortably. No acute distress Neck: Supple no JVD, trachea is midline. Chest: Normal respiratory effort. Lung : Clear bilaterally, no crackle, no wheezing. Heart: S1-S2 regular rate and rhythm no gallop no murmur. Abdomen: Soft, non tender. BS + all quadrant Extremity: No edema, no cyanosis. Neurologically: Aphasic. No acute deficit Test 09/14/16 13:59 09/15/16 12:05 09/16/16 10:15 09/17/16 07:49 Neutrophils (%) (Auto) 66.8% (40-74) Lymphocytes (%) (Auto) 13.9% (14-46) Monocytes (%) (Auto) 9.5% (4-12) Eosinophils (%) (Auto) 7.9% (0-5) Basophils (%) (Auto) 0.5% (0-3) Magnesium Level 2.6mg/dL (1.6-2.6) Procalcitonin 1.19ng/mL (0.00-0.08) Hemoglobin A1c 8.0% (4.8-5.6) White Blood Count 10.2th/mm3 (3.8-10.1) Red Blood Count 2.93mil/mm3 (4.40-5.80) Hemoglobin 9.9g/dL (13.8-17.2) Hematocrit 31.0% (41.0-50.0) Mean Corpuscular Volume 105.8fL (81-100) Mean Corpuscular Hemoglobin 33.8pg (27.0-35.0) Mean Corpuscular Hemoglobin Concent 31.9% (32.0-37.0) Red Cell Distribution Width 13.6% (12.3-15.4) Platelet Count 235bil/L (150-400) Sodium Level 141mEq/L (134-144) Potassium Level 3.5mEq/L (3.5-5.2) Chloride Level 99mEq/L (97-108) Carbon Dioxide Level 30mmol/L (18-29) Blood Urea Nitrogen 15mg/dL (6-24) Creatinine 1.88mg/dL (0.76-1.27) Estimat Glomerular Filtration Rate 40mL/min (>59) Glucose Level 99mg/dL (60-99) Calcium Level 8.2mg/dL (8.5-10.1) Total Bilirubin 0.3mg/dL (0.0-1.2) Aspartate Amino Transf (AST/SGOT) 17U/L (0-50) Alanine Aminotransferase (ALT/SGPT) 15U/L (0-44) Alkaline Phosphatase 121U/L (25-150) Total Protein 6.3g/dL (6.4-8.4) Albumin 3.0g/dL (3.4-5.0) Discharge Medications Discharge Medications ([Nepro Tube feed]) 50 CC PEG Hr (Reported) Atorvastatin Calcium (Atorvastatin Calcium) 10 Mg Tablet 5 MG PEG HS (Reported) Azithromycin (Azithromycin) 500 Mg Tablet 500 MG PEG DAILY Prescribed by: SONU YAP MD Calcium Carbonate (Calcium Carbonate) 500 Mg/5 Ml Oral.susp 500 MG PEG TID ( Reported) Cholecalciferol (Vitamin D3) (Vitamin D3) 5,000 Unit Tablet 5,000 UNIT PEG DAILY (Reported) Esomeprazole Magnesium (Nexium Powder Pack) 40 Mg Suspdr.pkt 40 MG PEG DAILY ( Reported) Fluoxetine Oral Soln (Fluoxetine Oral Soln) 20 Mg/5 Ml Solution 60 MG PEG DAILY (Reported) Insulin Glargine (Lantus U100 Insulin Vial) 100 Unit/Ml Vial 15 UNIT SUBQ HS Prescribed by: SONU YAP MD Lactulose (Lactulose) 20 Gm/30 Ml Solution 20 GM PEG DAILY (Reported) Levothyroxine (Levothyroxine) 150 Mcg Tablet 150 MCG PO DAILY (Reported) Lisinopril (Lisinopril) 5 Mg Tablet 5 MG G-TUBE DAILY (Reported) NPH, Human Insulin Isophane (HUMulin-N U100 Insulin Vial) 100 Unit/1 Ml Vial 0- 7 UNIT SUBQ q6hrs (Reported) Na Phos,M-B/K Phos,Monob (K-Phos #2 Tablet) 1 Each Tablet 2 EACH PEG BID ( Reported) Piperacillin Sodium/Tazobactam (Zosyn 3.375 Gram Vial) 3.375 Gm Vial 3.375 GM IV Q8H Prescribed by: SONU YAP MD As needed Acetaminophen (Acetaminophen) 325 Mg Tablet 650 MG PEG Q4H PRN PRN pain/fever ( Reported) Baclofen (Baclofen) 10 Mg Tablet 5 MG PO q4 hours PRN PRN For Hiccups (Reported ) Bisacodyl (Dulcolax Rectal) 10 Mg Supp.rect 10 MG RC DAILY PRN PRN For Constipation (Reported) Dextran 70/Hypromellose/Pf (Artificial Tears Drops) 1 Each Droperette 2 DROP BOTH_EYES DAILY PRN PRN dry eyes (Reported) Glucagon,Human Recombinant (Glucagen) 1 Mg/1 Ml Vial 0.5-1 MG IJ DAILY PRN PRN blood glucose abnormality (Reported) Hydrocodone-Acetaminophen 5-325 mg (Hydrocodone-Acetaminophen 5-325 mg) 1 Each Tablet 1-2 TABLET PEG Q4H PRN PRN For Pain (Reported) Insulin Aspart (NovoLOG U100 Insulin Vial) 100 Unit/Ml Mdv 0-12 UNITS SUBQ TID PRN PRN sliding scale (Reported) Ondansetron (Ondansetron) 4 Mg Tablet 8 MG TUBE q8 hours PRN PRN For Nausea ( Reported) Followup Plan Disposition: prison Discharge Diet: Diabetic Discharge Activity: No restrictions Patient Instructions cbc in 3 days to follow up white cell count Follow-up with PCP in: 1 week (Primary care doctor ) Time spent 35 minutes. Patient seen and examined on the day of discharge Sonu Yap MD Sep 17, 2016 14:15
[2016-09-17 14:34] VITALS: BP 124/76; PULSE 86; RESP 16; O2SAT 98
--- NOTE | 2016-09-17 16:41 | NUR ---
Pt discharged at 1630 to [facility] via [facility] transport. All paperwork signed and questions answered. Pt friend accompanying Report called to Caitlin at . Pt left in a w/c assisted by director transportation. Pt left with JR drain intact to left FA as no orders were given when to d/c. Addendum: 09/17/16 at 1645 by CECE OGDEN RN MD notified of drain left in and to be removed tomorrow a.zhane at [facility] Addendum: 09/17/16 at 1650 by JEREMIE ELLISON RN Spoke to Pauline arias at [facility] about plan to remove JR drain Wednesday AM.
== END 2016-09-17 16:29 | DRG 981 ==
LOC: SAS 10:58 → OSC 10:59 → UNDODISIN 09-16 22:40
PROVIDERS: ADMIT Internal Medicine; ATTEND Internal Medicine
PROC: 5A1D00Z (ICD-10-PCS; 2016-09-14)
PROC: 05SC0ZZ Reposition Left Basilic Vein, Open Approach (ICD-10-PCS; principal; 2016-09-15 09:00)
PROC: 5A1D00Z (ICD-10-PCS; 2016-09-16)
DX: I13.11 Hypertensive heart and chronic kidney disease without heart failure, with stage 5 chronic kidney disease, or end stage renal disease (principal); N18.6 End stage renal disease; J18.9 Pneumonia, unspecified organism; I69.151 Hemiplegia and hemiparesis following nontraumatic intracerebral hemorrhage affecting right dominant side; E11.21 Type 2 diabetes mellitus with diabetic nephropathy; Z99.2 Dependence on renal dialysis; E11.319 Type 2 diabetes mellitus with unspecified diabetic retinopathy without macular edema; D63.1 Anemia in chronic kidney disease; E03.9 Hypothyroidism, unspecified; Z79.4 Long term (current) use of insulin; Z86.74 Personal history of sudden cardiac arrest; Z93.1 Gastrostomy status; I69.291 Dysphagia following other nontraumatic intracranial hemorrhage; I69.220 Aphasia following other nontraumatic intracranial hemorrhage; E78.5 Hyperlipidemia, unspecified; Y95 Nosocomial condition; E11.65 Type 2 diabetes mellitus with hyperglycemia

== ENCOUNTER 2016-11-05 06:02 | Inpatient (IN) | payer MEDICARE, MEDICAID ==
[2016-11-05] VITALS (14 sets, daily range): BP systolic 62–139; BP diastolic 27–76; PULSE 102–122; RESP 20–42; O2SAT 89–100
[~2016-11-05] VITALS: Ht 171.4 cm; Wt 77.8 kg
[~2016-11-05 06:02] MED LIST changes: +AZIT500T5 PEG; -ERTA1VIA2 IV; +INSU100V7 SUBQ; +LISI-571 G-TUBE; -LISI10TA PEG; +PIPE3.376 IV; -[UNRECOGNIZED DRUG - CODE] EXT; -[UNRECOGNIZED DRUG - OTHER] PEG
--- NOTE | 2016-11-05 06:04 | ED.REPORT ---
HPI-Dyspnea / Wheezing Date of Service Nov 05, 2016 ED Provider: Philip Maynard MD The patient is a 55 year old male with history of diabetes mellitus type I with neuropathy, retinopathy, and nephropathy, end-stage renal disease on hemodialysis, hemorrhagic stroke in 2008 and 2014 resulting in dysphagia, aphasia, and left-sided weakness, dysphagia with recurrent aspiration, cardiac arrest in 2008 secondary to amphetamines with anoxic brain injury, and hypertension, who was brought to the emergency department by EMS for difficulty breathing. The patient is currently residing at [facility]. Per records brought by [facility] the patient is DNR with limited interventions. Medics report the patient was sating 70 % on room air when they arrived with a heart rate in the 110's, respiratory rate of 45, and a low blood pressure. The patient denies any pain. He is able to answer yes or no questions by squeezing his hands. Nursing Notes Stated Complaint: PROBABLE ASPIRATION Nursing Notes Reviewed: Yes Allergies: Coded Allergies: No Known Allergies (Verified , 11/05/16) Scheduled ([Nepro Tube feed]) 50 CC PEG Hr Atorvastatin Calcium (Atorvastatin Calcium) 10 Mg Tablet 5 MG PEG HS Azithromycin (Azithromycin) 500 Mg Tablet 500 MG PEG DAILY Calcium Carbonate (Calcium Carbonate) 500 Mg/5 Ml Oral.susp 500 MG PEG TID Cholecalciferol (Vitamin D3) (Vitamin D3) 5,000 Unit Tablet 5,000 UNIT PEG DAILY Esomeprazole Magnesium (Nexium Powder Pack) 40 Mg Suspdr.pkt 40 MG PEG DAILY Fluoxetine Oral Soln (Fluoxetine Oral Soln) 20 Mg/5 Ml Solution 60 MG PEG DAILY Insulin Glargine (Lantus U100 Insulin Vial) 100 Unit/Ml Vial 15 UNIT SUBQ HS Lactulose (Lactulose) 20 Gm/30 Ml Solution 20 GM PEG DAILY Levothyroxine (Levothyroxine) 150 Mcg Tablet 150 MCG PO DAILY Lisinopril (Lisinopril) 5 Mg Tablet 5 MG G-TUBE DAILY NPH, Human Insulin Isophane (HUMulin-N U100 Insulin Vial) 100 Unit/1 Ml Vial 0- 7 UNIT SUBQ q6hrs Na Phos,M-B/K Phos,Monob (K-Phos #2 Tablet) 1 Each Tablet 2 EACH PEG BID Piperacillin Sodium/Tazobactam (Zosyn 3.375 Gram Vial) 3.375 Gm Vial 3.375 GM IV Q8H Scheduled PRN Acetaminophen (Acetaminophen) 325 Mg Tablet 650 MG PEG Q4H PRN PRN pain/fever Baclofen (Baclofen) 10 Mg Tablet 5 MG PO q4 hours PRN PRN For Hiccups Bisacodyl (Dulcolax Rectal) 10 Mg Supp.rect 10 MG RC DAILY PRN PRN For Constipation Dextran 70/Hypromellose/Pf (Artificial Tears Drops) 1 Each Droperette 2 DROP BOTH_EYES DAILY PRN PRN dry eyes Glucagon,Human Recombinant (Glucagen) 1 Mg/1 Ml Vial 0.5-1 MG IJ DAILY PRN PRN blood glucose abnormality Hydrocodone-Acetaminophen 5-325 mg (Hydrocodone-Acetaminophen 5-325 mg) 1 Each Tablet 1-2 TABLET PEG Q4H PRN PRN For Pain Insulin Aspart (NovoLOG U100 Insulin Vial) 100 Unit/Ml Mdv 0-12 UNITS SUBQ TID PRN PRN sliding scale Ondansetron (Ondansetron) 4 Mg Tablet 8 MG TUBE q8 hours PRN PRN For Nausea General Time Seen by MD: 06:02 Chief Complaint Shortness of breath Hx Obtained From: Patient, EMS Arrived By: Ambulance Sudden in Onset?: Yes Onset Occurred: Yesterday Symptom Duration: Since onset Location: : None Severity: Current: No pain currently Severity: Maximum: No pain Recent Healthcare: No recent hospitalization Similar Sx Previous: Yes Past Medical History Past Medical History Notes: Code Status: DNR, DNI Pt is non-verbal and non-ambulatory at baseline post stroke Past Medical History 1. Type 1 diabetes mellitus, poorly controlled, with recurrent episodes of DKA. 2. Diabetic neuropathy. 3. Diabetic retinopathy. 4. Diabetic nephropathy. 5. End-stage renal disease, on hemodialysis (Wednesday, , and Saturdays). 6. Depression. 7. Hemorrhagic stroke in 2008 and 2014 with resulting dysphagia, expressive aphasia, and left-sided weakness. 8. Dysphagia with recurrent aspiration on modified diet (pureed with thickened liquids). 9. Cardiac arrest in 2008, VFib, thought secondary to amphetamines, hyperkalemia and DKA. 10. Seizure secondary to ruptured aneurysm/hemorrhagic stroke in 2008. 11. Hypothyroidism. 12. Anoxic brain injury secondary to cardiac arrest. 13. Hepatitis C per records. 14. Hepatitis B core antibody positive. 15. History of substance abuse. 16. Hypertension. 17. Ulcerative esophagitis with hematemesis in June 2014, with upper endoscopy at that time. 18. GERD 19. Recurrent aspiration pneumonia Past Surgical History Left foot surgery Dialysis shunt Left arm fistula placed 06/29/16 Smoking History Former Smoker Social History Alcohol Use: Denies alcohol use Drug Use: In recovery, Meth Other Social History: Lives in residential Ambulatory Status Independent Review of Systems Respiratory: Reports: Shortness of breath Cardiovascular: Denies: Chest pain Musculoskeletal: Denies: Back pain Complete sys rev & neg: except as marked. GI: Reports: Vomiting, Denies: Abdominal pain Neurologic: Denies: Headache Physical Exam Initial Vital Signs Vital Signs (First) Date Time Temp Pulse Resp B/P Pulse Ox O2 Delivery O2 Flow Rate FiO2 11/05/16 06:22 37.8 112 42 90/44 94 Non-Rebreather 15 Initial VS: Reviewed Head / Eyes: Atraumatic, Normocephalic, PERRL ENT: Mucous membranes moist, Conjunctiva normal, No scleral icterus Abdomen / GI: Soft, Non-tender, No guarding, No rebound, No distention Extremities: No swelling Skin: Warm, Dry, No cyanosis Neurologic: Nonfocal Psychiatric: Mood/affect normal, Behavior normal, Normal thought content General/Constitutional: Awake, Alert, Cooperative Neck: No swelling, Non-tender Wheezing / Retractions: Positive: Wheezing moderate Rales / Rhonchi: Positive: Rales bilateral bases Diffuse dense loud bronchorous breathing throughout. Heart Sounds / Murmur: Positive: Heart sounds diminished Limited exam because the sound of his breathing is so loud. Lower extremities: Plantar flexion contractures of the ankles. Interpretation & Diagnostics Lab Results Interpretation Result Diagram: 11/05/16 0655 11/05/16 0655 Test 11/05/16 06:55 White Blood Count 5.6th/mm3 (3.8-10.1) Red Blood Count 4.20mil/mm3 (4.40-5.80) Hemoglobin 14.9g/dL (13.8-17.2) Hematocrit 43.4% (41.0-50.0) Mean Corpuscular Volume 103.3fL (81-100) Mean Corpuscular Hemoglobin 35.5pg (27.0-35.0) Mean Corpuscular Hemoglobin Concent 34.3% (32.0-37.0) Red Cell Distribution Width 13.2% (12.3-15.4) Platelet Count 179bil/L (150-400) Neutrophils (%) (Auto) 87.7% (40-74) Lymphocytes (%) (Auto) 7.4% (14-46) Monocytes (%) (Auto) 4.3% (4-12) Eosinophils (%) (Auto) 0% (0-5) Basophils (%) (Auto) 0.4% (0-3) Sodium Level 145mEq/L (134-144) Potassium Level 4.0mEq/L (3.5-5.2) Chloride Level 97mEq/L (97-108) Carbon Dioxide Level 23mmol/L (18-29) Blood Urea Nitrogen 53mg/dL (6-24) Creatinine 4.23mg/dL (0.76-1.27) Estimat Glomerular Filtration Rate 16mL/min (>59) Glucose Level 214mg/dL (60-99) Lactic Acid Level 5.1mmol/L (0.4-2.0) Calcium Level 10.5mg/dL (8.5-10.1) Magnesium Level 2.4mg/dL (1.6-2.6) Total Bilirubin 0.5mg/dL (0.0-1.2) Aspartate Amino Transf (AST/SGOT) 44U/L (0-50) Alanine Aminotransferase (ALT/SGPT) 67U/L (0-44) Alkaline Phosphatase 191U/L (25-150) Troponin T 0.188ug/L (0.0-0.011) Pro-B-Type Natriuretic Peptide 4776pg/mL (0-121) Total Protein 9.4g/dL (6.4-8.4) Albumin 4.3g/dL (3.4-5.0) ECG Interpretation ECG Interpretation: Sinus tachycardia with a rate of 101 Old anteroseptal infarct Time: 10:18 Interpreted by: ED physician X-Ray Chest Interpretation Chest Xray Interpretation: Diffuse interstitial markings. No pneumothorax. No overt infiltrate. View: Portable, 1 view Interpretation / Wet Read by: Wet read ED physician Chest Xray Interpretation: IMPRESSION: 1. Interval placement of a left-sided central line catheter with the tip overlying the atrial caval junction. 2. Right-sided central line catheter is unchanged. 3. No pneumothorax. Dictated by: Marcel Tsai M.D. on 11/05/2016 at 9:00 Interpretation / Wet Read by: Interpret - Radiologist Procedures Central Line Placement Time: 09:12 Procedure Performed by: ED physician Consent / Setup / Site Prep: Consent from patient, Time-out performed, Oxygen administered, Pulse oximeter applied, residential monitor applied, Hand hygiene observed, Standard surgical scrub, Max barrier precaution, Sterile drapes applied, Head of bed at 30-60 deg Skin Preparation Agent: Hibiclens - Chlorhexidine Local Anesthesia: Lidocaine 1% Side / Location / Ultrasound: Internal jugular left, Ultrasound assisted Catheter / Lumen / Technique: Triple lumen, Seldinger technique, Good blood return, Secured w catheter device Post-Procedure / Complications: Antibiotic oint applied, Dressing placed, CXR neg for pneumothorax, Condition improved, Tolerated procedure well, Patient stable Re-Eval/Medical Decision Med Decision/Clinical Course Clarification of CODE STATUS: Upon arrival and was pacing my care on the pulsed form signed by the patient and Dr. Guerin stating that DO NOT RESUSCITATE was his desired status along with limited interventions. However after speaking to his sister who expressed that she thought that this was inaccurate, I tried to community with the patient who seemed also to express that he wanted full treatment. Then I spoke to the primary care doctor, Dr. Guerin, who reiterated that the patient has always been to his knowledge full treatment status. As soon as I was in position of this knowledge, we moved forward with central access and pressor support. Source of Hx: Old records, EMS Re-Evaluation/Progress #1: Time of Eval: 08:50 Re-Evaluation/Progress Note: Discussed the patient's case with his sister. Re-Evaluation/Progress #2: Time of Eval: 08:56 Re-Evaluation/Progress Note: Rechecked the patient. Discussed option for care. Discussed code status in detail with the patient. He answers yes with one finger and no with two fingers. He would like us to do CPR if his heart stops. He would like us to move forward with full treatment. Re-Evaluation/Progress #3: Time of Eval: 09:10 Re-Evaluation/Progress Note: Discussed plan for central line with the patient. Consultation #1: Referral / Consult Name: Cesar Guy DO Consulted With: Nephrology Call Returned at: 08:22 Respiratory Director: Will see patient, Agrees with eval, Agrees with plan Note: He agrees to consult. Consultation #2: Referral / Consult Name: Lmaont Guerin MD Consulted With: Primary care physician Call Returned at: 08:58 Respiratory Director: Agrees with eval, Agrees with plan Note: He has always known the patient to be full code and full treatment. Consultation #3: Referral / Consult Name: Cesar Guy DO Consulted With: Nephrology Call Returned at: 09:05 Respiratory Director: Agrees with eval, Agrees with plan Consultation #4: Referral / Consult Name: Jeff Duggan MD Call Returned at: 09:17 Note: Dr. Duggan (radiology) came to the room and reviewed the ultrasound for the central line. He feels the abnormality seen in the internal jugular is a valve. Consultation #5: Referral / Consult Name: Miguel Cheatham MD Consulted With: Hospitalist Call Returned at: 09:56 Respiratory Director: Will see patient, Agrees with eval, Agrees with plan, Accepts admit Note: Spoke with the resident about the patient's case. Counseled Regarding: Diagnosis, Lab results, Need for admission Discharge & Departure Impression: Primary Impression: Sepsis Sepsis type: sepsis due to unspecified organism Qualified Code: A41.9 - Sepsis, unspecified organism Additional Impressions: Aspiration pneumonia Aspiration pneumonia type: unspecified Laterality: unspecified laterality Lung location: unspecified part of lung Qualified Code: J69.0 - Pneumonitis due to inhalation of food and vomit HCAP (healthcare-associated pneumonia) Chronic kidney disease Chronic kidney disease stage: unspecified stage Qualified Code: N18.9 - Chronic kidney disease, unspecified Disposition: ADMITTED TO HOSPITAL Discharge Condition All VS Reviewed: Yes Condition: Stable Referrals: Lamont Guerin MD Crit Care Except Billable Proc Time Spent: 30-74 minutes Services Performed: Patient management by me, Time spent at bedside, Reviewing test results, Reviewing imaging, Discussing patient care, Documentation in record, Time with fam/surrogate Scribe Attestation Portions of this note were transcribed by Radha Mccloud. I, Dr. Maynard personally performed the history, physical exam and medical decision-making; I reviewed and confirmed the accuracy of the information in the transcribed note. Signed by: Sonia Granados, 11/05/2016 at 1025. copies to: Lamont Guerin MD, Kirk H MD Nov 05, 2016 06:04 RogersRadha Nov 05, 2016 06:08
[2016-11-05 07:10] LABS: BASOPHILS % (AUTO) 0.4 % (0-3); EOSINOPHILS % (AUTO) 0 % (0-5); MONOCYTES % (AUTO) 4.3 % (4-12); Mean Corpuscular Hemoglobin 35.5 pg (27.0-35.0); Mean Corpuscular Volume 103.3 fL (81-100); NEUTROPHILS % (AUTO) 87.7 % (40-74); Platelet Count 179 bil/L (150-400)
[2016-11-05 07:46] LABS: Magnesium 2.4 mg/dL (1.6-2.6)
[2016-11-05 07:54] LABS: TROPONIN T 0.188 ug/L (0.0-0.011)
--- NOTE | 2016-11-05 08:16 | DRSVH ---
PROCEDURE: X-RAY CHEST ONE VIEW, PORTABLE ([id number]) INDICATIONS: SHORTNESS OF BREATH TECHNIQUE: One view of the chest was acquired. COMPARISON: [facility], CR, XR CHEST 1VW (PORTABLE), 09/17/2016, 5:05. FINDINGS: Surgical changes and devices: Large bore right-sided central venous catheter with the tip projecting in the lower SVC as before. Lungs and pleura: Diffuse groundglass opacities are again present. Lung volumes are improved . No def inite focal consolidation although patchy opacities in the lung bases grossly unchanged. Mediastinum: Mediastinal contours appear normal. Heart size is normal. Bones and chest wall: No suspicious bony lesions. Overlying soft tissues appear unremarkable. IMPRESSION: Diffuse groundglass and patchy opacities likely representing pulmonary edema although please correlat e clinically to exclude superimposed infection. Overall, improved lung volumes with no new consolidat ion since yesterday. Dictated by: Leonardo Villalba M.D. on 11/05/2016 at 7:56 Approved by: Leonardo Villalba M.D. on 11/05/2016 at 8:14
[2016-11-05] MEDS ORDERED: levoFLOXacin Inj 750 MG in IV Premix 1 EACH IV ONE (08:25)
[2016-11-05] MEDS ORDERED: Vancomycin Dose per Pharmacist XX ONE (08:25)
[2016-11-05] MEDS ORDERED: Piperacillin-Tazo 3.375 Gm Inj 3.375 GM in Dextrose 5% Minibag Plus 50 ML IV ONE (08:25)
[2016-11-05] MEDS ORDERED: Vancomycin Inj 1,000 MG in IV Premix 1 EACH IV ONE (08:35)
[2016-11-05] MEDS ORDERED: Norepinephrine 8,000 mCg/250 mL NS Premix IV ONE (09:18)
[2016-11-05] MEDS ORDERED: Lactated Ringer's 1,000 ML IV PRN (09:37)
[2016-11-05] MEDS ORDERED: Vasopressin Inj 20 UNIT in 0.9% Sodium Chloride 100 ML IV SCH (09:37)
[2016-11-05] MEDS ORDERED: Lactated Ringer's 1,000 ML IV SCH (09:37)
[2016-11-05] MEDS ORDERED: DOBUTamine 500 mg/250 D5W 500,000 MCG in IV Premix 1 EACH IV PRN (09:37)
[2016-11-05] MEDS ORDERED: Ondansetron 2 mg/mL 2 mL Inj IVPUSH PRN (09:40)
[2016-11-05] MEDS ORDERED: Norepineph 8,000 mCg/250 mL NS 8,000 MCG in IV Premix 1 EACH IV SCH (09:40)
[2016-11-05] MEDS ORDERED: Acetaminophen IV 1,000 MG in IV Premix 1 EACH IV PRN (09:40)
--- NOTE | 2016-11-05 10:03 | DRSVH ---
PROCEDURE: X-RAY CHEST ONE VIEW, PORTABLE ([id number]) INDICATIONS: POST LINE TECHNIQUE: One view of the chest was acquired. COMPARISON: [facility], CR, XR CHEST 1VW (PORTABLE), 11/05/2016, 6:28. [facility], CR, XR CHEST 1VW (PORTABLE), 09/17/2016, 5:05. [facility], CR, XR CHEST 1VW (NAIDA BLE), 09/14/2016, 19:26. FINDINGS: Surgical changes and devices: There has been interval placement of a left-sided central line catheter with the tip located at the atrial caval junction. A dual-lumen right-sided central line catheter i s unchanged in position overlying the mid superior vena cava. Lungs and pleura: Aeration of the lungs is similar to the previous exam with patchy areas of airspace disease, more prominent within the right lung. The degree of airspace disease is similar. No new c onsolidation, effusion, or pneumothorax is evident. Mediastinum: Mediastinal contours appear normal. Heart size is normal. Bones and chest wall: No suspicious bony lesions. Overlying soft tissues appear unremarkable. IMPRESSION: 1. Interval placement of a left-sided central line catheter with the tip overlying the atrial caval junction. 2. Right-sided central line catheter is unchanged. 3. No pneumothorax. Dictated by: Marcel Tsai M.D. on 11/05/2016 at 9:00 Approved by: Marcel Tsai M.D. on 11/05/2016 at 9:01
[2016-11-05] MEDS ORDERED: Sodium Chloride LOK Flush 10 mL Syringe IVFLUSH PRN ×4 (10:05→10:10)
--- NOTE | 2016-11-05 10:07 | ABG ---
DateTimeAnalyzed 10:03:00 -_ pH ____7.406 - 7.350 7.450 pCO2 ___46.5__ -mmHg 35.0 45.0 pO2 ___57.7__ -mmHg 69.0 116 HCO3- ___28.6__ -mmol/L 22.0 26.0 ABE ____3.8__ -mmol/L -2.0 2.0 tHb ___12.1__ -g/dL O2Hb ___90.5__ -% COHb ____0.9__ -% MetHb ____0.8__ -% sO2 ___92.1__ -% 25.0 FIO2 __100.0__ -% Drawn By as - Date/Time Notified____ 10:07:00 -_ Spontaneous_RR ___33.0__ -b/min Liter_Flow ___15.0__ -L/min Oxygen Device 1 NON RE-ABRAHAM - Notified By ams - Notified Whom dr emelia - Age 48 -years B 750 -mmHg tO2 ___15.4__ -Vol% Iván test N/A -
[2016-11-05 10:43] LABS: Phosphorus 4.1 mg/dL (2.5-4.9)
[2016-11-05] MEDS ORDERED: Glucagon 1 mg/mL Inj IM PRN (10:45)
--- NOTE | 2016-11-05 11:12 | PCM.HPMED ---
Subjective Date of Service Nov 05, 2016 Primary Provider: Admitting Physician: Primary Care Physician: Jonh Attending Physician: Admit Status: From the Emergency Department Chief Complaint: Sepsis History of Present Illness: is a 55-year-old male with a pertinent past medical history of CVA from intracranial bleed resulting in dysphagia (with recurrent aspiration) and aphasia as well as a left-sided weakness, cardiac arrest in 2008 secondary to amphetamine use with anoxic brain injury, depression, end-stage renal disease on HD 3 times per week, diabetes mellitus type II, hypertension and tube feeding. At baseline patient is bedbound and dialysis dependent. Patient was brought to [facility] - ED via EMS from [facility] secondary to difficulty breathing. EMS states patient was saturating at 70% on room air upon arrival and tachycardic, tachypnea, and hypotensive. Upon interview patient is unable to verbalize answers to questions though he is able to communicate by squeezing his hands with a predetermined response i.e. give me one squeeze for yes. Unable to ascertain events leading up to admission. When asked if patient felt any pain he did not respond in the affirmative. Unable to ascertain review of systems Allergies Coded Allergies: No Known Allergies (Verified , 11/05/16) Home Medications Home meds per med rec: Acetaminophen 650 mg PEG every 4 when necessary Atorvastatin 5 mg PEG at bedtime Azithromycin 500 mg PEG daily Baclofen 5 mg by mouth every 4 when necessary Dulcolax 10 mg RC daily when necessary Calcium carbonate 500 mg PEG 3 times a day Vitamin D3 5000 units PEG daily Artificial teardrops daily Esomeprazole all 40 mg PEG daily Fluoxetine 600 mg PEG daily Glucagon, human a continent 0.5-1 mg IJ daily when necessary Hydrocodone acetaminophen 5/325 1 to 2 tablets PEG every 4 when necessary Insulin aspart 0-12 units subcutaneous 3 times a day when necessary Insulin glargine 15 units subcutaneous at bedtime Lactulose 20 g PEG daily Levothyroxine 150 g by mouth daily Lisinopril 5 mg G-tube daily Sodium phosphate 2 tablets PEG twice a day NPH 0-7 units subcutaneous every 6 hours Ondansetron 8 mg when necessary for nausea Zosyn 3.375 G IV Every 8 Nephro tube feeds 50 mL PEG per hour PMH Per ED report: 1. Type 1 diabetes mellitus, poorly controlled, with recurrent episodes of DKA. 2. Diabetic neuropathy. 3. Diabetic retinopathy. 4. Diabetic nephropathy. 5. End-stage renal disease, on hemodialysis (Wednesday, , and Saturdays). 6. Depression. 7. Hemorrhagic stroke in 2008 and 2014 with resulting dysphagia, expressive aphasia, and left-sided weakness. 8. Dysphagia with recurrent aspiration on modified diet (pureed with thickened liquids). 9. Cardiac arrest in 2008, VFib, thought secondary to amphetamines, hyperkalemia and DKA. 10. Seizure secondary to ruptured aneurysm/hemorrhagic stroke in 2008. 11. Hypothyroidism. 12. Anoxic brain injury secondary to cardiac arrest. 13. Hepatitis C per records. 14. Hepatitis B core antibody positive. 15. History of substance abuse. 16. Hypertension. 17. Ulcerative esophagitis with hematemesis in June 2014, with upper endoscopy at that time. 18. GERD 19. Recurrent aspiration pneumonia Surgical History Per ED report: Left foot surgery Dialysis shunt Left arm fistula placed 06/29/16 PEG tube Family History Mother passed from complications of diabetes Social History Hx Alcohol Use: No Hx Substance Use: Yes (history of methamphetamine abuse) Hx Tobacco Use: Yes Smoking Status: Former Smoker Living Arrangement: [facility] Facility Exam Vital Signs Vital Sign - Last Date Time Temp Pulse Resp B/P Pulse Ox O2 Delivery O2 Flow Rate FiO2 11/05/16 09:14 36.8 102 41 62/27 95 Non-Rebreather 15 Exam Patient exam completed in the emergency department prior to admission to CCU for an subsequent intubation with sedation General: Patient sitting up awake and alert in ER hospital bed appropriately interactive though nonverbal. Able to communicate by squeezing hand HEENT: Normocephalic, atraumatic. External ears without defect. Pupils equal, round, and reactive to light and accommodation. Neck: Supple with full range of motion. No jugular venous distension. No bruits. Right IJ in place Cardiovascular: Regular rate and rhythm with no murmurs, difficult to appreciate secondary to ambient ER noise Pulmonary: Wheezing and crackles upper anterior lobes. Abdomen: Soft, nontender, nondistended. PEG tube in place Extremities: No clubbing, cyanosis, edema, or lymphadenopathy appreciated. Skin: Normal temperature, turgor, and texture; no rash, ulcers, or subcutaneous nodules appreciated. Lab and Diagnostics Result Diagram: 11/05/1665411/05/16654 X-Rays, CTs and MRIs . X-RAY CHEST ONE VIEW, PORTABLE IMPRESSION: Diffuse groundglass and patchy opacities likely representing pulmonary edema although please correlate clinically to exclude superimposed infection. Overall , improved lung volumes with no new consolidation since yesterday. Dictated by: Leonardo Villalba M.D. on 11/05/2016 at 7:56 X-RAY CHEST ONE VIEW, PORTABLE IMPRESSION: Diffuse groundglass and patchy opacities likely representing pulmonary edema although please correlate clinically to exclude superimposed infection. Overall , improved lung volumes with no new consolidation since yesterday. Dictated by: Leonardo Villalba M.D. on 11/05/2016 at 7:56 Additional Diagnostics: pH ____7.406 - 7.350 7.450 pCO2 ___46.5__ -mmHg 35.0 45.0 pO2 ___57.7__ -mmHg 69.0 116 HCO3- ___28.6__ -mmol/L 22.0 26.0 Assessment & Plan is a 55-year-old gentleman with PMH CVA resulting in dysphagia and aphasia, history of CO leading to anoxic brain injury, depression, end-stage renal disease on HD, DM type II admitted to CCU for sepsis secondary to possible pneumonia. Hospital day 1 1. Severe Sepsis. Present on admission. Ongoing - Septic criteria met with tachycardia, tachypnea, hyperthermia, lactic acid 5.1 - Possible sources include pneumonia or GI. - Infectious disease following recommendations appreciated - Patient received levofloxacin, Zosyn, vancomycin and ED - Currently on meropenem, vancomycin - Pulmonology/ICU service following recommendations appreciated - Intubated and sedated - IV fluids 1 L in ED - IV NS 250 mL/hr - IV drips nor epi 0.5, fentanyl 50 - Echo pending 2. Acute hypoxic respiratory failure with hypoxia. Resonant admission. Ongoing - After admitted to CCU patient became increasingly dyspneic requiring intubation - Patient remains intubated and ventilated - Vent settings are FiO2 100%, PEEP 0, tidal volume 5:30, respiratory rate 20 3. Aspiration pneumonia. Present on admission. Ongoing - CXR showed glass patchy opacities possibly pneumonia/pulmonary edema - Pro calcitonin 7.09 - White count stable at 5.6 - Respiratory therapy suctioned copious amounts of green phlegm/sputum while in ED - We will continue to monitor - Antibiotics as in #1 4. End stage renal disease. Present on admission. Ongoing - Stage IV with GFR of 16 - Patient receives HD 3 times per week Wednesday - Nephrology consulted. Recommendations appreciated 5. Diabetes mellitus type I. Present on admission. Ongoing - A1c 09/16/2016 8.0, repeat A1c pending - Patient on home insulin glargine and insulin aspart - Correctional scale insulin 7. Hypernatremia. Present on admission. Ongoing - Most likely secondary to volume depletion - Fluid replacement as in #1 - Continue monitor 8. Elevated troponin. Present on admission. Ongoing - Most likely secondary to #4 - EKG showed anterior ST segment abnormalities consistent with previous infarct - Continue to monitor 9. Hyperlipidemia. Present on admission. Ongoing - Continue home statin Patient Status: Patient was admitted under inpatient status with expected length of stay greater than two midnights due to severity of presenting symptoms , risk of adverse event, and complexity of treatment plan. Pain Evaluation: Adequate Pain Control VTE Prophylaxis: Sub-Q Heparin (Unfractionated) Resuscitation Status: CPR: Attempt Resuscitation Attending Statement The patient was seen and examined together with Dr. Rae on 11/05/2016 and I agree with the history, exam and plan as outlined in the note above. . PRINCESS RAE DO Nov 05, 2016 09:37 Miguel Cheatham MD Nov 07, 2016 18:34
[2016-11-05] MEDS ORDERED: fentaNYL-PF 50 mCg/mL 2 mL Inj ONE (11:59)
[2016-11-05] MEDS ORDERED: fentaNYL-PF 50 mCg/mL 2 mL Inj IVPUSH ONE (12:15)
[2016-11-05] MEDS: 0.9% Sodium Chloride 1,000 ML IV SCH ×8 (12:23→20:45)
[2016-11-05] MEDS ORDERED: Meropenem Inj 2,000 MG in 0.9% Sodium Chloride 100 ML IV SCH (12:30)
[2016-11-05] MEDS: Vancomycin Dose per Pharmacist XX SCH (12:30)
[2016-11-05] MEDS ORDERED: GENTAMICIN IV ONE (12:30)
[2016-11-05] MEDS ORDERED: DEXTROSE 5% IV ONE (12:30)
[2016-11-05] MEDS: fentaNYL 2,500 mCg/250 mL IV Premix IV SCH (12:32)
--- NOTE | 2016-11-05 13:15 | ABG ---
DateTimeAnalyzed 13:11:00 -_ pH ____7.304 - pCO2 ___52.7__ -mmHg pO2 ___44.9__ -mmHg HCO3- ___25.4__ -mmol/L ABE ___-1.2__ -mmol/L tHb ___13.1__ -g/dL O2Hb ___78.0__ -% COHb ____1.0__ -% MetHb ____0.8__ -% sO2 ___79.4__ -% FIO2 __100.0__ -% PEEP ____0.0__ -cmH2O Set_RR ___20.0__ -b/min Vt __520.0__ -L Drawn By RN - Date/Time Notified____ 13:15:00 -_ Oxygen Device 1 VENTILATOR - Notified By BTL - Notified Whom ___DR. Ivan Kendregan -_ Age 48 -years B 750 -mmHg tO2 ___14.3__ -Vol%
[2016-11-05 13:22] LABS: BASOPHILS % (AUTO) 0.5 % (0-3); EOSINOPHILS % (AUTO) 0 % (0-5); MONOCYTES % (AUTO) 5.3 % (4-12); Mean Corpuscular Hemoglobin 34.4 pg (27.0-35.0); Mean Corpuscular Volume 105.6 fL (81-100); NEUTROPHILS % (AUTO) 79.1 % (40-74); Platelet Count 182 bil/L (150-400)
[2016-11-05] MEDS ORDERED: Glucose 40% Oral Gel 15 Gm Tube PO PRN (13:30)
[2016-11-05] MEDS ORDERED: Pantoprazole 4 mg/mL 10 mL Inj IVPUSH ONE (13:40)
--- NOTE | 2016-11-05 13:48 | DRSVH ---
PROCEDURE: X-RAY CHEST ONE VIEW, PORTABLE ([id number]) INDICATIONS: intubation TECHNIQUE: One view of the chest was acquired. COMPARISON: [facility], CR, XR CHEST 1VW (PORTABLE), 11/05/2016, 9:35. [facility], CR, XR CHEST 1VW (PORTABLE), 11/05/2016, 6:28. [facility], CR, XR CHEST 1VW (NAIDA BLE), 09/17/2016, 5:05. [facility], CR, XR CHEST 1VW (PORTABLE), 09/14/2016, 19:26. FINDINGS: Surgical changes and devices: Via a left sided central line catheter may have been slightly withdrawn in the interim with the tip now overlying the mid superior vena cava. The dual-lumen right-sided ce ntral line catheter is unchanged. There has been interval placement of an endotracheal tube with the tip positioned approximately 4.7 cm above the level of the vinayak. Lungs and pleura: Patchy alveolar and interstitial infiltrates are present throughout the lungs, more prominent within the right parahilar region, similar to the prior study. No lobar consolidation or pneumothorax is evident. Mediastinum: Mediastinal contours appear normal. Heart size is normal. Bones and chest wall: No suspicious bony lesions. Overlying soft tissues appear unremarkable. IMPRESSION: 1. Endotracheal tube appears to be appropriately positioned. 2. The aeration of the lungs is unchanged. No pneumothorax. Dictated by: Marcel Tsai M.D. on 11/05/2016 at 12:45 Approved by: Marcel Tsai M.D. on 11/05/2016 at 12:47
[2016-11-05] MEDS: Vasopressin Inj 20 UNIT in 0.9% Sodium Chloride 100 ML IV SCH ×2 (14:07→20:45)
[2016-11-05 14:11] LABS: Phosphorus 4.3 mg/dL (2.5-4.9)
[2016-11-05] MEDS ORDERED: Calcium Carbonate 1250 mg/5 mL Suspension PEG SCH (14:30)
--- NOTE | 2016-11-05 14:43 | PCM.CONPHA ---
Subjective Date of Service: Nov 05, 2016 Vancomycin dosing Reason for Pharmacy Consult: Vancomycin Dosing Assessment/Plan Assessment/Plan Patient is an 55 y.o. male receiving vancomycin for aspiration pneumonia. Concurrent abx include: meropenem and one dose of gentamicin. WBC count is 4 and the patient is afebrile. Patient is 58 kg, on HD wednesday, , and wednesday. Based on patient parameters vancomycin was loaded with 1000mg and will be dosed as needed with a morning random level drawn IF IT IS <20. Pharmacy will follow daily and adjust as appropriate. Thank you for the consult in the care of this patient. P PharmMiguel Barnhart Nov 05, 2016 14:43
--- NOTE | 2016-11-05 15:21 | NUR ---
NUTRITION ASSESSMENT: ASSESS: Pt is a 55yo M admitted to CCU for sepsis and aspiration pneumonia. Pt resides at [facility] and is on long-term TF via PEG. Home TF rate if 50ml/hr of Nepro and is NPO at baseline. Pt has ESRD on HD. Wt has been stable since last admit however wt has slowly decreased ~10kg in the last year. PMHX: ESRD, T1DM, CVA, TBI, Seizures, ID, HTN, HLD LABS: Reviewed. Na 146, Bun 58, Advisory Application Developer 3.86, Glu 113, Ca 8.2, ALT 47, Alb 3.2 MEDS: Reviewed. Insulin, Vit D, Ca carbonate GI: 0 BM recorded yet SKIN: no issues noted HOME TF: Nepro at 50ml/hr to provide 1980kcal/day and 89g pro (100% estimated needs). CURRENT WTS: 58.3kg, BMI 19.0kg/m2, IBW: 72.7kg, Adj BW: 69kg, UBW ~65-68kg DIET: NPO EST. NEEDS: Dialysis, wt gain Kcals: 1750-2330kcal/day (30-40kcal/kg) Pro: 70-120g/day (1.2-2.0g/kg) Fluids: 1165-1500ml/day (20-25cc/kg) or per account installation specialist NUTRITION DIAGNOSIS: 1.) Chew/swallow difficulty related to chronic dysphagia as evidence by need for long-term TF via PEG and NPO per ST 2.) Increased nutrient needs related to increased demand for nutrients as evidence by pt on HD 3.) Inadequate oral intake related to decreased ability to consume sufficient energy as evidenced by current NPO status NUTRITION INTERVENTION: 1.) Will monitor NPO status 2.) When pt is medically stable enough to start TF, recommend start TF of Nepro at 15ml/hr. Advance by 10ml q 6 hrs until reach goal rate of 55ml/hr (goal rate increased to aide in wt gain). TF at goal rate provides 2178kcal and 98g pro (100% kcal and pro needs). If on IVF, flush 40ml q 4 hrs. If IVF off, fluid flush 100ml q 4 hrs or per nephrology MONITOR / EVAL: NPO, tf start? wt, GI, labs, POC, nutrition status. Will continue to monitor per high nutrition risk guidelines
[2016-11-05] MEDS ORDERED: Dextrose 5% 0.45% NaCl 1,000 ML IV PRN (15:37)
--- NOTE | 2016-11-05 16:09 | DRSVH ---
[facility] [address] [place] [address] Echocardiogram Report Name: JOANNE FIGUEROA SStudy Date: 11/05/2016 Height: 69 in Hospital Exam Location: [facility] Weight: 129 lb Gender: Male BSA: 1.7 m2 : 1960 Age: 55 yrs BP: 139/53 mmHg Reason For Study: PRESSOR SUPPORT Ordering Physician: Performed By: Anil Rangel Interpretation Summary There is normal left ventricular wall thickness. There are no focal wall motion abnormalities. The ejection fraction is estimated to be 50-55%. There is no significant valvular heart disease. Procedure: A two-dimensional transthoracic echocardiogram with color flow and Doppler was performed. The study quality was technically adequate. Comparison is made with the echocardiogram of 08/17/15. The patient was in normal sinus rhythm during the exam. The patient was tachycardic with a heart rate of 102-120 beats per minute. Left Ventricle: There is normal left ventricular wall thickness. The left ventricular cavity is small. The ejection fraction is estimated to be 50-55%. There are no focal wall motion abnormalities. Right Ventricle: The right ventricle is normal size. Atria: Both atria are normal in size. The interatrial septum is intact with no evidence for an atrial septal defect. Mitral Valve: The mitral valve is normal in structure and function. There is trace mitral regurgitation. Aortic Valve: The aortic valve opens well. No aortic regurgitation is present. Tricuspid Valve: The tricuspid valve is normal in structure and function. There is trace tricuspid regurgitation. The right ventricular systolic pressure is estimated at 24 mmHg assuming a right atrial pressure of 3 mm Hg. Pulmonic Valve: The pulmonic valve is not well visualized. Great Vessels: The aortic root is normal size. The dimensions of the ascending aorta are normal. The pulmonary artery is normal size. Pericardium/ Pleura There is no pericardial effusion. There is no pleural effusion. MMode/2D Measurements & Calculations LVIDd: 3.7 cm LA dimension: 2.6 cm RA long axis: 3.2 cm Ao root diam LVIDs: 1.9 cm FS: 48.5 % LA A2 area: 10.2 cm RA area: 8.0 cm Aortic Jxn EPSS: 0.52 cm LA A4 area: 8.9 cm RA vol: 16.7 ml IVSd: 0.81 cm LA length (vol): 3.8 cm RA : 9.7 ml/m2 asc Aorta LVPWd: 0.86 cmLA vol: 20.6 ml Diam: 3.0 cm LA vol index: 12.0 ml/m IVC diam: 1.1 cm EDV(MOD-sp2) LV plata. diameter/BSA LV sys. diameter/BSA (cm/m^2): 2.1 (cm/m^2): 1.1 Doppler Measurements & Calculations Ao V2 max MV E max lucian MV E/A: 0.79 TR max lucian : 97.2 cm/sec : 53.8 cm/sec Med Peak E' Lucian : 229.7 cm/sec Ao max PG MV A max lucian TR max PG : 3.8 mmHg : 67.8 cm/sec E/E' med: 10.9 : 21.1 mmHg Ao mean PG MV A dur: 0.10 sec : 2.4 mmHg MV dec time Ao V2 mean : 0.10 sec : 75.6 cm/sec Ao V2 VTI: 10.9 cm Electronically signed by: Nelson Marquez on [place] Physician:11/05/2016 04:09 PM
--- NOTE | 2016-11-05 16:13 | CONS ---
[address] [address] CONSULTATION REPORT PATIENT: JOANNE FIGUEROA : 1960 MR#: [id number] ADMIT: 11/05/2016 JOB ID: [id number] DATE OF SERVICE: 11/05/2016 INFECTIOUS DISEASE CONSULTATION: REASON FOR CONSULTATION: Septic shock. I thank Dr. Dias for this timely consultation. HISTORY OF THE PRESENT ILLNESS: The patient is an unfortunate 55-year-old gentleman known to me from some of his prior admissions. The patient has an underlying past medical history significant for anoxic brain injury following a prolonged code in 2008 and has been living at [facility] in [place] recently. 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 He also has type 1 diabetes. He has been admitted here many times with pneumonia including aspiration pneumonia with multi-drug resistant organisms as well as soft tissue infections and DKA. Within the past three or four months, he has had cultures which have grown MRSA as well as very resistant ESBL E. coli from the respiratory tract. Most recently, the patient was living at [facility] and receiving his three times per week dialysis without issue. He was admitted just this morning from [facility] with difficulty breathing. It was reported that he was saturating only 70% on room air and was gasping for breath with tachycardia and tachypnea. He was unable to answer any questions and was really not interactive. At this point, the patient is receiving vasopressors, intubated and sedated in the ICU with difficulties obtaining vascular access including an arterial line. We have discussed this case extensively with nursing, the ICU staff and the anesthesia staff and others involved in caring for this patient during this crisis situation this morning. No other history is available at this time. PHYSICAL EXAMINATION: Reveals a critically ill gentleman lying supine in the ICU. He has been afebrile during his brief admission 37.5 now. His pulse is running 100-120. He has a regular rate and rhythm at this point. His respiratory rate was in the 30s before intubation. He is now being ventilated on 100% FiO2. Blood pressure is running approximately 100-120 systolic but he is on fairly large doses of norepinephrine. Examination of the head reveals his head is generally sort plethoric this morning and it is unclear if that is chronic or old. His eyes are without conjunctivitis or scleral icterus, and even though he is somewhat sedated on the ventilator, he does move his eyes around voluntarily and seems to track to some degree. Nose appears normal. Oral endotracheal tube, oral gastric tube are in good position. A right upper chest dialysis line is present and appears free of infection. A left neck central line has been placed and it also appears benign. In his left arm just medial to the antecubital fossa, there is a weakly palpable thrill which must represent a fistula created for dialysis. Whether or not this functions at this point is unclear but given the fact he has a line in his right chest, I would tend to doubt it. His extremities are diffusely mottled and somewhat cool. The patient's lungs are coarse with bilateral rales and some scattered rhonchi. It is difficult to auscultate over the noise of the ventilator. Cardiac tones are heard and they are regular with some tachycardia but given the noise and commotion in the room one cannot appreciate a murmur or a rub. The patient's abdomen is soft and without organomegaly or ascites. He does not have a Rouse catheter as he is chronically anuric. The nurses report that earlier just after admission he produced a soft stool which was cleaned up. There was no evidence of any decubitus or skin breakdown. His joints are free of apparent effusion. His extremities somewhat wasted with bilateral foot drop consistent with his prolonged nonambulatory status. There are very weak peripheral pulses present in the hands and feet at this point, and the anesthesia team is having a very difficult time placing an arterial line anywhere in his arms. No significant skin rashes noted. There is no peripheral edema at all and the patient's skin turgor makes it appear that he is actually still somewhat dry. Neurologically we cannot evaluate though he is said to be aphasic and to have a hemiparesis, but this is not in evidence at this time as we cannot do a neuro examination. I should also note social history, family history and review of systems cannot be obtained as the patient is currently intubated and sedated, and even when awake, is apparently not especially verbal. Notes from his prior admissions simply reflect that he lives at [facility] where he is a nonsmoker, nondrinker. LABORATORY STUDIES: Include a white count this morning 5600. Differential includes 87% segs. No bands are seen, however. Creatinine is 4.23 and, of course, he is a dialysis patient. Lactic acid 5.1. ALT 67. A month ago when he was here for another reason was 15. Troponin is positive. BNP approximately 5000. Lipase is normal at 26. Procalcitonin 7.09. Note that on prior admissions, he has had many elevated procalcitonins with only one really that was ever normal. Urinalysis is not obtainable on this admission as he is not currently producing urine. Micro: Blood cultures from this admission are negative but they are only a few hours old so this is not at all surprising. In August he was briefly admitted and his blood cultures were negative. In late July, a sputum though grew an ESBL E. coli which was very resistant and really only susceptible to carbapenems and gentamicin. It was actually resistant to Tobra and amikacin as well as Zosyn. Coag-negative staph was also found in a blood culture during that late July admission but that is almost certainly a contaminant. Back in May 2016, a catheter site culture yielded MRSA and that MRSA was susceptible to linezolid but resistant to clinda. Previously there has been Proteus isolated from a catheter site which was not very resistant pathogen. Imaging today shows a chest x-ray with sort of scattered interstitial ground-glass infiltrates which looks more than anything else like heart failure. Previous films have also looked somewhat like that. IMPRESSION: This is an unfortunate gentleman who is had an anoxic brain injury almost a decade ago which has left him very neurologically impaired and also had a hemorrhagic CVA that left him aphasic and unable to walk. Added to that is type 1 diabetes and his ongoing dialysis. He is known to have highly resistant pathogens. He is now admitted with septic shock of uncertain duration and uncertain source. I see little in his chest x-ray to indicate this is pneumonia and it would not seem likely that he would have urosepsis. He has a benign feeling abdomen and is not currently having diarrhea, making intra-abdominal catastrophe or C. difficile less likely. He has had a percutaneous dialysis line in his right upper chest which, of course, is always a big risk factor for vascular infection and looking at the notes and cultures, he has had problems with infected lines in the past and I think this may be the most likely source. Nonetheless, will need to cover this patient very broadly. RECOMMENDATIONS: 1. I would discontinue his current antibiotics which include Zosyn and levo that were given in the emergency department. 2. Based on his prior susceptibilities with that ESBL E. coli, I would treat this patient with maximal dose meropenem which would, of course, be renally adjusted as well as gentamicin. Gentamicin should be reasonably safe in this person though it can, of course, produce ototoxicity in addition to the nephrotoxicity which he is not anymore at risk for. 3. Will also cover the patient with vanco as I think the possibility of a line associated gram-positive infection is very real. 4. Will. 5. We await the multiple pending cultures of blood and sputum. 6. Will continue to follow this patient with you. Note I will be out of town for the next three days but Dr. Noble who is the resident on the team will see the patient tomorrow and talk to me by telephone about him and I can always be reached by telephone myself with questions about this or any other patient. Note total time expended on this case exceeds 70 minutes.
[2016-11-05] MEDS: Dextrose 5% 1,000 ML IV SCH (16:26)
[2016-11-05] MEDS ORDERED: Insulin LISPRO 300 Unit/3 mL Inj SUBQ SCH (17:30)
--- NOTE | 2016-11-05 17:50 | ABG ---
DateTimeAnalyzed 17:47:00 -_ pH ____7.315 - pCO2 ___48.7__ -mmHg pO2 ___38.0__ -mmHg HCO3- ___24.1__ -mmol/L ABE ___-1.9__ -mmol/L tHb ___12.9__ -g/dL O2Hb ___69.8__ -% COHb ____0.7__ -% MetHb ____0.9__ -% sO2 ___70.9__ -% FIO2 ___80.0__ -% PEEP ____5.0__ -cmH2O Set_RR ___20.0__ -b/min Vt __550.0__ -L Drawn By RN - Date/Time Notified____ 17:50:00 -_ Oxygen Device 1 VENTILATOR - Notified By btl - Notified Whom ___Dr. Godinez Butch -___ Age 48 -years B 749 -mmHg tO2 ___12.6__ -Vol% Iván test N/A -
[2016-11-05 17:56] LABS: APPEARANCE,URINE CLOUDY (CLEAR,HAZY); COLOR,URINE DARK YELLOW (YELLOW); OCCULT BLOOD,URINE MODERATE (NEGATIVE); PH,URINE 6.5 (5.0-8.0); UROBILINOGEN,URINE NORMAL (NORMAL); YEAST,URINE MANY (NONE SEEN)
--- NOTE | 2016-11-05 17:56 | DRSVH ---
PROCEDURE: US ABDOMEN, LIMITED ([id number]) INDICATIONS: RUQ pain, Cholecystitis? TECHNIQUE: Real-time focused scanning was performed of the abdomen, with image documentation. COMPARISON: [facility], US, US ABDOMEN, 04/09/2016, 14:31. FINDINGS: Evaluation of the liver demonstrates no focal lesions. There is increased periportal echogenicity no kareen There is a small echogenic rounded lesion along the gallbladder wall which appears nonmobile. No def inite posterior acoustic shadowing. This measures up to approximately 7 mm. No gallbladder wall thi ckening or pericholecystic fluid. No definite intrahepatic biliary dilatation. The common bile duct is not well-visualized distally. Limited evaluation of the right kidney demonstrates no hydronephrosis. Visualized aorta is normal in caliber with the distal aorta not well-seen. No definite intra-abdominal free fluid visualized. IMPRESSION: 1. Increased periportal echogenicity in the liver is nonspecific but may reflect acute hepatitis. R ecommend correlation with laboratory values. 2. Round echogenic non-shadowing structure in the gallbladder is incompletely evaluated. The findin gs may represent a non-shadowing stone or polyp. No evidence of cholecystitis. Dictated by: Yoshi Kendall M.D. on 11/05/2016 at 17:49 Approved by: Yoshi Kendall M.D. on 11/05/2016 at 17:54
[2016-11-05] MEDS: Norepineph 8,000 mCg/250 mL NS 8,000 MCG in IV Premix 1 EACH IV PRN ×2 (18:28→20:46)
[2016-11-05] MEDS: Heparin 5,000 Unit/mL Inj SUBQ SCH (18:29)
--- NOTE | 2016-11-05 18:58 | NUR ---
Admit to CCU Pt arrived to CCU at aprox 1045. Pt alert, responsive using hand squeezing as pt is non-verbal at baseline. Pt SpO2 low 90s on NRB. Pt rapidly became diaphoretic and cold, further decrease in LOC. SpO2 dropped to 80s. Hospitalist team and pulmonary team notified and called anesthesia to intubate pt. 14mg IV Etomidate followed by 100mg Succinylcholine IVP administered at 1129, pt intubated at this time by anesthesia. Current Vent settings: FiO2 80%, PEEP 5, Vt 550, Rate 20. Titrating norepi for MAP 65. D5W at 50cc/hr for glucose source. NS 150. Sedated with Fentanyl at 75mcg/hr. Pt BG 60 at 1530, 1 amp D50 given and D5W gtt started. Last BG 101. L IJ placed in ED. R PIV in R FA. Pt with R chest dialysis catheter. LUE fistula. P/W erythema and broken skin to coccyx, pressure ulcer protocol initiated. Open area to L second toe, no drainage MANAGER CLINICAL.
[2016-11-05] MEDS: Acetaminophen IV 1,000 MG in IV Premix 1 EACH IV PRN (19:52)
[2016-11-05] MEDS: Albuterol-Ipratropium 3 mL Inhalation Solution NEB SCH ×2 (20:12→20:30)
[2016-11-05] MEDS: Famotidine Inj 20 MG in IV Premix 1 EACH IV SCH (20:45)
--- NOTE | 2016-11-05 23:36 | CONS ---
[address] [address] CONSULTATION REPORT PATIENT: JOANNE FIGUEROA : 1960 MR#: [id number] ADMIT: 11/05/2016 JOB ID: [id number] DATE OF SERVICE: 11/05/2016 CONSULTING PHYSICIAN: Miguel Cheatham MD REASON FOR CONSULTATION: 1. Respiratory failure. 2. Septic shock. HISTORY OF PRESENT ILLNESS: The patient is a 56-year-old, male with gruesome medical history. Suffers from end-stage renal disease, dialysis dependent, diabetes mellitus, hypertension, requires PEG-tube feeding. Status post CVA from an intracranial hemorrhage with subsequent dysphagia. Apparently, the patient was having a bit of a problem, then began vomiting. His sister, who is program management manager, indicates that whenever he vomits he often aspirates and develops respiratory failure. She states that 10 years ago he was intubated at the time of an RI, apparently self-extubated himself and ended up with damage to the airway with the sister describing scarring and difficulty speaking though it was unclear what role that had to play versus the stroke. In any case, he has apparently not been intubated since that time. No other history from the program management manager was available, and the patient was unresponsive and unable to give any history whatsoever. Review of the chart indicates he has diabetic neuropathy, diabetic retinopathy, diabetic nephropathy, end-stage renal disease, hemorrhagic stroke in 2008 and 2014 with subsequent dysphagia, expressive aphasia, left-sided weakness, hypothyroidism, hepatitis C per records, hep B core antibody positive, history of substance abuse, hypertension, ulcerative esophagitis, GERD, and recurrent aspiration pneumonia. SMOKING HISTORY: Former smoker. MEDICATIONS ON ADMISSION INCLUDE: Acetaminophen, atorvastatin, azithromycin via PEG daily, baclofen, Dulcolax, calcium carbonate, vitamin D, esomeprazole, fluoxetine, hydrocodone, insulin (aspart and glargine), lactulose, levothyroxine, lisinopril, sodium phosphate, ondansetron. Also receiving Zosyn. Also gets Nepro tube feeds. ALLERGIES: No known allergies. REVIEW OF SYSTEMS: Unable. OBJECTIVE: Temperature 37.6. Pulse 114. Respiratory rate 38. Blood pressure 70/40-mayra. O2 sat on OxyMask running at about 15 L is 87%. General appearance: Thin to the point of malnourished, male, lying in bed. Head lolling to the left side. No response to pain. No spontaneous movements. Eyes: Conjunctivae are pink. Pupils about 2 mm. Chest has markedly breath sounds. Somewhat of a gasping type of respiratory status. Lungs are filled with coarse crackles throughout. Heart: Rapid heart rate. Heart tones seem normal. Abdomen is soft. PEG tube in place. Extremities: Cool, pale. Bilateral foot drop. There is a scar on the proximal portion of the left upper extremity, reported site of a fistula or shunt. HOSPITAL COURSE: Anesthesiologist had been called prior to my arrival. Intubation is planned. I am in total agreement with the need for intubation. Sister, who is his program management manager and power of care asst states that he would wish intubation. The patient was intubated by anesthesia using etomidate and succinylcholine. Intubation was done extremely efficiently. Starting O2 sat was 91%. Jovanni O2 sat was 89% during the intubation. The tube was taped in place. Good color change noted. Attention was emergently directed to his blood pressure which at this point was 54/about 24. He was given fluids. Had already been on norepi at increasing doses without much effect. With fluid boluses, blood pressure christina nicely with pressures of high 90s, low one 100s over about 50 with MAPs in the low 70s. Laboratory shows a white count of 4000 with 79 polymorphonuclears, 15 lymphs, 5 monocytes. No eosinophils. Hemoglobin 12.9 down from 14.9, though the patient has received an unknown number of liters of fluid previously. MCV 105. Platelet count 182,000 and stable over the past six hours. Sodium 146, potassium 4.1, chloride 103, CO2 is 24, BUN 58, creatinine 3.86, glucose 113, calcium 8.2. Phosphorus 4.3, magnesium 2. Total bilirubin 0.4, AST 41, ALT 47, alkaline phos 119. Total protein 6.7, albumin 3.2. Troponin T elevated at 0.123. Lactic acid mildly elevated to 2.7 down from admitting value six hours previously of 5.1. Initial arterial blood gases on unknown concentration of oxygen, reportedly 15 L by OxyMask, shows pO2 of 57, pCO2 of 46, pH 7.40. Repeat gases after intubation with an FiO2 of 100%, PEEP was 0 in order to improve his venous return as his cardiac output was quite poor with cool, clammy periphery, thready, palpable radial artery, and ultrasound which showed very small vessels showed a venous gas of pCO2 of 52, pH of 7.30, bicarbonate 25. Saturation was 79. Mixed venous saturation was 79%. Initial chest x-ray showed diffuse ground-glass and patchy opacities, apparently similar to old films from September 2016 to which at the moment I do not have access. Over the next few hours, attempts were made to place a radial arterial line, although the artery was accessed, the catheter could not be threaded into the artery. It was felt that further attempts were not warranted. Wanted to avoid utilizing femoral vasculature. Changes were made in his norepi infusion. Norepi infusion was running at 0.1 mcg per kg per minute which calculates out to about 60 mcg per minute. With decrease in the norepi and the administration of fluids, blood pressure christina. Aspiration pneumonia. Presumably, the overall of that was related to aspiration; however, prior microbiologic studies show a sputum with extended spectrum beta lactamase E. coli digital producer sensitive to aminoglycosides, carbapenems. In addition, the catheter site of May 19, 2016 grew MRSA sensitive to linezolid, Bactrim, vancomycin, and tetracycline. Infectious disease consultation has already been obtained, and they will opine regarding antibiotic choice. End-stage renal failure. Creatinine in July and early August runs 3.63 to about 4.5, as high as high as 4.8. Most recent creatinine prior to this admission was 1.88 on September 17, 2016. The patient was receiving dialysis three times a week. He apparently does not put out any urine according to the sister. Has already received a considerable amount of fluid. We will try hemodynamic monitoring. Also get a stat echocardiogram to assess function of the left ventricle pressure and the right ventricle and possibly visualize IVC diameter. ASSESSMENT: 1. Septic shock. The patient is a healthcare-associated victim with a history of extended spectrum beta lactamases Escherichia coli. Antibiotic coverage will be delivered with that in mind. Our infectious disease colleagues will help considerably in their valued opinion. 2. Hypoxemic, hypercarbic, respiratory failure. The patient is in marked respiratory failure. Admission gases, presumably arterial, show a pO2 of 57 on 100%, CO2 of 46 with a pH of 7.40 suggesting a primary metabolic alkalosis and a primary respiratory acidosis. Expect that to worsen with renal function off dialysis and with septic shock. Will need to keep a close eye on that. 3. [facility] hemodynamic monitoring system. 4. Echocardiogram. 5. Intravenous fluids consisting of normal saline, currently having received about 1.25 L. Will decrease fluid to about 250 mL an hour utilizing normal saline. 6. Norepinephrine infusion currently at 0.5 mcg per kg per minute. 7. Stat repeat of CBC with differential, platelet count, CMP, magnesium, phosphorus, lactate and blood gases. Will have to obtain venous gases. 8. Consider capnography. 9. Discontinue lactated Ringer's. 10. Normal saline at 250 mL/hour pending echocardiographic evaluation of his fluid status. 11. DVT and stress ulcer prophylaxis. 12. Check thyroid status. Discussed the situation with the patient's sister both obtaining historical material as well as providing clinical status material. TIME SPENT: Time spent so far in critical care is 150 minutes.
[2016-11-06] VITALS (12 sets, daily range): BP systolic 83–142; BP diastolic 40–76; PULSE 78–123; RESP 15–20; O2SAT 91–100
--- NOTE | 2016-11-06 00:17 | CONS ---
[address] [address] CONSULTATION REPORT PATIENT: JOANNE FIGUEROA : 1960 MR#: [id number] ADMIT: 11/05/2016 JOB ID: [id number] CORRECTED REPORT: DATE OF SERVICE: 11/05/2016 HISTORY OF PRESENT ILLNESS: The patient is a very unfortunate 55-year-old white male who is well known to me from previous consultations for chronic kidney disease. He was admitted for sepsis and aspiration pneumonia, and has a history of end-stage renal disease. Renal consultation is being sought for further evaluation and management of his chronic kidney disease. He has a history dating back eight years to an anoxic brain injury following prolonged CPR. Since that time, he has been living at [facility] and requiring almost 24 hour care. There is a history of end-stage renal disease. He normally dialyzes three days a week on Wednesday, , Wednesday. The etiology of his renal failure is due to diabetes and other complicating issues. He has also had a history of a hemorrhagic stroke. He has had recurrent pneumonia in the past and there is a suspicion of aspiration pneumonia. At the time of admission, the patient was clearly in septic shock and he was given aggressive IV hydration, along with norepinephrine to attempt to increase blood pressure. He did have some improvement in his blood pressure with both interventions, and at this time they are currently tapering down his IV fluids. Although today is his dialysis day, he is clearly not fluid overloaded, nor is he hyperkalemic, and in light of his critical condition we will defer dialysis. Along with the IV hydration he was also intubated and mechanically ventilated. PAST MEDICAL HISTORY: Significant for end-stage renal disease, dialysis dependent, anoxic brain injury, diabetes with diabetic kidney disease, hypertension with hypertensive heart disease and hypertensive nephrosclerosis, anoxic brain injury along with a stroke. PAST SURGICAL HISTORY: Significant for attempted multiple AV fistulas which have failed. He currently has a right internal jugular PermCath and a PEG tube in. ALLERGIES: He is not allergic to any food or any medication. SOCIAL HISTORY: He currently does not smoke, drink, or take ethanol in. FAMILY HISTORY: Unavailable. REVIEW OF SYSTEMS: Detailed above, but otherwise is unknown at this time. PHYSICAL EXAMINATION: Revealed a pale, chronically ill, cachectic appearing 54-year-old white male who was sedated and on a mechanical ventilator at time of my evaluation. His blood pressure is 132/64 with a heart rate of 120. HEENT examination: Remarkable for sluggish pupils and pale sclerae. His oral and perioral membranes were also dry. Neck is supple without adenopathy, thyromegaly or jugular venous distention. Lungs showed some hyperresonance to percussion bilaterally and diffuse rhonchi with end-expiratory wheezes were noted bilaterally. Heart sounds were distant and difficult to hear in light of his loud rhonchorous lung sounds. Abdomen was not distended and bowel sounds were not noted. He did have some right upper quadrant fullness and some tenderness to palpation. Otherwise, there are no masses or evidence of rebound. Extremities were emaciated and no edema was noted. He did not have any clubbing or cyanosis. His skin turgor was diminished and there was no evidence of any rashes. LABORATORY EXAMINATION: At time of admission, his sodium is 146, potassium 4.1, chloride 103, bicarbonate 24, BUN and creatinine were 54 and 3.86, his glucose is 113. His white count was 4000, hemoglobin was 12.9, hematocrit 39.6, MCV was elevated at 105. His initial differential showed 87% segs. IMPRESSION: 1. End-stage renal disease. 2. Pneumonia with sepsis. 3. Dehydration secondary to sepsis. 4. Hypotension secondary to dehydration. RECOMMENDATION: I have discussed the case with Dr. Dias at length and I would like to get an ultrasound of his right upper quadrant to make sure there we are not missing an acute cholecystitis or acalculous cholecystitis. I would also try to taper down his IV fluids to keep his systolic blood pressure above 90. Obviously, IV antibiotics have been ordered by Dr. Brown from Infectious Disease. We need to closely follow his lab and vital signs, and I will make arrangements for his dialysis once he is a bit more stable. I would like to thank you for allowing me to participate in the care of this most unfortunate patient. I will be following him closely with you. Corrected by ELIJAH 12/24/16 at 11:41am CHARLY.
[2016-11-06] MEDS: Albuterol-Ipratropium 3 mL Inhalation Solution NEB SCH ×6 (00:27→21:14)
[2016-11-06] MEDS: Heparin 5,000 Unit/mL Inj SUBQ SCH ×4 (00:58→23:58)
--- NOTE | 2016-11-06 02:54 | PROCED ---
[address] [address] PROCEDURE NOTE PATIENT: JOANNE FIGUEROA : 1960 MR#: [id number] ADMIT: 11/05/2016 JOB ID: [id number] DATE OF SERVICE: PREOPERATIVE DIAGNOSIS(ES): POSTOPERATIVE DIAGNOSIS(ES): SURGEON: PROCEDURE NOTE: I was called to the bedside by the ICU team for emergent airway management for patient. After obtaining a sign out from the ICU team on the patient's current conditions, and assessing the patient who is clearly in acute respiratory failure with hypoxia on non-rebreather face mask with saturations in the high 80s to low 90s, I collected a team of ICU providers to provide intubation. A time-out was performed. Rapid sequence induction was utilized using cricoid pressure, 14 mg of etomidate, followed by 100 mg of succinylcholine were delivered intravenously through his central venous line, followed by direct laryngoscopy by myself using a MAC 4 blade, obtaining a grade one view. A 7.5 endotracheal tube was passed easily through his cords and secured 23 cm at the lips. Colorimetric change was observed, as well as end-tidal CO2 and bilateral breath sounds. Saturations never dropped below 86% and quickly recovered to the high 90s. She was placed on the ventilator and care was turned over to the ICU team. No apparent complications were observed and the patient tolerated the procedure well.
--- NOTE | 2016-11-06 02:57 | PROCED ---
[address] [address] PROCEDURE NOTE PATIENT: JOANNE FIGUEROA : 1960 MR#: [id number] ADMIT: 11/05/2016 JOB ID: [id number] DATE OF SERVICE: PREOPERATIVE DIAGNOSIS(ES): POSTOPERATIVE DIAGNOSIS(ES): SURGEON: PROCEDURE NOTE: After intubating the patient, the ICU team requested placement of an arterial line for invasive monitoring in a patient in septic shock, on high-dose norepinephrine. I proceeded to obtain an ultrasound to attempt to visualize his radial artery on both the left side and the right side with minimal success likely secondary to hypovolemia and shock. Using sterile technique and ultrasound guidance, I attempted two times on the left radial artery between his wrist and about 1 inch above the elbow, and was able on the second attempt to have pulsatile flow of blood through my angiocatheter, but was unable to pass the guidewire easily through the angiocatheter. Therefore, I aborted attempts on the left arm and moved to the right arm, where I again two times attempted radial artery catheterization. Was able to obtain pulsatile flow, but unable to pass the guidewire. After multiple attempts, and finding it difficult to pass a guidewire, implying highly calcific radial artery bilaterally, I told the ICU team that if the arterial monitoring was still desired I could attempt a femoral arterial line; at which time, the ICU team decided that further attempts at obtaining invasive monitoring were not indicated at this time. During the procedure, the patient was intubated and sedated. There were no apparent complications of arterial access. Pressure was held and hemostasis was observed on each puncture site in between attempts, and observed to made to me to be hemostatic prior to exiting his ICU room. Due to the extreme emergent nature of these cases, I did verbally obtain consent from the family member in the room, but written consent was obtained. No apparent complications of the procedure were observed. The ICU team was alerted that if further invasive monitoring was desired that they could contact me and I would be happy to attempt further.
[2016-11-06] MEDS: Norepineph 8,000 mCg/250 mL NS 8,000 MCG in IV Premix 1 EACH IV PRN ×4 (03:11→20:21)
[2016-11-06] MEDS: 0.9% Sodium Chloride 1,000 ML IV SCH ×2 (03:23→12:42)
[2016-11-06] MEDS: Acetaminophen IV 1,000 MG in IV Premix 1 EACH IV PRN (04:52)
[2016-11-06] MEDS ORDERED: Vancomycin Serum Trough XX ONE (05:00)
--- NOTE | 2016-11-06 05:01 | ABG ---
DateTimeAnalyzed 04:57:00 -_ pH ____7.274 - 7.350 7.450 pCO2 ___38.3__ -mmHg 35.0 45.0 pO2 ___95.1__ -mmHg 69.0 116 HCO3- ___17.2__ -mmol/L 22.0 26.0 ABE ___-8.6__ -mmol/L -2.0 2.0 tHb ___12.7__ -g/dL O2Hb ___95.7__ -% COHb ____0.5__ -% MetHb ____1.0__ -% sO2 ___97.2__ -% 25.0 FIO2 ___80.0__ -% PEEP ____5.0__ -cmH2O Set_RR ___20.0__ -b/min Vt __550.0__ -L Drawn By RB - Date/Time Notified____ 05:00:00 -_ Oxygen Device 1 VENTILATOR - Notified Whom MEGAN F, RN - Age 48 -years B 737 -mmHg tO2 ___17.1__ -Vol% Iván test _Positive -
[2016-11-06 05:11] LABS: Mean Corpuscular Hemoglobin 34.2 pg (27.0-35.0); Mean Corpuscular Volume 105 fL (81-100); Platelet Count 140 bil/L (150-400)
[2016-11-06] MEDS ORDERED: Sodium Bicarb (50 mEq) 8.4% 1 mEq/mL 50 mL Syringe IVPUSH ONE (05:20)
[2016-11-06 05:33] LABS: BASOPHILS % (AUTO) 0 % (0-3); EOSINOPHILS % (AUTO) 0 % (0-5); MONOCYTES % (AUTO) 2 % (4-12); NEUTROPHILS % (AUTO) 30 % (40-74)
[2016-11-06 05:52] LABS: Magnesium 1.8 mg/dL (1.6-2.6)
[2016-11-06 05:55] LABS: TROPONIN T 0.082 ug/L (0.0-0.011)
--- NOTE | 2016-11-06 06:30 | NUR ---
Hemodynamics/GI/ Patient lightly sedated on vent, Fentanyl at 75mcg/hr, FIO2 decreased to 70% this shift, awake at times and pleasant, HR 120's this AM, BP 142/77 at this time, follows commands and communicates with thumbs up and squeezes hands, NPO and attempted to place OG tube but without success since patient shook head "no" when asked if he can swallow while advancing the OG tube, coccyx is scabed and newly healed pressure ulcer present with redness and dry skin, critical Lactic acid 4.8 and positive blood culture bottle 1 of 8 gram + cocci resembling MD brenda notified, sister updated on POC last night, will continue to monitor. Addendum: 11/06/16 at 0642 by LOUISE BOJRA RN Amended: Links added.
--- NOTE | 2016-11-06 08:00 | PCM.PNMED ---
Subjective Date of Service Nov 06, 2016 Subjective Pulmonary Critical care consult follow-up Ventilation management Patient is a 55yom with MHx significant for cerebral aneurysm, hx methamphetamine, SD, hemorrhagic stroke and anoxic brain injury(2008) with recurrent aspiration pneumonia admitted for decrease mentation and SOB, subsequently found be in septic shock and acute hypoxic hypercapnic respiratory failure, thus requiring CCU transfer, pressor support, and intubation/ ventilation management. Overnight,respiratory status improved, FIO2 decreased to 60%, satting well. Lungs compliant, no auto peep. Still on Levophed at 0.75 and receiving 3L of NS over the 12hrs.Cardiac output ave. 5.5L. Tachycardic at 120. Fever spike Tmax 38.4C WBC 10.3, but with an impressive bademia 55. This AM, ABG showed metabolic acidosis, pH 7.27. He was given 1 amp bicarb. Urine positive Strep pneumo Ag and blood culture Gram positive cocci. Patient have been receiving DVT and GI prophylaxis. Today, patient AOx3, reports back pain and discomfort with ET tube. Exam Vital Signs Vital Sign - Last Date Time Temp Pulse Resp B/P Pulse Ox O2 Delivery O2 Flow Rate FiO2 11/06/16 04:45 117 129/71 100 80 11/06/16 04:00 38.4 20 Mechanical Ventilator 11/05/16 10:57 15.00 Intake and Output 11/05/16 11/05/16 11/06/16 Cumulative From/Thru 15:00 23:00 07:00 11/05/16 06:36 - 11/06/16 05:53 Intake Total 710 ml 3205 ml 3626 ml 7541 ml Output Total 400 ml 0 ml 400 ml Balance 710 ml 2805 ml 3626 ml 7141 ml Intake Oral 0 ml 0 ml IV Total 710 ml 3205 ml 3626 ml 7541 ml Output Urine Total 400 ml 0 ml 400 ml # Bowel Movements 0 0 Exam Gen: Lying comfortably at 30degree head tilt HEENT: PERRLA, Anicteric sclerae, moist conjunctivae, and no lid lag. Neck: supple, no JVD Cardio: tachy, sinus, no murmur rub or gallop appreciated, Right anterior chest central line and left central line in place Pulm: b/l air sound, crackles in the lower bases, coarse breathing throughout. no wheezes. Abd: positive bowel tone. Soft, nontender, nondistended. gastric tube in placed , non erythematous, loose however. Extremities: No clubbing, cyanosis, edema, or lymphadenopathy appreciated. Skin: Normal temperature, turgor, and texture; no rash, ulcers, or subcutaneous nodules appreciated. Neuro: Cranial nerves grossly intact. moving equally on all four limbs. Psyc: AoX3, appropriately responding with hand squeeze IVs and Medications Medications Reviewed: Medications were reviewed in detail Lab and Diagnostics Result Diagram: 11/06/16 0500 11/06/16 0450 X-Rays, CTs and MRIs . X-RAY CHEST ONE VIEW, PORTABLE IMPRESSION: Diffuse groundglass and patchy opacities likely representing pulmonary edema although please correlate clinically to exclude superimposed infection. Overall , improved lung volumes with no new consolidation since yesterday. Dictated by: Leonardo Villalba M.D. on 11/05/2016 at 7:56 X-RAY CHEST ONE VIEW, PORTABLE IMPRESSION: Diffuse groundglass and patchy opacities likely representing pulmonary edema although please correlate clinically to exclude superimposed infection. Overall , improved lung volumes with no new consolidation since yesterday. Dictated by: Leonardo Villalba M.D. on 11/05/2016 at 7:56 Additional Diagnostics pH ____7.406 - 7.350 7.450 pCO2 ___46.5__ -mmHg 35.0 45.0 pO2 ___57.7__ -mmHg 69.0 116 HCO3- ___28.6__ -mmol/L 22.0 26.0 Assessment & Plan Patient is a 55yom with MHx significant for cerebral aneurysm, hx methamphetamine, SD, hemorrhagic stroke and anoxic brain injury(2008) with recurrent aspiration pneumonia admitted for decrease mentation and SOB, subsequently found be in septic shock with acute hypoxic hypercapnic respiratory failure, thus transfer to CCU for pressor support and ventilation management. Patient doing well overnight, BP stable, levophed and fluid titrated down. O2 requirement also decreased. Underlining issues today, remains sepsis/bacterimic presumed strep pneumo and sepsis shock. Goal will be to ween down O2 needs and levophed off. ID Dr. Brown has been consulted and following. Problem list 1. Hypoxic hypercapnic respiratory failure 2. Sepsis shock 3. Pneumonia 3. ESRD Respiratory Hypoxic hypercapnic respiratory failure - 2nd to likely strep pneumonia, CRx- b/l infiltrate - Vent support, wean down FIO2, may consider extubation if FIO2 improves in the next 1-2days - ABG in the AM Infectious Sepsis Shock - MAP consistently >70, Cheta showing CO ~5L - Ween down levophed, back off fluids first though. Currently on 125cc/h NS - Not recommend trending lactic acid in the setting of ESRD Pneumonia - likely strep pneumo given positive urine antigen and blood cultured gram positive cocci - Strep pneumo antigen may be false positive, will need to check for any recent strep vaccination. Still possible to have aspiration pna - Cont abx vancomycin and meropenem as direct by Infectious disease Cardiovascular - Troponin flat - Echocardiogram unremarkable Hematologic - DVT propylaxis heparin Metabolic ESRD - Will try to dialyze today as BP is maintaining Alimentary - famotidine propylaxis in place Mild transaminitis - He has hx of hepatitis. No cirrhosis on Echo-abd. Patient however, receiving daily lactulose outpatient - Will get amonia level for baseline and cont lactulose Neurologic - AOx3 - Lazcano of ICU delirium Total time 60min VTE Prophylaxis: Sub-Q Heparin (Unfractionated) VTE Mechanical Devices: Intermittant Pneumatic CD Resuscitation Status: CPR: Attempt Resuscitation Attending Statement The patient was seen and examined together with Dr. Taylor on 11/06/2016 and I agree with the history, exam and plan as outlined in the note above. Hector Taylor DO Nov 06, 2016 08:00 Ivan Dias MD December 10, 2016 14:33
[2016-11-06] MEDS: Vasopressin Inj 20 UNIT in 0.9% Sodium Chloride 100 ML IV SCH ×2 (08:26→19:33)
[2016-11-06] MEDS ORDERED: FLUoxetine 4 mg/mL 118 mL Solution PEG SCH (08:30)
[2016-11-06] MEDS: Vancomycin Dose per Pharmacist XX SCH (08:30)
[2016-11-06] MEDS ORDERED: NPH,100V11 SUBQ (09:14)
[2016-11-06] MEDS ORDERED: ALBU0.63 INHALATION (09:19)
[2016-11-06] MEDS ORDERED: DEXT1DRO8 BOTH_EYES (09:20)
[2016-11-06] MEDS ORDERED: NA P133E23 RC (09:23)
[2016-11-06] MEDS ORDERED: OXYC1TAB24 PEG (09:24)
--- NOTE | 2016-11-06 09:27 | NUR ---
Med Rec: SNF would not provide medication administration record, so unable to discern last date/time of medications. Med list entered from SNF physician orders.
[2016-11-06] MEDS ORDERED: Gentamicin Per Pharmacist XX ONE (10:15)
--- NOTE | 2016-11-06 11:15 | DRSVH ---
PROCEDURE: X-RAY CHEST ONE VIEW, PORTABLE ([id number]) INDICATIONS: Vent TECHNIQUE: One view of the chest was acquired. COMPARISON: [facility], CR, XR CHEST 1VW (PORTABLE), 11/05/2016, 13:13. FINDINGS: Surgical changes and devices: Double-lumen central venous catheter from right sided approach appears normal, endotracheal tube appears normal also.. Lungs and pleura: No pleural effusions or pneumothorax. Lungs are abnormal, with a diffuse pneumoni a pattern slightly greater on the right than the left. Mediastinum: Mediastinal contours appear normal. Heart size is normal. Bones and chest wall: No suspicious bony lesions. Overlying soft tissues appear unremarkable. IMPRESSION: Stable appearing bilateral moderately severe to severe pneumonia, right greater than left . Lines and tubes in normal position. Dictated by: Jeff Duggan M.D. on 11/06/2016 at 11:07 Approved by: Jeff Duggan M.D. on 11/06/2016 at 11:14
--- NOTE | 2016-11-06 11:17 | NUR ---
NUTRITION FOLLOW-UP: ASSESS: Pt is a 55 YO male admitted with decreased mentation and SOB, subsequently found be in septic shock and acute hypoxic hypercapnic respiratory failure, thus requiring CCU transfer, pressor support, and intubation/ventilation management. Pt resides at [facility] and is on long-term enteral feeding via PEG tube. Home enteral feeding formula is Nepro, rate 50ml/hr. Per discussion during CCU rounds, PEG tube appears to be dislodged; surgery consult will be obtained. Patient is NPO at baseline related to hemorrhagic stroke and anoxic brain injury (2008). Nephrology consulted, as pt has ESRD, requiring HD. Wt has been stable since last admit; however wt has slowly decreased ~10kg in the last year. Following CCU rounds, lead hospitalist expressed significant concern related to patient's high blood glucose labs, despite A1c 6.6, which is at a significantly historic low. His average A1c is 9.94, calculated from 09/2008 - 09/2006. Hyperglycemia in critically ill patients is caused by a number of factors. Stress-induced hyperglycemia, commonly defined as blood glucose value >200 mg/dL, is an endogenous process resulting from the inflammatory response that occurs in critical illness. Patient's blood glucose labs have ranged from 113 - 214 since admission yesterday. Bedside glucose readings are significantly lower; reliability is indeterminate. The renal enteral formula is actually lower in carbohydrate content than the diabetes formula, and will maintain better electrolyte balance than the diabetes formula. PMHX: ESRD, T1DM, CVA, TBI, Seizures, ID, HTN, HLD. LABS: CO2 15, BUN 62, Cr 4.34, Glu 193, Lactic Acid 4.8, Ca 8.0, Procalcitonin 67.51. MEDS: Lactulose, synthroid, levophed, fentanyl, insulin. GI: 0 BM recorded. SKIN: newly healed pressure ulcer present with redness and dry skin, per nursing report. HOME ENTERAL FEEDING: Nepro at 50ml/hr to provide 1980kcal/day and 89g pro (100% estimated needs). WT: 58.3 kg, BMI 19.0kg/m2, IBW: 72.7kg, Adj BW: 69kg, UBW ~65-68kg DIET: NPO EST. NEEDS: Dialysis, wt gain Kcals: 1750-2330kcal/day (30-40kcal/kg) Pro: 70-120g/day (1.2-2.0g/kg) Fluids: 1165-1500ml/day (20-25cc/kg) or per production gear cutter NUTRITION DIAGNOSIS: 1) Chew/swallow difficulties related to chronic dysphagia as evidence by need for terminal gauger supervisor enteral feeding via PEG tube, and ongoing NPO status - PERSISTS. 2) Increased nutrient needs related to increased demand for nutrients as evidence by pt on HD, high risk for wounds - PERSISTS. 3) Inadequate oral intake related to decreased ability to consume sufficient energy as evidenced by current NPO status - PERSISTS. NUTRITION INTERVENTION: 1) Will monitor NPO status. 2) When PEG tube placement appropriately verified, authorization received to initiate enteral feeding. Will initiate Nepro renal formula at 15ml/hr, advance by 10ml q 6 hr to goal rate of 55ml/hr. Goal rate increased to aid in wt gain. Enteral feeding at goal rate will provide 2178kcal and 98g pro (100% kcal and pro needs). If on IVF, flush 40ml q 4 hrs. If IVF off, fluid flush 100ml q 4 hr or per nephrology recommendations. MONITOR / EVAL: NPO status, PEG tube placement status, enteral feeding start / advance / tolerance, wt, GI, labs, POC, nutrition status. Will continue to monitor per high nutrition risk guidelines.
[2016-11-06] MEDS: Chlorhexidine 0.12% 15 mL Oral Solution MT SCH ×4 (12:00→23:52)
[2016-11-06] MEDS: fentaNYL 2,500 mCg/250 mL IV Premix IV SCH ×2 (12:15→20:24)
[2016-11-06] MEDS: Dextrose 5% 1,000 ML IV SCH (13:26)
--- NOTE | 2016-11-06 14:46 | PCM.PHAPRO ---
Progress Date of Service: Nov 06, 2016 Vancomycin dosing Scr = 4.34. Pt on dialysis. WBC = 10.8, procal = 67.5, vanco trough = 12.9. Pt continues on IV vancomycin for pneumonia. Pt is also on meropenem. Pt also rec'd a one-time dose of IV gentamicin yesterday. Vancomycin random level today was 12.9. Will give vancomycin 750 mg IV x 1 dose after dialysis today. Vanco random level is ordered with am labs the next 2 days since it is unclear when patient's next HD session will be. Pharmacy will continue to follow this patient's IV vancomycin therapy with you. Caitlin Spaulding PharmD Nov 06, 2016 14:46
--- NOTE | 2016-11-06 17:32 | PCM.PNMED ---
Subjective Date of Service Nov 06, 2016 Subjective Overnight: Patient was awake at times and responding appropriately. Telemetry showed him in sinus tachycardia throughout the night rate in the 110's with some PVCs. 1 AMP bicarbonate given by night team Today: Patient remains intubated and sedated. Surgery assessed PEG tube found it to be patent. Exam Vital Signs Vital Sign - Last Date Time Temp Pulse Resp B/P Pulse Ox O2 Delivery O2 Flow Rate FiO2 11/06/16 16:57 104 83/45 93 60 11/06/16 07:29 37.4 20 Mechanical Ventilator 11/05/16 10:57 15.00 Intake and Output 11/05/16 11/05/16 11/06/16 Cumulative From/Thru 15:00 23:00 07:00 11/05/16 06:36 - 11/06/16 05:53 Intake Total 710 ml 3205 ml 3626 ml 7541 ml Output Total 400 ml 0 ml 400 ml Balance 710 ml 2805 ml 3626 ml 7141 ml Intake Oral 0 ml 0 ml IV Total 710 ml 3205 ml 3626 ml 7541 ml Output Urine Total 400 ml 0 ml 400 ml # Bowel Movements 0 0 Exam General: Patient intubated and sedated in no apparent distress resting comfortably in hospital bed at time of exam undergoing hemodialysis. HEENT: Normocephalic, atraumatic. ET tube in place Neck: No jugular venous distension. Left IJ in place Cardiovascular: Tachycardic rate with regular rhythm, no murmurs appreciated Pulmonary: Diffuse wheezing heard upper anterior lobes bilaterally. Abdomen: Soft, nondistended. PEG tube in place Extremities: No clubbing, cyanosis, edema, or lymphadenopathy appreciated. Skin: Normal temperature, turgor, and texture Neurological: Intubated and sedated Vent settings: FiO2 0.6, PEEP 5, RR 16, TV550 IV drips: Levophed 0.6, fentanyl 25 IV access: Left IJ, right dialysis shunt Ins and outs: In 3216, out 0, total 3226 IVs and Medications Medications Reviewed: Medications were reviewed in detail Lab and Diagnostics Result Diagram: 11/06/16 0500 11/06/16 0450 Microbiology Urine shows strep pneumo antigen, positive blood cultures 2 for gram-positive cocci activity is pending X-Rays, CTs and MRIs . X-RAY CHEST ONE VIEW, PORTABLE IMPRESSION: Diffuse groundglass and patchy opacities likely representing pulmonary edema although please correlate clinically to exclude superimposed infection. Overall , improved lung volumes with no new consolidation since yesterday. Dictated by: Leonardo Villalba M.D. on 11/05/2016 at 7:56 X-RAY CHEST ONE VIEW, PORTABLE IMPRESSION: Diffuse groundglass and patchy opacities likely representing pulmonary edema although please correlate clinically to exclude superimposed infection. Overall , improved lung volumes with no new consolidation since yesterday. Dictated by: Leonardo Villalba M.D. on 11/05/2016 at 7:56 US ABDOMEN, LIMITED IMPRESSION: 1. Increased periportal echogenicity in the liver is nonspecific but may reflect acute hepatitis. Recommend correlation with laboratory values. 2. Round echogenic non-shadowing structure in the gallbladder is incompletely evaluated. The findings may represent a non-shadowing stone or polyp. No evidence of cholecystitis. Dictated by: Yoshi Kendall M.D. on 11/05/2016 at 17:49 X-RAY CHEST ONE VIEW, PORTABLE IMPRESSION: Stable appearing bilateral moderately severe to severe pneumonia, right greater than left. Lines and tubes in normal position. Dictated by: Jeff Duggan M.D. on 11/06/2016 at 11:07 Cardiac Echo Impressions . Echocardiogram Report Interpretation Summary There is normal left ventricular wall thickness. There are no focal wall motion abnormalities. The ejection fraction is estimated to be 50-55%. There is no significant valvular heart disease. Electronically signed by: Nelson Marquez Additional Diagnostics pH ____7.406 - 7.350 7.450 pCO2 ___46.5__ -mmHg 35.0 45.0 pO2 ___57.7__ -mmHg 69.0 116 HCO3- ___28.6__ -mmol/L 22.0 26.0 Assessment & Plan is a 55-year-old gentleman with PMH CVA resulting in dysphagia and aphasia, history of AL leading to anoxic brain injury, depression, end-stage renal disease on HD, DM type II admitted to CCU for sepsis secondary to possible pneumonia. Hospital day date 2, ventilator day 2 1. Severe Sepsis. Present on admission. Ongoing - Septic criteria met with tachycardia, tachypnea, hyperthermia, lactic acid 5.1 - Possible sources include pneumonia or GI. - Infectious disease following recommendations appreciated - Patient received levofloxacin, Zosyn, vancomycin and ED - Currently on meropenem, vancomycin - MRSA preliminary result negative though patient has history of MRSA - Pulmonology/ICU service following recommendations appreciated - Intubated and sedated - IV NS 125 mL/hr - IV drips nor epi 0.6, fentanyl 25 - Echo shows no wall motion abnormalities, EF 50-55% and no significant valvular heart disease - Appropriate cultures and serologies pending 2. Acute hypoxic respiratory failure with hypoxia. Present on admission. Ongoing - After admitted to CCU patient became increasingly dyspneic requiring intubation, most likely secondary to #3 - Patient remains intubated and ventilated - Vent settings are FiO2 60 %, PEEP 5, tidal volume 550, respiratory rate 16 - FiO2 was weaned down today with success - ABG, CXR in a.m. 3. Pneumonia. Present on admission. Ongoing - Blood cultures grew gram-positive cocci, positive urine antigen for strep pneumo - CXR showed glass patchy opacities possibly pneumonia/pulmonary edema - Pro calcitonin trended up to 67,51 - White count trended up to 10.8 - Respiratory therapy suctioned copious amounts of green phlegm/sputum while in ED - We will continue to monitor - Continue Antibiotics as in #1 4. End stage renal disease. Present on admission. Ongoing - Stage IV with GFR of 16 - Patient receives HD 3 times per week - Nephrology consulted. Recommendations appreciated 5. Diabetes mellitus type I. Present on admission. Ongoing - A1c 6.6 - Patient on home insulin glargine and insulin aspart - Correctional scale insulin 7. Hypernatremia. Present on admission. Resolved - Most likely secondary to volume depletion - Fluid replacement as in #1 - Continue monitor 8. Elevated troponin. Present on admission. Ongoing - Most likely secondary to #4 - EKG showed anterior ST segment abnormalities consistent with previous infarct - Continue to monitor 9. Hyperlipidemia. Present on admission. Ongoing - Continue home statin 10. Transaminitis. Present on admission. Improving - ALT AST trending down - Ammonia level slightly elevated at 57 - Continue lactulose Disposition: Patient remains intubated and ventilated CCU status with blood pressure support. Pain Evaluation: Adequate Pain Control VTE Prophylaxis: Sub-Q Heparin (Unfractionated) VTE Mechanical Devices: Intermittant Pneumatic CD Resuscitation Status: CPR: Attempt Resuscitation Attending Statement The patient was seen and examined together with Dr. Rae on 11/06/2016 and I agree with the history, exam and plan as outlined in the note above. . PRINCESS RAE DO Nov 06, 2016 17:32 Miguel Cheatham MD Nov 07, 2016 18:41
--- NOTE | 2016-11-06 17:50 | NUR ---
Dialysis note: 3 1/2 hours tx 1000 ml net UF Right catheter, dsg changed, no s/s of infection noted Left upper arm AVF, (+) thrill by doppler Pls see DTR for VS details, cont. on Norepi gtt, increased PRN by primary RN Qb 400 w/ cath limbs reversed A-V V-A due to poor cath function No heparin given, Citrasate used instead On vent @ 60% FiO2 with sat in the 90's Pt on light sedation, Fentanyl gtt; would wake up at times; tolerated tx Catheter flushed, heparin dwelled and secured Report given to Soarida Banuelos RN Stable condition at end of tx
[2016-11-06] MEDS ORDERED: Vancomycin Inj 750 MG in 0.9% Sodium Chloride 250 ML IV ONE (18:00)
[2016-11-06] MEDS: Meropenem Inj 1,000 MG in 0.9% Sodium Chloride 100 ML IV SCH (18:09)
[2016-11-06] MEDS: Lactulose 20 Gm/30 mL 30 mL Syrup PEG SCH (18:21)
--- NOTE | 2016-11-06 19:52 | NUR ---
Hemodynamics.. Pt had stable B/P this am and was able to wean down to .2mcgs on Levophed gtt. Once pt started dialysis he required increased titration of gtt again. Fentanyl gtt weaned down to help achieve better B/P and pt remains calm with RASS of -1 on lower dose. Has been awake intermittently and nodding and squeezing hands appropriately. Noted on assessment at 0800 that the PEG tube flange was out around 1 inch. MD notified and PA from surgery was here to assess. Endo KEEGAN Rizo came to bedside and was able to confirm that tube was in correct position and the flange just needed to be pulled back flush to the abdomen. Was started on tube feeds and is zoey this well.
[2016-11-06] MEDS: Famotidine Inj 20 MG in IV Premix 1 EACH IV SCH (20:28)
[2016-11-07] VITALS (13 sets, daily range): BP systolic 90–133; BP diastolic 48–60; PULSE 103–112; RESP 16–21; O2SAT 91–100
[2016-11-07] MEDS: Albuterol-Ipratropium 3 mL Inhalation Solution NEB SCH ×6 (00:19→21:21)
[2016-11-07] MEDS: Norepineph 8,000 mCg/250 mL NS 8,000 MCG in IV Premix 1 EACH IV PRN ×4 (01:57→20:11)
[2016-11-07] MEDS: Chlorhexidine 0.12% 15 mL Oral Solution MT SCH ×6 (04:54→23:30)
[2016-11-07] MEDS: 0.9% Sodium Chloride 1,000 ML IV SCH ×2 (04:54→20:02)
[2016-11-07] MEDS: Vancomycin Serum Trough XX SCH (05:01)
--- NOTE | 2016-11-07 05:01 | ABG ---
DateTimeAnalyzed 04:58:00 -_ pH ____7.227 - pCO2 ___40.6__ -mmHg pO2 ___47.2__ -mmHg HCO3- ___16.2__ -mmol/L ABE __-10.4__ -mmol/L tHb ___11.1__ -g/dL O2Hb ___77.6__ -% COHb ____0.9__ -% MetHb ____1.0__ -% sO2 ___79.1__ -% FIO2 ___60.0__ -% PEEP ____5.0__ -cmH2O Set_RR ___16.0__ -b/min Vt __550.0__ -L Drawn By AF - Date/Time Notified____ 05:00:00 -_ Oxygen Device 1 VENTILATOR - Notified By af - Age 48 -years B 750 -mmHg tO2 ___12.1__ -Vol% Iván test N/A -
[2016-11-07 05:10] LABS: BASOPHILS % (AUTO) 0.1 % (0-3); EOSINOPHILS % (AUTO) 0.1 % (0-5); MONOCYTES % (AUTO) 1.6 % (4-12); Mean Corpuscular Hemoglobin 33.6 pg (27.0-35.0); Mean Corpuscular Volume 106.8 fL (81-100); NEUTROPHILS % (AUTO) 93.4 % (40-74); Platelet Count 104 bil/L (150-400)
--- NOTE | 2016-11-07 06:19 | NUR ---
Agitation/Hypotension/Respiratory Pt gets agitated with care. Restraints on. He opens eyes, follows commands and able to respond thumbs up/down. Increased Fentanyl to 30 mcg/hr. Weaned down Levophed to 0.4 mcg/kg/min with noted sys 90s-low 100s and MAP >60. During start of shift, 02sat in 90-92% on current ventilator settings. Suction and frequent oral care with scant amount of sputum noted. 02sat up to mid to high 90s at this time. Temp Max tonight 38.0. Tylenol suppository given with effectiveness noted. PEG tube patent. Increased tube feeding as ordered.
[2016-11-07] MEDS: Vasopressin Inj 20 UNIT in 0.9% Sodium Chloride 100 ML IV SCH ×2 (06:40→17:47)
[2016-11-07] MEDS: Dextrose 5% 1,000 ML IV SCH (08:15)
[2016-11-07] MEDS: Meropenem Inj 1,000 MG in 0.9% Sodium Chloride 100 ML IV SCH (08:22)
[2016-11-07] MEDS: Lactulose 20 Gm/30 mL 30 mL Syrup PEG SCH (08:22)
[2016-11-07] MEDS: Heparin 5,000 Unit/mL Inj SUBQ SCH ×3 (08:23→23:30)
[2016-11-07] MEDS: Vancomycin Dose per Pharmacist XX SCH (08:30)
[2016-11-07] MEDS: Insulin Human REGular Inj 100 UNIT in 0.9% Sodium Chloride-Pha MIX 100 ML IV SCH (08:30)
[2016-11-07] MEDS ORDERED: Albumin 25% 100 ML IV ONE ×2 (09:35→12:20)
--- NOTE | 2016-11-07 12:00 | PCM.PNNEPH ---
Subjective Date of Service Nov 07, 2016 Subjective The patient shows some mild improvement however he is still quite ill and dependent on the ventilator. His blood pressures are averaging in the 90 to low 100 range which is about normal for him. Exam Vital Signs Vital Sign - Last Date Time Temp Pulse Resp B/P Pulse Ox O2 Delivery O2 Flow Rate FiO2 11/07/16 09:08 114 94/48 97 60 11/07/16 08:30 37.9 21 Mechanical Ventilator 11/05/16 10:57 15.00 Intake and Output 11/06/16 11/06/16 11/07/16 Cumulative From/Thru 15:00 23:00 07:00 11/05/16 06:36 - 11/07/16 06:11 Intake Total 2397 ml 2002 ml 66288 ml Output Total 1000 ml 0 ml 0 ml 1400 ml Balance -1000 ml 2397 ml 2002 ml 11737 ml Intake Oral 0 ml 0 ml IV Total 2397 ml 1720 ml 68819 ml Tube Feeding 202 ml 202 ml Tube Irrigant 80 ml 80 ml Output Urine Total 0 ml 0 ml 400 ml Ultrafiltrate 1000 ml 1000 ml # Voids 0 0 # Bowel Movements 0 1 1 Exam Lungs showed a few scattered rhonchi. Heart is regular with soft systolic murmur. Abdomen soft without tenderness rebound guarding masses or hepatosplenomegaly. Extremities do not show any evidence of any clubbing cyanosis or edema. Skin turgor is good no evidence of any rashes. Lab and Diagnostics Result Diagram: 11/07/165 11/07/16454 Microbiology Urine shows strep pneumo antigen, positive blood cultures 2 for gram-positive cocci activity is pending X-Rays, CTs and MRIs . X-RAY CHEST ONE VIEW, PORTABLE IMPRESSION: Diffuse groundglass and patchy opacities likely representing pulmonary edema although please correlate clinically to exclude superimposed infection. Overall , improved lung volumes with no new consolidation since yesterday. Dictated by: Leonardo Villalba M.D. on 11/05/2016 at 7:56 X-RAY CHEST ONE VIEW, PORTABLE IMPRESSION: Diffuse groundglass and patchy opacities likely representing pulmonary edema although please correlate clinically to exclude superimposed infection. Overall , improved lung volumes with no new consolidation since yesterday. Dictated by: Leonardo Villalba M.D. on 11/05/2016 at 7:56 US ABDOMEN, LIMITED IMPRESSION: 1. Increased periportal echogenicity in the liver is nonspecific but may reflect acute hepatitis. Recommend correlation with laboratory values. 2. Round echogenic non-shadowing structure in the gallbladder is incompletely evaluated. The findings may represent a non-shadowing stone or polyp. No evidence of cholecystitis. Dictated by: Yoshi Kendall M.D. on 11/05/2016 at 17:49 X-RAY CHEST ONE VIEW, PORTABLE IMPRESSION: Stable appearing bilateral moderately severe to severe pneumonia, right greater than left. Lines and tubes in normal position. Dictated by: Jeff Duggan M.D. on 11/06/2016 at 11:07 Cardiac Echo Impressions . Echocardiogram Report Interpretation Summary There is normal left ventricular wall thickness. There are no focal wall motion abnormalities. The ejection fraction is estimated to be 50-55%. There is no significant valvular heart disease. Electronically signed by: Nelson Marquez Additional Diagnostics pH ____7.406 - 7.350 7.450 pCO2 ___46.5__ -mmHg 35.0 45.0 pO2 ___57.7__ -mmHg 69.0 116 HCO3- ___28.6__ -mmol/L 22.0 26.0 Plan Impression Impression #1 end-stage renal disease dialysis dependent #2 hypotension sepsis secondary to sepsis #3 dehydration #4 metabolic acidosis Recommendations #1 the patient is dialyzed today for 3 hours on a 3 potassium bath, no heparin, 40 bicarbonate, and will try to take 1-2-1/2 L of fluid off. We will also give 25 g of albumin at the start of his treatment and toward the end. Cesar Guy DO Nov 07, 2016 12:00
--- NOTE | 2016-11-07 12:03 | NUR ---
dialysis note 3 hr HD tx. 1000ml net UF removed. UF rate adj accordingly to keep SBP above 80 (pts BP averages low normally). See DTR for complete vitals data. QB 400 thru R tunnelled catheter. No Heparin given. Pt intubated and lightly sedated and appears comfortably. Albumin 25 gm IV given x 2 does during tx. Catheter dwelled with 1000/1 U heparin and secured.
--- NOTE | 2016-11-07 12:46 | DRSVH ---
PROCEDURE: X-RAY CHEST ONE VIEW, PORTABLE ([id number]) INDICATIONS: intubated. pna TECHNIQUE: One view of the chest was acquired. COMPARISON: None. FINDINGS: Surgical changes and devices: There is an endotracheal tube 5 cm above the vinayak. There is a double lumen catheter from the right internal jugular approach with the tip in the mid superior vena cava ar ea. threat monitoring analyst leads are seen over the chest. There is a left internal jugular catheter with the tip into the superior vena cava. Based are unchanged. Lungs and pleura: The bilateral common and she areas of density in the lung drummond consistent with pn eumonias. Mediastinum: Mediastinal contours appear normal. Heart size is normal. Bones and chest wall: No suspicious bony lesions. Overlying soft tissues appear unremarkable. IMPRESSION: No change is seen in the bilateral extensive infiltrates in the lungs or in the position of the tubes and catheters as described. Dictated by: Danny Hauser M.D. on 11/07/2016 at 12:42 Approved by: Danny Hauser M.D. on 11/07/2016 at 12:44
--- NOTE | 2016-11-07 14:30 | NUR ---
NUTRITION FOLLOW-UP: ASSESS: Pt is a 55 YO male admitted with decreased mentation and SOB, subsequently found be in septic shock and acute hypoxic hypercapnic respiratory failure, thus requiring CCU transfer, pressor support, and intubation/ventilation management. Pt resides at [facility] and is on long-term enteral feeding via PEG tube. Home enteral feeding formula is Nepro, rate 50ml/hr. Patient is NPO at baseline related to hemorrhagic stroke and anoxic brain injury (2008). Patient with end-stage renal disease, dialysis dependent, hypotension secondary to sepsis, dehydration, metabolic acidosis. Wt has been stable since last admit; however wt has slowly decreased ~10kg in the last year. PEG tube feeding rate currently 55 ml/hr, well tolerated, with minimal residuals. PMHX: ESRD, T1DM, CVA, TBI, Seizures, ND, HTN, HLD. LABS: CO2 14, BUN 36, Cr 2.75, Glu 247, A1c 6.6, Ca 7.7, AST 91, ALT 47, Ammonia 55, Alb 2.3. MEDS: Lactulose, synthroid, levophed, fentanyl, insulin, albumin. DIET: NPO. ENTERAL FEEDING: Nepro rate currently 55 ml/hr, advancing 10ml q 6 hr to goal rate of 55ml/hr. Goal rate increased to aid in wt gain. Enteral feeding at goal rate will provide 2178 kcal and 98 g pro (100% kcal and pro needs). If on IVF, flush 40ml q 4 hrs. If IVF off, fluid flush 100ml q 4 hr or per nephrology recommendations. GI: BM x 1 today. SKIN: Newly healed pressure ulcer present with redness and dry skin, per nursing report. HOME ENTERAL FEEDING: Nepro at 50ml/hr to provide 1980kcal/day and 89g pro (100% estimated needs). WT: 58.3 kg, BMI 19.0kg/m2, IBW: 72.7kg, Adj BW: 69kg, UBW ~65-68kg DIET: NPO EST. 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 2) Increased nutrient needs related to increased demand for nutrients as evidence by pt on HD, high risk for wounds - PERSISTS. 3) Inadequate oral intake related to decreased ability to consume sufficient energy as evidenced by current NPO status - IMPROVED WITH ENTERAL FEEDING. NUTRITION INTERVENTION: 1) No additional recommendation at this time. MONITOR / EVAL: NPO / vent status, enteral feeding advance / tolerance, wt, GI, labs, POC, nutrition status. Will continue to monitor per high nutrition risk guidelines.
--- NOTE | 2016-11-07 15:04 | PCM.PNMED ---
Subjective Date of Service Nov 07, 2016 Subjective Overnight: Patient remained agitated and points throughout shift restraints remained on. He is able to open eyes to voice and follow commands and responding with a thumbs up or thumbs down signal. The Levophed was weaned down to 0.4. Today: Patient remains intubated and sedated. At time of interview/exam patient receiving dialysis treatment. Exam Vital Signs Vital Sign - Last Date Time Temp Pulse Resp B/P Pulse Ox O2 Delivery O2 Flow Rate FiO2 11/07/16 12:19 97 60 11/07/16 09:08 114 94/48 11/07/16 08:30 37.9 21 Mechanical Ventilator 11/05/16 10:57 15.00 Intake and Output 11/06/16 11/06/16 11/07/16 Cumulative From/Thru 15:00 23:00 07:00 11/05/16 06:36 - 11/07/16 06:11 Intake Total 2397 ml 2002 ml 44734 ml Output Total 1000 ml 0 ml 0 ml 1400 ml Balance -1000 ml 2397 ml 2002 ml 47970 ml Intake Oral 0 ml 0 ml IV Total 2397 ml 1720 ml 78831 ml Tube Feeding 202 ml 202 ml Tube Irrigant 80 ml 80 ml Output Urine Total 0 ml 0 ml 400 ml Ultrafiltrate 1000 ml 1000 ml # Voids 0 0 # Bowel Movements 0 1 1 Exam General: Patient intubated and sedated in no apparent distress resting comfortably in hospital bed at time of exam undergoing hemodialysis. HEENT: Normocephalic, atraumatic. ET tube in place Neck: No jugular venous distension. Left IJ in place Cardiovascular: Tachycardic rate with regular rhythm, no murmurs appreciated Pulmonary: Diffuse wheezing heard upper anterior lobes bilaterally Abdomen: Soft, nondistended. PEG tube in place Extremities: No clubbing, cyanosis, edema, or lymphadenopathy appreciated. Skin: Normal temperature, turgor, and texture Neurological: Intubated and sedated Vent settings: FiO2 0.6, PEEP 5, RR 16, TV550 IV drips: Levophed 0.6, fentanyl 20 IV access: Left IJ, right dialysis shunt Ins and outs: Last 24 hours in 2001, out 1000, balance +1002 Ins and outs total 2 date: [place] [address], out 2400, total +9540 IVs and Medications Medications Reviewed: Medications were reviewed in detail Lab and Diagnostics Result Diagram: 11/07/16 0455 11/07/16 0455 Microbiology Urine shows strep pneumo antigen, positive blood cultures 2 for gram-positive cocci activity is pending X-Rays, CTs and MRIs . X-RAY CHEST ONE VIEW, PORTABLE IMPRESSION: Diffuse groundglass and patchy opacities likely representing pulmonary edema although please correlate clinically to exclude superimposed infection. Overall , improved lung volumes with no new consolidation since yesterday. Dictated by: Leonardo Villalba M.D. on 11/05/2016 at 7:56 X-RAY CHEST ONE VIEW, PORTABLE IMPRESSION: Diffuse groundglass and patchy opacities likely representing pulmonary edema although please correlate clinically to exclude superimposed infection. Overall , improved lung volumes with no new consolidation since yesterday. Dictated by: Leonardo Villalba M.D. on 11/05/2016 at 7:56 US ABDOMEN, LIMITED IMPRESSION: 1. Increased periportal echogenicity in the liver is nonspecific but may reflect acute hepatitis. Recommend correlation with laboratory values. 2. Round echogenic non-shadowing structure in the gallbladder is incompletely evaluated. The findings may represent a non-shadowing stone or polyp. No evidence of cholecystitis. Dictated by: Yoshi Kendall M.D. on 11/05/2016 at 17:49 X-RAY CHEST ONE VIEW, PORTABLE IMPRESSION: Stable appearing bilateral moderately severe to severe pneumonia, right greater than left. Lines and tubes in normal position. Dictated by: Jeff Duggan M.D. on 11/06/2016 at 11:07 X-RAY CHEST ONE VIEW, PORTABLE IMPRESSION: No change is seen in the bilateral extensive infiltrates in the lungs or in the position of the tubes and catheters as described. Dictated by: Danny Hauser M.D. on 11/07/2016 at 12:42 Cardiac Echo Impressions . Echocardiogram Report Interpretation Summary There is normal left ventricular wall thickness. There are no focal wall motion abnormalities. The ejection fraction is estimated to be 50-55%. There is no significant valvular heart disease. 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 Hospital day 3, ventilator day 3 1. Severe Sepsis. Present on admission. Ongoing - Septic criteria met with tachycardia, tachypnea, hyperthermia, lactic acid 5.1 - Possible sources include pneumonia or GI. - Infectious disease following recommendations appreciated - Patient received levofloxacin, Zosyn, vancomycin and ED - Currently on meropenem, vancomycin - MRSA preliminary result negative though patient has history of MRSA - Pulmonology/ICU service following recommendations appreciated - Intubated and sedated - IV NS 60 mL/hr - IV drips nor epi 0.6, fentanyl 25 - Echo shows no wall motion abnormalities, EF 50-55% and no significant valvular heart disease - Blood cultures +2 of 2 gram-positive cocci - Positive strep pneumo antigen 2. Acute hypoxic respiratory failure with hypoxia. Present on admission. Ongoing - After admitted to CCU patient became increasingly dyspneic requiring intubation, most likely secondary to #3 - Patient remains intubated and ventilated - Vent settings are FiO2 60 %, PEEP 5, tidal volume 550, respiratory rate 16 - FiO2 was weaned down today with success - ABG, CXR in a.m. 3. Pneumonia. Present on admission. Ongoing - Blood cultures grew gram-positive cocci, positive urine antigen for strep pneumo - CXR showed glass patchy opacities possibly pneumonia/pulmonary edema - Pro calcitonin trended up to 67,51 11/06/2016 - White continues to trend up 15.1 11/07/2069 - Respiratory therapy suctioned copious amounts of green phlegm/sputum while in ED - We will continue to monitor - Continue Antibiotics as in #1 4. End stage renal disease. Present on admission. Ongoing - Stage IV with GFR of 16 - Patient receives HD 3 times per week - Nephrology consulted. Recommendations appreciated - Patient continues to receive HD while in hospital 5. Diabetes mellitus type I. Present on admission. Ongoing - A1c 6.6 - Patient on home insulin glargine and insulin aspart - Correctional scale insulin 7. Hypernatremia. Present on admission. Resolved - Most likely secondary to volume depletion - Fluid replacement as in #1 - Continue monitor 8. Elevated troponin. Present on admission. Ongoing - Most likely secondary to #4 - EKG showed anterior ST segment abnormalities consistent with previous infarct - Continue to monitor 9. Hyperlipidemia. Present on admission. Ongoing - Continue home statin 10. Transaminitis. Present on admission. Improving - ALT AST remained labile - Ammonia level trending down, last measurement 55 - Continue lactulose Disposition: Patient remains intubated and ventilated CCU status with blood pressure support and receiving hemodialysis treatments. Pain Evaluation: Adequate Pain Control VTE Prophylaxis: Sub-Q Heparin (Unfractionated) VTE Mechanical Devices: Intermittant Pneumatic CD Resuscitation Status: CPR: Attempt Resuscitation Attending Statement The patient was seen and examined together with Dr. Rae on 11/07/2016 and I agree with the history, exam and plan as outlined in the note above. . PRINCESS RAE DO Nov 07, 2016 14:37 Miguel Cheatham MD Nov 07, 2016 18:42
--- NOTE | 2016-11-07 15:46 | PROG NOTE ---
[address] [address] PROGRESS NOTE PATIENT: JOANNE FIGUEROA : 1960 MR#: [id number] ADMIT: 11/05/2016 JOB ID: [id number] PULMONARY CRITICAL CARE FOLLOWUP: DATE: 11/07/2016 PROBLEM LIST: 1. Septic shock. 2. Hypoxemic hypercarbic respiratory failure. 3. Chronic renal failure, dialysis dependent. SUBJECTIVE: None. OBJECTIVE: Temperature 37.9 with T-max being 38. Pulse 100-114, respiratory rate 18-21 with ventilator set at about 16, blood pressure 90/51 to 109/56. O2 sat on FiO2 is 60%, PEEP of 5, is 97%. I and O shows 6 liters in. Urine output zero. Dialysis ultrafiltrate 1000 mL. General appearance: Sedated on ventilator. Apparently increasing fentanyl results in severe drop in his blood pressure. Sedatives have not been implemented. Underwent dialysis this morning. A bit hypotensive but he tolerated it fairly well. Given 50 g of albumin during the dialysis. Blood pressure seems to respond to some extent to fluids. Sedated, seems comfortable but when interfered with gets rather agitated. Eyes: Conjunctivae are pink. Chest is relatively clear anterolaterally in the upper lung drummond. There may be a few crackles in the bases. Heart: Regular rhythm. Heart tones normal. Abdomen is soft. Bowel tones present. Extremities: No pretibial edema. Currently receiving dialysis. Ventilator waveforms show the patient is fighting the ventilator with some air stacking and signs of wanting increased volume apparently on the ventilator waveforms though not terribly apparent with his ventilatory pattern. LABORATORY VALUES: White count of 15,100 with 93 polymorphonuclears, 2 lymphs, 1 monocyte. Hemoglobin 10.9. Platelet count 104,000 and falling. Sodium 142, potassium 3.9, chloride 100, CO2 is 14, BUN 36, creatinine 2.75. Glucose 247. Lactic acid yesterday was 4.8 Calcium 7.7. Total bilirubin 0.6, AST rising at 91, ALT stable at 47, alkaline phosphatase slowly rising at 106. Ammonia level minimally elevated at 55, upper limits normal being 53 mcg/dL. ASSESSMENT: 1. Multiple different modalities employed for improving the patient ventilator dyssynchrony. The patient had problems with pressure control, higher volumes, faster rates. Inspiratory flow was changed without effect. Seemed to do slightly better on the vent change to PRVC with a tidal volume 600, rate of 16, and FiO2 of 0.6, PEEP of 8, in which he was auto-PEEPing at about 9 and I/E ratio of 1:2. 2. Septic shock. Blood cultures growing what appeared to be Staphylococcus coagulase negative, left with positive streptococcal antigen. May need to expand our evaluation of infection. May need a re-evaluation of the lungs as well as abdomen and pelvis. Lines may need to be re-cultured as he does have dialysis lines in place. 3. Patient ventilator dyssynchrony as above. 4. Chronic renal failure. Multiple electrolyte abnormalities being addressed by the dialysis team. 5. Shock. I think he may need a little bit more volume. Was given albumin. Will see how he does with this. May need a bit more fluids as currently he is not putting out much urine and may be acting a little bit hypovolemic with requiring vasopressors. PLAN: 1. Multiple ventilatory modes evaluated settling on PRBC with tidal volume 600. PEEP has been raised in order to normalize his auto PEEP in order to allow him to initiate his own ventilatory rate if needed. 2. Consider increasing fluid. Will speak with Nephrology about giving him a bit more fluid. 3. May need to sedate him and possibly even paralyze him to get control of his respiratory problems in terms of the patient ventilator dyssynchrony. Will likely need a more robust blood pressure likely requiring fluids. 4. Ventilator at discussed at length with RT. TIME SPENT: Time spent so far in critical care, 60 minutes.
--- NOTE | 2016-11-07 18:50 | NUR ---
SEDATION/HEMODYNAMICS/VENTILATOR Patient required increasing amounts of sedation this shift, increasing from 30 mcg/hr of Fentanyl at beginning of shift, to 75 mcg/hr of Fentanyl by 1200. He appears to tolerate this infusion rate well, still awakens to stimulation, but is not agitated, restless or attempting to pull at lines/tubes. Blood pressure has maintained MAP >65 this shift, except during dialysis, but low BPs during dialysis normal per Dr. Guy. Levophed gtt decreased to 0.2 mcg/kg/min by end of shift, and BPs still within desired values. Adjustments made to ventilator as patient was fighting the vent this afternoon, double-stacking noted multiple times. Dr. Dias and RT changed vent settings to 60% FiO2/8 PEEP/16 Rate/600 Vt. Patient appears to be tolerating these settings well, but does become restless and fights the vent when stimulated (turns, etc...), can take 10-15 minutes to recover, and for vent to stabilize. Will continue to monitor vitals, sedation needs and respiratory status.
[2016-11-07] MEDS: Famotidine Inj 20 MG in IV Premix 1 EACH IV SCH (20:02)
[2016-11-07] MEDS: fentaNYL 2,500 mCg/250 mL IV Premix IV SCH (20:02)
[2016-11-08] VITALS (14 sets, daily range): BP systolic 81–115; BP diastolic 47–68; PULSE 92–118; RESP 16; O2SAT 91–98
[2016-11-08] MEDS: Albuterol-Ipratropium 3 mL Inhalation Solution NEB SCH ×6 (01:28→20:55)
[2016-11-08] MEDS: Chlorhexidine 0.12% 15 mL Oral Solution MT SCH ×5 (03:58→20:12)
[2016-11-08] MEDS: Dextrose 5% 1,000 ML IV SCH (04:15)
[2016-11-08] MEDS: Vasopressin Inj 20 UNIT in 0.9% Sodium Chloride 100 ML IV SCH ×2 (04:54→16:01)
[2016-11-08] MEDS: Vancomycin Serum Trough XX SCH (05:23)
[2016-11-08 05:37] LABS: Mean Corpuscular Hemoglobin 33.9 pg (27.0-35.0); Mean Corpuscular Volume 104.6 fL (81-100); Platelet Count 77 bil/L (150-400)
--- NOTE | 2016-11-08 05:53 | NUR ---
Sedation/Respiratory/Fever Temp max 38.7 Ax tonight. Ice packs, Tylenol suppository given with some effectiveness. made aware. Redrawn 2 sets of Blood Culture done. Pt sedated but still awakens during care/stimuli. Pt still gets slightly agitated during care but settle down quickly afterwards. Diminished in episode of double stacking of breaths noted through the night. Fentanyl gtt maintained at 75 mcg/hr for sedation through the night. Noted desaturation as low as 85-87% during turns. 02sat in mid 90s on current ventilator settings. (60%/03/17/). Norepinephrine down to 0.138 mcg/kg/min with Sys in 90s to low 100s. Map 60-65. Bladder scan amount 44 cc noted. Pt tolerating TF at goal of 55 ml/hr with minimal residual.
[2016-11-08 06:18] LABS: BASOPHILS % (AUTO) 0 % (0-3); EOSINOPHILS % (AUTO) 0 % (0-5); MONOCYTES % (AUTO) 3 % (4-12); NEUTROPHILS % (AUTO) 75 % (40-74)
--- NOTE | 2016-11-08 07:20 | DRSVH ---
PROCEDURE: X-RAY CHEST ONE VIEW, PORTABLE ([id number]) INDICATIONS: vent TECHNIQUE: One view of the chest was acquired. COMPARISON: [facility], CR, XR CHEST 1VW (PORTABLE), 11/07/2016, 3:30. FINDINGS: Surgical changes and devices: Endotracheal tube, large bore right-sided central venous catheter gross ly unchanged. Lungs and pleura: No pleural effusions or pneumothorax. Multifocal consolidative opacities scattered throughout the upper and lower lobes bilaterally are grossly unchanged. No definite new focal consol idation. Mediastinum: Mediastinal contours appear normal. Heart size is stable. Bones and chest wall: No suspicious bony lesions. Overlying soft tissues appear unremarkable. IMPRESSION: Grossly unchanged appearance since yesterday. Dictated by: Leonardo Villalba M.D. on 11/08/2016 at 7:17 Approved by: Leonardo Villalba M.D. on 11/08/2016 at 7:18
[2016-11-08] MEDS: Vancomycin Dose per Pharmacist XX SCH (09:30)
[2016-11-08] MEDS ORDERED: VANCOMYCIN IV ONE ×2 (09:30)
[2016-11-08] MEDS ORDERED: NS IV ONE ×2 (09:30)
[2016-11-08] MEDS ORDERED: Vancomycin Serum Trough XX ONE (09:30)
[2016-11-08] MEDS: Lactulose 20 Gm/30 mL 30 mL Syrup PEG SCH (09:30)
[2016-11-08] MEDS: Meropenem Inj 1,000 MG in 0.9% Sodium Chloride 100 ML IV SCH (09:31)
[2016-11-08] MEDS: Heparin 5,000 Unit/mL Inj SUBQ SCH ×2 (09:32→16:30)
--- NOTE | 2016-11-08 09:48 | ABG ---
DateTimeAnalyzed 09:41:34 -_ pH ____7.328 - pCO2 ___58.2__ -mmHg pO2 ___29.5__ -mmHg HCO3- ___30.5__ -mmol/L ABE ____4.1__ -mmol/L tHb ___10.1__ -g/dL O2Hb ___56.2__ -% COHb ____1.6__ -% MetHb ____0.0__ -% sO2 ___57.1__ -% FIO2 ___60.0__ -% PEEP ____8.0__ -cmH2O Vt __600.0__ -L Drawn By NB - Date/Time Notified____ 09:47:00 -_ Spontaneous_RR 16 -b/min Oxygen Device 1 VENTILATOR - Notified By NB - Notified Whom Shonna Pond, RN -____ Age 48 -years B 758 -mmHg K+ ____2.2__ -mmol/L tO2 ____7.9__ -Vol%
[2016-11-08] MEDS ORDERED: KCl 40 mEq/100 mL (CENTRAL) 40 MEQ in IV Premix 1 EACH IV ONE (10:10)
[2016-11-08] MEDS: Norepineph 8,000 mCg/250 mL NS 8,000 MCG in IV Premix 1 EACH IV PRN (11:29)
--- NOTE | 2016-11-08 11:49 | NUR ---
Social Work: Initial Assessment Data: See Initial Assessment. Pt is a 55 year old male admitted 11/05/16 for sepsis per H&P. Pt's insurance is Medicare with [facility] Supp and PCP is Rik Guerin MD. Pt is currently on the vent, unable to participate in conversation. Pt only communicates with thumbs up or down. EMR reviewed. Pt's readmission score is 6-high risk. SW attempted to reach sister Shonna Miller, , no response, message left. 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 Pt uses wheelchair at baseline and has a peg tube. 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 SHAYLA spoke with Khushi Gomes, admissions at [facility] [phone], Khushi confirms that they would be able to accept pt back when medically stable with Dr. Guerin to follow, access provided. [facility] to fax over DPOA/advanced directive paperwork and SW to place in the chart. Paperwork placed in the chart. SW will continue to follow. Assessment: Pt who will return to [facility]. Plan: Pt to discharge back to [facility] when medically stable with Dr. Guerin to follow. Pt is a [facility] care patient at this facility. Paperwork in chart. SW will continue to follow. MIGUEL Payton Addendum: 11/08/16 at 1157 by JOSSIE CRAFT SS Amended: Links added.
--- NOTE | 2016-11-08 11:53 | PCM.PNNEPH ---
Subjective Date of Service Nov 08, 2016 Subjective Patient's overall condition remains quite poor and most likely is probably terminal. He has had some episodes of hypo-glycemia although he is tolerating his tube feedings quite well. He had been having a coexistent insulin drip going. His blood pressures are ranging in the 80-90 range on pressors. He is still on 60% oxygen and +5 of PEEP. Exam Vital Signs Vital Sign - Last Date Time Temp Pulse Resp B/P Pulse Ox O2 Delivery O2 Flow Rate FiO2 11/08/16 11:41 Ventilator 11/08/16 11:31 36.9 95 16 112/52 93 65 11/05/16 10:57 15.00 Intake and Output 11/07/16 11/07/16 11/08/16 Cumulative From/Thru 15:00 23:00 07:00 11/05/16 06:36 - 11/08/16 05:47 Intake Total 1943 ml 1577 ml 61845 ml Output Total 1000 ml 0 ml 2400 ml Balance -1000 ml 1943 ml 1577 ml 28600 ml Intake Oral 0 ml 0 ml IV Total 1396 ml 1072 ml 73459 ml Tube Feeding 467 ml 425 ml 1094 ml Tube Irrigant 80 ml 80 ml 240 ml Output Urine Total 400 ml Gastric Drainage Total 0 ml 0 ml Ultrafiltrate 1000 ml 2000 ml # Voids 0 0 # Bowel Movements 0 0 1 Exam Lungs show diffuse rhonchi and rales in all lung drummond. Heart sounds are regular but distant. Abdomen is soft with some mild tympany to percussion and decreased bowel sounds. Next he has generalized edema throughout all 4 extremities. Lab and Diagnostics Result Diagram: 11/08/16 0530 11/08/16 0530 Microbiology Urine shows strep pneumo antigen, positive blood cultures 2 for gram-positive cocci activity is pending X-Rays, CTs and MRIs . X-RAY CHEST ONE VIEW, PORTABLE IMPRESSION: Diffuse groundglass and patchy opacities likely representing pulmonary edema although please correlate clinically to exclude superimposed infection. Overall , improved lung volumes with no new consolidation since yesterday. Dictated by: Leonardo Villalba M.D. on 11/05/2016 at 7:56 X-RAY CHEST ONE VIEW, PORTABLE IMPRESSION: Diffuse groundglass and patchy opacities likely representing pulmonary edema although please correlate clinically to exclude superimposed infection. Overall , improved lung volumes with no new consolidation since yesterday. Dictated by: Leonardo Villalba M.D. on 11/05/2016 at 7:56 US ABDOMEN, LIMITED IMPRESSION: 1. Increased periportal echogenicity in the liver is nonspecific but may reflect acute hepatitis. Recommend correlation with laboratory values. 2. Round echogenic non-shadowing structure in the gallbladder is incompletely evaluated. The findings may represent a non-shadowing stone or polyp. No evidence of cholecystitis. Dictated by: Yoshi Kendall M.D. on 11/05/2016 at 17:49 X-RAY CHEST ONE VIEW, PORTABLE IMPRESSION: Stable appearing bilateral moderately severe to severe pneumonia, right greater than left. Lines and tubes in normal position. Dictated by: Jeff Duggan M.D. on 11/06/2016 at 11:07 X-RAY CHEST ONE VIEW, PORTABLE IMPRESSION: No change is seen in the bilateral extensive infiltrates in the lungs or in the position of the tubes and catheters as described. Dictated by: Danny Hauser M.D. on 11/07/2016 at 12:42 Cardiac Echo Impressions . Echocardiogram Report Interpretation Summary There is normal left ventricular wall thickness. There are no focal wall motion abnormalities. The ejection fraction is estimated to be 50-55%. There is no significant valvular heart disease. Electronically signed by: Nelson Marquez Additional Diagnostics pH ____7.406 - 7.350 7.450 pCO2 ___46.5__ -mmHg 35.0 45.0 pO2 ___57.7__ -mmHg 69.0 116 HCO3- ___28.6__ -mmol/L 22.0 26.0 Plan Impression Impression #1 end-stage renal disease dialysis dependent #2 dehydration which is resolved #3 sepsis secondary to streptococcal pneumonia #4 hypoglycemia which is resolved Recommendations #1 if he does need insulin if it is advisable to use a much lower dose as the kidney normally degrades certain percentage of the insulin in the body. I will make arrangements to try to possibly dialyze for ultrafiltration him tomorrow however I feel his condition is most likely terminal. I have discussed the case with both Drs. Bowen and Dr. Larissa Guy,Cesar Escobedo DO Nov 08, 2016 11:53
--- NOTE | 2016-11-08 11:58 | NUR ---
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 They are able to accept back when appropriate. Dr. Rolando Covington is covering for Dr. Guerin until 11/19. Phone number for Dr. Covington is [phone] F:[phone]. MIGUEL Payton
[2016-11-08] MEDS: 0.9% Sodium Chloride 1,000 ML IV SCH (12:15)
--- NOTE | 2016-11-08 14:00 | PROG NOTE ---
[address] [address] PROGRESS NOTE PATIENT: JOANNE FIGUEROA : 1960 MR#: [id number] ADMIT: 11/05/2016 JOB ID: [id number] DATE: 11/08/2016 PROBLEM LIST: 1. Septic shock. 2. Hypoxemic hypercarbic respiratory failure. 3. Chronic renal failure, dialysis dependent. 4. MRSA pneumonia. 5. Positive urine antigen for Streptococcus pneumoniae. SUBJECTIVE: None. OBJECTIVE: Temperature 36.9, T-max being 38.5. Pulse 95, blood pressure 112/52 on norepinephrine at 0.15 mcg/kg/minute. O2 sat on FiO2 of 65%, PEEP of 8, is 95%. I and O shows 3.9 liters in, 1 liter of ultrafiltrate out. General appearance: Sedated with fentanyl 75 mcg/hour. The patient recently turned. Blood pressure dropped to 77/54. Slowly christina to its present value of 112/52. (Recall unable to arterial line.) Chest: Coarse crackles throughout both lung drummond. Currently with tidal volume of 600, rate of 16, PEEP of 8, FiO2 of 60% shows a pCO2 of 58, pCO2 of 732 and mixed venous O2 sat of 57%. Heart relatively regular. Heart tones seem normal. Abdomen soft. Quiet. Extremities: Warm. Cheetah studies show CVP of 18, cardiac index of 2.5 L, stroke volume index 22, SVV of 19, TPRI of 2270. Laboratory values show a white count of 13,300, with 75 polymorphonuclears, 10 bands, 12 lymphocytes, 3 monocytes. Hemoglobin 9.5, slowly dropping. Platelet count 77,000, slowly dropping. Sodium 142, potassium 2.8, chloride 100, CO2 24, BUN 31 and stable. Creatinine 2.4 and stable after dialysis yesterday. Lactic acid remains mildly elevated, 2.8. Calcium 8.3 with an albumin of 2.8. AST stable at 83. ALT stable at 40. Alkaline phos stable at 127. Ammonia level mildly elevated at 55, upper limits of normal being 53 mcg/dL. Vancomycin level 12.5 mcg/mL. Presumably represents a trough. Sputum studies show sputum positive for MRSA. VINCE to vancomycin is less than 0.5. Chest x-ray shows diffuse fluffiness throughout both lung drummond. Seems to be worsening significantly over the past 2-3 days. 1. Hypoxemic hypercarbic acute on chronic respiratory failure with MRSA pneumonia/ARDS pathology. Made multiple changes to his ventilator yesterday. Spent a number of hours trying to match his ventilatory needs and wants. Left with somewhat higher tidal volume than we would like with a tidal volume of about 8 mL/kg predicted body weight. However, at lower tidal volume and ultimately does get 700 mL. Attempts at sedation resulted in significant hypotension. In fact, even turning him today, resulted in a significant drop in his blood pressure. We are therefore left without the ability to sedate him heavily or certainly paralyze him at this point. His blood pressure is responding to the norepi. Do not know that we need vasopressin. 2. Shock. Some parameters indicate septic shock. Some parameters indicate cardiogenic shock. Some indicate need for fluid. Others indicate fluid overload. At this point we are holding reasonably firm with a reasonable cardiac output, reasonable stroke volume. The low mixed venous sat is truly concerning. In speaking with Nephrology and primary team, it was decided that he is significantly fluid overloaded and we would like to interdict all fluids at this point. Will continue on with the pressors seeing how we do. May need to either give albumin or gently give fluids. Will see how we do. However, fluids do not seem to have made much of a change. May need inotropes given his low mixed venous saturation and early goal-directed therapy would indicate that he should be on inotropes. However, with the pressure problems we have had, the question of whether he is vascular repleted raises the uncertainty of this goal. Will see how he does, monitoring him carefully for the moment. Blood pressure has risen spontaneously with less intervention. He is stabilizing after being rolled and will see how his hemodynamics do. Echocardiogram previously two days ago showed good EF, and by verbal report, there was collapse of the IVC, suggesting fluid depletion. Other studies suggest he is fluid overloaded. Cheetah hemodynamics suggest he requires fluid. Monitoring self- contradictory and leaves a bit of uncertainty, leaving us with clinical parameters. Extremities are warm, not mottled. 3. MRSA pneumonia. Situation has been complicated by various false leads. Initially, we had positive blood cultures. That has turned out to be noncoagulase Staph. The strep antigen in the urine led us to believe he had a Strep pneumoniae infection. Would wonder if he got vaccinated. Now growing MRSA. The patient continues to be febrile. Still having a left shift and signs of sepsis in spite of the antibiotics. He is now day three and would hope to see some improvement in that parameter relatively soon. However, he is extremely frail and likely has little reserve with progressive pulmonary and possibly cardiac dysfunction. The MRSA seems to be rather sensitive to the vancomycin. Do not know that it would be worth changing to linezolid at this point. Will discuss with ID. PLAN: 1. Continue current vent settings. Although we have decreased inspiratory time from a very slow flow of 1.25 to down to 1, which still is a slow inspiratory flow. Peak pressures and plateaus are about the same, running 35 and maybe 34 with PEEP of 8. 2. Continue vancomycin. 3. For the moment, will continue fluid interdiction, possibly utilizing albumin and possibly even fluids depending on how the monitoring goes. 4. Continue current pressor support. Time spent so far in critical care is 70 minutes.
--- NOTE | 2016-11-08 15:03 | NUR ---
Attempted to call Sister for ANUJ, no answer. SW to follow up. Caitlin Sidhu,[employer]
[2016-11-08] MEDS: fentaNYL 2,500 mCg/250 mL IV Premix IV SCH (18:59)
[2016-11-08] MEDS: Insulin Human REGular Inj 100 UNIT in 0.9% Sodium Chloride-Pha MIX 100 ML IV SCH (19:01)
[2016-11-08] MEDS ORDERED: 0.9% Sodium Chloride 1,000 ML IV SCH (20:05)
[2016-11-08] MEDS: Famotidine Inj 20 MG in IV Premix 1 EACH IV SCH (20:12)
--- NOTE | 2016-11-08 21:19 | PCM.PNMED ---
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 Levophed titrated down to 0.138 mcg/kg/min. Patient spiked a temperature of 38.7 overnight. This morning he was noted to desat to mid-80s. Patient is sedated and intubated and unable to provide any additional information. Exam Vital Signs Vital Sign - Last Date Time Temp Pulse Resp B/P Pulse Ox O2 Delivery O2 Flow Rate FiO2 11/08/16 20:55 115 107/62 92 65 11/08/16 17:00 Ventilator 11/08/16 17:00 37.6 16 11/05/16 10:57 15.00 Intake and Output 11/07/16 11/07/16 11/08/16 Cumulative From/Thru 15:00 23:00 07:00 11/05/16 06:36 - 11/08/16 05:47 Intake Total 1943 ml 1577 ml 58434 ml Output Total 1000 ml 0 ml 2400 ml Balance -1000 ml 1943 ml 1577 ml 99016 ml Intake Oral 0 ml 0 ml IV Total 1396 ml 1072 ml 36219 ml Tube Feeding 467 ml 425 ml 1094 ml Tube Irrigant 80 ml 80 ml 240 ml Output Urine Total 400 ml Gastric Drainage Total 0 ml 0 ml Ultrafiltrate 1000 ml 2000 ml # Voids 0 0 # Bowel Movements 0 0 1 Exam General: Patient intubated and sedated. No apparent distress. Opens eyes to voice. HEENT: Normocephalic, atraumatic. ET tube in place Neck: No jugular venous distension. Left IJ in place Cardiovascular: Tachycardic rate with regular rhythm, no murmurs appreciated Pulmonary: Coarse bilaterally. Abdomen: Soft, nondistended. PEG tube in place Extremities: No clubbing, cyanosis, edema, or lymphadenopathy appreciated. Skin: Normal temperature, turgor, and texture Neurological: Intubated and sedated IVs and Medications Medications Reviewed: Medications were reviewed in detail Lab and Diagnostics Result Diagram: 11/08/16 0530 11/08/16 1315 Microbiology Urine shows strep pneumo antigen, positive blood cultures 2 for gram-positive cocci activity is pending X-Rays, CTs and MRIs . X-RAY CHEST ONE VIEW, PORTABLE IMPRESSION: Diffuse groundglass and patchy opacities likely representing pulmonary edema although please correlate clinically to exclude superimposed infection. Overall , improved lung volumes with no new consolidation since yesterday. Dictated by: Leonardo Villalba M.D. on 11/05/2016 at 7:56 X-RAY CHEST ONE VIEW, PORTABLE IMPRESSION: Diffuse groundglass and patchy opacities likely representing pulmonary edema although please correlate clinically to exclude superimposed infection. Overall , improved lung volumes with no new consolidation since yesterday. Dictated by: Leonardo Villalba M.D. on 11/05/2016 at 7:56 US ABDOMEN, LIMITED IMPRESSION: 1. Increased periportal echogenicity in the liver is nonspecific but may reflect acute hepatitis. Recommend correlation with laboratory values. 2. Round echogenic non-shadowing structure in the gallbladder is incompletely evaluated. The findings may represent a non-shadowing stone or polyp. No evidence of cholecystitis. Dictated by: Yoshi Kendall M.D. on 11/05/2016 at 17:49 X-RAY CHEST ONE VIEW, PORTABLE IMPRESSION: Stable appearing bilateral moderately severe to severe pneumonia, right greater than left. Lines and tubes in normal position. Dictated by: Jeff Duggan M.D. on 11/06/2016 at 11:07 X-RAY CHEST ONE VIEW, PORTABLE IMPRESSION: No change is seen in the bilateral extensive infiltrates in the lungs or in the position of the tubes and catheters as described. Dictated by: Danny Hauser M.D. on 11/07/2016 at 12:42 Cardiac Echo Impressions . Echocardiogram Report Interpretation Summary There is normal left ventricular wall thickness. There are no focal wall motion abnormalities. The ejection fraction is estimated to be 50-55%. There is no significant valvular heart disease. 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 Hospital day 4, ventilator day 4 1. Severe Sepsis. Present on admission. Ongoing - Septic criteria met with tachycardia, tachypnea, hyperthermia, lactic acid 5.1 - Possible sources include pneumonia or GI. - Infectious Disease following. Recommendations appreciated - Currently on meropenem, vancomycin. Antibiotics per ID. - MRSA preliminary result negative though patient has history of MRSA - Pulmonology/ICU service following. Recommendations appreciated - Intubated and sedated - Discontinue IV NS - IV drips norepi at 0.150, fentanyl 25 - Echo shows no wall motion abnormalities, EF 50-55% and no significant valvular heart disease - Blood cultures +2 of 2 gram-positive cocci - Positive strep pneumo urine antigen 2. Acute hypoxic respiratory failure with hypoxia. Present on admission. Ongoing - After admitted to CCU patient became increasingly dyspneic requiring intubation, most likely secondary to #3 - Patient remains intubated and ventilated - Vent settings are FiO2 60 %, PEEP 8, tidal volume 600, respiratory rate 16 - Chest x-ray in AM - Pulmonology/ICU service following. Recommendations appreciated. 3. Pneumonia. Present on admission. Ongoing - Blood cultures grew gram-positive cocci, positive urine antigen for strep pneumo - CXR showed glass patchy opacities possibly pneumonia/pulmonary edema - Procalcitonin continues to trend up. 90 from 67 - We will continue to monitor - Continue Antibiotics as in #1 4. End stage renal disease. Present on admission. Ongoing - Stage IV with GFR of 16 - Patient receives HD 3 times per week - Nephrology consulted. Recommendations appreciated - Patient continues to receive HD while in hospital 5. Diabetes mellitus type I. Present on admission. Ongoing - A1c 6.6 - Patient on home insulin glargine and insulin aspart - Correctional scale insulin 7. Hypernatremia, acute. Present on admission. Resolved - Most likely secondary to volume depletion - Fluid replacement as in #1 - Continue monitor 8. Elevated troponin. Present on admission. Ongoing - Most likely secondary to #4 - EKG showed anterior ST segment abnormalities consistent with previous infarct - Continue to monitor 9. Hyperlipidemia, chronic. Present on admission. Ongoing - Continue home statin 10. Transaminitis. Present on admission. Improving - ALT AST remain labile - Ammonia level trending down, last measurement 55 - Continue lactulose Disposition: Patient remains intubated and ventilated CCU status with blood pressure support and receiving hemodialysis treatments. Palliative care consulted with anticipated meeting tomorrow Pain Evaluation: Adequate Pain Control VTE Prophylaxis: Sub-Q Heparin (Unfractionated) VTE Mechanical Devices: Intermittant Pneumatic CD Resuscitation Status: CPR: Attempt Resuscitation Attending Statement The patient was seen and examined together with Dr. Patel on 11/08/2016 and I agree with the history, exam and plan as outlined in the note above. . Darius Patel DO Nov 08, 2016 21:19 Miguel Cheatham MD Nov 09, 2016 10:44
[2016-11-08] MEDS ORDERED: Acetaminophen IV 1,000 MG in IV Premix 1 EACH IV PRN (21:35)
[2016-11-08] MEDS ORDERED: 0.9% Sodium Chloride 250 ML ONE (22:56)
[2016-11-09] VITALS (12 sets, daily range): BP systolic 91–123; BP diastolic 54–68; PULSE 99–110; RESP 14–16; O2SAT 91–100
[2016-11-09] MEDS: Chlorhexidine 0.12% 15 mL Oral Solution MT SCH ×6 (00:08→19:54)
[2016-11-09] MEDS: Heparin 5,000 Unit/mL Inj SUBQ SCH (00:08)
[2016-11-09] MEDS: Albuterol-Ipratropium 3 mL Inhalation Solution NEB SCH ×6 (00:33→20:17)
--- NOTE | 2016-11-09 00:50 | NUR ---
vented/pressor/hemodynamics .65 fio2 per vent, sats down to 88-91% on continuous rotation, sats starting to recover then turning again on rotation, rotation turned off and pt turned q2hrs manually, sats = 93=97%, pt appears to like being on his back on right side better then is left, hob up, resp rate /16 on vent, ls= course rhonchi t/o, faint end exp wheezes noted, nebs per rt, minimal whitish thick sputum per ett, oral care done, pt sedated on fentanyl gtt at 75mcg/hr, pt appears comfortable, pt opens eyes with stimulation and turning, does not follow commands, hypoactive bt's present, abd soft, fms in place with liquid brown stool, peg tube in place-wnl, mepilex on buttocks cdi, tf per orders, zoey well, hob up, insulin gtt infusing alg1-2, bg initially in upper 200 range now in mid 100 range on algorithm one, isol prec taken, right upper chest dialysis cath intact, left upper arm maturing fistula in place, bp on right arm, left ij intact, tele- st, hr 105-115, bp map>60 per orders, levophed gtt at 0.13-0.15mcg/kg/min, cvp=21-22, see flow sheet for Hemodynamic numbers, resident called and updated on pt's temp of 38.0 ax at 1999 and also updated on hemodynamic numbers per cheetah, tylenol iv order given, heat in room turned down and fan on , temp at mn=37.1ax, see ccu flow sheet, plan:possible dialysis tomorrow and palliative care consult per notes/orders, Addendum: 11/09/16 at 0602 by CHANEL STEWARD RN resident updated on pt's am lab results and HD numbers, sq heparin discontinued, scd's on, order for cdiff received for stool sample already in lab,
[2016-11-09] MEDS: Norepineph 8,000 mCg/250 mL NS 8,000 MCG in IV Premix 1 EACH IV PRN ×2 (01:41→18:20)
[2016-11-09] MEDS: Vasopressin Inj 20 UNIT in 0.9% Sodium Chloride 100 ML IV SCH ×2 (03:08→14:15)
--- NOTE | 2016-11-09 03:55 | ABG ---
DateTimeAnalyzed 03:52:00 -_ pH ____7.367 - pCO2 ___50.9__ -mmHg pO2 ___44.4__ -mmHg HCO3- ___28.5__ -mmol/L ABE ____3.1__ -mmol/L tHb ___10.0__ -g/dL O2Hb ___80.5__ -% COHb ____1.4__ -% MetHb ____1.1__ -% sO2 ___82.6__ -% FIO2 ___65.0__ -% PEEP ____8.0__ -cmH2O Vt __600.0__ -L Drawn By AF - Date/Time Notified____ 03:55:00 -_ Spontaneous_RR ___16.0__ -b/min Oxygen Device 1 VENTILATOR - Notified By AF - Age 48 -years B 756 -mmHg tO2 ___11.3__ -Vol% Iván test N/A -
[2016-11-09 04:02] LABS: Mean Corpuscular Hemoglobin 33.9 pg (27.0-35.0); Mean Corpuscular Volume 105.2 fL (81-100); Platelet Count 54 bil/L (150-400)
[2016-11-09 04:24] LABS: BASOPHILS % (AUTO) 0 % (0-3); EOSINOPHILS % (AUTO) 0 % (0-5); MONOCYTES % (AUTO) 0 % (4-12); NEUTROPHILS % (AUTO) 70 % (40-74)
[2016-11-09] MEDS: Meropenem Inj 1,000 MG in 0.9% Sodium Chloride 100 ML IV SCH (07:32)
--- NOTE | 2016-11-09 08:02 | PCM.PNMED ---
Subjective Date of Service Nov 09, 2016 Subjective Pulmonary Critical care consult follow-up Ventilation management Patient is a 55yom with MHx significant for cerebral aneurysm, hx methamphetamine, TN, hemorrhagic stroke and anoxic brain injury(2008) with recurrent aspiration pneumonia admitted for decrease mentation and SOB, subsequently found be in septic shock and acute hypoxic hypercapnic respiratory failure, thus requiring CCU transfer, pressor support, and intubation/ ventilation management. Patient remain stable overnight. Unresponsive to command for the past 2 days however. Fentanyl remained unchanged at 75mcg. MAP maintaining 65-70 on norepinephrine 0.14. Fluids cont to be held overnight. Cardiac output ~4L and CVP 15-high end of normal. Respiratory setting on TV 600, RR 16, PEEP 8, FIO2 65, low lung compliance P plateau 30. He has diaphragm spasm. VBG pH 7.36, pCO2 50.9, pO2 44.4, bicarb 28 He spikes fever, Tmax 38 overnight while on meropenem and vancomycin. Sputum grew MRSA, blood grew coag negative staph, and urine suggestive of Strep pneum ( Ag). Heparin was discontinue due to platelets 54 today. Tube feed at goal. FMS in placed, minimal output. Nursing reported massive bowel movement 1-2 days ago. Nursing staff have reported signs possible developing stage 1 sacral/coxygeal decubitus ulcer. Per report, there seems to be consensus from the hospitalist team,Solid Waste Analyst Dr. Miranda, and Keyliner Dr. Dias over the weekend that patient is terminally ill with multiple organ failure. He should most appropriately be on comfort care track. Exam Vital Signs Vital Sign - Last Date Time Temp Pulse Resp B/P Pulse Ox O2 Delivery O2 Flow Rate FiO2 11/09/16 04:00 105 11/09/16 04:00 Ventilator 11/09/16 04:00 37.4 16 114/63 99 65 11/05/16 10:57 15.00 Intake and Output 11/08/16 11/08/16 11/09/16 Cumulative From/Thru 15:00 23:00 07:00 11/05/16 06:36 - 11/09/16 05:47 Intake Total 30 ml 647 ml 1179 ml 18418 ml Output Total 0 ml 205 ml 50 ml 2655 ml Balance 30 ml 442 ml 1129 ml 45035 ml Intake Oral 30 ml 30 ml 60 ml IV Total 617 ml 532 ml 90876 ml Tube Feeding 567 ml 1661 ml Tube Irrigant 80 ml 320 ml Output Urine Total 0 ml 0 ml 0 ml 400 ml Stool Total 200 ml 50 ml 250 ml Gastric Drainage Total 5 ml 5 ml Ultrafiltrate 2000 ml # Voids 0 # Bowel Movements 1 3 5 Exam Gen: Lying at 30degree head tilt, intubated HEENT: PERRLA, Anicteric sclerae, uncoordinated eye movements Neck: supple, no JVD Cardio: sinus rhythm, no murmur rub or gallop appreciated, Right anterior chest central line and left central line in place Pulm: b/l air sound, no wheezes, increasing coarse breathing Abd: Soft, nontender, gastric tube in placed, non erythematous. Hypoactive bowel sound, mild distension, positive fluid wave Extremities: No clubbing, cyanosis, or lymphadenopathy appreciated. Anasarca Skin: Normal temperature, turgor, and texture; no rash, ulcers, or subcutaneous nodules appreciated. Neuro: unable to evaluate Lab and Diagnostics Result Diagram: 11/09/16 0313 11/09/16 0506 Microbiology Urine shows strep pneumo antigen, positive blood cultures 2 for gram-positive cocci activity is pending X-Rays, CTs and MRIs . X-RAY CHEST ONE VIEW, PORTABLE IMPRESSION: Diffuse groundglass and patchy opacities likely representing pulmonary edema although please correlate clinically to exclude superimposed infection. Overall , improved lung volumes with no new consolidation since yesterday. Dictated by: Leonardo Villalba M.D. on 11/05/2016 at 7:56 X-RAY CHEST ONE VIEW, PORTABLE IMPRESSION: Diffuse groundglass and patchy opacities likely representing pulmonary edema although please correlate clinically to exclude superimposed infection. Overall , improved lung volumes with no new consolidation since yesterday. Dictated by: Leonardo Villalba M.D. on 11/05/2016 at 7:56 US ABDOMEN, LIMITED IMPRESSION: 1. Increased periportal echogenicity in the liver is nonspecific but may reflect acute hepatitis. Recommend correlation with laboratory values. 2. Round echogenic non-shadowing structure in the gallbladder is incompletely evaluated. The findings may represent a non-shadowing stone or polyp. No evidence of cholecystitis. Dictated by: Yoshi Kendall M.D. on 11/05/2016 at 17:49 X-RAY CHEST ONE VIEW, PORTABLE IMPRESSION: Stable appearing bilateral moderately severe to severe pneumonia, right greater than left. Lines and tubes in normal position. Dictated by: Jeff Duggan M.D. on 11/06/2016 at 11:07 X-RAY CHEST ONE VIEW, PORTABLE IMPRESSION: No change is seen in the bilateral extensive infiltrates in the lungs or in the position of the tubes and catheters as described. Dictated by: Danny Hauser M.D. on 11/07/2016 at 12:42 Cardiac Echo Impressions . Echocardiogram Report Interpretation Summary There is normal left ventricular wall thickness. There are no focal wall motion abnormalities. The ejection fraction is estimated to be 50-55%. There is no significant valvular heart disease. Electronically signed by: Nelson Marquez Additional Diagnostics pH ____7.406 - 7.350 7.450 pCO2 ___46.5__ -mmHg 35.0 45.0 pO2 ___57.7__ -mmHg 69.0 116 HCO3- ___28.6__ -mmol/L 22.0 26.0 Assessment & Plan Patient is a 55yom with MHx significant for cerebral aneurysm, hx methamphetamine, TN, hemorrhagic stroke and anoxic brain injury(2008) with recurrent aspiration pneumonia admitted for decrease mentation and SOB, subsequently found be in septic shock with acute hypoxic hypercapnic respiratory failure, thus transfer to CCU for pressor support and ventilation management. Patient remains unresponsive. He continues to spike fevers with several possible infections that includes MRSA pneumonia, Strep pneumo, or coag negative stap while on meropenem and vancomycin. Hemodynamic management remains challenging, CVP and CO does not suggest fluid overload. Never the less, patient is up 14L, anasarca with coarse breathing, increasing O2 needs, and reduced lung compliance. He likely thirdspace given albumin 2.6. Patient still requires norepinephrine support, may need to add inotropic, dobutamine to increase CO. Today, patient developed diaphragm spasm and uncoordinated eye movement. He has hx of anoxic brain injuries in the past. This may represent a form of seizure. Overall, patient status has significantly decline over the past 2days. Palliative care consult has been ordered. Problem list 1. Hypoxic hypercapnic respiratory failure 2. Sepsis shock 3. Pneumonia 3. ESRD Respiratory Hypoxic hypercapnic respiratory failure - Possible pneumonia and likely contaminate by pulmonary edema - Cont oxygenation, vent support while resolving underline pathology...IE malnutrition, possible pneumonia, heart failure Infectious Shock - possible cardiogenic and/or sepsis - MAP mid-60's with levophed support - Will repeat Echocardiogram should his MAP remain unimproved - Not recommend trending lactic acid in the setting of ESRD Pneumonia - Possible strep pneumo, coag neg staph, or MRSA. He is now at risk for fungal infection as well - Strep pneumo antigen may be false positive, will need to check for any recent strep vaccination. Still possible to have aspiration pna - Cont abx vancomycin and meropenem as direct by Infectious disease Cardiovascular - Troponin flat - Initial echocardiogram unremarkable - May have sepsis induced cardiomyopathy - Will obtain echocardiogram as above if MAP unimproved tomorrow Hematologic Thrombocytopenia - Possible HIT, DIC, sepsis induced thrombocytopenia - holding heparin at this time Metabolic ESRD - Will try to dialyze today as BP is maintaining Alimentary Gastrointestinal dysmotility - hypoactive bowel tone, possible 2nd to sepsis - Will cont to monitor, consider KUB - Trophic feed for now. - Prophylaxis protonix, change from famodidine as it can depress platelets. Mild transaminitis - He has hx of hepatitis. No cirrhosis on Echo-abd. Patient however, receiving daily lactulose outpatient - Ammonia continues to be mildly elevated - Repeat lipase as alkphos cont to climb. Neurologic Possible Seizure - Has hx of anoxic brain injury - Keppra 500mg daily Total time 60min VTE Prophylaxis: Sub-Q Heparin (Unfractionated) VTE Mechanical Devices: Intermittant Pneumatic CD Resuscitation Status: CPR: Attempt Resuscitation Attending Statement The patient was seen and examined together with Dr. Taylor on 11/09/2016 and I agree with the history, exam and plan as outlined in the note above. Hector Taylor DO Nov 09, 2016 08:02 Ivan Dias MD December 10, 2016 14:37
[2016-11-09] MEDS: Lactulose 20 Gm/30 mL 30 mL Syrup PEG SCH (08:15)
[2016-11-09] MEDS ORDERED: levETIRAcetam 500 mg Tablet PO SCH (08:30)
[2016-11-09] MEDS: Vancomycin Dose per Pharmacist XX SCH (08:30)
[2016-11-09] MEDS ORDERED: Albumin 25% 50 GM in IV Premix 1 EACH IV ONE (09:10)
[2016-11-09] MEDS ORDERED: levETIRAcetam 500 mg/100 mL NS IV ONE ×2 (09:30)
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
--- NOTE | 2016-11-09 11:01 | NUR ---
NUTRITION FOLLOW-UP: ASSESS: 55 YO male admitted with decreased mentation and SOB, subsequently found be in septic shock and acute hypoxic hypercapnic respiratory failure, thus requiring CCU transfer, pressor support, and intubation/ventilation management. Pt resides at [facility] and is on long-term enteral feeding via PEG tube. Home enteral feeding formula is Nepro, rate 50ml/hr. Patient is NPO at baseline related to hemorrhagic stroke and anoxic brain injury (2008). Patient with end-stage renal disease, dialysis dependent, hypotension secondary to sepsis, dehydration, metabolic acidosis. Wt has been stable since last admit; however wt has slowly decreased ~10kg in the last year. PEG tube feeding rate currently 55 ml/hr, well tolerated, with minimal residuals. Palliative care consulted, pt with poor prognosis per CCU rounds. PMHX: ESRD, T1DM, CVA, TBI, Seizures, TX, HTN, HLD. LABS: Na 145, BUN 48, Cr 3.23, Glu 164, Lactic acid 2.2, AST 138, ALT 96 MEDS: Lactulose, Albumin, Insulin, Fentanyl, Pressor. DIET: NPO. ENTERAL FEEDING: Nepro rate @ goal 55 ml/hr, providing 2178 kcal and 98 g protein (100% kcal and pro needs). If on IVF, flush 40ml q 4 hrs. If IVF off, fluid flush 100ml q 4 hr or per nephrology recommendations. GI: BM x 4 (11/08). SKIN: Newly healed pressure ulcer present with redness and dry skin, per nursing report. HOME ENTERAL FEEDING: Nepro at 50 ml/hr to provide 1980 kcal/day and 89 g pro (100% estimated needs). WT: 71.9 kg, BMI 24.5 kg/m2, IBW: 72.7kg, Adj BW: 69kg, UBW ~65-68 kg. DIET: NPO ESTIMATED NEEDS: Dialysis, wt gain Calories: 4170-6931 kcal/day (30-40 kcal/kg BW) Protein: 70-120 g/day (1.2-2.0 g/kg IBW) Fluids: 1165-1500ml/day (20-25 cc/kg) or per supervisor customer services NUTRITION DIAGNOSIS: 1) Chew/swallow difficulties related to chronic dysphagia as evidence by need for mcc enteral feeding via PEG tube, and ongoing NPO status - PERSISTS. 2) Increased nutrient needs related to increased demand for nutrients as evidence by pt on HD, high risk for wounds - PERSISTS. 3) Inadequate oral intake related to decreased ability to consume sufficient energy as evidenced by current NPO status - IMPROVED WITH ENTERAL FEEDING. NUTRITION INTERVENTION: 1) Continue current enteral nutrition as ordered. MONITOR/EVALUATE: NPO/vent status, enteral feeding tolerance, wt, GI, labs, POC, nutrition status. Follow per high nutrition risk guidelines.
--- NOTE | 2016-11-09 11:57 | NUR ---
Palliative Care Palliative Care received order from Dr Cheatham 11/08/16 to assist with goals of care. Patient is a 56 year old man with history of CVA resulting in dysphagia and aphasia, history of VT leading to anoxic brain injury, depression, end-stage renal disease on HD and DM type II. He was admitted to the CCU 11/08/16 for care of sepsis secondary to possible pneumonia. On ventilator. Patient is a LTC patient at [facility]. Shonna Miller (sister) [phone] Palliative Care to follow. Agnieszka Cheema Addendum: 11/09/16 at 1201 by AGNIESZKA DE LA TORRE The Palliative Care Team has seen patient multiple times during multiple previous admissions. Agnieszka Cheema
--- NOTE | 2016-11-09 12:10 | DRSVH ---
PROCEDURE: US ABDOMEN, LIMITED ([id number]) INDICATIONS: elev LFTs TECHNIQUE: Real-time focused scanning was performed of the abdomen, with image documentation. COMPARISON: [facility], , ABDOMEN LTD, 11/05/2016, 17:20. FINDINGS: "Starry night" appearance of the liver redemonstrated suspicious for hepatic inflammatory p rocess. No focal hepatic abnormality seen. Multiple gallbladder polyps are present as well as a 8mm non-shadowing echogenic focus. Gallbladder wall is thickened and edematous measuring up to 7 mm. N o biliary dilatation. Small amount of perihepatic fluid is present and a small right pleural effusion is noted. Pancreas is obscured by overlying bowel gas. IMPRESSION: 1. "Starry night" appearance of the liver redemonstrated which is associated with hepatitis. 2. Multiple gallbladder polyps. 3. Thickening of the gallbladder wall, which may be secondary to liver disease such as hepatitis or a cute cholecystitis. Recommend clinical correlation. 4. A small amount of perihepatic fluid. 5. Small right pleural effusion. Dictated by: Derik Spears [facility] Interpreted: Lorraine Pickens MD on 11/09/2016 at 12:05 Transcribed by: SHIRAZ on 11/09/2016 at 12:09 Approved by: Lorraine Pickens M.D. on 11/09/2016 at 15:58
--- NOTE | 2016-11-09 13:06 | DRSVH ---
PROCEDURE: X-RAY CHEST ONE VIEW, PORTABLE ([id number]) INDICATIONS: pneumonia, intubated TECHNIQUE: One view of the chest was acquired. COMPARISON: [facility], CR, XR CHEST 1VW (PORTABLE), 11/08/2016, 3:04. FINDINGS: Surgical changes and devices: Endotracheal tube, and bore right IJ central venous catheter grossly un changed. Lungs and pleura: No pleural effusions or pneumothorax. Multifocal consolidative opacities scattered throughout the upper and lower lobes bilaterally are grossly unchanged. No definite new focal consol idation. Small left pleural effusion. Mediastinum: Mediastinal contours appear normal. Heart size is stable. Bones and chest wall: No suspicious bony lesions. Overlying soft tissues appear unremarkable. IMPRESSION: Pulmonary edema and/or diffuse bilateral pneumonia not significantly changed from prior e xamination and there is a small left pleural effusion. ARDS cannot be excluded. Dictated by: Derik Spears RRA Interpreted: Andra Lopez MD on 11/09/2016 at 13:04 Transcribed by: ILIANA on 11/09/2016 at 13:05 Approved by: Andra Lopez MD, PhD on 11/09/2016 at 17:19
--- NOTE | 2016-11-09 13:54 | NUR ---
Wound Care [facility] Patient evaluated per pressure ulcer protocol. Noted with open area to sacrum/coccyx per admit RN. Patient found to have 2 open areas to sacrum. Stage II pressure ulcer was present on admit and measures total area of 4.5.cmW x 4.5cmL x 0.0cmD. Wounds with red base. Multiple small red, bruised appearing areas around 2 open areas. Covered with sacral mepilex. Patient currently on CCU RICKEY bed on turning schedule. Recommend continued turning q2 hours and continued use of RICKEY bed. Patient also with open, scabbed area to left second toe not related to pressure. No drainage noted. No need to cover at this time. Area of suspected deep tissue injury to top of left ear, likely from O2 tubing and appears to have been present for several weeks. Likely present on admission. Recommend monitor all tubing and avoid placing tubing or O2 monitor headband over top of left ear. RN present during wound care this visit. Recommend nursing change dressing to sacrum q48 hours and PRN soiling. Wound care to follow as needed.
--- NOTE | 2016-11-09 14:09 | PCM.PNMED ---
Subjective Date of Service Nov 09, 2016 Subjective Patient is a 55-year-old gentleman with history of CVA resulting in dysphagia and aphasia, history of MA leading to anoxic brain injury, depression, end- stage renal disease on HD, DM type II admitted to CCU for sepsis secondary to possible aspiration pneumonia, with history of same. Overnight: Telemetry showed patient in sinus tachycardia 110's. The Levophed remains 0.13-0.15. Increase in the CVP with a temperature spike of 38. He still remains unresponsive to commands 2 days, fentanyl remains at 75mcg. Today: Patient remains sedated and intubated and unable to provide review of systems. Blood pressures remained controlled with levothyroxine, fluids continue be held secondary to a high CVP. Exam Vital Signs Vital Sign - Last Date Time Temp Pulse Resp B/P Pulse Ox O2 Delivery O2 Flow Rate FiO2 11/09/16 12:12 99 100/58 98 65 11/09/16 11:26 Ventilator 11/09/16 11:26 38.5 16 11/05/16 10:57 15.00 Intake and Output 11/08/16 11/08/16 11/09/16 Cumulative From/Thru 15:00 23:00 07:00 11/05/16 06:36 - 11/09/16 05:47 Intake Total 30 ml 647 ml 1179 ml 86137 ml Output Total 0 ml 205 ml 50 ml 2655 ml Balance 30 ml 442 ml 1129 ml 68803 ml Intake Oral 30 ml 30 ml 60 ml IV Total 617 ml 532 ml 25122 ml Tube Feeding 567 ml 1661 ml Tube Irrigant 80 ml 320 ml Output Urine Total 0 ml 0 ml 0 ml 400 ml Stool Total 200 ml 50 ml 250 ml Gastric Drainage Total 5 ml 5 ml Ultrafiltrate 2000 ml # Voids 0 # Bowel Movements 1 3 5 Exam General: Patient intubated and sedated. No apparent distress. Does not open eyes to voice. HEENT: Normocephalic, atraumatic. ET tube in place Neck: No jugular venous distension. Left IJ in place Cardiovascular: Tachycardic rate with regular rhythm, no murmurs appreciated Pulmonary: Coarse bilaterally. Abdomen: Soft, nondistended. PEG tube in place Extremities: No clubbing, cyanosis, edema, or lymphadenopathy appreciated. Skin: Normal temperature, turgor, and texture Neurological: Intubated and sedated Vent settings: Tidal volume 600, PEEP 8, FiO2 0.65, RR 16 ABGs: PH 7.367, PCO2 50.9, PO2 44.4, HCO3 28.5 IV Lines/shunts/tubes left IJ, right subclavian dialysis shunt, PEG tube left upper quadrant, ET tube IV medications: Fentanyl 75, levothyroid 0.13 Ins and outs last 24 hours: in 1179, out 50, total +1129. Total to date +[id number] IVs and Medications Medications Reviewed: Medications were reviewed in detail Lab and Diagnostics Result Diagram: 11/09/16 0313 11/09/16 0506 Microbiology Urine shows strep pneumo antigen, positive blood cultures 2 for gram-positive cocci activity is pending X-Rays, CTs and MRIs . X-RAY CHEST ONE VIEW, PORTABLE IMPRESSION: Diffuse groundglass and patchy opacities likely representing pulmonary edema although please correlate clinically to exclude superimposed infection. Overall , improved lung volumes with no new consolidation since yesterday. Dictated by: Leonardo Villalba M.D. on 11/05/2016 at 7:56 X-RAY CHEST ONE VIEW, PORTABLE IMPRESSION: Diffuse groundglass and patchy opacities likely representing pulmonary edema although please correlate clinically to exclude superimposed infection. Overall , improved lung volumes with no new consolidation since yesterday. Dictated by: Leonardo Villalba M.D. on 11/05/2016 at 7:56 US ABDOMEN, LIMITED IMPRESSION: 1. Increased periportal echogenicity in the liver is nonspecific but may reflect acute hepatitis. Recommend correlation with laboratory values. 2. Round echogenic non-shadowing structure in the gallbladder is incompletely evaluated. The findings may represent a non-shadowing stone or polyp. No evidence of cholecystitis. Dictated by: Yoshi Kendall M.D. on 11/05/2016 at 17:49 X-RAY CHEST ONE VIEW, PORTABLE IMPRESSION: Stable appearing bilateral moderately severe to severe pneumonia, right greater than left. Lines and tubes in normal position. Dictated by: Jeff Duggan M.D. on 11/06/2016 at 11:07 X-RAY CHEST ONE VIEW, PORTABLE IMPRESSION: No change is seen in the bilateral extensive infiltrates in the lungs or in the position of the tubes and catheters as described. Dictated by: Danny Hauser M.D. on 11/07/2016 at 12:42 X-RAY CHEST ONE VIEW, PORTABLE IMPRESSION: Pulmonary edema and/or diffuse bilateral pneumonia not significantly changed from prior examination and there is a small left pleural effusion. ARDS cannot be excluded. Dictated by: Derik RODRIGUEZ Interpreted: Andra Lopez MD on 11/09/2016 at 13:04 US ABDOMEN, LIMITED IMPRESSION: 1. "Starry night" appearance of the liver redemonstrated which could be associated with acute hepatic inflammatory process such as hepatitis. Correlate clinically. 2. Multiple gallbladder polyps and non-shadowing echogenic focus present as well as thickening of the gallbladder wall. Although gallbladder wall thickening could be related to hepatic disease, developing cholecystitis cannot be excluded. Correlate clinically. 3. Trace perihepatic fluid. 4. Small right pleural effusion. Dictated by: Derik RODRIGUEZ Interpreted: Lorraine Pickens MD on 11/09/2016 at 12:05 Cardiac Echo Impressions . Echocardiogram Report Interpretation Summary There is normal left ventricular wall thickness. There are no focal wall motion abnormalities. The ejection fraction is estimated to be 50-55%. There is no significant valvular heart disease. Electronically signed by: Nelson Marquez Additional Diagnostics pH ____7.406 - 7.350 7.450 pCO2 ___46.5__ -mmHg 35.0 45.0 pO2 ___57.7__ -mmHg 69.0 116 HCO3- ___28.6__ -mmol/L 22.0 26.0 Assessment & Plan Patient is a 55-year-old gentleman with history of CVA resulting in dysphagia and aphasia, history of MA leading to anoxic brain injury, depression, end- stage renal disease on HD, DM type II admitted to CCU for sepsis secondary to possible pneumonia. Hospital day 5, ventilator day 5. 1. Severe Sepsis/septic shock requiring pressor . Present on admission. Ongoing - Septic criteria met with tachycardia, tachypnea, hyperthermia, lactic acid 5.1 - Possible sources include pneumonia or GI. - Infectious Disease following. Recommendations appreciated - Currently on meropenem, vancomycin. Antibiotics per ID. - Sputum and PCR positive for MRSA - Pulmonology/ICU service following. Recommendations appreciated - Intubated and sedated - Discontinue IV NS - IV drips norepi at 0.150, fentanyl 75 - Echo shows no wall motion abnormalities, EF 50-55% and no significant valvular heart disease - Blood cultures coag-negative Staphylococcus 2 - Positive strep pneumo urine antigen 2. Acute hypoxic respiratory failure with hypoxia. Present on admission. Ongoing - After admitted to CCU patient became increasingly dyspneic requiring intubation, most likely secondary to #3 - Patient remains intubated and ventilated - Vent settings are FiO2 65 %, PEEP 8, tidal volume 600, respiratory rate 16 - Dictated chest x-ray - Pulmonology/ICU service following. Recommendations appreciated. 3. Pneumonia. Present on admission. Ongoing - Blood cultures grew gram-positive cocci, positive urine antigen for strep pneumo - CXR showed glass patchy opacities possibly pneumonia/pulmonary edema - Procalcitonin remains elevated 64.5 today - We will continue to monitor - Continue Antibiotics as in #1 4. ARDS. Not present on admission. Ongoing -[place] criteria met -Continue to monitor 5. End stage renal disease. Present on admission. Ongoing - Stage IV with GFR of 16 - Patient receives HD 3 times per week - Nephrology consulted. Recommendations appreciated - Patient continues to receive HD while in hospital 6. Diabetes mellitus type I. Present on admission. Ongoing - A1c 6.6 - Patient on home insulin glargine and insulin aspart - Correctional scale insulin 7. Hypernatremia, acute. Present on admission. Resolved - Most likely secondary to volume depletion - Fluid replacement as in #1 - Continue monitor 8. Elevated troponin. Present on admission. Ongoing - Most likely secondary to #4 - EKG showed anterior ST segment abnormalities consistent with previous infarct - Continue to monitor 9. Hyperlipidemia, chronic. Present on admission. Ongoing - Continue home statin 10. Transaminitis. Present on admission. Improving - ALT AST remain labile - Ammonia level trending down, last measurement 55 - Continue lactulose - Ultrasound and abdominal ultrasound showed possible hepatitis, thickening of the gallbladder wall and trace perihepatic fluid with a small right pleural effusion. 11. Thrombocytopenia. Not present on admission. Ongoing - Platelets fell to 54 today - DC'd heparin Disposition: Patient remains intubated and ventilated CCU status with blood pressure support and receiving hemodialysis treatments. Palliative care consulted with anticipated meeting with patient's sister/caregiver. Overall prognosis is very grim VTE Prophylaxis: Sub-Q Heparin (Unfractionated) VTE Mechanical Devices: Intermittant Pneumatic CD Resuscitation Status: CPR: Attempt Resuscitation Attending Statement The patient was seen and examined together with Dr. Rae on 11/09/2016 and I agree with the history, exam and plan as outlined in the note above. PRINCESS RAE DO Nov 09, 2016 14:09 Cristiano Sung MD Nov 09, 2016 20:40
--- NOTE | 2016-11-09 15:01 | PCM.CONPAL ---
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 At baseline patient is bedbound and dialysis dependent. He is critically ill with presumed septic shock, ARDS, encephalopathy, and hypotension. Today the medical pulmonology team and palliative care meet with the patient's sister /POA to explain his worsening status. She understands he is critically ill and may not survive. She wants to give it 48 hours, then consider transition to comfort care. Summary of palliative recommendations: -Symptom management (Pain/other) --fentanyl drip continues at 75 mcg/hr. --RN will notify us if there are more needs to manage comfort -DPOA/Advanced Directives/POLST --DNR/ limited -Family/emotional support/Spiritual support --Shonna is feeling the pressure of being the decision-maker. Offer support prn. She will let us know if other family members need information. Patient Goals: 1. Patient wants to be told the truth about his/her illness, even if it is unpleasant. 2. Patient would like to be told prognosis when it can be predicted, to better guide treatment decisions. 3. Patient has always chosen quantity of life with diminishing quality, and his family would like him to have every "chance". Additional Medical Diagnoses with primary management by Hospitalist team include : Problems: End of Life Preferences if treatments not effective and pt is dying, she would want comfort Goals of Care support and continue whatever therapies we can. Disposition not addressed Resuscitation Status Resuscitation Status: Limited Interventions (no chest compressions, cardioversion.) Limited Interventions: Intubation w Mech Vent, BiPAP, Medications and IV Fluid (no ) POLST Updates/Changes Previous POLST?: Yes Antibiotics: Use ABX if can Prolong Life Artificially Admin Nutrition: Trial Period Tube Feeding POLST Discussed with: Patient POLST Review Outcome: No Change . 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 At baseline patient is bedbound and dialysis dependent. Patient was brought to [facility] - ED via EMS from [facility] secondary to difficulty breathing. EMS states patient was saturating at 70% on room air upon arrival and tachycardic, tachypnea, and hypotensive. Upon interview patient is unable to verbalize answers to questions though he is able to communicate by squeezing his hands with a predetermined response i.e. give me one squeeze for yes. Unable to ascertain events leading up to admission. When asked if patient felt any pain he did not respond in the affirmative. Unable to ascertain review of systems POLST at Time of Admission Cardiopulmonary Resuscitation: DNR: Do Not Attempt Resuscitation Medications Current Medications: Current Medications Sodium Chloride 1,000 ml @ 0 mls/hr Q0M IV; Start 11/08/16 at 20:05 Acetaminophen/ Premix 100 ml @ 400 mls/hr Q6H PRN IV; Start 11/08/16 at 21:35; Stop 11/09/16 at 21:36 Levetriacetam 500 mg DAILY PO; Start 11/09/16 at 08:30; Stop 11/09/16 at 09:14; Status DC Pantoprazole 40 mg 40 mg 0630 IVPUSH; Start 11/10/16 at 06:30 Levetriacetam/ Sodium Chloride 105 ml @ 420 mls/hr HS IV; Start 11/09/16 at 21: 00 Scheduled ([Nepro Tube feed]) 50 CC PEG Hr Atorvastatin Calcium (Atorvastatin Calcium) 10 Mg Tablet 5 MG PEG HS Calcium Carbonate (Calcium Carbonate) 500 Mg/5 Ml Oral.susp 500 MG PEG TID Cholecalciferol (Vitamin D3) (Vitamin D3) 5,000 Unit Tablet 5,000 UNIT PEG DAILY Esomeprazole Magnesium (Nexium Powder Pack) 40 Mg Suspdr.pkt 40 MG PEG DAILY Fluoxetine Oral Soln (Fluoxetine Oral Soln) 20 Mg/5 Ml Solution 60 MG PEG DAILY Insulin Glargine (Lantus U100 Insulin Vial) 100 Unit/Ml Vial 15 UNIT SUBQ HS Lactulose (Lactulose) 20 Gm/30 Ml Solution 20 GM PEG DAILY Levothyroxine (Levothyroxine) 150 Mcg Tablet 150 MCG PO DAILY Lisinopril (Lisinopril) 5 Mg Tablet 5 MG G-TUBE DAILY NPH, Human Insulin Isophane (HUMulin-N U100 Insulin Vial) 100 Unit/1 Ml Vial 0- 10 UNIT SUBQ q6hrs Na Phos,M-B/K Phos,Monob (K-Phos #2 Tablet) 1 Each Tablet 2 EACH PEG BID Scheduled PRN Acetaminophen (Acetaminophen) 325 Mg Tablet 650 MG PEG Q4H PRN PRN pain/fever Albuterol Neb Soln (Albuterol Neb Soln) 0.63 Mg/3 Ml Vial.neb 0.63 MG INHALATION Q6H PRN PRN For Shortness of Breath Baclofen (Baclofen) 10 Mg Tablet 5 MG PO q4 hours PRN PRN For Hiccups Bisacodyl (Dulcolax Rectal) 10 Mg Supp.rect 10 MG RC DAILY PRN PRN For Constipation Dextran 70/Hypromellose/Pf (Artificial Tears Drops) 1 Each Droperette 2 DROP BOTH_EYES DAILY PRN PRN For Eye Irritation Glucagon,Human Recombinant (Glucagen) 1 Mg/1 Ml Vial 0.5-1 MG IJ DAILY PRN PRN blood glucose abnormality Insulin Aspart (NovoLOG U100 Insulin Vial) 100 Unit/Ml Mdv 0-12 UNITS SUBQ TID PRN PRN sliding scale Na Phos,M-B/Na Phos,Di-Ba (Fleet Enema) 133 Ml Enema 133 ML RC DAILY PRN PRN For Constipation Ondansetron (Ondansetron) 4 Mg Tablet 8 MG TUBE q8 hours PRN PRN For Nausea oxyCODONE-Acetaminophen 5-325 mg (oxyCODONE-Acetaminophen 5-325 mg) 1 Each Tablet 1 TAB PEG TID PRN PRN For Pain Objective Findings Exam Vital Sign - Last Date Time Temp Pulse Resp B/P Pulse Ox O2 Delivery O2 Flow Rate FiO2 11/09/16 12:12 99 100/58 98 65 11/09/16 11:26 Ventilator 4/10/17 11:26 38.5 16 11/05/16 10:57 15.00 Intake and Output 11/08/16 11/08/16 11/09/16 Cumulative From/Thru 15:00 23:00 07:00 11/05/16 06:36 - 11/09/16 05:47 Intake Total 30 ml 647 ml 1179 ml 00141 ml Output Total 0 ml 205 ml 50 ml 2655 ml Balance 30 ml 442 ml 1129 ml 98056 ml Intake Oral 30 ml 30 ml 60 ml IV Total 617 ml 532 ml 79524 ml Tube Feeding 567 ml 1661 ml Tube Irrigant 80 ml 320 ml Output Urine Total 0 ml 0 ml 0 ml 400 ml Stool Total 200 ml 50 ml 250 ml Gastric Drainage Total 5 ml 5 ml Ultrafiltrate 2000 ml # Voids 0 # Bowel Movements 1 3 5 General: Unresponsive HEENT: Atraumatic Heart: Exam Unremarkable Lungs: Normal Air Movement Abdomen: Bowel Tones x4 (reported diminished.) Extremities: Edema (3+) Lab/Diagnostics Lab and Imaging results reviewed in detail in EMR. Patient/Family Conference Members Present Family Members Present Sister Shonna who is POA. SHe will call daughters and x-, all of whom are involved. Medical Team Members Present? Dr. Dias, Dr. Ayala, Joel MCCARTHY Discussion/Goals of Care Discussion FAMILY UNDERSTANDING OF DISEASE: [Sister Shonna is decision-maker. She understands his current situation but continues to see him as a "strong man" who "bounces back". She is able to accept with help the degree of decline that may have led to his aspiration pneumonia. She was not aware that aspiration pneumonia is often recurrent due to the weakening of muscles of swallowing with progressive strokes. She does state that each time he "has something happen", she realizes that he is getting weaker over time.] DISEASE PROGRESSION/EVIDENCE OF DECLINE: [sister was not aware of diminished intake due to increasing swallowing issues over time.] SYMPTOM BURDEN: [now not responding purposefully despite only moderate sedation with fentanyl only. Does fight tube and moan with turns.] GOALS: [Pt would want to regain some independence and be able to make his own decisions.] HOPES/WORRIES: [Pt would fear a life of increasing debility, probably wouldn't be able to accept it.] FAMILY WISHES/VALUES: Family /patient do want to be told truth about his illness, even if unpleasant. Family /PT want to know prognosis when it can be predicted, to better guide treatment decisions. Quality of life for the patient: to be able to interact with their loved ones and friends, to be independent in making decisions. Patient /family would choose quality of life over quantity of life, only when quality was so bad, and he knew it couldn't return. Palliative Care counselled: 1) Code status, for intubated patient, still ok to choose DNR. 2) Timeline for decision-making regarding ongoing life-prolonging care. Time spent Total time 45 minutes; >50% face to face with patient and/or family, providing counselling regarding plans and recommendations, and in care coordination with his/her medical teams. I also spent an additional 50 minutes counseling for advanced care planning with the patient/the patients family/the surrogate decision maker. copies to: Miguel Cheatham MD, Sharmon M. ARNP Nov 09, 2016 13:39 Joel Roca Nov 09, 2016 13:39
--- NOTE | 2016-11-09 16:01 | NUR ---
P: Resp, Neuro, Hemodynamics, Skin, Social Nutrition I,E: Pt remains on the vent. This am he did not tolerate turning and would drop to the 80's and then recover to mid 90's. This afternoon he is tolerating turning without dropping sats and his sat's are at 100% on FIO2 65%. He has a poor cough effort even with suctioning with only scant white secretions suctioned from ETT. I am suctioning chavez secretions from the back of his throat with oral care. He opens his eyes spontaneously, but he does not follow commands and does not track. Pupils are responsive. He does not withdraw to pain. Pt remains in ST in the 100's. BP remains low, on pressors, but has improved today and I have been able to titrate the norepi down to .09mcg/kg/min. Pt does not make urine. current CI is 2.1 SVV 19 SVI 37. Pt has two areas on his sacrum that was evaluated by wound care and a new mepilex was applied today. He also has an old healing deep tissue injury on his left ear at the top, wound care was able to eval this also. Pt's sister Shonna was updated by MD today and they spoke of plan of care and POLST with palliative care. Tube feeds were discontinued today per MD order as pt has had hiccups most of this shift and MD was concerned for risk of aspiration. Pt remains at 30degrees. Pt is being turned Q2 for skin care. Pt had small amount of stool out via FMS today nothing noted this afternoon.
--- NOTE | 2016-11-09 17:01 | PCM.PNNEPH ---
Subjective Date of Service Nov 09, 2016 Subjective Patient remains sedated on a fentanyl drip and intubated. Blood pressures remained controlled with norepinephrine drip. The patient will continue a regular Wednesday dialysis schedule. Patient's overall condition remains quite poor and most likely is probably terminal. He has had some episodes of hypo-glycemia although he is tolerating his tube feedings quite well. He had been having a coexistent insulin drip going. His blood pressures are ranging in the 80-90 range on pressors. He is still on 0.65 FIO2 and +5 of PEEP. Heparin has been discontinued due to risk of HIT given low platelets. Exam Vital Signs Vital Sign - Last Date Time Temp Pulse Resp B/P Pulse Ox O2 Delivery O2 Flow Rate FiO2 11/09/16 15:57 Ventilator 11/09/16 15:57 37.8 105 16 98/54 100 65 11/05/16 10:57 15.00 Intake and Output 11/08/16 11/08/16 11/09/16 Cumulative From/Thru 15:00 23:00 07:00 11/05/16 06:36 - 11/09/16 05:47 Intake Total 30 ml 647 ml 1179 ml 48468 ml Output Total 0 ml 205 ml 50 ml 2655 ml Balance 30 ml 442 ml 1129 ml 65244 ml Intake Oral 30 ml 30 ml 60 ml IV Total 617 ml 532 ml 13372 ml Tube Feeding 567 ml 1661 ml Tube Irrigant 80 ml 320 ml Output Urine Total 0 ml 0 ml 0 ml 400 ml Stool Total 200 ml 50 ml 250 ml Gastric Drainage Total 5 ml 5 ml Ultrafiltrate 2000 ml # Voids 0 # Bowel Movements 1 3 5 Exam General: Patient intubated and sedated. No apparent distress. Does not open eyes to voice. Eyes: Pupils equal round and reactive to light, anicteric sclera, noninjected conjunctiva HENT: Normocephalic, atraumatic. ET tube in place Neck: No jugular venous distension. Left IJ in place Cardiovascular: Tachycardic rate with regular rhythm, no murmurs appreciated, right subclavian dialysis catheter in place Pulmonary: Mild Coarse bilaterally, no wheezing noted Abdomen: Soft, nondistended. PEG tube in place Extremities: Moderate edema noted in extremities 4, No clubbing, cyanosis, or lymphadenopathy appreciated. Skin: Warm and dry Neurological: Intubated and sedated Psych: Unable to obtain Lab and Diagnostics Result Diagram: 11/09/16 0313 11/09/16 0506 Microbiology Urine shows strep pneumo antigen, positive blood cultures 2 for gram-positive cocci activity is pending X-Rays, CTs and MRIs . X-RAY CHEST ONE VIEW, PORTABLE IMPRESSION: Diffuse groundglass and patchy opacities likely representing pulmonary edema although please correlate clinically to exclude superimposed infection. Overall , improved lung volumes with no new consolidation since yesterday. Dictated by: Leonardo Villalba M.D. on 11/05/2016 at 7:56 X-RAY CHEST ONE VIEW, PORTABLE IMPRESSION: Diffuse groundglass and patchy opacities likely representing pulmonary edema although please correlate clinically to exclude superimposed infection. Overall , improved lung volumes with no new consolidation since yesterday. Dictated by: Leonardo Villalba M.D. on 11/05/2016 at 7:56 US ABDOMEN, LIMITED IMPRESSION: 1. Increased periportal echogenicity in the liver is nonspecific but may reflect acute hepatitis. Recommend correlation with laboratory values. 2. Round echogenic non-shadowing structure in the gallbladder is incompletely evaluated. The findings may represent a non-shadowing stone or polyp. No evidence of cholecystitis. Dictated by: Yoshi Kendall M.D. on 11/05/2016 at 17:49 X-RAY CHEST ONE VIEW, PORTABLE IMPRESSION: Stable appearing bilateral moderately severe to severe pneumonia, right greater than left. Lines and tubes in normal position. Dictated by: Jeff Duggan M.D. on 11/06/2016 at 11:07 X-RAY CHEST ONE VIEW, PORTABLE IMPRESSION: No change is seen in the bilateral extensive infiltrates in the lungs or in the position of the tubes and catheters as described. Dictated by: Danny Hauser M.D. on 11/07/2016 at 12:42 X-RAY CHEST ONE VIEW, PORTABLE IMPRESSION: Pulmonary edema and/or diffuse bilateral pneumonia not significantly changed from prior examination and there is a small left pleural effusion. ARDS cannot be excluded. Dictated by: Derik RODRIGUEZ Interpreted: Andra Lopez MD on 11/09/2016 at 13:04 US ABDOMEN, LIMITED IMPRESSION: 1. "Starry night" appearance of the liver redemonstrated which could be associated with acute hepatic inflammatory process such as hepatitis. Correlate clinically. 2. Multiple gallbladder polyps and non-shadowing echogenic focus present as well as thickening of the gallbladder wall. Although gallbladder wall thickening could be related to hepatic disease, developing cholecystitis cannot be excluded. Correlate clinically. 3. Trace perihepatic fluid. 4. Small right pleural effusion. Dictated by: Derik RODRIGUEZ Interpreted: Lorraine Pickens MD on 11/09/2016 at 12:05 Cardiac Echo Impressions . Echocardiogram Report Interpretation Summary There is normal left ventricular wall thickness. There are no focal wall motion abnormalities. The ejection fraction is estimated to be 50-55%. There is no significant valvular heart disease. Electronically signed by: Nelson Marquez Additional Diagnostics pH ____7.406 - 7.350 7.450 pCO2 ___46.5__ -mmHg 35.0 45.0 pO2 ___57.7__ -mmHg 69.0 116 HCO3- ___28.6__ -mmol/L 22.0 26.0 Plan Impression Impression #1 1. Chronic End stage renal disease. Present on admission. Ongoing 2. Severe Sepsis with septic shock secondary to possible streptococcal pneumonia vs methicillin-resistant staph aureus pneumonia. Present on admission. Ongoing 3. Acute hypoxic respiratory failure with hypoxia. Present on admission. Ongoing 4. Acute respiratory distress syndrome. Not present on admission. Ongoing 5. Diabetes mellitus type I. Present on admission. Ongoing 6. Thrombocytopenia. Not present on admission. Ongoing Plan: 1. Chronic End stage renal disease. Present on admission. Ongoing - Stage IV with GFR of 16 - Patient receives HD 3 times per week Wednesday - Continue to dialyze for ultrafiltration - The palliative team is involved and we appreciate their help, given the likely prognosis which is poor, consideration for transition to comfort care measures in discussions with the family 2. Severe Sepsis with septic shock secondary to possible streptococcal pneumonia. Present on admission. Ongoing - Sputum and PCR positive for MRSA, Blood cultures coag-negative Staphylococcus 2, Positive strep pneumo urine antigen - Infectious Disease, and pulmonary/critical care following - Currently on meropenem, vancomycin. - Intubated and sedated, IV drips norepi, fentanyl, and insulin 3. Acute hypoxic respiratory failure with hypoxia. Present on admission. Ongoing - Patient remains intubated and ventilated - Vent settings are FiO2 65 %, PEEP 8, tidal volume 600, respiratory rate 16 - Pulmonology/ICU service following. Recommendations appreciated. 4. Acute respiratory distress syndrome. Not present on admission. Ongoing -[place] criteria met -Treated as #2 -Continue to monitor 5. Diabetes mellitus type I. Present on admission. Ongoing - A1c 6.6 - Tube feedings currently at goal - Insulin IV drip per protocol 6. Thrombocytopenia. Not present on admission. Ongoing - Platelets 54 for 05/21/2017 - Discontinue heparin given risk for heparin-induced thrombocytopenia - Heparin antibodies ordered - Serotonin release assay if antibodies positive 7. Transaminitis, present on admission, stable ongoing - Continue outpatient lactulose Lan Ken DO Nov 09, 2016 17:01
[2016-11-09] MEDS: fentaNYL 2,500 mCg/250 mL IV Premix IV SCH (18:20)
[2016-11-09] MEDS: levETIRAcetam 500 mg/100 mL NS IV SCH ×2 (21:47)
[2016-11-10] VITALS (17 sets, daily range): BP systolic 73–133; BP diastolic 43–68; PULSE 95–109; RESP 16; O2SAT 94–100
[2016-11-10] MEDS: Albuterol-Ipratropium 3 mL Inhalation Solution NEB SCH ×7 (00:16→23:40)
[2016-11-10] MEDS: Chlorhexidine 0.12% 15 mL Oral Solution MT SCH ×6 (00:25→20:41)
[2016-11-10] MEDS: Vasopressin Inj 20 UNIT in 0.9% Sodium Chloride 100 ML IV SCH ×3 (00:25→20:42)
--- NOTE | 2016-11-10 02:01 | NUR ---
P) Fever/LOC/Cardiac Pt. 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 Cardiac rhythm sinus/sinus tach, still on norepi to maintain BP with MAP > 60. I) Meds per 's orders, cont. close monitoring, turning q2h and floating heels. E) Resting quietly with eyes closed currently.
[2016-11-10] MEDS ORDERED: Vancomycin Serum Trough XX ONE (05:00)
[2016-11-10 05:32] LABS: Mean Corpuscular Hemoglobin 34.2 pg (27.0-35.0); Mean Corpuscular Volume 105.5 fL (81-100)
[2016-11-10 06:20] LABS: Platelet Count 37 bil/L (150-400)
[2016-11-10] MEDS: Pantoprazole 4 mg/mL 10 mL Inj IVPUSH SCH (06:20)
[2016-11-10 06:21] LABS: BASOPHILS % (AUTO) 0 % (0-3); EOSINOPHILS % (AUTO) 6 % (0-5); MONOCYTES % (AUTO) 6 % (4-12); NEUTROPHILS % (AUTO) 70 % (40-74)
[2016-11-10] MEDS ORDERED: Acetaminophen IV 1,000 MG in IV Premix 1 EACH IV PRN (06:45)
[2016-11-10] MEDS ORDERED: 0.9% Sodium Chloride 250 ML ONE (07:13)
[2016-11-10] MEDS: Lactulose 20 Gm/30 mL 30 mL Syrup PEG SCH (07:21)
[2016-11-10] MEDS: Meropenem Inj 1,000 MG in 0.9% Sodium Chloride 100 ML IV SCH (07:21)
--- NOTE | 2016-11-10 07:23 | PCM.PNMED ---
Subjective Date of Service Nov 10, 2016 Subjective Pulmonary Critical care consult follow-up Ventilation management Patient is a 55yom with MHx significant for cerebral aneurysm, hx methamphetamine, NE, hemorrhagic stroke and anoxic brain injury(2008) with recurrent aspiration pneumonia admitted for decrease mentation and SOB, subsequently found be in septic shock and acute hypoxic hypercapnic respiratory failure, thus requiring CCU transfer, pressor support, and intubation/ ventilation management. Patient stable overnight. Mentation improved, followed commands, eyes tracked. Fentanyl remained unchanged at 75mcg. Spikes fever again, consistently in the 38's. TMax 38.6. Cont to receive meropenem and vancomycin. Fungal culture has been ordered. Repeated blood culture have been negative. MAP 65's on norepinephrine 0.10, mildly hypertensive (BP 143/65) this morning. Fluids continues to be held. Dialysis ordered is written for today. He remained on the same ventilation setting from yesterday with TV 600, RR 16, PEEP 8, FIO2 65 and continues to have low lung compliance P plateau 30. Diaphragm spasm stopped at around 2am. Chest Xray continues to demonstrate b/l patchy infiltrate, worsening today. Goals of care meeting with JOSE CARLOS-Shonna Don concluded with changing of codes status to DNR. She wants full treatment and reevaluate Wed 11/11. She states that Sameer has a tendency to bounce back. Exam Vital Signs Vital Sign - Last Date Time Temp Pulse Resp B/P Pulse Ox O2 Delivery O2 Flow Rate FiO2 11/10/16 04:23 103 101/50 97 65 11/10/16 04:00 38.1 16 Mechanical Ventilator 11/05/16 10:57 15.00 Intake and Output 11/09/16 11/09/16 11/10/16 Cumulative From/Thru 14:59 22:59 06:59 11/05/16 06:36 - 11/10/16 06:30 Intake Total 1798 ml 576 ml 80990 ml Output Total 50 ml 150 ml 2855 ml Balance 1748 ml 426 ml 47980 ml Intake Oral 0 ml 60 ml IV Total 663 ml 576 ml 32624 ml Tube Feeding 975 ml 2636 ml Tube Irrigant 160 ml 480 ml Output Urine Total 0 ml 0 ml 400 ml Stool Total 50 ml 150 ml 450 ml Gastric Drainage Total 5 ml Ultrafiltrate 2000 ml # Voids 0 # Bowel Movements 5 Exam Gen: Lying at 30degree head tilt, intubated. HEENT: PERRLA, Anicteric sclerae, eyes tracking Neck: supple, no JVD Cardio: sinus rhythm, no murmur rub or gallop appreciated, Right anterior chest central line and left central line in place Pulm: b/l air sound, no wheezes, increasing coarse breathing Abd: Soft, nontender, gastric tube in placed, non erythematous. Hypoactive bowel sound, mild distension, positive fluid wave Extremities: No clubbing, cyanosis, or lymphadenopathy appreciated. Anasarca Skin: Normal temperature, turgor, and texture; no rash, ulcers, or subcutaneous nodules appreciated. Neuro: eyes open on command, squeezes hands. Lab and Diagnostics Result Diagram: 11/10/16 0500 11/10/16 0500 Microbiology Urine shows strep pneumo antigen, positive blood cultures 2 for gram-positive cocci activity is pending X-Rays, CTs and MRIs . X-RAY CHEST ONE VIEW, PORTABLE IMPRESSION: Diffuse groundglass and patchy opacities likely representing pulmonary edema although please correlate clinically to exclude superimposed infection. Overall , improved lung volumes with no new consolidation since yesterday. Dictated by: Leonardo Villalba M.D. on 11/05/2016 at 7:56 X-RAY CHEST ONE VIEW, PORTABLE IMPRESSION: Diffuse groundglass and patchy opacities likely representing pulmonary edema although please correlate clinically to exclude superimposed infection. Overall , improved lung volumes with no new consolidation since yesterday. Dictated by: Leonardo Villalba M.D. on 11/05/2016 at 7:56 US ABDOMEN, LIMITED IMPRESSION: 1. Increased periportal echogenicity in the liver is nonspecific but may reflect acute hepatitis. Recommend correlation with laboratory values. 2. Round echogenic non-shadowing structure in the gallbladder is incompletely evaluated. The findings may represent a non-shadowing stone or polyp. No evidence of cholecystitis. Dictated by: Yoshi Kendall M.D. on 11/05/2016 at 17:49 X-RAY CHEST ONE VIEW, PORTABLE IMPRESSION: Stable appearing bilateral moderately severe to severe pneumonia, right greater than left. Lines and tubes in normal position. Dictated by: Jeff Duggan M.D. on 11/06/2016 at 11:07 X-RAY CHEST ONE VIEW, PORTABLE IMPRESSION: No change is seen in the bilateral extensive infiltrates in the lungs or in the position of the tubes and catheters as described. Dictated by: Danny Hauser M.D. on 11/07/2016 at 12:42 X-RAY CHEST ONE VIEW, PORTABLE IMPRESSION: Pulmonary edema and/or diffuse bilateral pneumonia not significantly changed from prior examination and there is a small left pleural effusion. ARDS cannot be excluded. Dictated by: Derik RODRIGUEZ Interpreted: Andra Lopez MD on 11/09/2016 at 13:04 US ABDOMEN, LIMITED IMPRESSION: 1. "Starry night" appearance of the liver redemonstrated which could be associated with acute hepatic inflammatory process such as hepatitis. Correlate clinically. 2. Multiple gallbladder polyps and non-shadowing echogenic focus present as well as thickening of the gallbladder wall. Although gallbladder wall thickening could be related to hepatic disease, developing cholecystitis cannot be excluded. Correlate clinically. 3. Trace perihepatic fluid. 4. Small right pleural effusion. Dictated by: Derik RODRIGUEZ Interpreted: Lorraine Pickens MD on 11/09/2016 at 12:05 Cardiac Echo Impressions . Echocardiogram Report Interpretation Summary There is normal left ventricular wall thickness. There are no focal wall motion abnormalities. The ejection fraction is estimated to be 50-55%. There is no significant valvular heart disease. Electronically signed by: Nelson Marquez Additional Diagnostics pH ____7.406 - 7.350 7.450 pCO2 ___46.5__ -mmHg 35.0 45.0 pO2 ___57.7__ -mmHg 69.0 116 HCO3- ___28.6__ -mmol/L 22.0 26.0 Assessment & Plan Patient is a 55yom with MHx significant for cerebral aneurysm, hx methamphetamine, NE, hemorrhagic stroke and anoxic brain injury(2008) with recurrent aspiration pneumonia admitted for decrease mentation and SOB, subsequently found be in septic shock with acute hypoxic hypercapnic respiratory failure, thus transfer to CCU for pressor support and ventilation management. Mentation improved since yesterdays. Respiratory and hemodynamics support remains unchanged. His lungs are "stiff", non-compliance. Chest-xray shows bilateral radiopacities which supports this. The underlining pathology most likely involves pneumonia and pulmonary edema, ARDS. Leading theory of pneumonia per Infectious disease is strep pneumo via urine antigen and appropriately on vancomycin and meropenem. He still however, spike fever for > 24hrs. Uncertain whether this is infectious related verus other causes, such as seizure induced pyrexia. He is not tremulous though. Abscesses and endocarditis, possible fungal are more likely. Problem list 1. Hypoxic hypercapnic respiratory failure 2. Sepsis shock 3. ARDS 4. Pneumonia 5. ESRD 6. Hepatitis Respiratory Hypoxic hypercapnic respiratory failure - Possible pneumonia and likely contaminate by pulmonary edema - Cont oxygenation, vent support while resolving underline pathology...IE malnutrition, possible pneumonia, heart failure ARDS - He meets the [place] 2012 criteria - 2nd to pneumonia - Cont PEEP support - Daily VBG. Infectious Shock - possible cardiogenic and/or sepsis - MAP mid-60's with levophed support - Echo today to evaluate LV function and IVC collapse - Not recommend trending lactic acid in the setting of ESRD Fever of unknown origin - Tmax 38.6 - [place]-CT scan, possible abscess, endocarditis. Pneumonia - Possible strep pneumo, coag neg staph, or MRSA. He is now at risk for fungal infection as well - Strep pneumo antigen may be false positive, will need to check for any recent strep vaccination. Still possible to have aspiration pna - Cont abx vancomycin and meropenem as direct by Infectious disease Cardiovascular - Troponin flat - Initial echocardiogram unremarkable - May have sepsis induced cardiomyopathy - Will obtain echocardiogram as above if MAP unimproved tomorrow Hematologic Thrombocytopenia - Possible HIT, DIC, sepsis induced thrombocytopenia - holding heparin at this time Metabolic ESRD - Will try to dialyze today as BP is maintaining Alimentary Gastrointestinal dysmotility - hypoactive bowel tone, possible 2nd to sepsis - Prophylaxis protonix, change from famodidine as it can depress platelets. - CT scan abd, will restart trickle feed and progress to goal if CT-abd/pelvis unremarkable Mild transaminitis - He has hx of hepatitis. No cirrhosis on Echo-abd. Patient however, receiving daily lactulose outpatient - Ammonia continues to be mildly elevated - Ultrasound parapneumonic for hepatitis - Infectious disease will continue to follow. Neurologic Possible Seizure - Has hx of anoxic brain injury - Keppra 500mg daily Total time 60min Total time 60min VTE Prophylaxis: Sub-Q Heparin (Unfractionated) VTE Mechanical Devices: Intermittant Pneumatic CD Resuscitation Status: Limited Interventions (no chest compressions, cardioversion.) Limited Interventions: Intubation w Mech Vent, BiPAP, Medications and IV Fluid (no ) Attending Statement The patient was seen and examined together with Dr. Taylor on 11/10/2016 and I agree with the history, exam and plan as outlined in the note above. Hector Taylor DO Nov 10, 2016 07:23 Ivan Dias MD December 10, 2016 14:40
[2016-11-10] MEDS: Vancomycin Dose per Pharmacist XX SCH (08:30)
[2016-11-10] MEDS ORDERED: Albumin 25% 100 ML IV ONE ×2 (09:03→10:12)
--- NOTE | 2016-11-10 10:16 | PCM.PNMED ---
Subjective Date of Service Nov 10, 2016 Subjective Patient is a 55-year-old gentleman with history of CVA resulting in dysphagia and aphasia, history of TX leading to anoxic brain injury, depression, end- stage renal disease on HD, DM type II admitted to CCU for sepsis secondary to possible aspiration pneumonia, with history of same. Overnight: Patient continued to have fevers with a MAXIMUM TEMPERATURE of 38.6. He is reported to have an increase in his neurological status reportedly able to open eyes and track movement. Today: Still sedated and intubated. Does not open eyes to voice and is unable to squeeze hand when asked. Exam Vital Signs Vital Sign - Last Date Time Temp Pulse Resp B/P Pulse Ox O2 Delivery O2 Flow Rate FiO2 11/10/16 08:05 100 101/50 97 65 11/10/16 07:31 Ventilator 11/10/16 07:31 37.7 16 11/05/16 10:57 15.00 Intake and Output 11/09/16 11/09/16 11/10/16 Cumulative From/Thru 15:00 23:00 07:00 11/05/16 06:36 - 11/10/16 06:30 Intake Total 1798 ml 576 ml 79510 ml Output Total 50 ml 150 ml 2855 ml Balance 1748 ml 426 ml 91940 ml Intake Oral 0 ml 60 ml IV Total 663 ml 576 ml 08572 ml Tube Feeding 975 ml 2636 ml Tube Irrigant 160 ml 480 ml Output Urine Total 0 ml 0 ml 400 ml Stool Total 50 ml 150 ml 450 ml Gastric Drainage Total 5 ml Ultrafiltrate 2000 ml # Voids 0 # Bowel Movements 5 Exam General: Patient intubated and sedated. No apparent distress. Does not open eyes to voice. Does not squeeze hand when commanded HEENT: Normocephalic, atraumatic. ET tube in place. Appearance of minimal dried blood surrounding ET tube on lips. Neck: No jugular venous distension. Left IJ in place, bandage intact. Right brachiocephalic dialysis shunt, non-erythemic no warmth to palpation Cardiovascular: Tachycardic rate with regular rhythm, no murmurs appreciated Pulmonary: Coarse bilaterally. Expiratory crackles Abdomen: Soft, nondistended. PEG tube in place. No rigidity. Extremities: No clubbing, cyanosis, edema, or lymphadenopathy appreciated. Skin: Normal temperature, turgor, and texture Neurological: Intubated and sedated Vent settings: Tidal volume 600, PEEP 8, FiO2 0.65, RR 16 ABGs: PH 7.367, PCO2 50.9, PO2 44.4, HCO3 28.5 from 11/09/2016 IV Lines/shunts/tubes left IJ, right brachiocephalic dialysis shunt, PEG tube left upper quadrant, ET tube IV medications: Fentanyl 75, levothyroid 0.13 Ins and outs last 24 hours: In 576, out 150, total 4-6 [place] [address], out 2855, total 66303 IVs and Medications Medications Reviewed: Medications were reviewed in detail Lab and Diagnostics Result Diagram: 11/10/16 0500 11/10/16 0500 Microbiology Urine shows strep pneumo antigen, positive blood cultures 2 for gram-positive cocci activity is pending X-Rays, CTs and MRIs . X-RAY CHEST ONE VIEW, PORTABLE IMPRESSION: Diffuse groundglass and patchy opacities likely representing pulmonary edema although please correlate clinically to exclude superimposed infection. Overall , improved lung volumes with no new consolidation since yesterday. Dictated by: Leonardo Villalba M.D. on 11/05/2016 at 7:56 X-RAY CHEST ONE VIEW, PORTABLE IMPRESSION: Diffuse groundglass and patchy opacities likely representing pulmonary edema although please correlate clinically to exclude superimposed infection. Overall , improved lung volumes with no new consolidation since yesterday. Dictated by: Leonardo Villalba M.D. on 11/05/2016 at 7:56 US ABDOMEN, LIMITED IMPRESSION: 1. Increased periportal echogenicity in the liver is nonspecific but may reflect acute hepatitis. Recommend correlation with laboratory values. 2. Round echogenic non-shadowing structure in the gallbladder is incompletely evaluated. The findings may represent a non-shadowing stone or polyp. No evidence of cholecystitis. Dictated by: Yoshi Kendall M.D. on 11/05/2016 at 17:49 X-RAY CHEST ONE VIEW, PORTABLE IMPRESSION: Stable appearing bilateral moderately severe to severe pneumonia, right greater than left. Lines and tubes in normal position. Dictated by: Jeff Duggan M.D. on 11/06/2016 at 11:07 X-RAY CHEST ONE VIEW, PORTABLE IMPRESSION: No change is seen in the bilateral extensive infiltrates in the lungs or in the position of the tubes and catheters as described. Dictated by: Danny Hauser M.D. on 11/07/2016 at 12:42 X-RAY CHEST ONE VIEW, PORTABLE IMPRESSION: Pulmonary edema and/or diffuse bilateral pneumonia not significantly changed from prior examination and there is a small left pleural effusion. ARDS cannot be excluded. Dictated by: Derik RODRIGUEZ Interpreted: Andra Lopez MD on 11/09/2016 at 13:04 US ABDOMEN, LIMITED IMPRESSION: 1. "Starry night" appearance of the liver redemonstrated which could be associated with acute hepatic inflammatory process such as hepatitis. Correlate clinically. 2. Multiple gallbladder polyps and non-shadowing echogenic focus present as well as thickening of the gallbladder wall. Although gallbladder wall thickening could be related to hepatic disease, developing cholecystitis cannot be excluded. Correlate clinically. 3. Trace perihepatic fluid. 4. Small right pleural effusion. Dictated by: Derik RODRIGUEZ Interpreted: Lorraine Pickens MD on 11/09/2016 at 12:05 Cardiac Echo Impressions . Echocardiogram Report Interpretation Summary There is normal left ventricular wall thickness. There are no focal wall motion abnormalities. The ejection fraction is estimated to be 50-55%. There is no significant valvular heart disease. Electronically signed by: Nelson Marquez Additional Diagnostics pH ____7.406 - 7.350 7.450 pCO2 ___46.5__ -mmHg 35.0 45.0 pO2 ___57.7__ -mmHg 69.0 116 HCO3- ___28.6__ -mmol/L 22.0 26.0 Assessment & Plan Patient is a 55-year-old gentleman with history of CVA resulting in dysphagia and aphasia, history of TX leading to anoxic brain injury, depression, end- stage renal disease on HD, DM type II admitted to CCU for sepsis secondary to possible pneumonia. Hospital day 5, ventilator day 5. 1. Severe Sepsis/septic shock requiring pressor . Present on admission. Ongoing - Septic criteria met with tachycardia, tachypnea, hyperthermia, lactic acidosis - Possible sources include pneumonia or GI, possibly hepatitis and/or cholecystitis based on recent ultrasound findings - Infectious Disease following. Recommendations appreciated - Currently on meropenem, vancomycin. Antibiotics per ID. - Sputum and PCR positive for MRSA - Pulmonology/ICU service following. Recommendations appreciated - Intubated and sedated - Discontinued IV NS secondary to #4 - IV drips norepi at 0.150, fentanyl 75 - Echo shows no wall motion abnormalities, EF 50-55% and no significant valvular heart disease - Blood cultures coag-negative Staphylococcus 2 - Positive strep pneumo urine antigen - Repeat [place] scan CT today due to unclear source ,patient continues to spike fever and remain requiring pressor 2. Acute hypoxic respiratory failure with hypoxia. Present on admission. Ongoing - After admitted to CCU patient became increasingly dyspneic requiring intubation, most likely secondary to #3 - Patient remains intubated and ventilated - Vent settings are FiO2 65 %, PEEP 8, tidal volume 600, respiratory rate 16 - CXR continues to show pulmonary edema/pneumonia - Pulmonology/ICU service following. Recommendations appreciated. 3. Pneumonia. Present on admission. Ongoing - Blood cultures grew gram-positive cocci, positive urine antigen for strep pneumo - CXR showed glass patchy opacities possibly pneumonia/pulmonary edema - Procalcitonin remains elevated 44 today though trending down - We will continue to monitor - Continue Antibiotics as in #1 4. ARDS. Not present on admission. Ongoing -[place] criteria met -Continue to monitor 5. End stage renal disease. Present on admission. Ongoing - Stage IV with GFR of 16 - Patient receives HD 3 times per week - Nephrology consulted. Recommendations appreciated - Patient continues to receive HD while in hospital 6. Diabetes mellitus. Present on admission. Ongoing - A1c 6.6 - Patient on home insulin glargine and insulin aspart - Correctional scale insulin 7. Hypernatremia, acute. Present on admission. Resolved - Most likely secondary to volume depletion - Fluid replacement as in #1 - Continue monitor 8. Elevated troponin. Present on admission. Ongoing - Most likely secondary to #4 - EKG showed anterior ST segment abnormalities consistent with previous infarct - Continue to monitor 9. Hyperlipidemia, chronic. Present on admission. Ongoing - Continue home statin 10. Transaminitis. Present on admission. Improving - ALT AST remain labile - Ammonia level trending down, last measurement 55 - Continue lactulose - Ultrasound and abdominal ultrasound showed possible hepatitis, thickening of the gallbladder wall and trace perihepatic fluid with a small right pleural effusion. 11. Thrombocytopenia. Not present on admission. Ongoing - Platelets continue to trend down 37 today from 54 - DC'd heparin -HIT unlikley but possible given timing of thrombocytopenia and patient has been getting heparin on dialysis and no history of HIT Disposition: Patient remains intubated and ventilated CCU status with blood pressure support and receiving hemodialysis treatments. Platelet care consulted with patient's sister. Patient remains on a limited interventions not wishing to have chest compressions or defibrillation. We will continue to be intubated and sedated on ventilator support. Platelet care continues to follow closely. Overall prognosis very poor. I shall arrange CCU status as additional investigation ensues regarding infectious sources. Pain Evaluation: Adequate Pain Control GI Prophylaxis: Proton Pump Inhibitor VTE Prophylaxis: Sub-Q Heparin (Unfractionated) VTE Mechanical Devices: Intermittant Pneumatic CD Resuscitation Status: Limited Interventions (no chest compressions, cardioversion.) Limited Interventions: Intubation w Mech Vent, BiPAP, Medications and IV Fluid (no ) Attending Statement The patient was seen and examined together with Dr. Rae on 11/10/2016 and I agree with the history, exam and plan as outlined in the note above. PRINCESS RAE DO Nov 10, 2016 10:16 Cristiano Sung MD Nov 10, 2016 17:57 4. Pneumonia 5. ESRD 6. Hepatitis Respiratory Hypoxic hypercapnic respiratory failure - Possible pneumonia and likely contaminate by pulmonary edema - Cont oxygenation, vent support while resolving underline pathology...IE malnutrition, possible pneumonia, heart failure ARDS - He meets the [place] 2012 criteria - 2nd to pneumonia - Cont PEEP support - Daily VBG. Infectious Shock - possible cardiogenic and/or sepsis - MAP mid-60's with levophed support - Echo today to evaluate LV function and IVC collapse - Not recommend trending lactic acid in the setting of ESRD Fever of unknown origin - Tmax 38.6 - [place]-CT scan, possible abscess, endocarditis. Pneumonia - Possible strep pneumo, coag neg staph, or MRSA. He is now at risk for fungal infection as well - Strep pneumo antigen may be false positive, will need to check for any recent strep vaccination. Still possible to have aspiration pna - Cont abx vancomycin and meropenem as direct by Infectious disease Cardiovascular - Troponin flat - Initial echocardiogram unremarkable - May have sepsis induced cardiomyopathy - Will obtain echocardiogram as above if MAP unimproved tomorrow Hematologic Thrombocytopenia - Possible HIT, DIC, sepsis induced thrombocytopenia - holding heparin at this time Metabolic ESRD - Will try to dialyze today as BP is maintaining Alimentary Gastrointestinal dysmotility - hypoactive bowel tone, possible 2nd to sepsis - Prophylaxis protonix, change from famodidine as it can depress platelets. - CT scan abd, will restart trickle feed and progress to goal if CT-abd/pelvis unremarkable Mild transaminitis - He has hx of hepatitis. No cirrhosis on Echo-abd. Patient however, receiving daily lactulose outpatient - Ammonia continues to be mildly elevated - Ultrasound parapneumonic for hepatitis - Infectious disease will continue to follow. Neurologic Possible Seizure - Has hx of anoxic brain injury - Keppra 500mg daily Total time 60min Total time 60min Pain Evaluation: Adequate Pain Control GI Prophylaxis: Proton Pump Inhibitor VTE Prophylaxis: Sub-Q Heparin (Unfractionated) VTE Mechanical Devices: Intermittant Pneumatic CD Resuscitation Status: Limited Interventions (no chest compressions, cardioversion.) Limited Interventions: [facility], [facility], Medications and IV Fluid (no ) PRINCESS RAE DO Nov 10, 2016 10:16
--- NOTE | 2016-11-10 10:24 | DRSVH ---
PROCEDURE: X-RAY CHEST ONE VIEW, PORTABLE ([id number]) INDICATIONS: Vent with poss ARDS & Pneumonia TECHNIQUE: One view of the chest was acquired. COMPARISON: [facility], CR, XR CHEST 1VW (PORTABLE), 11/09/2016, 9:37. FINDINGS: Surgical changes and devices: Endotracheal tube, and right IJ central venous catheter grossly unchang ed as well as left IJ CVL. Lungs and pleura: No pneumothorax. Multifocal consolidative opacities scattered throughout the upper and lower lobes bilaterally are grossly unchanged. No definite new focal consolidation. Small left pleural effusion. Mediastinum: Mediastinal contours appear normal. Heart size is stable. Bones and chest wall: No suspicious bony lesions. Overlying soft tissues appear unremarkable. IMPRESSION: Pulmonary edema and/or diffuse bilateral pneumonia not significantly changed. ARDS canno t be excluded. Dictated by: Derik Spears [facility] Interpreted: Pauline Radford MD on 11/10/2016 at 10:22 Transcribed by: AARON on 11/10/2016 at 10:23 Approved by: Pauline Radford M.D. on 11/10/2016 at 17:10
[2016-11-10] MEDS: FLUoxetine 4 mg/mL 118 mL Solution PEG SCH (10:56)
--- NOTE | 2016-11-10 11:09 | NUR ---
Palliative care note D/A: Palliative care is planning on meeting with pt sister Shonna Mckinney on 11/11/16 at 1100. This worker has left message for Amada Montano ([employer], [facility]) to alert her as to meeting and invite her attendance if possible. P: Palliative care to follow. Elle AGUILAR, CCM
--- NOTE | 2016-11-10 11:26 | PCM.PNNEPH ---
Subjective Date of Service Nov 10, 2016 Subjective The patient's condition remains critical. He remains ventilatory dependent and intermittently hypotensive. Exam Vital Signs Vital Sign - Last Date Time Temp Pulse Resp B/P Pulse Ox O2 Delivery O2 Flow Rate FiO2 11/10/16 11:00 Ventilator 11/10/16 11:00 37.2 97 16 91/47 94 65 11/05/16 10:57 15.00 Intake and Output 11/09/16 11/09/16 11/10/16 Cumulative From/Thru 15:00 23:00 07:00 11/05/16 06:36 - 11/10/16 06:30 Intake Total 1798 ml 576 ml 42986 ml Output Total 50 ml 150 ml 2855 ml Balance 1748 ml 426 ml 13554 ml Intake Oral 0 ml 60 ml IV Total 663 ml 576 ml 12589 ml Tube Feeding 975 ml 2636 ml Tube Irrigant 160 ml 480 ml Output Urine Total 0 ml 0 ml 400 ml Stool Total 50 ml 150 ml 450 ml Gastric Drainage Total 5 ml Ultrafiltrate 2000 ml # Voids 0 # Bowel Movements 5 Exam Patient is sedated and on a ventilator. Lungs show diffuse rhonchi and rales. Heart was irregularly irregular and heart sounds were distant. Abdomen shows diminished bowel sounds. There is some generalized dependent edema noted. Lab and Diagnostics Result Diagram: 11/10/16 0500 11/10/16 0500 Microbiology Urine shows strep pneumo antigen, positive blood cultures 2 for gram-positive cocci activity is pending X-Rays, CTs and MRIs . X-RAY CHEST ONE VIEW, PORTABLE IMPRESSION: Diffuse groundglass and patchy opacities likely representing pulmonary edema although please correlate clinically to exclude superimposed infection. Overall , improved lung volumes with no new consolidation since yesterday. Dictated by: Leonardo Villalba M.D. on 11/05/2016 at 7:56 X-RAY CHEST ONE VIEW, PORTABLE IMPRESSION: Diffuse groundglass and patchy opacities likely representing pulmonary edema although please correlate clinically to exclude superimposed infection. Overall , improved lung volumes with no new consolidation since yesterday. Dictated by: Leonardo Villalba M.D. on 11/05/2016 at 7:56 US ABDOMEN, LIMITED IMPRESSION: 1. Increased periportal echogenicity in the liver is nonspecific but may reflect acute hepatitis. Recommend correlation with laboratory values. 2. Round echogenic non-shadowing structure in the gallbladder is incompletely evaluated. The findings may represent a non-shadowing stone or polyp. No evidence of cholecystitis. Dictated by: Yoshi Kendall M.D. on 11/05/2016 at 17:49 X-RAY CHEST ONE VIEW, PORTABLE IMPRESSION: Stable appearing bilateral moderately severe to severe pneumonia, right greater than left. Lines and tubes in normal position. Dictated by: Jeff Duggan M.D. on 11/06/2016 at 11:07 X-RAY CHEST ONE VIEW, PORTABLE IMPRESSION: No change is seen in the bilateral extensive infiltrates in the lungs or in the position of the tubes and catheters as described. Dictated by: Danny Hauser M.D. on 11/07/2016 at 12:42 X-RAY CHEST ONE VIEW, PORTABLE IMPRESSION: Pulmonary edema and/or diffuse bilateral pneumonia not significantly changed from prior examination and there is a small left pleural effusion. ARDS cannot be excluded. Dictated by: Derik RODRIGUEZ Interpreted: Andra Lopez MD on 11/09/2016 at 13:04 US ABDOMEN, LIMITED IMPRESSION: 1. "Starry night" appearance of the liver redemonstrated which could be associated with acute hepatic inflammatory process such as hepatitis. Correlate clinically. 2. Multiple gallbladder polyps and non-shadowing echogenic focus present as well as thickening of the gallbladder wall. Although gallbladder wall thickening could be related to hepatic disease, developing cholecystitis cannot be excluded. Correlate clinically. 3. Trace perihepatic fluid. 4. Small right pleural effusion. Dictated by: Derik RODRIGUEZ Interpreted: Lorraine Pickens MD on 11/09/2016 at 12:05 Cardiac Echo Impressions . Echocardiogram Report Interpretation Summary There is normal left ventricular wall thickness. There are no focal wall motion abnormalities. The ejection fraction is estimated to be 50-55%. There is no significant valvular heart disease. Electronically signed by: Nelson Marquez Additional Diagnostics pH ____7.406 - 7.350 7.450 pCO2 ___46.5__ -mmHg 35.0 45.0 pO2 ___57.7__ -mmHg 69.0 116 HCO3- ___28.6__ -mmol/L 22.0 26.0 Plan Impression Impression #1 end-stage renal disease dialysis dependent #2 almost a bacterial sepsis Recommendations #1 the patient dialyzed today for 3 hours on a 4 potassium bath and a 4-450 blood flow. No epididymal be given and I will give 25 g of albumin at the start and repeat this after an hour. To take 1-3 L office his blood pressure tolerates. Cesar Guy DO Nov 10, 2016 11:26
--- NOTE | 2016-11-10 12:06 | PROG NOTE ---
[address] [address] PROGRESS NOTE PATIENT: JOANNE FIGUEROA : 1960 MR#: [id number] ADMIT: 11/05/2016 JOB ID: [id number] DATE: 11/10/2016 REASON FOR FOLLOWUP: Persistent septic shock with fever, leukocytosis and grossly elevated procalcitonin. INTERVAL HISTORY: Recall that this is a very complicated, 56-year-old man, with previous anoxic brain injury, stroke, type 1 diabetes, and renal failure, with history of aspiration pneumonia. He was admitted now 5-1/2 days ago with septic shock of unknown source. He continues to be on moderately high dose vasopressor agents with only borderline blood pressure. He remains on the ventilator 65% and 8 of PEEP, with fair oxygenation, but there has been no progress towards weaning at this point. He continues to be critically ill, with elevated procalcitonin, elevated white count with left shift, dropping platelet count and ongoing critical illness. Yesterday, the patient would open his eyes and seemed to track but not really follow commands. Today, he does not rouse at all and does not open his eyes even when his name is called or he is touched. This case was discussed for greater than 30 minutes with the ICU team, and all pertinent labs and radiographs reviewed. PHYSICAL EXAMINATION: Reveals a critically ill gentleman, lying supine in the ICU. Temperature was 38.5 yesterday morning, but currently 38.1, pulse 100, respiratory rate 16, blood pressure 101/50, saturating well but on the high ventilator settings as previously described. Eyes without conjunctivitis. He has no nasogastric tube. He does have oral endotracheal tube, orogastric tube. No herpetic lesions on the lips. He has a left neck central line. On the right side, he has an upper chest hemodialysis catheter. Both of these appear grossly uninfected. His lungs are notable for coarse breath sounds bilaterally, with lots of rales and a few rhonchi. Cardiac tones distant. He has sinus rhythm on the monitor. Regular rate and rhythm were appreciated. The patient's abdomen is soft and without obvious organomegaly or ascites. Penis and scrotum appear normal. He does not have a Rouse catheter as he has no urine output. He does not have any significant rashes. Feet have slow capillary refill but they are being perfused and reasonably warm. There is no evidence of skin breakdown. No significant skin rash is noted. LABORATORIES: Include white count really stable at 14,500. It has not changed in four days. His hematocrit likewise stable around 29. His platelets, however, are dropping steadily. They were 140,000 four days ago, and now 37,000. Still with 10% bands and now 6% eos. His creatinine is 3.79, but he is on dialysis. LFTs are improving. AST has dropped from 138-56, alk phos has dropped from 221-196. Albumin poor at 2.6. Procalcitonin has dropped from 90 two days ago to 44 today, so it has fallen by half in two days basically. Vancomycin levels continue to be good, 16 this morning. Urine Legionella negative. A urine pneumococcal antigen is positive. There are many positive cultures. From admission on the , there were 1/10 blood cultures that grew Staph capitis, and 1/10 Staph warneri. These can be considered contaminant. Sputum has consistently been colonized with MRSA, and we have a urine pneumococcal antigen that is positive. Numerous followup blood cultures are negative. We have fungal blood cultures from yesterday that are negative. A C. difficile is negative as well. Today's chest x-ray shows diffuse bilateral infiltrates which are not a whole lot changed from yesterday's. Whether this represents fluid overload or bilateral infiltrate is unknown. Certainly, ARDS is a limiting possibility as well. IMPRESSION: This is an extraordinarily difficult case of a gentleman with underlying immunosuppression on the basis of type 1 diabetes, as well as end-stage renal disease requiring dialysis. He also has neurologic issues and has been admitted in the past with aspiration pneumonia as well as skin and soft tissue infections. He is admitted this time in septic shock, and we remain a bit unclear as to the source. He has not responded well despite 5-1/2 days of broad-spectrum antibiotics which currently feature vancomycin and meropenem. We have no definitive cultures, though urine antigen is positive for pneumococcus which is a fairly specific test. This case was discussed extensively with the ICU team this morning, as well as the nursing and respiratory therapy staff. At this point, we have many concerns including the possibility of a poorly responding pneumococcal infection, aspiration pneumonia, right upper quadrant or gallbladder disease, or possibly line infection. The possibility of a fungal or atypical pulmonary infiltrate also exists, though is probably less likely. RECOMMENDATIONS: 1. Will continue with vancomycin and meropenem. 2. Will get blood cultures again today, fungal blood cultures through the dialysis line as well as through the central line in the left neck. 3. Bronchoscopy should be considered given his diffuse bilateral infiltrates, and I have discussed this with Dr. Dias. 4. CT scan of the sinuses, chest, abdomen, and pelvis would be reasonable. 5. If the patient fails to improve in the next day or two, it may indeed be reasonable to add empiric antifungal coverage and/or to consider removing either the central line, his dialysis line, or both.
--- NOTE | 2016-11-10 12:24 | NUR ---
Dialysis note: 3 hours tx 1000 ml net UF Right catheter, dsg dry and intact Pls see DTR for VS details, cont. on Norepi gtt, increased PRN by primary RN Qb 400 w/ cath limbs reversed A-V V-A due to poor cath function No heparin given On vent @ 65% FiO2 with sat in the 90's Albumin 25 Gm IV x 2 given as ordered Pt on light sedation, Fentanyl gtt; would open eyes at times; tolerated tx Catheter flushed, heparin dwelled and secured Report given to Nieves Whimtan RN Stable condition at end of tx
[2016-11-10] MEDS ORDERED: SODIUM CHLORIDE IV ONE ×2 (14:30)
[2016-11-10] MEDS ORDERED: [UNRECOGNIZED DRUG - OTHER] IV ONE ×2 (14:30)
[2016-11-10] MEDS ORDERED: MEROPENEM IV ONE ×2 (14:30)
--- NOTE | 2016-11-10 15:08 | DRSVH ---
[facility] [address] [place] [address] Echocardiogram Report Name: JOANNE FIGUEROA SStudy Date: 11/10/2016 Height: 67 in Hospital Exam Location: [facility] Weight: 165 lb Gender: Male BSA: 1.9 m2 : 1960 Age: 56 yrs BP: 101/50 mmHg Reason For Study: SEPSIS, LV/RV FX, VEGETATIONS. Ordering Physician: HOSPITALIST VENUSerformed By: Demar Weir Referring Physician: CHINEDU PEOPLES Interpretation Summary 1. Normal left ventricular size with mild proximal septal thickening and normal systolic function with an estimated EF of 2. Grossly normal right ventricular size with normal systolic function. 3. No evidence for significant valvular pathology Compared to the previous study, the LV function appears improved. Procedure: A two-dimensional transthoracic echocardiogram with color flow and Doppler was performed. The study quality was technically good. Comparison is made with the echocardiogram of 11/05/16. The patient was in sinus tachycardia with heart rates between 99-105 bpm during the exam. Left Ventricle: The left ventricle is normal in size. There is mild proximal septal thickening noted. Mildly elevated outflow tract velocities. The ejection fraction is estimated to be 65-70%. No obvious wall motion abnormalities. Right Ventricle: The right ventricle is grossly normal size. The right ventricular systolic function is normal. Atria: Both atria are normal in size. No color doppler evidence for an ASD. Mitral Valve: The mitral valve is normal. There is trace mitral regurgitation. Aortic Valve: The aortic valve is trileaflet. The aortic valve opens well. No aortic regurgitation is present. Tricuspid Valve: The tricuspid valve leaflets are thin and pliable. There is mild tricuspid regurgitation. The right ventricular systolic pressure is estimated at 39 mmHg assuming a right atrial pressure of 3 mm Hg. Pulmonic Valve: The pulmonic valve is not well visualized. There is a trace or physiologic amount of pulmonic regurgitation. Great Vessels: The aortic root is normal size. The pulmonary artery is normal size. The IVC is of normal diameter and collapses greater than 50% with a sniff. This suggests a low right atrial pressure of 3 mm Hg. Pericardium/ Pleura There is no pericardial effusion. There is no pleural effusion. MMode/2D Measurements & Calculations LVIDd: 4.3 cm RA long axis LVOT diam LVIDs: 2.3 cm LA A2 area: 17.2 cm FS: 46.2 % LA A4 area: 17.8 cm RA area AoV Opening EPSS: 0.21 cm LA length (vol): 4.9 cm IVSd: 1.0 cm LA vol: 52.5 ml : 14.3 cm Ao root diam LVPWd: 0.97 cm LA vol index RA vol: 34.9 ml: 3.4 cm RA : 28.2 ml/m2 : 18.8 mm2 LV plata. diameter/BSA LV sys. diameter/BSA TAPSE: 1.8 cm (cm/m^2): 2.3 (cm/m^2): 1.3 Doppler Measurements & Calculations Ao V2 max: 128.9 cm/sec MV E max lucian MV E/A: 1.2 TR max lucian Ao max P.7 mmHg : 98.7 cm/sec : 298.4 cm/sec Ao mean P.9 mmHg MV A max lucian TR max PG LVOT Max Lucian : 82.4 cm/sec : 35.6 mmHg : 117.8 cm/sec PA V2 max YANETH(I,D): 2.8 cm : 95.3 cm/sec sev ratio: 0.92 PA mean PG : 2.0 mmHg MV dec time: 0.23 sec Ao V2 mean LV V1 max PG PA V2 mean : 94.3 cm/sec : 66.8 cm/sec Ao V2 VTI: 22.8 cm LV V1 VTI PA pr(Accel) YANETH(V,D): 2.8 cm2 : 21.0 cm : 27.6 mmHg YANETH indexed to [facility] (cm^2/m^2): 1.5 Reading Physician:03:07 PM
[2016-11-10] MEDS: fentaNYL 2,500 mCg/250 mL IV Premix IV SCH (17:36)
--- NOTE | 2016-11-10 17:44 | DRSVH ---
PROCEDURE: CT BRAIN WITHOUT CONTRAST ([id number]) INDICATIONS: FUO. sinusitis? TECHNIQUE: Noncontrast 4.5 mm thick angled axial sections acquired from the foramen magnum to the vertex, with c oronal reformats. COMPARISON: [facility], CT, CT BRAIN WO CON, 08/06/2016, 11:25. FINDINGS: Image quality: Excellent. CSF spaces: Basal cisterns are patent. No extra-axial fluid collections. The ventricles are symmet allan in size and shape. Brain: No intracranial bleeds or masses. There is marked cerebral volume loss for age, with resulta nt ventricular and sulcal prominence. There are moderate periventricular and deep white matter chron ic small vessel ischemic changes. There is intracranial internal carotid artery atherosclerosis. Skull and face: A small bone island is present within the left frontal bone, as before. Calvarium an d visualized facial bones appear intact, without suspicious lesions. Sinuses: Visualized sinuses and mastoids are clear. IMPRESSION: 1. No acute intracranial findings. 2. Extensive findings likely associated with microvascular ischemic changes. 3. Visualized portions of the sinuses and mastoid air cells are clear. No evidence for acute sinusiti s. Dictated by: Pauline Radford M.D. on 11/10/2016 at 17:41 Approved by: Pauline Radford M.D. on 11/10/2016 at 17:43
--- NOTE | 2016-11-10 17:56 | DRSVH ---
PROCEDURE: CT CHEST, ABDOMEN AND PELVIS [facility] CONTRAST ([id number]) INDICATIONS: sepsis,look for source TECHNIQUE: After the administration of oral and intravenous contrast, 5 mm thick sections acquired from the lung apices to the symphysis. 5 mm coronal and sagittal reformats were performed, with additional 7 mm c oronal MIP reformats through the lungs. For radiation dose reduction, the following was used: autom ated exposure control, adjustment of mA and/or kV according to patient size. COMPARISON: [facility], CR, XR CHEST 1VW (PORTABLE), 11/05/2016, 13:13. [facility], CR, XR CHEST 1VW (PORTABLE), 07/30/2016, 11:10. [facility], CT, CT CHEST ABD PEL VIS W CON, 08/17/2015, 11:34. FINDINGS: Image quality: Excellent. CHEST: Lungs and pleura: The patient is intubated and the endotracheal tube is approximately 4 cm above the vinayak. Diffuse "crazy paving" pulmonary radiopacities are present throughout both lungs predominantl y in the upper and mid lungs. There is peripheral sparing and basilar sparing. More dense consolidati on is also present within the mid and lower lungs. There are moderate-sized bilateral low density ple ural effusions. Mediastinum: Heart size is normal. No pericardial effusion. There are multiple enlarged mediastinal lymph nodes. They're likely enlarged hilar lymph nodes which are poorly characterized. Thoracic aort a and central pulmonary arteries are normal in size. Esophagus is normal in caliber. No hiatal yesenia ia. Chest wall: There is left greater than right gynecomastia. No axillary or supraclavicular adenopathy by size criteria. Thyroid gland is incompletely visualized. ABDOMEN: Solid organs: Liver and spleen are normal in size and enhancement. Gallbladder is grossly unremarka ble.. Biliary system is non dilated. Pancreas enhances normally. No adrenal nodules. Kidneys demo nstrate normal size and enhancement, without hydronephrosis. Peritoneum and bowel: The stomach is contrast and food filled. A gastrostomy tube is present within t he fundus. The small bowel is decompressed. The colon is fluid-filled and demonstrates normal caliber and wall thickness. A rectal tube is present. There is a moderate amount of low density free pelvic fluid. Nodes and vessels: No retroperitoneal or mesenteric adenopathy by size criteria. Aorta and inferior vena cava are normal in size. There are scattered atheromatous calcifications throughout the aorta a nd iliac arteries bilaterally. Miscellaneous: No ventral hernias. PELVIS: Genitourinary: Bladder wall thickness is normal. Miscellaneous: No inguinal hernias or adenopathy. Bones: No suspicious bony lesions. No vertebral body compression fractures. IMPRESSION: 1. Diffuse "crazy paving" pattern throughout the lungs with peripheral and basilar sparing in additio n to dense areas of pulmonary consolidation and bilateral pleural effusions. Differential considerati ons include ARDS, bacterial pneumonia, acute interstitial pneumonia, pulmonary edema, mycoplasma pneu monia, and Pneumocystis carinii pneumonia. Other less likely causes include cryptogenic organizing pn eumonia and eosinophilic pneumonia. These findings are likely associated with the patient's sepsis. 2. Multiple large mediastinal lymph nodes and probable hilar adenopathy. These findings are likely in fectious or reactive in etiology, although neoplasm cannot be excluded. 3. Trace low-density free pelvic fluid which may be associated with fluid overload. Dictated by: Pauline Radford M.D. on 11/10/2016 at 17:47 Approved by: Pauline Radford M.D. on 11/10/2016 at 17:54
[2016-11-10] MEDS: Insulin Human REGular Inj 100 UNIT in 0.9% Sodium Chloride-Pha MIX 100 ML IV SCH (18:12)
--- NOTE | 2016-11-10 19:31 | NUR ---
P: Resp, Hemodynamics,Neuro, GI, Social I,E: Pt continues on the vent, sats low 90's today. He continues to have a poor cough effort even with suctioning. He has been more sensitive to turning today with sat dropping into high 80's and returning after rest and use of 100% O2 for short periods. Pt BP was improved this am with sys 133. Norepi was decreased and then pt started dialysis. His BP then dropped into the 70's . he received albumin with dialysis and norepi was increased. BP improved and this afternoon it is back to 100's sys. CVP was 19 this am. Pt opens his eyes but does not track or follow commands that I can determine. He will open his eyes but not follow or track. Pt has not had any UOP today. Pt did have 300cc of stool out today via [facility]. Pt went to CT and had head, chest and pelvis CT. He received contrast both IV and via PEG tube for the CT. Pt was off insulin for most of the day with OT 120's to 130's. He increased this evening to 252 and insulin gtt was re-started on alg 1. I spoke with pt's sister today (Deanna, from [place]). She expressed concern that we were "pulling the plug" I reassure her we were continuing to take very good care of her brother and that her sister (Shonna BRANCH) had had a conversation with the Dr's to advise her of his condition, his plan of care and of the concerns we have for his health and recovery. I advised her to talk with Shonna and share her concerns. There is a meeting again tomorrow to look at pt's progress and determine the next step in his care. She advised me she was going to participate in that discussion via the phone and I agreed that was a wonderful idea to help her understand his progress and be a part of the discussion. She also advised me she was going to try to fly here to see him and again I advised her that was a wonderful thing if she was able to do this. I encouraged her and her Mum to speak with Shonna so they could all be a part of the discussion and share their ideas and concerns. I reassured her that our goal was to do what was best for Sameer and we would continue doing all we could for him at this time with our current treatment.
[2016-11-10] MEDS: levETIRAcetam 500 mg/100 mL NS IV SCH ×2 (20:41)
[2016-11-11] VITALS (10 sets, daily range): BP systolic 88–109; BP diastolic 35–59; PULSE 89–115; RESP 16–19; O2SAT 92–100
[2016-11-11] MEDS: Chlorhexidine 0.12% 15 mL Oral Solution MT SCH ×7 (00:07→23:27)
[2016-11-11] MEDS ORDERED: Micafungin Inj 100 MG in 0.9% Sodium Chloride 100 ML IV SCH (02:03)
[2016-11-11 04:27] LABS: Platelet Count 46 bil/L (150-400)
[2016-11-11 04:36] LABS: Mean Corpuscular Hemoglobin 33.3 pg (27.0-35.0); Mean Corpuscular Volume 108.4 fL (81-100)
[2016-11-11] MEDS: Albuterol-Ipratropium 3 mL Inhalation Solution NEB SCH ×5 (04:42→20:16)
--- NOTE | 2016-11-11 04:51 | ABG ---
DateTimeAnalyzed 04:48:00 -_ pH ____7.290 - 7.350 7.450 pCO2 ___50.2__ -mmHg 35.0 45.0 pO2 ___60.7__ -mmHg 69.0 116 HCO3- ___23.4__ -mmol/L 22.0 26.0 ABE ___-2.7__ -mmol/L -2.0 2.0 tHb ____9.5__ -g/dL O2Hb ___88.8__ -% COHb ____1.5__ -% MetHb ____0.9__ -% sO2 ___91.0__ -% 25.0 FIO2 ___70.0__ -% PEEP ____5.0__ -cmH2O Set_RR ___16.0__ -b/min Vt __600.0__ -L Drawn By MK - Date/Time Notified____ 04:50:00 -_ Spontaneous_RR ___16.0__ -b/min Oxygen Device 1 VENTILATOR - Notified By MK - Notified Whom Dr fuimono - Age 48 -years B 749 -mmHg tO2 ___11.9__ -Vol% Iván test _Positive -
[2016-11-11 04:55] LABS: BASOPHILS % (AUTO) 0 % (0-3); EOSINOPHILS % (AUTO) 7 % (0-5); MONOCYTES % (AUTO) 4 % (4-12); NEUTROPHILS % (AUTO) 58 % (40-74)
[2016-11-11] MEDS: Nystatin 100,000 Unit/Gm 15 Gm Powder TOPICAL SCH ×3 (05:08→21:18)
[2016-11-11 05:18] LABS: Magnesium 1.6 mg/dL (1.6-2.6)
--- NOTE | 2016-11-11 05:27 | NUR ---
P) Respiratory/Cardiac/skin Pt.'s lungs with coarse, moist breath sounds, scattered crackles and rales throughout, occasionally suctioning small amounts of thin, white to clear phlegm from ET tube, SPO2 drops with turns but recovered quickly except when he was turned during his bath and dressing change he dropped to the mid 80's and did not recover until FIO2 was turned up to 100%. BP still requiring Norepi to keep MAP >60, current rate 0.12 mcg/kg/min. Cardiac rhythm sinus/sinus tach with occasional MF PVC's. During bath and dressing change noted that groin has red, slightly raised yeast-like rash, coccyx has multiple small open areas oozing small amounts of sero-sanguinous fluid, R arm had abrasion/skin tear, dressings applied per directions from wound therapy, ordered nystatin for groin which was also applied. I) Meds per 's orders, Positive blood culture called to , micafungin started,turning q2h and floating heels. E) Currently resting quietly, frequently opening eyes this shift, resisting oral care and finger pokes, slight hand stand in per directions, eyes appear to be tracking, pt. seemed aware when his sister was here to visit. Some pulling on restraints and resisting turning.
[2016-11-11] MEDS: Pantoprazole 4 mg/mL 10 mL Inj IVPUSH SCH (06:26)
--- NOTE | 2016-11-11 07:32 | ABG ---
DateTimeAnalyzed 07:29:00 -_ pH ____7.413 - 7.350 7.450 pCO2 ___41.3__ -mmHg 35.0 45.0 pO2 ___78.6__ -mmHg 69.0 116 HCO3- ___25.9__ -mmol/L 22.0 26.0 ABE ____1.7__ -mmol/L -2.0 2.0 tHb ____9.0__ -g/dL O2Hb ___94.7__ -% COHb ____1.6__ -% MetHb ____1.0__ -% sO2 ___97.2__ -% 25.0 FIO2 ___70.0__ -% PEEP ____8.0__ -cmH2O Set_RR ___18.0__ -b/min Vt __600.0__ -L Drawn By NB - Date/Time Notified____ 07:32:00 -_ Oxygen Device 1 VENTILATOR - Notified By nb - Notified Whom Kendregan/ - Age 48 -years B 748 -mmHg tO2 ___12.1__ -Vol% Iván test _Positive -
[2016-11-11] MEDS: Vancomycin Dose per Pharmacist XX SCH (08:30)
[2016-11-11] MEDS ORDERED: Lidocaine Topical 2% 30 mL Jelly ONE (08:44)
[2016-11-11] MEDS ORDERED: Lidocaine PF 2% 10 mL Inj ONE (08:44)
--- NOTE | 2016-11-11 08:57 | DRSVH ---
PROCEDURE: X-RAY CHEST ONE VIEW, PORTABLE ([id number]) INDICATIONS: Vent TECHNIQUE: One view of the chest was acquired. COMPARISON: [facility], CR, XR CHEST 1VW (PORTABLE), 11/10/2016, 4:22. FINDINGS: Surgical changes and devices: Endotracheal tube, and right IJ central venous catheter grossly unchang ed as well as left IJ CVL. Lungs and pleura: No pneumothorax. Multifocal consolidative opacities scattered throughout the upper and lower lobes bilaterally are grossly unchanged. No definite new focal consolidation. Small left pleural effusion. Mediastinum: Mediastinal contours appear normal. Heart size is stable. Bones and chest wall: No suspicious bony lesions. Overlying soft tissues appear unremarkable. IMPRESSION: Persistent widespread pulmonary opacities suggestive of edema and/or bilateral inflammato ry process. ARDS cannot be excluded. Dictated by: Derik RODRIGUEZ Interpreted: Trudi Man MD on 11/11/2016 at 8:56 Transcribed by: YANY on 11/11/2016 at 8:57 Approved by: Trudi Man M.D. on 11/11/2016 at 22:15
[2016-11-11] MEDS: Norepineph 8,000 mCg/250 mL NS 8,000 MCG in IV Premix 1 EACH IV PRN ×4 (08:59→23:25)
--- NOTE | 2016-11-11 09:32 | PROG NOTE ---
[address] [address] PROGRESS NOTE PATIENT: JOANNE FIGUEROA : 1960 MR#: [id number] ADMIT: 11/05/2016 JOB ID: [id number] DATE: 11/11/2016 INTERVAL HISTORY: Overnight, there has been significant developments. Unfortunately, the patient has required more vasopressor agents and is now one a moderate dose of norepinephrine. He has also required a bit more support in terms of the ventilator. Against these negative developments, the patient is slightly more awake today. He does open his eyes when asked, but does not really interact or answer questions in a meaningful way. This case was discussed extensively with the ICU team, the bedside nurse and others involved in his care. PHYSICAL EXAMINATION: Reveals a gentleman who has been intermittently febrile through the night of 37.9 at 2000 hours, this morning, 37.6, pulse 96. His rhythm is regular in sinus on the monitor. He is on 70% FiO2 and 8 of PEEP, which is slightly worse than yesterday. Blood pressure is about 110 systolic, but he is requiring a more significant dose of norepinephrine. Urine output continues to be zero, of course, in this dialysis patient. His eyes are intermittently open to command and without conjunctival abnormalities. There is no conjunctival hemorrhages consistent with endocarditis. He has no herpetic oral lesions which are obvious. He has a right chest dialysis line and a left neck central line. Both of these appear benign but will likely need to be removed. His lungs are notable for crackles bilaterally, as before, more on the right than the left. Cardiac tones regular rate and rhythm without significant murmurs. Abdomen is notable for the presence of the PEG tube in the left upper quadrant. He does not have a Rouse catheter. Penis and scrotum appear normal. Lower extremities without cellulitis or significant skin breakdown. He has no peripheral stigmata of endocarditis. LABORATORIES: Include white count basically stationary at 13,400. It really has not changed in many days. Platelets have rebounded a bit to 46. Huge left shift present today, 25% bands. His creatinine is 2.29. His LFTs are normal except for an alk phos slightly elevated at 153. Procalcitonin remains very elevated at 31, down from a peak of 90. Micro studies are back and are of critical importance. We now have yeast growing in multiple bottles. One of these was drawn as a peripheral draw. Regrettably, all of the positive yeast blood cultures are labeled as peripheral draws rather than draws through the dialysis catheter or the central line. Repeat fungal blood cultures are pending from today, but will almost certainly be positive once again. The stool for C. diff is back and negative. In terms of other cultures, we have coag-negative staph in blood cultures present on admission, which likely represented contaminants, as these were different species. IMAGING: Includes a brain CT done yesterday which shows no acute intercranial features. CT of the entire body was done yesterday and that shows crazy paving pattern in the lungs. The differential diagnosis of the usual list including ARDS, acute interstitial pneumonia, bacterial pneumonia, pulmonary edema, pneumocystis, BOOP and eosinophilic pneumonia. Hilar adenopathy is also noted. IMPRESSION: This has become an incredibly complicated case. The patient is a dialysis dependent gentleman who had suffered anoxic brain injury and cerebrovascular accident in the past. He was admitted with apparent septic shock and has remained ventilator dependent and vasopressor dependent. Likely causes of his sepsis included strep pneumo as we had a positive urine antigen, though negative blood cultures in the beginning, as well as the possibility of line infection or intra-abdominal process. Over the past couple of days, we have been re-doubling our efforts to try and establish the cause of the patient's continued septic shock despite broad-spectrum antibiotics. Yesterday's CT scanning revealed the crazy paving in the lungs which has an extensive differential diagnosis including the possibility of an infection. More importantly, we now have a positive fungal blood cultures. Whether or not fungemia was a precipitating cause of this admission for septic shock or is a feature of just prolonged intensive care unit care and broad-spectrum antibiotics is unclear, but no yeast were isolated from his admission blood cultures. RECOMMENDATIONS: 1. In view of his continued highly elevated procalcitonin, we must remain concerned about the possibility of bacterial infection in addition to our recently confirmed fungal infection. For this reason, will continue with the meropenem and vancomycin which will both be renally adjusted. 2. Will continue to closely follow procalcitonin. 3. For the fungemia, we will need serial blood cultures and, if possible, to remove all lines including the dialysis line as well as the left neck central line. 4. An echocardiogram has already been done within the past 24 hours and shows no obvious valvular vegetations consistent with fungal endocarditis. 5. It will be difficult, but as soon as feasible, we should get a dilated eye exam to look for fungal endophthalmitis. 6. For treatment of fungus, will use micafungin 150 once a day. 7. This case was discussed extensively with the ICU team.
[2016-11-11] MEDS: Lactulose 20 Gm/30 mL 30 mL Syrup PEG SCH (09:45)
[2016-11-11] MEDS: FLUoxetine 4 mg/mL 118 mL Solution PEG SCH (09:46)
--- NOTE | 2016-11-11 11:01 | PCM.PNMED ---
Subjective Date of Service Nov 11, 2016 Subjective Patient is a 55yom with MHx significant for cerebral aneurysm, hx methamphetamine, HI, hemorrhagic stroke and anoxic brain injury(2008) with recurrent aspiration pneumonia admitted for decrease mentation and SOB, subsequently found be in septic shock and acute hypoxic hypercapnic respiratory failure, thus requiring CCU transfer, pressor support, and intubation/ ventilation management. No significant changes overnight. Patient was aroused around 3am for regular hygienic care and desats with increasing movements. It was documented that patient actively resistant to oral care. He responds to commands. Night team increased FIO2 70%. All other vent setting remains unchanged TV 600, RR 16, PEEP 8. Blood culture today grew yeast and he was placed on micafungin. [place] CT scan, does has not revealed any sinusitis nor any intraabdominal sources of infection. Lungs are consistent with ARDS. Bronchoscope does not look inflamed nor are there any bleeding. Blood pressure remains stable, though needs levophed support at 0.12mcg/kg/min. Echo yesrteday completely unremakable, no vegitations seen, no LV dysfunction. He has thrombocytopenia plt 37 yesterday. There are no reports of blood ETtube suction, no madhav blood in FMS. Nephrology has dialyzes him yesterday and removed 1L fluids. Patient continues to receive protonixs GI prophylaxis. Tube feed transiently stopped for the past 2 days due to hypoactive bowel sounds and diaphragm spasm given the risk of further aspiration and anticipation of bronchoscopes today. Nursing has report fecal matter moving through FMS. Neurological improvements. Patient responds to commands yesterdays and continues to demonstrate this today. He can squeeze hand, albeit very weak. On rounding, given the increasing medical complexity of this patient, in totality, Nephrology has suggested that we may be approaching medical futility. Exam Vital Signs Vital Sign - Last Date Time Temp Pulse Resp B/P Pulse Ox O2 Delivery O2 Flow Rate FiO2 11/11/16 04:42 96 109/57 97 90 11/11/16 04:00 37.6 16 Mechanical Ventilator 11/05/16 10:57 15.00 Intake and Output 11/10/16 11/10/16 11/11/16 Cumulative From/Thru 15:00 23:00 07:00 11/05/16 06:36 - 11/11/16 06:33 Intake Total 731 ml 663 ml 06415 ml Output Total 1000 ml 300 ml 120 ml 4275 ml Balance -1000 ml 431 ml 543 ml 75756 ml Intake Oral 60 ml IV Total 431 ml 663 ml 95434 ml Tube Feeding 2636 ml Tube Irrigant 300 ml 780 ml Output Urine Total 0 ml 0 ml 400 ml Stool Total 300 ml 120 ml 870 ml Gastric Drainage Total 5 ml Ultrafiltrate 1000 ml 3000 ml # Voids 0 # Bowel Movements 5 Exam Gen: Lying at 30degree head tilt, intubated. HEENT: PERRLA, Anicteric sclerae, eyes tracking Neck: supple, no JVD Cardio: sinus rhythm, no murmur rub or gallop appreciated, Right anterior chest central line and left central line in place Pulm: b/l air sound, no wheezes, increasing coarse breathing Abd: Soft, nontender, gastric tube in placed, non erythematous. Hypoactive bowel sound, mild distension, positive fluid wave Extremities: No clubbing, cyanosis, or lymphadenopathy appreciated. Anasarca Skin: Normal temperature, turgor, and texture; no rash, ulcers, or subcutaneous nodules appreciated. Neuro: eyes open on command, squeezes hands. Lab and Diagnostics Result Diagram: 11/11/1641411/11/16414 Microbiology Urine shows strep pneumo antigen, positive blood cultures 2 for gram-positive cocci activity is pending X-Rays, CTs and MRIs . X-RAY CHEST ONE VIEW, PORTABLE IMPRESSION: Diffuse groundglass and patchy opacities likely representing pulmonary edema although please correlate clinically to exclude superimposed infection. Overall , improved lung volumes with no new consolidation since yesterday. Dictated by: Leonardo Villalba M.D. on 11/05/2016 at 7:56 X-RAY CHEST ONE VIEW, PORTABLE IMPRESSION: Diffuse groundglass and patchy opacities likely representing pulmonary edema although please correlate clinically to exclude superimposed infection. Overall , improved lung volumes with no new consolidation since yesterday. Dictated by: Leonardo Villalba M.D. on 11/05/2016 at 7:56 US ABDOMEN, LIMITED IMPRESSION: 1. Increased periportal echogenicity in the liver is nonspecific but may reflect acute hepatitis. Recommend correlation with laboratory values. 2. Round echogenic non-shadowing structure in the gallbladder is incompletely evaluated. The findings may represent a non-shadowing stone or polyp. No evidence of cholecystitis. Dictated by: Yoshi Kendall M.D. on 11/05/2016 at 17:49 X-RAY CHEST ONE VIEW, PORTABLE IMPRESSION: Stable appearing bilateral moderately severe to severe pneumonia, right greater than left. Lines and tubes in normal position. Dictated by: Jeff Duggan M.D. on 11/06/2016 at 11:07 X-RAY CHEST ONE VIEW, PORTABLE IMPRESSION: No change is seen in the bilateral extensive infiltrates in the lungs or in the position of the tubes and catheters as described. Dictated by: Danny Hauser M.D. on 11/07/2016 at 12:42 X-RAY CHEST ONE VIEW, PORTABLE IMPRESSION: Pulmonary edema and/or diffuse bilateral pneumonia not significantly changed from prior examination and there is a small left pleural effusion. ARDS cannot be excluded. Dictated by: Derik RODRIGUEZ Interpreted: Andra Lopez MD on 11/09/2016 at 13:04 US ABDOMEN, LIMITED IMPRESSION: 1. "Starry night" appearance of the liver redemonstrated which could be associated with acute hepatic inflammatory process such as hepatitis. Correlate clinically. 2. Multiple gallbladder polyps and non-shadowing echogenic focus present as well as thickening of the gallbladder wall. Although gallbladder wall thickening could be related to hepatic disease, developing cholecystitis cannot be excluded. Correlate clinically. 3. Trace perihepatic fluid. 4. Small right pleural effusion. Dictated by: Derik RODRIGUEZ Interpreted: Lorraine Pickens MD on 11/09/2016 at 12:05 Cardiac Echo Impressions . Echocardiogram Report Interpretation Summary There is normal left ventricular wall thickness. There are no focal wall motion abnormalities. The ejection fraction is estimated to be 50-55%. There is no significant valvular heart disease. Electronically signed by: Nelson Marquez Additional Diagnostics pH ____7.406 - 7.350 7.450 pCO2 ___46.5__ -mmHg 35.0 45.0 pO2 ___57.7__ -mmHg 69.0 116 HCO3- ___28.6__ -mmol/L 22.0 26.0 Assessment & Plan Patient is a 55yom with MHx significant for cerebral aneurysm, hx methamphetamine, HI, hemorrhagic stroke and anoxic brain injury(2008) with recurrent aspiration pneumonia admitted for decrease mentation and SOB, subsequently found be in septic shock with acute hypoxic hypercapnic respiratory failure, thus transferred to CCU for pressor support and ventilation management. Mentation improvement seen. Respiratory ARDS in the setting of fungal infections and ESRD on dialysis however, remains quite technically challenging. Intensivits Dr. Dias has suggested that he likely had an underlining sepsis infection, albeit lines, strep pneumo, and/or MRSA pneumonia that predispose patient to current fungemia. Ideally all access line will need to be removed and new femoral line placed. However, this will be problematic given thrombocytopenia. Dr. Dias suggest we leave the line in placed now till platelets bounce back. Problem list 1. Hypoxic hypercapnic respiratory failure 2. Sepsis shock 3. ARDS 4. Pneumonia 5. ESRD 6. Hepatitis Respiratory Hypoxic hypercapnic respiratory failure - Possible pneumonia and likely contaminate by pulmonary edema - Cont oxygenation, vent support while resolving underline pathology...IE malnutrition, possible pneumonia, heart failure - Increase PEEP pressure to recruit more alveoli - PEEP 10, I time 0.8 sec, RR 18, TV 600, FIO2 65 ARDS - He meets the [place] [address]-chest showing a "diffuse crazy paving pattern" - 2nd to pneumonia - Cont PEEP support - Daily VBG if unable to obtain abg. Infectious Sepsis Shock - Likely from pneumonia, possible line infection - MAP mid-60's with levophed support. Heart Echo with LV function preserved - Not recommend trending lactic acid in the setting of ESRD Pneumonia - Possible strep pneumo, coag neg staph, or MRSA. He is now at risk for fungal infection as well - Strep pneumo antigen may be false positive, will need to check for any recent strep vaccination. Still possible to have aspiration pna - Cont abx vancomycin and meropenem as direct by Infectious disease Fungemia - Micafungin daily - Monitor liver function daily - Appreciate ID continue following and managing this Cardiovascular - Troponin flat - Initial echocardiogram unremarkable - May have sepsis induced cardiomyopathy - Will obtain echocardiogram as above if MAP unimproved tomorrow Hematologic Thrombocytopenia - Possible HIT, DIC, sepsis induced thrombocytopenia - holding heparin at this time - Monitor bleeding Metabolic ESRD - Will try to dialyze today as BP is maintaining - Line access will be challenging. - Nephrology has been consulted and are actively following. Alimentary Gastrointestinal dysmotility - hypoactive bowel tone, possible 2nd to sepsis - Prophylaxis protonix, change from famodidine as it can depress platelets. - CT scan abd, will restart trickle feed and progress to goal if CT-abd/pelvis unremarkable Mild transaminitis - He has hx of hepatitis. No cirrhosis on Echo-abd. Patient however, receiving daily lactulose outpatient - Ammonia continues to be mildly elevated - Ultrasound parapneumonic for hepatitis - Infectious disease will continue to follow. Neurologic Possible Seizure - Has hx of anoxic brain injury - Keppra 500mg daily Total time 140min GI Prophylaxis: Proton Pump Inhibitor VTE Prophylaxis: Sub-Q Heparin (Unfractionated) VTE Mechanical Devices: Intermittant Pneumatic CD Resuscitation Status: Limited Interventions (no chest compressions, cardioversion.) Limited Interventions: [facility], BiPAP, Medications and IV Fluid (no ) Attending Statement The patient was seen and examined together with Dr. Taylor on 11/11/2016 and I agree with the history, exam and plan as outlined in the note above. Pulmonary Critical Care Follow-Up Note Hector Taylor DO Nov 11, 2016 07:35 Ivan Dias MD December 10, 2016 14:45
[2016-11-11] MEDS: fentaNYL 2,500 mCg/250 mL IV Premix IV SCH (12:15)
--- NOTE | 2016-11-11 13:19 | NUR ---
NUTRITION FOLLOW-UP: ASSESS: 55 YO male admitted with decreased mentation and SOB, subsequently found be in septic shock and respiratory failure, requiring pressor support, and intubation/ventilation management. Pt resides at [facility] and is on long-term enteral feeding via PEG tube. Patient is NPO at baseline related to hemorrhagic stroke and anoxic brain injury (2008). Patient with end-stage renal disease, dialysis dependent. TF was on hold due to pt having hiccups and reduced bowel tones. This has improved and pt and been producing stool so TF are to be re-started today. RN is aware of recommendations. Palliative care is having a family meeting w/family today. Wt has increased by 16kg since admit. PMHX: ESRD, T1DM, CVA, TBI, Seizures, DC, HTN, HLD. LABS: Bun 39, Circ[employer] 2.29, Glu 128, Ca 7.5, phos 2.3, alk phos 153, alb 2.5 MEDS: Lactulose, Albumin, Insulin, pressors DIET: NPO. ENTERAL FEEDING: Currently on hold, re-starting today. GI: FMS 450ml output 11/10 SKIN: Stg 2 PU on sacrum per WC HOME ENTERAL FEEDING: Nepro at 50 ml/hr to provide 1980 kcal/day and 89 g pro (100% estimated needs). WT: 74.7 kg, BMI 25.4 kg/m2, IBW: 72.7kg, Adj BW: 69kg, UBW ~65-68 kg, admit wt 58kg DIET: NPO ESTIMATED NEEDS: Dialysis/vent Calories: 4063-1639 kcal/day (25-30 kcal/kg BW) Protein: 70-120 g/day (1.2-2.0 g/kg IBW) Fluids: 1500-1850ml/day (20-25 cc/kg) or per circular clerk NUTRITION DIAGNOSIS: 1) Chew/swallow difficulties related to chronic dysphagia as evidence by need for retirement enteral feeding via PEG tube, and ongoing NPO status - PERSISTS. 2) Increased nutrient needs related to increased demand for nutrients as evidence by pt on HD, high risk for wounds - PERSISTS. 3) Inadequate oral intake related to decreased ability to consume sufficient energy as evidenced by current NPO status - IMPROVED WITH ENTERAL FEEDING. NUTRITION INTERVENTION: 1) Recommend re-start TF of Nepro at 15ml/hr. If tolerated, advance by 10ml q 6 hrs until reach goal rate of 55 ml/hr, providing 2178 kcal and 98 g protein (100% kcal and pro needs). If on IVF, flush 40ml q 4 hrs. If IVF off, fluid flush 100ml q 4 hr or per nephrology recommendations. MONITOR/EVALUATE: NPO/vent status, enteral feeding tolerance/re-start, wt, GI, labs, POC, nutrition status. Follow per high nutrition risk guidelines.
[2016-11-11] MEDS: Meropenem Inj 1,000 MG in 0.9% Sodium Chloride 100 ML IV SCH (13:38)
--- NOTE | 2016-11-11 14:52 | NUR ---
Social Work Note: Continued Discharge Planning Data& Assessment: EMR reviewed. MD and specialists continue to follow for medical prognosis. SW spoke with pt sister Shonna to check in and assess for any unmet needs. Pt sister is not optimistic about pt surviving this hospitalization. Pt sister denies any needs at this time. SW to continue to follow for medical prognosis and needs. Plan: Pt prognosis is guarded at this time. Pt sister denies any needs at this time. SW to continue to follow for any needs. MIGUEL Lema
--- NOTE | 2016-11-11 14:53 | NUR ---
ANUJ Verbal consent for sister who is not local. MIGUEL Lema
--- NOTE | 2016-11-11 15:13 | PCM.PNPALL ---
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 At baseline patient is bedbound and dialysis dependent. He is critically ill with presumed septic shock, ARDS, encephalopathy, and hypotension. His condition is overall more serious; though he is mildly more responsive, he is requiring higher levels of pressor and oxygen support. His hypotension is severe enough to preclude the use of hemodialysis. Today, his family (sister Shonna Miller who is his POA and his mother and step- father) are here to meet with the medical teams about his dire prognosis and the inability of the team to continue to treat his renal failure. They understand that without this treatment he will in the next few days. They are notifying other family who are making plans to travel here [facility]. They have asked that he be "allowed to naturally"; for them, this means that all other interventions be continued until he dies from renal failure. They are against withdrawal of care as they do not want to feel as if they have "pulled the plug" but they understand the decision by the nephrology team to withhold dialysis based on its potential to hasten his . Summary of palliative recommendations: -Symptom management (Pain/other) --fentanyl drip continues at 75 mcg/hr. d/w RN that this should be titrated to comfort; she plans to increase it today. --RN will notify us if there are more needs to manage comfort -DPOA/Advanced Directives/POLST --DNR/ DNI --Allow natural with current level of intervention, no HD, continued vent/abtx etc. -Family/emotional support/Spiritual support --FAmily understands that the patient will without dialysis, which he now cannot tolerate. Dr. Abrams has given them his number for other family members needing explanation. --Offered E Tailer--let them know that she will be checking in with them Patient Goals: 1. Patient wants to be told the truth about his/her illness, even if it is unpleasant. 2. Patient would like to be told prognosis when it can be predicted, to better guide treatment decisions. 3. Patient has always chosen quantity of life with diminishing quality, and his family would like him to have every "chance". They now understand that he is not responding to medical therapy and further dialysis would potentially hasten his . Additional Medical Diagnoses with primary management by Hospitalist team include : Problems: End of Life Preferences if treatments not effective and pt is dying, family agrees that they do not want him to suffer. They want him to be comfortable. Goals of Care support and continue whatever therapies we can. Disposition not addressed Resuscitation Status Resuscitation Status: DNR/DNI:Do Not Resuscitate/Intubate (no chest compressions, cardioversion.) Limited Interventions: Intubation w Mech Vent (do not extubate now, but no reintubation ), Medications and IV Fluid (no ) POLST Updates/Changes Previous POLST?: Yes Antibiotics: Use ABX if can Prolong Life Artificially Admin Nutrition: Trial Period Tube Feeding POLST Discussed with: Patient POLST Review Outcome: No Change (POLST not readdressed but code status changed. Pt unlikely to leave hospital ) . Advanced Care Planning Address: Comfort care Pain: Mild Symptom management: Delirium Palliative Subjective Palliative Care Daily Responde: Patient, Family/Proxy, Team, Other (Drs. Guy, Larissa and Aliza; Also [facility]) Brief History This is a 56-year-old male with a history of CVA, anoxic brain injury, depression, end-stage renal disease on HD 3 times per week, diabetes mellitus type II, hypertension and tube feeding is now critically ill with presumed septic shock, ARDS, encephalopathy, and hypotension. Patient/Family Concerns FAmily is very concerned about his being given "every chance" and not "pulling the plug". His mother is also emphatic that she does not want him to suffer. Subjective on Vent, not able to get info from pt. Palliative Performance Scale PPS Patient Status: Baseline PPS Ambulation: Reduced PPS Activity: Unable to do most activity PPS Self-Care: Occasional assistance necessary, Considerable assistance required PPS Intake: Normal or reduced PPS Conscious Level: Full or confusion Performace Scale: 60% ADLs ADL Patient Status: Current ADL Ambulation: Totally Bed ADL Dressing: Total care ADL Feeding: Total care ADL Hygene/bathing: Total care ADL Transfers: Total care Non-Responsive Patient Symptom Pain (current): Present, Not Requiring Intervention Pain (minimum): Present, Not Requiring Intervention Pain (maximum): Present, Requires Intervention Current Treatments Ventilator: Yes BiPAP/CPAP: No Oxygen: Yes IV Fluids: Discontinued (use will be limited with discontinuation of dialysis) Tube Feedings: Yes Antibiotics: Yes Restraints: Yes Telemetry: Yes Critical Care Unit: Yes Objective Findings Exam Vital Sign - Last Date Time Temp Pulse Resp B/P Pulse Ox O2 Delivery O2 Flow Rate FiO2 11/11/16 11:32 105 109/57 95 70 11/11/16 04:00 37.6 16 Mechanical Ventilator 11/05/16 10:57 15.00 Intake and Output 11/10/16 11/10/16 11/11/16 Cumulative From/Thru 15:00 23:00 07:00 11/05/16 06:36 - 11/11/16 06:33 Intake Total 731 ml 663 ml 68521 ml Output Total 1000 ml 300 ml 120 ml 4275 ml Balance -1000 ml 431 ml 543 ml 62066 ml Intake Oral 60 ml IV Total 431 ml 663 ml 35369 ml Tube Feeding 2636 ml Tube Irrigant 300 ml 780 ml Output Urine Total 0 ml 0 ml 400 ml Stool Total 300 ml 120 ml 870 ml Gastric Drainage Total 5 ml Ultrafiltrate 1000 ml 3000 ml # Voids 0 # Bowel Movements 5 General: Unresponsive HEENT: Atraumatic Heart: Exam Unremarkable Lungs: Normal Air Movement Abdomen: Bowel Tones x4 (reported diminished.) Extremities: Edema (3+) Lab/Diagnostics Lab and Imaging results reviewed in detail in EMR. Patient/Family Conference Members Present Family Members Present Mother and step-father, sister/POA, also eldest sister via [facility] Medical Team Members Present? Claudia Fields Baldwin, Amada SLP TEACHER [facility], Joel Roca WOOD CHOPPER / [facility] Discussion/Goals of Care Discussion FAMILY UNDERSTANDING OF DISEASE: [Dr. Guy was able to explain the very difficult situation that the patient faces where he is so critically ill that the dialysis, which has been saving his life for 2 years, is now potentially harmful to him as his blood pressure is so low he cannot tolerate it. The family had difficulty grasping the decision by Dr. Guy to not offer further HD due to the risks it has for him. DISEASE PROGRESSION/EVIDENCE OF DECLINE: [See earlier notes. QOL declining over the last 8 years.] SYMPTOM BURDEN: [now critically ill.] GOALS: [try to maintain him on therapies that hold benefit, understanding that without HD, his survival is limited to days.] HOPES/WORRIES: [FAmily does not want the burden of thinking that they "pulled the plug". Time spent Total time 90 minutes; >50% face to face with patient and/or family, providing counselling regarding plans and recommendations, and in care coordination with his/her medical teams. of this 50 minutes was spent counseling for advanced care planning with the patient/the patients family/the surrogate decision maker. Joel Roca [facility] Nov 11, 2016 15:13
--- NOTE | 2016-11-11 15:54 | PCM.PNNEPH ---
Subjective Date of Service Nov 11, 2016 Subjective Patient's condition continues to deteriorate. There is no evidence of yeast in both his blood and urine. His blood pressure remains quite tenuous and he remains ventilatory dependent on high flow oxygen. He participated in a family conference today and the patient's bleak prognosis was explained in depth to the family members including both parents and a sister. I expressed my concern about further dialysis and his ongoing hemodynamic instability. Exam Vital Signs Vital Sign - Last Date Time Temp Pulse Resp B/P Pulse Ox O2 Delivery O2 Flow Rate FiO2 11/11/16 15:38 115 109/49 98 65 11/11/16 04:00 37.6 16 Mechanical Ventilator 11/05/16 10:57 15.00 Intake and Output 11/10/16 11/10/16 11/11/16 Cumulative From/Thru 15:00 23:00 07:00 11/05/16 06:36 - 11/11/16 06:33 Intake Total 731 ml 663 ml 99425 ml Output Total 1000 ml 300 ml 120 ml 4275 ml Balance -1000 ml 431 ml 543 ml 61879 ml Intake Oral 60 ml IV Total 431 ml 663 ml 12003 ml Tube Feeding 2636 ml Tube Irrigant 300 ml 780 ml Output Urine Total 0 ml 0 ml 400 ml Stool Total 300 ml 120 ml 870 ml Gastric Drainage Total 5 ml Ultrafiltrate 1000 ml 3000 ml # Voids 0 # Bowel Movements 5 Exam Patient remains ventilatory dependent. Lungs showed diffuse rhonchi and rales in all lung drummond. Heart was soft systolic murmur. Abdomen is quiet and semi- formed. Extremities show generalized edema. Lab and Diagnostics Result Diagram: 11/11/16 0415 11/11/16 0415 Microbiology Urine shows strep pneumo antigen, positive blood cultures 2 for gram-positive cocci activity is pending X-Rays, CTs and MRIs . X-RAY CHEST ONE VIEW, PORTABLE IMPRESSION: Diffuse groundglass and patchy opacities likely representing pulmonary edema although please correlate clinically to exclude superimposed infection. Overall , improved lung volumes with no new consolidation since yesterday. Dictated by: Leonardo Villalba M.D. on 11/05/2016 at 7:56 X-RAY CHEST ONE VIEW, PORTABLE IMPRESSION: Diffuse groundglass and patchy opacities likely representing pulmonary edema although please correlate clinically to exclude superimposed infection. Overall , improved lung volumes with no new consolidation since yesterday. Dictated by: Leonardo Villalba M.D. on 11/05/2016 at 7:56 US ABDOMEN, LIMITED IMPRESSION: 1. Increased periportal echogenicity in the liver is nonspecific but may reflect acute hepatitis. Recommend correlation with laboratory values. 2. Round echogenic non-shadowing structure in the gallbladder is incompletely evaluated. The findings may represent a non-shadowing stone or polyp. No evidence of cholecystitis. Dictated by: Yoshi Kendall M.D. on 11/05/2016 at 17:49 X-RAY CHEST ONE VIEW, PORTABLE IMPRESSION: Stable appearing bilateral moderately severe to severe pneumonia, right greater than left. Lines and tubes in normal position. Dictated by: Jeff Duggan M.D. on 11/06/2016 at 11:07 X-RAY CHEST ONE VIEW, PORTABLE IMPRESSION: No change is seen in the bilateral extensive infiltrates in the lungs or in the position of the tubes and catheters as described. Dictated by: Danny Hauser M.D. on 11/07/2016 at 12:42 X-RAY CHEST ONE VIEW, PORTABLE IMPRESSION: Pulmonary edema and/or diffuse bilateral pneumonia not significantly changed from prior examination and there is a small left pleural effusion. ARDS cannot be excluded. Dictated by: Derik RODRIGUEZ Interpreted: Andra Lopez MD on 11/09/2016 at 13:04 US ABDOMEN, LIMITED IMPRESSION: 1. "Starry night" appearance of the liver redemonstrated which could be associated with acute hepatic inflammatory process such as hepatitis. Correlate clinically. 2. Multiple gallbladder polyps and non-shadowing echogenic focus present as well as thickening of the gallbladder wall. Although gallbladder wall thickening could be related to hepatic disease, developing cholecystitis cannot be excluded. Correlate clinically. 3. Trace perihepatic fluid. 4. Small right pleural effusion. Dictated by: Derik RODRIGUEZ Interpreted: Lorraine Pickens MD on 11/09/2016 at 12:05 Cardiac Echo Impressions . Echocardiogram Report Interpretation Summary There is normal left ventricular wall thickness. There are no focal wall motion abnormalities. The ejection fraction is estimated to be 50-55%. There is no significant valvular heart disease. Electronically signed by: Nelson Bravo Additional Diagnostics pH ____7.406 - 7.350 7.450 pCO2 ___46.5__ -mmHg 35.0 45.0 pO2 ___57.7__ -mmHg 69.0 116 HCO3- ___28.6__ -mmol/L 22.0 26.0 Plan Impression Impression #1 end-stage renal disease dialysis dependent number to overwhelming almost a bacterial and fungal sepsis or septic shock Recommendations at this point I do not feel the patient is stable enough for dialysis. This was explained in depth the family. Cesar Guy DO Nov 11, 2016 15:54
--- NOTE | 2016-11-11 17:40 | ABG ---
DateTimeAnalyzed 17:34:00 -_ pH ____7.092 - pCO2 ___39.6__ -mmHg pO2 ___46.6__ -mmHg HCO3- ___11.5__ -mmol/L ABE __-17.0__ -mmol/L tHb ____8.7__ -g/dL O2Hb ___69.1__ -% COHb ____1.1__ -% MetHb ____1.2__ -% sO2 ___70.7__ -% FIO2 ___65.0__ -% PEEP ___10.0__ -cmH2O Set_RR ___18.0__ -b/min Vt __600.0__ -L Drawn By NB - Date/Time Notified____ 17:38:00 -_ Oxygen Device 1 VENTILATOR - Notified By nb - Notified Whom Soraida Juan Jose, RN/ Dr. Taylor - Age 48 -years B 749 -mmHg tO2 ____8.5__ -Vol% Iván test N/A -
[2016-11-11] MEDS: Propofol Inj 1,000,000 MCG in IV Premix 1 EACH IV SCH (18:02)
[2016-11-11] MEDS ORDERED: Albumin 25% 25 GM in IV Premix 1 EACH IV ONE (18:05)
[2016-11-11] MEDS ORDERED: Propofol 10,000 mCg/mL 100 mL Inj ONE (18:10)
[2016-11-11] MEDS: Albumin 25% 25 GM in IV Premix 1 EACH IV ONE ×2 (18:35→20:23)
--- NOTE | 2016-11-11 18:44 | DRSVH ---
PROCEDURE: X-RAY CHEST ONE VIEW, PORTABLE ([id number]) INDICATIONS: WORSENING SATURATIONS/ARDS TECHNIQUE: One view of the chest was acquired. COMPARISON: [facility], CR, XR CHEST 1VW (PORTABLE), 11/11/2016, 5:14. FINDINGS: Surgical changes and devices: Endotracheal tube, dialysis catheter and left-sided venous catheter unc hanged. Lungs and pleura: There is an unchanged appearance of diffuse bilateral pulmonary opacities. Mediastinum: Mediastinal contours appear normal. Heart size is normal. Bones and chest wall: No suspicious bony lesions. Overlying soft tissues appear unremarkable. IMPRESSION: Unchanged bilateral pulmonary opacities. Findings remain consistent with diffuse edema, p neumonia and/or ARDS. Dictated by: Trudi Man M.D. on 11/11/2016 at 18:41 Approved by: Trudi Man M.D. on 11/11/2016 at 18:43
--- NOTE | 2016-11-11 19:00 | NUR ---
Hemodynamics/Bronch.. Pt was seen by Dr Dias this am and had a bronch performed at the bedside with Endoscopy staff at 0900. Pt received Fentanyl 50 mcgs and zoey procedure well. B/P remained stable until 1130, when increase titration of Levophed was required to keep MAP >60. Pt continued to decline over the afternoon with increased work of breathing and asynchronous type resp. Breath sounds extremely coarse, with crackles. Noted to be more cyanotic with dusky nail beds and cool extremeties. Pt noted to have a Tmax of 38.5. Dr Dias and residents came to the bedside and Stat CXR done. Family conference was held earlier in day and decision was made for DNR DNI status and no further dialysis. Family states a sister is flying in from [place] tomorrow and their hope we be he would last till then. They were notified this evening of his worsening status and will be here to see the pt within the hour.
[2016-11-11] MEDS: Cisatracurium Inj 200,000 MCG in 0.9% Sodium Chloride-Pha MIX 100 ML IV SCH (20:15)
[2016-11-11] MEDS ORDERED: Acetaminophen IV 1,000 MG in IV Premix 1 EACH IV PRN (21:00)
[2016-11-11] MEDS: levETIRAcetam 500 mg/100 mL NS IV SCH ×2 (21:18)
--- NOTE | 2016-11-11 23:25 | ENDO ---
[address] [address] ENDOSCOPY PROCEDURE PATIENT: JOANNE FIGUEROA : 1960 MR#: [id number] ADMIT: 11/05/2016 JOB ID: [id number] DATE OF SERVICE: 11/11/2016 PROCEDURE: Flexible fiberoptic bronchoscopy. SURGEON: Ivan Dias MD ANESTHESIA: Deep sedation. Patient already on deep sedation and mechanical ventilation for ARDS. PREOPERATIVE DIAGNOSIS: Acute respiratory distress syndrome (ARDS). POSTOPERATIVE DIAGNOSIS: Acute respiratory distress syndrome (ARDS). FINDINGS: Piriform secretions in both lower lobe bronchi, maybe a bit more so on the right. Slight yellow tinge, not particularly thick. Airway is patent. HISTORY OF PRESENT ILLNESS: The patient is a 56-year-old, male suffering from septic shock and ARDS secondary to same, hypoxemic hypercarbic respiratory failure, chronic renal failure, probable Streptococcus pneumoniae pneumonia and colonization of airways with MRSA. The patient has had sepsis for the past week. One would expect Strep pneumoniae pneumonia to be improving. Still having fevers. Chest x-ray continues to worsen and CT scan yesterday showed complete whiteout of both lungs consistent with ARDS-type pattern. Bronchoscopy is being undertaken in order to evaluate the airways and lavage low to try to define whether this is an infectious process or not. PROCEDURE IN DETAIL: The patient was premedicated with fentanyl IV push 50 mcg as he was opening his eyes and looking at interrogater. This resulted in better sedation and behavior control. Informed consent had previously been obtained from the patient's sister who is the DPOA. Respiratory Therapy was involved to monitor the mechanical ventilator. The Olympus bronchoscope was passed through the endotracheal tube. Endotracheal tube was identified about 2 cm above main vinayak. Main vinayak was sharp and distinct. No particular erythema. No edema. The right bronchial tree had normal mucosa. There was no erythema nor edema. Right upper lobe was normal as was the bronchus intermedius. There were some piriform just the slightest tinge of yellow secretions along the lateral aspect of the right lower lobe bronchus. These were easily removed. Right lower lobe was then lavaged after examining the superior segment, basilar segments and right middle lobe. All segments were clear with normal mucosa. Lavaged obtained some mucus plugs. Attention was then directed to the left. Left mainstem bronchus was normal and overlying mucosa was normal. There were fewer piriform secretions in the left lower lobe. These were easily removed. Underlying mucosa was normal as was the mucosa throughout the entire left bronchial tree. At termination of procedure, the tip of the endotracheal tube was reidentified about 2 cm above the main vinayak. The patient tolerated the procedure well. No evidence of hypoxemia, hypotension or arrhythmias. The patient was left on FiO2 of 100%, PEEP of 8, and his baseline ventilator settings. SPECIMENS OBTAINED: Washings were sent for Gram stain, C and S, AFB, and fungal smear and culture, pneumocystis studies, respiratory viral studies by PCR, CMV, H. simplex and H. zoster studies, Pneumocystis PCR as well as stain for Pneumocystis and stain for hemosiderin laden macrophages.
[2016-11-12] VITALS (15 sets, daily range): BP systolic 93–140; BP diastolic 43–66; PULSE 94–123; RESP 18; O2SAT 98–100
[2016-11-12] MEDS: Albuterol-Ipratropium 3 mL Inhalation Solution NEB SCH ×5 (00:49→16:23)
[2016-11-12] MEDS: Insulin Human REGular Inj 100 UNIT in 0.9% Sodium Chloride-Pha MIX 100 ML IV SCH ×2 (01:00→13:51)
[2016-11-12] MEDS: Norepineph 8,000 mCg/250 mL NS 8,000 MCG in IV Premix 1 EACH IV PRN ×4 (01:36→23:07)
[2016-11-12] MEDS ORDERED: MICAFUNGIN IV SCH ×2 (02:03)
[2016-11-12] MEDS ORDERED: SODIUM CHLORIDE 0.9% IV SCH ×2 (02:03)
[2016-11-12] MEDS: Chlorhexidine 0.12% 15 mL Oral Solution MT SCH ×6 (04:25→23:08)
--- NOTE | 2016-11-12 04:50 | ABG ---
DateTimeAnalyzed 04:47:00 -_ pH ____7.314 - pCO2 ___45.1__ -mmHg pO2 ___55.7__ -mmHg HCO3- ___22.2__ -mmol/L ABE ___-3.2__ -mmol/L tHb ____8.4__ -g/dL O2Hb ___87.9__ -% COHb ____1.5__ -% MetHb ____1.1__ -% sO2 ___90.2__ -% FIO2 __100.0__ -% PEEP ____7.0__ -cmH2O Set_RR ___18.0__ -b/min Vt __600.0__ -L Drawn By AF - Date/Time Notified____ 04:49:00 -_ Oxygen Device 1 VENTILATOR - Notified By AF - Age 48 -years B 750 -mmHg tO2 ___10.4__ -Vol% Iván test N/A -
[2016-11-12 04:54] LABS: BASOPHILS % (AUTO) 0.3 % (0-3); EOSINOPHILS % (AUTO) 0.1 % (0-5); MONOCYTES % (AUTO) 5.8 % (4-12); Mean Corpuscular Hemoglobin 34.2 pg (27.0-35.0); Mean Corpuscular Volume 109.1 fL (81-100); NEUTROPHILS % (AUTO) 85.1 % (40-74); Platelet Count 79 bil/L (150-400)
[2016-11-12] MEDS: fentaNYL 2,500 mCg/250 mL IV Premix IV SCH (05:28)
--- NOTE | 2016-11-12 06:00 | NUR ---
P) Respiratory/cardiac/neuro Pt. was non responsive neuro abad, did not open eyes or follow any commands or respond to pain, did have asynchronous breathing, nimbex started, BIS generally in the 30's, required more and more Levophed to keep MAP >60, when Levophed was maxed I discussed with his sister Shonna, his POA whether she wanted us to keep adding more pressors, she decided to continue the levophed but not add any more. blood pressures slowly improves and was able to wean the levophed down. Currently at 0.35mcg/kg/min. Lungs with coarse breath sounds and scattered rales throughout. Continues febrile, T-max 39.6c orally. I) Meds per 's orders, continue close monitoring, floating heels and turning q2h. E) Resting quietly, restraints removed after Nimbex started.
[2016-11-12] MEDS: Pantoprazole 4 mg/mL 10 mL Inj IVPUSH SCH (06:13)
[2016-11-12] MEDS: Nystatin 100,000 Unit/Gm 15 Gm Powder TOPICAL SCH ×2 (07:31→20:18)
--- NOTE | 2016-11-12 07:36 | PCM.PNMED ---
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 Overnight: Blood cultures positive for fungus. Micafungin started overnight. Reported to be resting quietly throughout shift opening eyes occasionally with slight response to stimulation Today: Does not open eyes to voice or gentle physical stimulation. Intubated and sedated Exam Vital Signs Vital Sign - Last Date Time Temp Pulse Resp B/P Pulse Ox O2 Delivery O2 Flow Rate FiO2 11/12/16 04:53 102 93/43 100 100 11/12/16 04:00 39.0 18 Mechanical Ventilator Intake and Output 11/11/16 11/11/16 11/12/16 Cumulative From/Thru 15:00 23:00 07:00 11/05/16 06:36 - 11/12/16 06:48 Intake Total 626 ml 1906 ml 68783 ml Output Total 0 ml 0 ml 4275 ml Balance 626 ml 1906 ml 41996 ml Intake Oral 60 ml IV Total 626 ml 1906 ml 69804 ml Tube Feeding 2636 ml Tube Irrigant 780 ml Output Urine Total 0 ml 0 ml 400 ml Stool Total 0 ml 870 ml Gastric Drainage Total 5 ml Ultrafiltrate 3000 ml # Voids 0 # Bowel Movements 5 Exam General: Patient intubated and sedated. No apparent distress. Does not open eyes to voice. Does not squeeze hand when commanded. HEENT: Normocephalic, atraumatic. ET tube in place. Neck: No jugular venous distension. Cardiovascular: Tachycardic rate with regular rhythm, no murmurs appreciated Pulmonary: Coarse bilaterally. Expiratory crackles. Shallow rapid breathing. Abdomen: Soft, nondistended. PEG tube in place. No rigidity. Extremities: No clubbing, cyanosis, edema, or lymphadenopathy appreciated. Skin: Normal temperature, turgor, and texture Neurological: Intubated and sedated Vent settings: Tidal volume 600, PEEP 8, FiO2 0.65, RR 16 ABGs: 7.14, PCO2 41.3, PO2 78.6, HCO3 25.9 IV Lines/shunts/tubes left IJ, right brachiocephalic dialysis shunt, PEG tube left upper quadrant, ET tube IV medications: Fentanyl 75, levothyroid 0.13 Ins and outs last 24 hours: In 1289, out 120, total 1169 IVs and Medications Medications Reviewed: Medications were reviewed in detail Lab and Diagnostics Result Diagram: 11/12/1643911/12/16439 Microbiology Urine shows strep pneumo antigen, positive blood cultures 2 for gram-positive cocci activity is pending X-Rays, CTs and MRIs . X-RAY CHEST ONE VIEW, PORTABLE IMPRESSION: Diffuse groundglass and patchy opacities likely representing pulmonary edema although please correlate clinically to exclude superimposed infection. Overall , improved lung volumes with no new consolidation since yesterday. Dictated by: Leonardo Villalba M.D. on 11/05/2016 at 7:56 X-RAY CHEST ONE VIEW, PORTABLE IMPRESSION: Diffuse groundglass and patchy opacities likely representing pulmonary edema although please correlate clinically to exclude superimposed infection. Overall , improved lung volumes with no new consolidation since yesterday. Dictated by: Leonardo Villalba M.D. on 11/05/2016 at 7:56 US ABDOMEN, LIMITED IMPRESSION: 1. Increased periportal echogenicity in the liver is nonspecific but may reflect acute hepatitis. Recommend correlation with laboratory values. 2. Round echogenic non-shadowing structure in the gallbladder is incompletely evaluated. The findings may represent a non-shadowing stone or polyp. No evidence of cholecystitis. Dictated by: Yoshi Kendall M.D. on 11/05/2016 at 17:49 X-RAY CHEST ONE VIEW, PORTABLE IMPRESSION: Stable appearing bilateral moderately severe to severe pneumonia, right greater than left. Lines and tubes in normal position. Dictated by: Jeff Duggan M.D. on 11/06/2016 at 11:07 X-RAY CHEST ONE VIEW, PORTABLE IMPRESSION: No change is seen in the bilateral extensive infiltrates in the lungs or in the position of the tubes and catheters as described. Dictated by: Danny Hauser M.D. on 11/07/2016 at 12:42 X-RAY CHEST ONE VIEW, PORTABLE IMPRESSION: Pulmonary edema and/or diffuse bilateral pneumonia not significantly changed from prior examination and there is a small left pleural effusion. ARDS cannot be excluded. Dictated by: Derik Spears [facility] Interpreted: Andra Lopez MD on 11/09/2016 at 13:04 US ABDOMEN, LIMITED IMPRESSION: 1. "Starry night" appearance of the liver redemonstrated which could be associated with acute hepatic inflammatory process such as hepatitis. Correlate clinically. 2. Multiple gallbladder polyps and non-shadowing echogenic focus present as well as thickening of the gallbladder wall. Although gallbladder wall thickening could be related to hepatic disease, developing cholecystitis cannot be excluded. Correlate clinically. 3. Trace perihepatic fluid. 4. Small right pleural effusion. Dictated by: Derik RODRIGUEZ Interpreted: Lorraine Pickens MD on 11/09/2016 at 12:05 Cardiac Echo Impressions . Echocardiogram Report Interpretation Summary There is normal left ventricular wall thickness. There are no focal wall motion abnormalities. The ejection fraction is estimated to be 50-55%. There is no significant valvular heart disease. Electronically signed by: Nelson Marquez [facility] pH ____7.406 - 7.350 7.450 pCO2 ___46.5__ -mmHg 35.0 45.0 pO2 ___57.7__ -mmHg 69.0 116 HCO3- ___28.6__ -mmol/L 22.0 26.0 Assessment & Plan Patient is a 55-year-old gentleman with history of CVA resulting in dysphagia and aphasia, history of CA leading to anoxic brain injury, depression, end- stage renal disease on HD, DM type II admitted to CCU for sepsis secondary to possible pneumonia. Hospital day 6, ventilator day 6. Platelet care meeting today with patient's family, patient moved DNR/DNI previous, discussion ongoing about future goals of care. 1. Severe Sepsis/septic shock requiring pressor . Present on admission. Ongoing - Septic criteria met with tachycardia, tachypnea, hyperthermia, lactic acidosis - Possible sources include pneumonia or GI, possibly hepatitis and/or cholecystitis based on recent ultrasound findings - Infectious Disease following. Recommendations appreciated - Currently on meropenem, vancomycin. Antibiotics per ID. - Sputum and PCR positive for MRSA - Pulmonology/ICU service following. Recommendations appreciated - Intubated and sedated - Discontinued IV NS secondary to #4 - IV drips norepi at 0.150, fentanyl 75 - Echo shows no wall motion abnormalities, EF 50-55% and no significant valvular heart disease - Blood cultures coag-negative Staphylococcus 2 - Positive strep pneumo urine antigen - Repeat CT scan showed no clear evidence of abscess or infectious source 2. Acute hypoxic respiratory failure with hypoxia. Present on admission. Ongoing - After admitted to CCU patient became increasingly dyspneic requiring intubation, most likely secondary to #3 - Patient remains intubated and ventilated - Vent settings are FiO2 65 %, PEEP 8, tidal volume 600, respiratory rate 16 - CXR continues to show pulmonary edema/pneumonia - Pulmonology/ICU service following. Recommendations appreciated. 3. Pneumonia. Present on admission. Ongoing - Blood cultures grew gram-positive cocci, positive urine antigen for strep pneumo - CXR showed glass patchy opacities possibly pneumonia/pulmonary edema - Procalcitonin remains elevated 44 today though trending down - We will continue to monitor - Continue Antibiotics as in #1 4. ARDS. Not present on admission. Ongoing -[place] criteria met -Continue to monitor 5. End stage renal disease. Present on admission. Ongoing - Stage IV with GFR of 16 - Patient receives HD 3 times per week - Nephrology consulted. Recommendations appreciated - Patient continues to receive HD while in hospital -Per nephrology continue to hemodialysis is no longer recommended at this time 6. Diabetes mellitus. Present on admission. Ongoing - A1c 6.6 - Patient on home insulin glargine and insulin aspart - Correctional scale insulin 7. Hypernatremia, acute. Present on admission. Resolved - Most likely secondary to volume depletion - Fluid replacement as in #1 - Continue monitor 8. Elevated troponin. Present on admission. Ongoing - Most likely secondary to #4 - EKG showed anterior ST segment abnormalities consistent with previous infarct - Continue to monitor 9. Hyperlipidemia, chronic. Present on admission. Ongoing - Continue home statin 10. Transaminitis. Present on admission. Improving - ALT AST remain labile - Ammonia level trending down, last measurement 55 - Continue lactulose - Ultrasound and abdominal ultrasound showed possible hepatitis, thickening of the gallbladder wall and trace perihepatic fluid with a small right pleural effusion. 11. Thrombocytopenia. Not present on admission. Ongoing - Platelets trending up 79 today - DC'd heparin -HIT unlikley but possible given timing of thrombocytopenia and patient has been getting heparin on dialysis and no history of HIT Disposition: Patient remains intubated and ventilated CCU status with blood pressure support and receiving hemodialysis treatments. Patient care family meeting occurred today. We will await further recommendations. GI Prophylaxis: Proton Pump Inhibitor VTE Prophylaxis: Sub-Q Heparin (Unfractionated) VTE Mechanical Devices: Intermittant Pneumatic CD Resuscitation Status: DNR/DNI:Do Not Resuscitate/Intubate (no chest compressions, cardioversion.) Limited Interventions: Intubation w Mech Vent (do not extubate now, but no reintubation ), Medications and IV Fluid (no ) Attending Statement The patient was seen and examined together with Dr. Rae on 11/11/2016 and I agree with the history, exam and plan as outlined in the note above. PRINCESS RAE DO Nov 12, 2016 07:01 Cristiano Sung MD Nov 12, 2016 17:22
[2016-11-12] MEDS: Vancomycin Dose per Pharmacist XX SCH (08:30)
[2016-11-12] MEDS: Lactulose 20 Gm/30 mL 30 mL Syrup PEG SCH (08:44)
[2016-11-12] MEDS: FLUoxetine 4 mg/mL 118 mL Solution PEG SCH (08:45)
[2016-11-12] MEDS: Propofol Inj 1,000,000 MCG in IV Premix 1 EACH IV SCH (08:45)
--- NOTE | 2016-11-12 09:53 | DRSVH ---
PROCEDURE: X-RAY CHEST ONE VIEW, PORTABLE ([id number]) INDICATIONS: intubated. ARDS TECHNIQUE: One view of the chest was acquired. COMPARISON: [facility], CR, XR CHEST 1VW (PORTABLE), 11/11/2016, 5:14. [facility] pital, CT, CT CHEST ABD PELVIS W CON, 11/10/2016, 16:54. [facility], CR, XR CHEST 1VW (PO RTABLE), 11/11/2016, 18:10. FINDINGS: Surgical changes and devices: Endotracheal tube, dialysis catheter and left-sided venous catheter unc hanged. Lungs and pleura: There is an unchanged appearance of diffuse bilateral pulmonary opacities. Trace p leural effusion is likely present. Mediastinum: Mediastinal contours appear normal. Heart size is normal. Bones and chest wall: No suspicious bony lesions. Overlying soft tissues appear unremarkable. IMPRESSION: Unchanged appearance of bilateral pulmonary opacities consistent with diffuse edema and/o r pneumonia versus ARDS. Dictated by: Derik Spears RRMelva Interpreted: Pauline Radford MD on 11/12/2016 at 9:52 Transcribed by: AARON on 11/12/2016 at 9:53 Approved by: Pauline Radford M.D. on 11/12/2016 at 11:16
--- NOTE | 2016-11-12 09:58 | PCM.PNMED ---
Subjective Date of Service Nov 12, 2016 Subjective Patient is a 55yom with MHx significant for cerebral aneurysm, hx methamphetamine, PA, hemorrhagic stroke and anoxic brain injury(2008) with recurrent aspiration pneumonia admitted for decrease mentation and SOB, subsequently found be in septic shock and acute hypoxic hypercapnic respiratory failure, thus requiring CCU transfer, pressor support, and intubation/ ventilation management. Patient continues spikes fever overnight. Unresponsive. He is sedated and paralyzed with propofol and nimbex. This was placed yesterday due to asynchronous breathing, buckling the vent. He remains on high FIO2 100% sating well. MAP maintaining, albeit with levophed 0.30. Exam Vital Signs Vital Sign - Last Date Time Temp Pulse Resp B/P Pulse Ox O2 Delivery O2 Flow Rate FiO2 11/12/16 09:00 107 93/43 100 90 11/12/16 07:15 38.8 18 Mechanical Ventilator Intake and Output 11/11/16 11/11/16 11/12/16 Cumulative From/Thru 15:00 23:00 07:00 11/05/16 06:36 - 11/12/16 06:48 Intake Total 626 ml 1906 ml 24264 ml Output Total 0 ml 0 ml 4275 ml Balance 626 ml 1906 ml 55805 ml Intake Oral 60 ml IV Total 626 ml 1906 ml 91364 ml Tube Feeding 2636 ml Tube Irrigant 780 ml Output Urine Total 0 ml 0 ml 400 ml Stool Total 0 ml 870 ml Gastric Drainage Total 5 ml Ultrafiltrate 3000 ml # Voids 0 # Bowel Movements 5 Exam Gen: Lying at 30degree head tilt, sedated, intubated. HEENT: PERRLA, Anicteric sclerae Neck: supple, no JVD Cardio: sinus rhythm, no murmur rub or gallop appreciated, Right anterior chest central line and left central line in place Pulm: b/l air sound, severe coarse breathing Abd: Soft, nontender, gastric tube in placed, non erythematous. Hypoactive bowel sound, mild distension, positive fluid wave Extremities: No clubbing or lymphadenopathy appreciated. Anasarca, cold extremity Neuro: sedated and paralyzed at the moment Lab and Diagnostics Result Diagram: 11/12/16 0440 11/12/16 0440 Microbiology Urine shows strep pneumo antigen, positive blood cultures 2 for gram-positive cocci activity is pending X-Rays, CTs and MRIs . X-RAY CHEST ONE VIEW, PORTABLE IMPRESSION: Diffuse groundglass and patchy opacities likely representing pulmonary edema although please correlate clinically to exclude superimposed infection. Overall , improved lung volumes with no new consolidation since yesterday. Dictated by: Leonardo Villalba M.D. on 11/05/2016 at 7:56 X-RAY CHEST ONE VIEW, PORTABLE IMPRESSION: Diffuse groundglass and patchy opacities likely representing pulmonary edema although please correlate clinically to exclude superimposed infection. Overall , improved lung volumes with no new consolidation since yesterday. Dictated by: Lenoardo Villalba M.D. on 11/05/2016 at 7:56 US ABDOMEN, LIMITED IMPRESSION: 1. Increased periportal echogenicity in the liver is nonspecific but may reflect acute hepatitis. Recommend correlation with laboratory values. 2. Round echogenic non-shadowing structure in the gallbladder is incompletely evaluated. The findings may represent a non-shadowing stone or polyp. No evidence of cholecystitis. Dictated by: Yoshi Kendall M.D. on 11/05/2016 at 17:49 X-RAY CHEST ONE VIEW, PORTABLE IMPRESSION: Stable appearing bilateral moderately severe to severe pneumonia, right greater than left. Lines and tubes in normal position. Dictated by: Jeff Duggan M.D. on 11/06/2016 at 11:07 X-RAY CHEST ONE VIEW, PORTABLE IMPRESSION: No change is seen in the bilateral extensive infiltrates in the lungs or in the position of the tubes and catheters as described. Dictated by: Danny Hauser M.D. on 11/07/2016 at 12:42 X-RAY CHEST ONE VIEW, PORTABLE IMPRESSION: Pulmonary edema and/or diffuse bilateral pneumonia not significantly changed from prior examination and there is a small left pleural effusion. ARDS cannot be excluded. Dictated by: Derik RODRIGUEZ Interpreted: Andra Lopez MD on 11/09/2016 at 13:04 US ABDOMEN, LIMITED IMPRESSION: 1. "Starry night" appearance of the liver redemonstrated which could be associated with acute hepatic inflammatory process such as hepatitis. Correlate clinically. 2. Multiple gallbladder polyps and non-shadowing echogenic focus present as well as thickening of the gallbladder wall. Although gallbladder wall thickening could be related to hepatic disease, developing cholecystitis cannot be excluded. Correlate clinically. 3. Trace perihepatic fluid. 4. Small right pleural effusion. Dictated by: Derik Choffel RRA Interpreted: Lorraine Pickens MD on 11/09/2016 at 12:05 Cardiac Echo Impressions . Echocardiogram Report Interpretation Summary There is normal left ventricular wall thickness. There are no focal wall motion abnormalities. The ejection fraction is estimated to be 50-55%. There is no significant valvular heart disease. Electronically signed by: Nelson Marquez [facility] pH ____7.406 - 7.350 7.450 pCO2 ___46.5__ -mmHg 35.0 45.0 pO2 ___57.7__ -mmHg 69.0 116 HCO3- ___28.6__ -mmol/L 22.0 26.0 Assessment & Plan Patient is a 55yom with MHx significant for cerebral aneurysm, hx methamphetamine, PA, hemorrhagic stroke and anoxic brain injury(2008) with recurrent aspiration pneumonia admitted for decrease mentation and SOB, subsequently found be in septic shock with acute hypoxic hypercapnic respiratory failure, thus transferred to CCU for pressor support and ventilation management. Main issue is an underlining multi-organism infections that includes, yeast, strep pneumo, MRSA pneumo, and possibly coag negative staph. His lines are infected and seeding. Fever remains high as are white counts. Ideally, lines should be out. This is not possible as there are no access and he needs continuous pressor support. Conceivably, femoral lines are possible, however, difficult to placed given low platelet and topic yeast infection. ARDS as sequela of his sepsis makes ventilation challenging. Ultimately though, he has ESRD and requires dialysis. This has deemed unfeasible per nephrology due to the patient sepsis shock and unstable. Patient is a DNR/DNI. His condition are terminal at this juncture. Problem list 1. Hypoxic hypercapnic respiratory failure 2. Sepsis shock 3. ESRD 4. ARDS 5. Pneumonia 6. Fungemia 7. Hepatitis Respiratory Hypoxic hypercapnic respiratory failure - 2nd to pneumonia and likely contaminate by pulmonary edema - Cont Nimbex and propofol - Maintain PEEP pressure, balance with BP - PEEP 7, I time 0.8 sec, RR 18, TV 600, FIO2 100 ARDS - He meets the [place] [address]-chest showing a "diffuse crazy paving pattern" - 2nd to pneumonia - Cont PEEP support - Daily VBG if unable to obtain abg. Infectious Sepsis Shock - Likely from pneumonia, possible line infection - MAP mid-60's with levophed support. Heart Echo with LV function preserved - Not recommend trending lactic acid in the setting of ESRD Pneumonia - Possible strep pneumo, coag neg staph, or MRSA. He is now at risk for fungal infection as well - Strep pneumo antigen may be false positive, will need to check for any recent strep vaccination. Still possible to have aspiration pna - Cont abx vancomycin and meropenem as direct by Infectious disease Fungemia - Micafungin daily - Monitor liver function daily - Appreciate ID continue following and managing this Cardiovascular - Troponin flat - Initial echocardiogram unremarkable - May have sepsis induced cardiomyopathy - Will obtain echocardiogram as above if MAP unimproved tomorrow Hematologic Thrombocytopenia - Possible HIT, DIC, sepsis induced thrombocytopenia - holding heparin at this time - Monitor bleeding Metabolic ESRD - Will try to dialyze today as BP is maintaining - Line access will be challenging. - Nephrology has been consulted and are actively following. Alimentary Gastrointestinal dysmotility - hypoactive bowel tone, possible 2nd to sepsis - Prophylaxis protonix, change from famodidine as it can depress platelets. - CT scan abd, will restart trickle feed and progress to goal if CT-abd/pelvis unremarkable Mild transaminitis - He has hx of hepatitis. No cirrhosis on Echo-abd. Patient however, receiving daily lactulose outpatient - Ammonia continues to be mildly elevated - Ultrasound parapneumonic for hepatitis - Infectious disease will continue to follow. Neurologic Possible Seizure - Has hx of anoxic brain injury - Keppra 500mg daily Total time spent: 60min GI Prophylaxis: Proton Pump Inhibitor VTE Prophylaxis: Sub-Q Heparin (Unfractionated) VTE Mechanical Devices: Intermittant Pneumatic CD Resuscitation Status: DNR/DNI:Do Not Resuscitate/Intubate (no chest compressions, cardioversion.) Limited Interventions: Intubation w Mech Vent (do not extubate now, but no reintubation ), Medications and IV Fluid (no ) Attending Statement The patient was seen and examined together with Dr. Taylor on 11/12/2016 and I agree with the history, exam and plan as outlined in the note above. Hector Taylor DO Nov 12, 2016 09:58 Ivan Dias MD December 10, 2016 14:51
[2016-11-12] MEDS: Cisatracurium Inj 200,000 MCG in 0.9% Sodium Chloride-Pha MIX 100 ML IV SCH ×2 (11:48→23:08)
--- NOTE | 2016-11-12 13:02 | PROG NOTE ---
[address] [address] PROGRESS NOTE PATIENT: JOANNE FIGUEROA : 1960 MR#: [id number] ADMIT: 11/05/2016 JOB ID: [id number] INFECTIOUS DISEASE FOLLOWUP: DATE: 11/12/2016 REASON FOR FOLLOWUP: Fungemia, septic shock, ARDS and invasive pneumococcal disease in a patient with underlying neurologic issues and end-stage renal disease. INTERVAL HISTORY: Overnight, the patient has deteriorated in multiple respects. He has required maximal doses of vasopressor agents and has also required an increase in inspired oxygen to 100% and the addition of paralytic agents. Despite these heroic measures, the patient continues to deteriorate. Recall that yesterday there were long discussions about the feasibility of removing his lines and whether or not he would be a candidate for ongoing dialysis, but at this point, his situation is to grave for dialysis and he remains absolutely critically ill. His central line and dialysis line have not been removed or changed at this point, due to the critical nature of his illness and the absolute need for those lines at this juncture. This case was discussed with the entire ICU Team as well as Nursing. PHYSICAL EXAMINATION: Reveals a gentleman who is consistently febrile, temperature 39.5 at midnight, currently 38.8. Pulse is about 100-120, respiratory rate ventilator dependent as he is now paralyzed. Blood pressure about 130 systolic on high doses of norepinephrine. He is on 100% and 7 of PEEP at this point, and oxygenating fairly well. Examination of the head shows no notable abnormalities. Oral endotracheal tube and orogastric tube in good position. Left neck central line and right chest dialysis catheter still present. Lungs with surprisingly good air movement bilaterally. Scattered rales heard on both sides. Cardiac tones tachycardic without appreciable new murmur. Abdomen is slightly distended, with PEG tube in place. No Rouse catheter. Extremities are cold with dramatic hypoperfusion present. No skin breakdown is appreciated yet. LABORATORY DATA: Labs include white count bouncing around 15,000; today's value is 16,000 but not significantly different than prior. Platelet counts are rebounding to 79,000. Creatinine 4.09. He has not been dialyzed now for going on three days. LFTs rising, AST 73, alk phos now is 175, LDH 358, albumin 3.3, procalcitonin was 31 yesterday; continuing a slow downward trend. It has not been repeated today. No new cultures are available. Some studies from the bronch wash on the are still pending including CMV culture, PCP stain and AFB stain. Anderson virus was detected in the multiplex PCR done on yesterday's bronch wash. Recall that previously we had multiple blood cultures growing yeast which was just reported as positive yesterday, and that about a week ago, early in his hospital stay. We had a urine pneumococcal antigen that was positive as well as MRSA isolated from sputum. Today's chest x-ray was reviewed; shows continued ARDS or congestive heart failure pattern; little change from yesterday though perhaps a slight bit worse. IMPRESSION: This is a critically ill gentleman with multiple underlying problems including his baseline neurologic deficits and end-stage renal disease, who now presents to the hospital with apparent sepsis likely initially due to pneumococcal disease. During his hospital stay, he has deteriorated progressively in multiple aspects and has also developed fungemia. He is now requiring extraordinary doses of vasopressors to manage his shock and has required paralysis to allow even marginal ventilation. The Nephrology attending believes he cannot be dialyzed in this deep septic shock picture and we have little else to offer in terms of our aggressive antibiotic therapy. It would appear the patient is rapidly approaching the end of his life and I support efforts to limit more aggressive care and perhaps it is reasonable to back off in terms of supportive care given his dismal prognosis. RECOMMENDATIONS: 1. Continue with current antibiotics which include vancomycin directed at the MRSA which is renally dosed, meropenem which is directed at a broad array of pathogens including the pneumococcus and micafungin which is solely for the yeast in his blood. 2. If the patient were to improve, which I think is extraordinarily unlikely, it will be important to remove his lines, and later to perform a dilated eye exam. Thank you very much for involving us in this complex case which will be discussed later this morning with family members.
[2016-11-12] MEDS ORDERED: Vancomycin Inj 500 MG in 0.9% Sodium Chloride 100 ML IV ONE (13:25)
--- NOTE | 2016-11-12 14:03 | PCM.PALLBR ---
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 At baseline patient is bedbound and dialysis dependent. This admission, he is critically ill with presumed septic shock, ARDS, encephalopathy, and hypotension. Today his condition remains very serious; he is requires higher levels of pressor and oxygen support. His hypotension is severe enough to preclude the use of hemodialysis. He was discussed at length in CCU rounds with medical team , nursing, respiratory therapy, and sister present to listen. His sister Shonna Miller who is his POA met with Dr. Ricks and the medical team about his dire prognosis and the inability of the team to continue to treat his renal failure. She says her family understands the decision by the nephrology team to withhold dialysis based on its potential to hasten his . She understands that without dialysis he will in the next few days. She is waiting for other family members to arrive. Today, the medical team and palliative team approached her about withdrawing some life-sustaining treatments such as: IV antibiotics, fluids, labs, imaging, finger sticks. Shonna says her goal today is to make sure "Jose Antonio" is still alive when family gets here, if possible. She expects most of the family who plans to say good- bye to Jose Antonio to arrive today. Shonna is willing to stop labs and imaging. She wants fingersticks for glucose checks to continue as she perceives that aberrant glucose levels cause suffering. Shonna is willing to discuss withdrawal of more life-sustaining treatments after family has congregated and said their goodbyes, but wants to discuss this with her mother. She doesn't want to make those decisions alone. She has agreed that medical/nursing team should not escalate cares. For example , if Jose Antonio's blood pressure continues to drop, do not increase or add pressors. However, in the interim, keep life-sustaining treatments in place for today. Summary of palliative recommendations: -Symptom management (Pain/other) --fentanyl drip continues at 75 mcg/hr. d/w RN that this should be titrated to comfort. --RN will notify us if there are more needs to manage comfort -DPOA/Advanced Directives/POLST --DNR/ DNI --Allow natural with current level of intervention, no HD, continued vent/abtx etc. -Family/emotional support/Spiritual support --Family understands that the patient will without dialysis, which he now cannot tolerate. Dr. Abrams has given them his number for other family members needing explanation. --Offered Time Lock Expert--let them know that she will be checking in with them Problems: End of Life Preferences if treatments not effective and pt is dying, family agrees that they do not want him to suffer. They want him to be comfortable. Goals of Care support and continue whatever therapies we can. Disposition not addressed Resuscitation Status Resuscitation Status: DNR/DNI:Do Not Resuscitate/Intubate (no chest compressions, cardioversion.) Limited Interventions: Intubation w Mech Vent (do not extubate now, but no reintubation ), Medications and IV Fluid (no ) POLST Updates/Changes Previous POLST?: Yes Antibiotics: Use ABX if can Prolong Life Artificially Admin Nutrition: Trial Period Tube Feeding POLST Discussed with: Patient POLST Review Outcome: No Change (POLST not readdressed but code status changed. Pt unlikely to leave hospital ) Total time 65 minutes; >50% face to face with patient and/or family, providing counselling regarding plans and recommendations, and in care coordination with his/her medical teams. I also spent an additional 30 minutes counseling for advanced care planning with the patient/the patients family/the surrogate decision maker. Palliative Brief Note Date of Service Nov 12, 2016 . Palliative Care Daily Responder: Patient (not decisional), sister who is his HCPOA Shonna Weber, Family/Proxy, Medical Team: Kevin Angeles, Larissa , Claudia, Butch, Rambo. Patient Identification: This is a 56-year-old male with a history of CVA, anoxic brain injury, depression, end-stage renal disease on HD 3 times per week, diabetes mellitus type II, hypertension and tube feeding is now critically ill with presumed septic shock, ARDS, encephalopathy, and hypotension. Patient/Family Concerns Overall, family is very concerned about his being given "every chance" and not "pulling the plug". His sister and mother is also emphatic that she does not want him to suffer. Subjective on Vent, not able to get info from pt. General: Unresponsive HEENT: Atraumatic Heart: Exam Unremarkable Lungs: Normal Air Movement Abdomen: Bowel Tones x4 (reported diminished.) Extremities: Edema (3+) Lab/Diagnostics Lab and Imaging results reviewed in detail in EMR. Debbie Ricks MD Nov 12, 2016 14:03
[2016-11-12] MEDS: Meropenem Inj 1,000 MG in 0.9% Sodium Chloride 100 ML IV SCH (15:13)
--- NOTE | 2016-11-12 15:35 | NUR ---
Palliative care note [facility] D/A: Met with pt sister Shonna Miller as well as Dr.s Ricks, Pineda and Butch. Longer note to follow. Elle AGUILAR [facility] Addendum: 11/13/16 at 1425 by JOSSIE BAILEY PC note amendment-Continuation of above note D/A: Described at length pt pt current condition and asked her to explain her understanding, in her own words. Shonna understands current medical state. She indicates that family is arriving on and wishes to attempt to preserve pt as he is today, as much as possible so that family can have time with him. Her sister Rhoda is coming from [place] as her their brother Don. She expresses some concern that there may be an element of family dynamics present but has also spoken to family about expectations while at the hospital. Medical team speaks to her about further recommendations for increased comfort for pt (but not comfort care yet.) Shonna agrees to cease all blood taking for lab draws and other tests such as chest xrays. She wishes for blood sugars to still be monitored and expresses that she would like time for her family to be with pt on 11/12/16 and Wednesday11/13/16. Medical team agrees to this request. P: Palliative care to follow. Elle AGUILAR [facility]
--- NOTE | 2016-11-12 16:49 | PCM.PNNEPH ---
Subjective Date of Service Nov 12, 2016 Subjective Patient's condition continues to worsen. His extremities are cold and his blood pressure continues to fall with increasing oxygen requirements. Unfortunately because of his hemodynamic instability I cannot do dialysis because of this. We will evaluate the patient morning. Exam Vital Signs Vital Sign - Last Date Time Temp Pulse Resp B/P Pulse Ox O2 Delivery O2 Flow Rate FiO2 11/12/16 16:25 107 101/51 100 80 11/12/16 15:17 38.9 18 Mechanical Ventilator Intake and Output 11/11/16 11/11/16 11/12/16 Cumulative From/Thru 14:59 22:59 06:59 11/05/16 06:36 - 11/12/16 06:48 Intake Total 626 ml 1906 ml 12238 ml Output Total 0 ml 0 ml 4275 ml Balance 626 ml 1906 ml 37159 ml Intake Oral 60 ml IV Total 626 ml 1906 ml 03536 ml Tube Feeding 2636 ml Tube Irrigant 780 ml Output Urine Total 0 ml 0 ml 400 ml Stool Total 0 ml 870 ml Gastric Drainage Total 5 ml Ultrafiltrate 3000 ml # Voids 0 # Bowel Movements 5 Lab and Diagnostics Result Diagram: 11/12/16 0440 11/12/16 0440 Microbiology Urine shows strep pneumo antigen, positive blood cultures 2 for gram-positive cocci activity is pending X-Rays, CTs and MRIs . X-RAY CHEST ONE VIEW, PORTABLE IMPRESSION: Diffuse groundglass and patchy opacities likely representing pulmonary edema although please correlate clinically to exclude superimposed infection. Overall , improved lung volumes with no new consolidation since yesterday. Dictated by: Leonardo Villalba M.D. on 11/05/2016 at 7:56 X-RAY CHEST ONE VIEW, PORTABLE IMPRESSION: Diffuse groundglass and patchy opacities likely representing pulmonary edema although please correlate clinically to exclude superimposed infection. Overall , improved lung volumes with no new consolidation since yesterday. Dictated by: Leonardo Villalba M.D. on 11/05/2016 at 7:56 US ABDOMEN, LIMITED IMPRESSION: 1. Increased periportal echogenicity in the liver is nonspecific but may reflect acute hepatitis. Recommend correlation with laboratory values. 2. Round echogenic non-shadowing structure in the gallbladder is incompletely evaluated. The findings may represent a non-shadowing stone or polyp. No evidence of cholecystitis. Dictated by: Yoshi eKndall M.D. on 11/05/2016 at 17:49 X-RAY CHEST ONE VIEW, PORTABLE IMPRESSION: Stable appearing bilateral moderately severe to severe pneumonia, right greater than left. Lines and tubes in normal position. Dictated by: Jeff Duggan M.D. on 11/06/2016 at 11:07 X-RAY CHEST ONE VIEW, PORTABLE IMPRESSION: No change is seen in the bilateral extensive infiltrates in the lungs or in the position of the tubes and catheters as described. Dictated by: Danny Hauser M.D. on 11/07/2016 at 12:42 X-RAY CHEST ONE VIEW, PORTABLE IMPRESSION: Pulmonary edema and/or diffuse bilateral pneumonia not significantly changed from prior examination and there is a small left pleural effusion. ARDS cannot be excluded. Dictated by: Derik RODRIGUEZ Interpreted: Andra Lopez MD on 11/09/2016 at 13:04 US ABDOMEN, LIMITED IMPRESSION: 1. "Starry night" appearance of the liver redemonstrated which could be associated with acute hepatic inflammatory process such as hepatitis. Correlate clinically. 2. Multiple gallbladder polyps and non-shadowing echogenic focus present as well as thickening of the gallbladder wall. Although gallbladder wall thickening could be related to hepatic disease, developing cholecystitis cannot be excluded. Correlate clinically. 3. Trace perihepatic fluid. 4. Small right pleural effusion. Dictated by: Derik RODRIGUEZ Interpreted: Lorraine Pickens MD on 11/09/2016 at 12:05 Cardiac Echo Impressions . Echocardiogram Report Interpretation Summary There is normal left ventricular wall thickness. There are no focal wall motion abnormalities. The ejection fraction is estimated to be 50-55%. There is no significant valvular heart disease. Electronically signed by: Nelson Marquez Additional Diagnostics pH ____7.406 - 7.350 7.450 pCO2 ___46.5__ -mmHg 35.0 45.0 pO2 ___57.7__ -mmHg 69.0 116 HCO3- ___28.6__ -mmol/L 22.0 26.0 Cesar Guy DO Nov 12, 2016 16:49
--- NOTE | 2016-11-12 17:49 | NUR ---
P: Resp, Hemodynamics, Neuro, Nutrition, Social I,E: Pt continues on the vent, FIO2 decreased to 90% and sats at this time are 96%. Continuing to suction very little from ETT. Pt BP in the 90's sys, on norepi at .2mcg/kg/min. Pt does not make urine at baseline. FMS has decreased output today. HR is in the 100's for most of the shift ST. Pt is un responsive, is on fentanyl, propofol and nimbex. I have only just decreased the nimbex as he has been 4/4 on TO4 all day. He just registered 0/4 and nimbex was decreased. BIS monitor has been reading high 30's to 40's today. Pt has no feeding at this time, bowel tones are absent on auscultation. T max today was 38.8. Pt's sister Shonna (JOSE CARLOS) has been here most of the day and was able to speak with the DrNicola's r.e. pt's condition. Other sister Deanna arrived from [place] and has been updated by Shonna. She is visiting with pt in the room.
--- NOTE | 2016-11-12 17:58 | PCM.PNMED ---
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 Overnight: Remained nonresponsive neurologically, did not open eyes or follow commands throughout the night. Continue to have asynchronous breathing Nimbex was initiated. Patient's sister Allegra present and decided to not add more agents for blood pressure support instead keeping all medication levels and interventions at their current settings Today: Does not open eyes to voice or gentle physical stimulation. Meeting held with Sr. Dinh with palliative care, with the exception of fingersticks for blood glucose no additional care or interventions are to be given to patient. This includes lab draws imaging studies. No additional hemodynamic preventions, instead sister wishes current medication levels and ventilator settings to remain as they are. Patient's other sister and brother flying in from [place] today to say final fareweboni's at which point patient most likely will be moved to comfort care. Exam Vital Signs Vital Sign - Last Date Time Temp Pulse Resp B/P Pulse Ox O2 Delivery O2 Flow Rate FiO2 11/12/16 16:25 107 101/51 100 80 11/12/16 15:17 38.9 18 Mechanical Ventilator Intake and Output 11/11/16 11/11/16 11/12/16 Cumulative From/Thru 15:00 23:00 07:00 11/05/16 06:36 - 11/12/16 06:48 Intake Total 626 ml 1906 ml 78213 ml Output Total 0 ml 0 ml 4275 ml Balance 626 ml 1906 ml 20432 ml Intake Oral 60 ml IV Total 626 ml 1906 ml 43250 ml Tube Feeding 2636 ml Tube Irrigant 780 ml Output Urine Total 0 ml 0 ml 400 ml Stool Total 0 ml 870 ml Gastric Drainage Total 5 ml Ultrafiltrate 3000 ml # Voids 0 # Bowel Movements 5 Exam General: Patient intubated and sedated. No apparent distress. Does not open eyes to voice. HEENT: Normocephalic, atraumatic. ET tube in place. Neck: No jugular venous distension. Cardiovascular: Tachycardic rate with regular rhythm, no murmurs appreciated Pulmonary: Coarse bilaterally. Expiratory crackles. Shallow rapid breathing. Abdomen: Nondistended, PEG tube in place. Neurological: Intubated and sedated IVs and Medications Medications Reviewed: Medications were reviewed in detail Lab and Diagnostics Result Diagram: 11/12/16 0440 11/12/16 0440 Microbiology Urine shows strep pneumo antigen, positive blood cultures 2 for gram-positive cocci activity is pending X-Rays, CTs and MRIs . X-RAY CHEST ONE VIEW, PORTABLE IMPRESSION: Diffuse groundglass and patchy opacities likely representing pulmonary edema although please correlate clinically to exclude superimposed infection. Overall , improved lung volumes with no new consolidation since yesterday. Dictated by: Leonardo Villalba M.D. on 11/05/2016 at 7:56 X-RAY CHEST ONE VIEW, PORTABLE IMPRESSION: Diffuse groundglass and patchy opacities likely representing pulmonary edema although please correlate clinically to exclude superimposed infection. Overall , improved lung volumes with no new consolidation since yesterday. Dictated by: Leonardo Villalba M.D. on 11/05/2016 at 7:56 US ABDOMEN, LIMITED IMPRESSION: 1. Increased periportal echogenicity in the liver is nonspecific but may reflect acute hepatitis. Recommend correlation with laboratory values. 2. Round echogenic non-shadowing structure in the gallbladder is incompletely evaluated. The findings may represent a non-shadowing stone or polyp. No evidence of cholecystitis. Dictated by: Yoshi Kendall M.D. on 11/05/2016 at 17:49 X-RAY CHEST ONE VIEW, PORTABLE IMPRESSION: Stable appearing bilateral moderately severe to severe pneumonia, right greater than left. Lines and tubes in normal position. Dictated by: Jeff Duggan M.D. on 11/06/2016 at 11:07 X-RAY CHEST ONE VIEW, PORTABLE IMPRESSION: No change is seen in the bilateral extensive infiltrates in the lungs or in the position of the tubes and catheters as described. Dictated by: Danny Hauser M.D. on 11/07/2016 at 12:42 X-RAY CHEST ONE VIEW, PORTABLE IMPRESSION: Pulmonary edema and/or diffuse bilateral pneumonia not significantly changed from prior examination and there is a small left pleural effusion. ARDS cannot be excluded. Dictated by: Derik Spears [facility] Interpreted: Andra Lopez MD on 11/09/2016 at 13:04 US ABDOMEN, LIMITED IMPRESSION: 1. "Starry night" appearance of the liver redemonstrated which could be associated with acute hepatic inflammatory process such as hepatitis. Correlate clinically. 2. Multiple gallbladder polyps and non-shadowing echogenic focus present as well as thickening of the gallbladder wall. Although gallbladder wall thickening could be related to hepatic disease, developing cholecystitis cannot be excluded. Correlate clinically. 3. Trace perihepatic fluid. 4. Small right pleural effusion. Dictated by: Derik RODRIGUEZ Interpreted: Lorraine Pickens MD on 11/09/2016 at 12:05 X-RAY CHEST ONE VIEW, PORTABLE IMPRESSION: Unchanged appearance of bilateral pulmonary opacities consistent with diffuse edema and/or pneumonia versus ARDS. Dictated by: Derik RODRIGUEZ Interpreted: Pauline Radford MD on 11/12/2016 at 9:52 Cardiac Echo Impressions . Echocardiogram Report Interpretation Summary There is normal left ventricular wall thickness. There are no focal wall motion abnormalities. The ejection fraction is estimated to be 50-55%. There is no significant valvular heart disease. Electronically signed by: Nelson Marquez [facility] pH ____7.406 - 7.350 7.450 pCO2 ___46.5__ -mmHg 35.0 45.0 pO2 ___57.7__ -mmHg 69.0 116 HCO3- ___28.6__ -mmol/L 22.0 26.0 Assessment & Plan Patient is a 55-year-old gentleman with history of CVA resulting in dysphagia and aphasia, history of PA leading to anoxic brain injury, depression, end- stage renal disease on HD, DM type II admitted to CCU for sepsis secondary to possible pneumonia. Hospital day 7, ventilator day 7 Meeting held today with patient's sister and palliative care team. Her concerns are his comfort in any further withdrawal of care causing pain or distress to patient. Overnight patient's sister expressed her desire to have no increase in the interventional level of life support her brother is receiving , this includes more aggressive ventilation or blood pressure/hemodynamic support. During meeting sister decided that with the exception of fingersticks for blood glucose checks her wish is to have any additional imaging or laboratory studies discontinued at this time as it is unnecessary and will not change any treatment plan. She is awaiting her sister and brother to arrive from [place] to say their goodbyes to Mr. Person, at which point they most likely we will transition him to comfort care. Specialty services including nephrology , infectious disease, pulmonology/ICU and the primary hospitalist team are all in agreement that any additional interventional treatment at this point is unlikely to be of any benefit to the patient and will more than likely cause undue harm without benefit. Hospital course and diagnoses up to this point as below: 1. Severe Sepsis/septic shock requiring pressor . Present on admission. Ongoing - Septic criteria met with tachycardia, tachypnea, hyperthermia, lactic acidosis - Possible sources include pneumonia or GI, possibly hepatitis and/or cholecystitis based on recent ultrasound findings - Infectious Disease following. Recommendations appreciated - Currently on meropenem, vancomycin. Antibiotics per ID. - Sputum and PCR positive for MRSA - Pulmonology/ICU service following. Recommendations appreciated - Intubated and sedated - Discontinued IV NS secondary to #4 - IV drips norepi at 0.150, fentanyl 75 - Echo shows no wall motion abnormalities, EF 50-55% and no significant valvular heart disease - Blood cultures coag-negative Staphylococcus 2 - Positive strep pneumo urine antigen - Repeat CT scan showed no clear evidence of abscess or infectious source 2. Acute hypoxic respiratory failure with hypoxia. Present on admission. Ongoing - After admitted to CCU patient became increasingly dyspneic requiring intubation, most likely secondary to #3 - Patient remains intubated and ventilated - Vent settings are FiO2 65 %, PEEP 8, tidal volume 600, respiratory rate 16 - CXR continues to show pulmonary edema/pneumonia - Pulmonology/ICU service following. Recommendations appreciated. 3. Pneumonia. Present on admission. Ongoing - Blood cultures grew gram-positive cocci, positive urine antigen for strep pneumo - CXR showed glass patchy opacities possibly pneumonia/pulmonary edema - Procalcitonin remains elevated 44 today though trending down - We will continue to monitor - Continue Antibiotics as in #1 4. ARDS. Not present on admission. Ongoing -[place] criteria met -Continue to monitor 5. End stage renal disease. Present on admission. Ongoing - Stage IV with GFR of 16 - Patient receives HD 3 times per week - Nephrology consulted. Recommendations appreciated - Patient continues to receive HD while in hospital -Per nephrology continue to hemodialysis is no longer recommended at this time 6. Diabetes mellitus. Present on admission. Ongoing - A1c 6.6 - Patient on home insulin glargine and insulin aspart - Correctional scale insulin 7. Hypernatremia, acute. Present on admission. Resolved - Most likely secondary to volume depletion - Fluid replacement as in #1 - Continue monitor 8. Elevated troponin. Present on admission. Ongoing - Most likely secondary to #4 - EKG showed anterior ST segment abnormalities consistent with previous infarct - Continue to monitor 9. Hyperlipidemia, chronic. Present on admission. Ongoing - Continue home statin 10. Transaminitis. Present on admission. Improving - ALT AST remain labile - Ammonia level trending down, last measurement 55 - Continue lactulose - Ultrasound and abdominal ultrasound showed possible hepatitis, thickening of the gallbladder wall and trace perihepatic fluid with a small right pleural effusion. 11. Thrombocytopenia. Not present on admission. Ongoing - Platelets trending up 79 today - DC'd heparin -HIT unlikley but possible given timing of thrombocytopenia and patient has been getting heparin on dialysis and no history of HIT Disposition: Patient will have no further interventions or studies done, awaiting agreement from family for comfort care transition as continuation of care is thought to be in no additional benefit for patient and this course of action is agreed upon by pulmonology, infectious disease, nephrology and the primary team GI Prophylaxis: Proton Pump Inhibitor VTE Prophylaxis: Sub-Q Heparin (Unfractionated) VTE Mechanical Devices: Intermittant Pneumatic CD Resuscitation Status: DNR/DNI:Do Not Resuscitate/Intubate (no chest compressions, cardioversion.) Limited Interventions: Intubation w Mech Vent (do not extubate now, but no reintubation ), Medications and IV Fluid (no ) Attending Statement The patient was seen and examined together with Dr. Rae on 11/12/2016 and I agree with the history, exam and plan as outlined in the note above. PRINCESS RAE DO Nov 12, 2016 17:58 Cristiano Sung MD Nov 13, 2016 06:57
[2016-11-12] MEDS: levETIRAcetam 500 mg/100 mL NS IV SCH ×2 (21:19)
[2016-11-13] VITALS (9 sets, daily range): BP systolic 80–144; BP diastolic 49–76; PULSE 75–94; RESP 18; O2SAT 96–100
[2016-11-13] MEDS ORDERED: Micafungin Inj 150 MG in 0.9% Sodium Chloride 100 ML IV SCH (02:00)
[2016-11-13] MEDS: Chlorhexidine 0.12% 15 mL Oral Solution MT SCH ×3 (03:48→15:02)
[2016-11-13] MEDS: fentaNYL 2,500 mCg/250 mL IV Premix IV SCH (05:03)
[2016-11-13] MEDS: Pantoprazole 4 mg/mL 10 mL Inj IVPUSH SCH (06:01)
--- NOTE | 2016-11-13 06:16 | NUR ---
Hemodynamics/Neuro Sys bp in 120s-low 100s and maintaining MAP >60. Telemetry SR HR mostly 80s-90s. Weaned Norepinephrine gtt to 0.1mcg/kgmin from 0.2mcg/kg/min. Pt unarousable with Fentanyl, Propofol and Nimbex. TOF of 4/4 noted all shift however pt's comfortable without any signs of movement or distress. Continued Nimbex rate 5mcg/kg/min through the night. BIS reading 35-40 noted most of the night. Very scant amount on FMS noted. Pt's sister Deanna at bedside during the evening. Pt anuric as per baseline. 02sat in 98-100% on Ventilator settings 80%7//600.
[2016-11-13] MEDS: Vancomycin Dose per Pharmacist XX SCH (08:30)
[2016-11-13] MEDS: Nystatin 100,000 Unit/Gm 15 Gm Powder TOPICAL SCH (08:30)
[2016-11-13] MEDS: FLUoxetine 4 mg/mL 118 mL Solution PEG SCH (08:35)
--- NOTE | 2016-11-13 09:11 | PROG NOTE ---
[address] [address] PROGRESS NOTE PATIENT: JOANNE FIGUEROA : 1960 MR#: [id number] ADMIT: 11/05/2016 JOB ID: [id number] DATE: 11/13/2016 INFECTIOUS DISEASE FOLLOW UP NOTE: REASON FOR FOLLOW UP: Fungemia, invasive pneumococcal infection and septic shock in a patient with underlying neurologic disease and end-stage renal failure. INTERVAL HISTORY: Overnight, the patient has remained critically ill but relatively stable. Discussions with the family are underway regarding transition to comfort care, but for now the patient remains intubated, sedated, paralyzed and on vasopressor support, but lab draws and imaging have been suspended pending further decisions. This case was seen and discussed during ICU rounds. The patient remains paralyzed as mentioned, so there is no additional history from him. PHYSICAL EXAMINATION: Reveals a gentleman who remains intermittently febrile, lying supine and intubated in the ICU. His temperature is 38.5 at midnight, 37.9 earlier this morning. Pulse is running about 100 and it is sinus rhythm. Blood pressure 142/74, on moderately high doses of norepinephrine. He is saturating well but on 80% and 7 of PEEP. He has no urine output of course and no Rouse catheter. Examination of the eyes reveals no conjunctivitis. Pupils are mid range. No scleral icterus. Oral endotracheal tube and oral gastric tube in good position. Left neck central line has not yet been changed. Right upper chest dialysis catheter also still in place and without evidence of inflammation. He does not have any arterial line. Lungs with coarse breath sounds at the bases. Cardiac tones regular rate and rhythm, somewhat tachycardic. No appreciable murmur this morning. Abdomen is completely soft and of course the patient is paralyzed. No hepatosplenomegaly is appreciated. Penis and scrotum appear normal. He does not have a Rouse. No skin rash is noted. His hands and feet are cold with capillary refill and swollen and cold with very, very slow capillary refill. Peripheral pulses in the hands and feet are not present. LABORATORIES: No new labs are available from today. Yesterday's creatinine was 4.09. Yesterday's white count had been relatively stable, 16,700. Micro studies continue to be processed of course. The bronch wash from November 11 still has many pending pieces of data. The PCR from bronch wash yielded coronavirus. The AFB smear is negative. Pneumocystis smear is pending. CMV culture is pending and Legionella culture of course on the bronch wash, is pending. IMAGING: Our last imaging was yesterday as it has been suspended for today, showed bilateral infiltrates consistent with ARDS. IMPRESSION: This patient continues to be critically ill with vasopressor dependent septic shock due likely initially pneumococcus and now fungemia. In addition, he has evidence of what appears to be acute respiratory distress syndrome by chest x-ray which has required high inspired O2 levels of oxygen as well as paralysis to maintain oxygen levels. There has been little change in his super critical condition overnight, and we do not have additional laboratory work or imaging this morning as part of an emerging strategy of a probable transition to comfort care, depending on future discussions with the family. RECOMMENDATIONS: 1. We will continue with the antibiotics at this point, which include vanco directed at the MRSA which is either colonized or infected with, as well as meropenem for broad-spectrum coverage to include the pneumococcus. 2. We will continue with micafungin on a daily basis for treatment of his demonstrated fungemia. 3. If a more aggressive approach is felt to be indicated or the patient should improve, which I find extremely unlikely, we should remove and culture his central line as well as his dialysis catheter. 4. This case to be discussed in the upcoming group ICU rounds.
[2016-11-13] MEDS: Lactulose 20 Gm/30 mL 30 mL Syrup PEG SCH (09:43)
--- NOTE | 2016-11-13 13:10 | PCM.PALLBR ---
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 At baseline patient is bedbound and dialysis dependent. This admission, he is critically ill with presumed septic shock, ARDS, encephalopathy, and hypotension. 11/13: Dr. Rikcs and medical team have met with Shonna and several different family members on three occasions today. Ultimately, family has decided that they are ready to follow medical team recommendations to withdraw care that is not longer helpful for Jose Antonio. They are waiting for Jose Antonio's mother to come to hospital with her laboratory technician and then we can start compassionate extubation. This was started at 16:20pm, and patient peacefully at 16:42pm. I was at bedside and pronounced him . 11/12: His sister Shonna Miller who is his POA met with Dr. Ricks and the medical team about his dire prognosis and the inability of the team to continue to treat his renal failure. She says her family understands the decision by the nephrology team to withhold dialysis based on its potential to hasten his . She understands that without dialysis he will in the next few days. The medical team and palliative team approached her about withdrawing some life- sustaining treatments such as: IV antibiotics, fluids, labs, imaging, finger sticks. Shonna says her goal today is to make sure "Jose Antonio" is still alive when family gets here, if possible. She expects most of the family who plans to say good- bye to Jose Antonio to arrive today. Shonna is willing to stop labs and imaging. She wants fingersticks for glucose checks to continue as she perceives that aberrant glucose levels cause suffering. Shonna is willing to discuss withdrawal of more life-sustaining treatments after family has congregated and said their goodbyes, but wants to discuss this with her mother. She doesn't want to make those decisions alone. She has agreed that medical/nursing team should not escalate cares. For example , if Jose Antonio's blood pressure continues to drop, do not increase or add pressors. However, in the interim, keep life-sustaining treatments in place for today. Summary of palliative recommendations: -Symptom management (Pain/other) --currently pt on fentanyl drip for comfort. --RN will notify us if there are more needs to manage comfort -DPOA/Advanced Directives/POLST --DNR/ DNI --Allow natural with current level of intervention, no HD, continued vent/abtx etc. -Family/emotional support/Spiritual support --Family understands that the patient will without dialysis, which he now cannot tolerate. Dr. Abrams has given them his number for other family members needing explanation. --Offered [employer] Justice--let them know that she will be checking in with them Problems: End of Life Preferences if treatments not effective and pt is dying, family agrees that they do not want him to suffer. They want him to be comfortable. Goals of Care support and continue whatever therapies we can. Disposition not addressed Resuscitation Status Resuscitation Status: DNR/DNI:Do Not Resuscitate/Intubate (no chest compressions, cardioversion.) Limited Interventions: Intubation w Mech Vent (do not extubate now, but no reintubation ), Medications and IV Fluid (no ) POLST Updates/Changes Previous POLST?: Yes Antibiotics: Use ABX if can Prolong Life Artificially Admin Nutrition: Trial Period Tube Feeding POLST Discussed with: Patient POLST Review Outcome: No Change (POLST not readdressed but code status changed. Pt unlikely to leave hospital ) . Advanced Care Planning Address: Comfort care (discussed multiple times today with family) Total time 100 minutes; >50% face to face with patient and/or family, providing counselling regarding plans and recommendations, and in care coordination with his/her medical teams. I also spent an additional 30 minutes counseling for advanced care planning with the patient/the patients family/the surrogate decision maker. Palliative Brief Note Date of Service Nov 13, 2016 . Patient Identification: This is a 56-year-old male with a history of CVA, anoxic brain injury, depression, end-stage renal disease on HD 3 times per week, diabetes mellitus type II, hypertension and tube feeding is now critically ill with presumed septic shock, ARDS, encephalopathy, and hypotension. After family discussion yesterday, pt is now DNR/DNI with no escalation in care. He was still discussed for sometime at CCU rounds as several consultants feel it is time to withdraw several life sustaining treatments still in place (as med /nursing teams waited from family to congregate). The patient remains intubated , sedated, paralyzed and on vasopressor support, but lab draws and imaging have been suspended pending further decisions. He continues to be critically ill in septic shock on several pressors. Subjective on Vent, not able to get info from pt. General: Unresponsive HEENT: Atraumatic Heart: Exam Unremarkable Lungs: Normal Air Movement (on vent) Abdomen: no bowel sounds since yesterday Extremities: Edema (3+) Debbie Ricks MD Nov 13, 2016 13:10
--- NOTE | 2016-11-13 13:51 | NUR ---
Nimbex off this morning. Opens eyes to stimulation, gaze is disconjugate and does not appear to be tracking. No spontaneous movement of extremities, does not signwriter or follow commands. No restraints have been necessary. Low dose fentanyl and propofol continue for sedation and comfort. Levophed weaned to 0.05mcg/kg/min with MAP 63-70's. Generalized edema. CVP 13. Anuric. Blood sugars 110-136, insulin gtt infusing at 0.5-0.8u/h. Please see CCU flowsheet for details. Family here at intervals, daughters and sisters have had opportunity to meet with physician team. Plan for compassionate extubation when daughter Shonna is able to return with their mother this afternoon.
--- NOTE | 2016-11-13 14:05 | NUR ---
Resp: Vent support continues with saturations 98-100% on FiO2 .8. No vent asynchrony noted off Nimbex. Does trigger occasional breath but not consistently. Lung sounds are rhonchorous throughout. Suctioning for scant secretions via ETT. Oral secretions are moderate and blood streaked. T-max today was 37.5 ax, passive cooling measures employed (no blankets, fan).
[2016-11-13] MEDS: Cisatracurium Inj 200,000 MCG in 0.9% Sodium Chloride-Pha MIX 100 ML IV SCH (14:41)
[2016-11-13] MEDS: Meropenem Inj 1,000 MG in 0.9% Sodium Chloride 100 ML IV SCH (15:02)
--- NOTE | 2016-11-13 15:28 | PCM.PNNEPH ---
Subjective Date of Service Nov 13, 2016 Subjective The patient's critical condition is unchanged and this too unstable for dialysis. We have little more to offer. Exam Vital Signs Vital Sign - Last Date Time Temp Pulse Resp B/P Pulse Ox O2 Delivery O2 Flow Rate FiO2 11/13/16 12:00 Ventilator 11/13/16 12:00 37.0 75 18 80/49 99 80 Intake and Output 11/12/16 11/12/16 11/13/16 Cumulative From/Thru 15:00 23:00 07:00 11/05/16 06:36 - 11/13/16 06:09 Intake Total 820 ml 885 ml 37184 ml Output Total 50 ml 0 ml 4325 ml Balance 770 ml 885 ml 54567 ml Intake Oral 0 ml 60 ml IV Total 820 ml 885 ml 22668 ml Tube Feeding 2636 ml Tube Irrigant 780 ml Output Urine Total 0 ml 0 ml 400 ml Stool Total 0 ml 870 ml Urine/Stool Mix 50 ml 50 ml Gastric Drainage Total 5 ml Ultrafiltrate 3000 ml # Voids 0 0 # Bowel Movements 5 Lab and Diagnostics Result Diagram: 11/12/16 0440 11/12/16 0440 Microbiology Urine shows strep pneumo antigen, positive blood cultures 2 for gram-positive cocci activity is pending X-Rays, CTs and MRIs . X-RAY CHEST ONE VIEW, PORTABLE IMPRESSION: Diffuse groundglass and patchy opacities likely representing pulmonary edema although please correlate clinically to exclude superimposed infection. Overall , improved lung volumes with no new consolidation since yesterday. Dictated by: Leonardo Villalba M.D. on 11/05/2016 at 7:56 X-RAY CHEST ONE VIEW, PORTABLE IMPRESSION: Diffuse groundglass and patchy opacities likely representing pulmonary edema although please correlate clinically to exclude superimposed infection. Overall , improved lung volumes with no new consolidation since yesterday. Dictated by: Leonardo Villalba M.D. on 11/05/2016 at 7:56 US ABDOMEN, LIMITED IMPRESSION: 1. Increased periportal echogenicity in the liver is nonspecific but may reflect acute hepatitis. Recommend correlation with laboratory values. 2. Round echogenic non-shadowing structure in the gallbladder is incompletely evaluated. The findings may represent a non-shadowing stone or polyp. No evidence of cholecystitis. Dictated by: Yoshi Kendall M.D. on 11/05/2016 at 17:49 X-RAY CHEST ONE VIEW, PORTABLE IMPRESSION: Stable appearing bilateral moderately severe to severe pneumonia, right greater than left. Lines and tubes in normal position. Dictated by: Jeff Duggan M.D. on 11/06/2016 at 11:07 X-RAY CHEST ONE VIEW, PORTABLE IMPRESSION: No change is seen in the bilateral extensive infiltrates in the lungs or in the position of the tubes and catheters as described. Dictated by: Danny Hauser M.D. on 11/07/2016 at 12:42 X-RAY CHEST ONE VIEW, PORTABLE IMPRESSION: Pulmonary edema and/or diffuse bilateral pneumonia not significantly changed from prior examination and there is a small left pleural effusion. ARDS cannot be excluded. Dictated by: Derik RODRIGUEZ Interpreted: Andra Lopez MD on 11/09/2016 at 13:04 US ABDOMEN, LIMITED IMPRESSION: 1. "Starry night" appearance of the liver redemonstrated which could be associated with acute hepatic inflammatory process such as hepatitis. Correlate clinically. 2. Multiple gallbladder polyps and non-shadowing echogenic focus present as well as thickening of the gallbladder wall. Although gallbladder wall thickening could be related to hepatic disease, developing cholecystitis cannot be excluded. Correlate clinically. 3. Trace perihepatic fluid. 4. Small right pleural effusion. Dictated by: Derik RODRIGUEZ Interpreted: Lorraine Pickens MD on 11/09/2016 at 12:05 X-RAY CHEST ONE VIEW, PORTABLE IMPRESSION: Unchanged appearance of bilateral pulmonary opacities consistent with diffuse edema and/or pneumonia versus ARDS. Dictated by: Derik RODRIGUEZ Interpreted: Pauline Radford MD on 11/12/2016 at 9:52 Cardiac Echo Impressions . Echocardiogram Report Interpretation Summary There is normal left ventricular wall thickness. There are no focal wall motion abnormalities. The ejection fraction is estimated to be 50-55%. There is no significant valvular heart disease. Electronically signed by: Nelson Marquez Additional Diagnostics pH ____7.406 - 7.350 7.450 pCO2 ___46.5__ -mmHg 35.0 45.0 pO2 ___57.7__ -mmHg 69.0 116 HCO3- ___28.6__ -mmol/L 22.0 26.0 Cesar Guy DO Nov 13, 2016 15:28
--- NOTE | 2016-11-13 17:33 | NUR ---
Compassionately extubated at 1620, no significant respiratory effort noted with O2 saturations rapidly falling to the low 70's. Heart rate initially at baseline rate of 69-78 but falls to 40's around 1638. Pt declared pulseless and apneic by Dr Valenzuela at 1642. Family at bedside, support given as able although family dynamics are very difficult. No home has been chosen, sister Shonna will call the nursing coremaker supervisor when the choice has been made.
--- NOTE | 2016-11-13 17:52 | PCM.PNMED ---
Subjective Date of Service Nov 13, 2016 Subjective Patient is a 55yom with MHx significant for cerebral aneurysm, hx methamphetamine, AL, hemorrhagic stroke and anoxic brain injury(2008) with recurrent aspiration pneumonia admitted for decrease mentation and SOB, subsequently found be in septic shock and acute hypoxic hypercapnic respiratory failure, thus requiring CCU transfer, pressor support, and intubation/ ventilation management. No significant changes to patient over all condition. Code status DNR/DNI with limited intervention that supports current therapy of intubation/sedation, paralytics, antibiotics, and pressors. Exam Vital Signs Vital Sign - Last Date Time Temp Pulse Resp B/P Pulse Ox O2 Delivery O2 Flow Rate FiO2 11/13/16 15:37 78 102/67 100 80 11/13/16 12:00 Ventilator 11/13/16 12:00 37.0 18 Intake and Output 11/12/16 11/12/16 11/13/16 Cumulative From/Thru 15:00 23:00 07:00 11/05/16 06:36 - 11/13/16 06:09 Intake Total 820 ml 885 ml 81767 ml Output Total 50 ml 0 ml 4325 ml Balance 770 ml 885 ml 36882 ml Intake Oral 0 ml 60 ml IV Total 820 ml 885 ml 50366 ml Tube Feeding 2636 ml Tube Irrigant 780 ml Output Urine Total 0 ml 0 ml 400 ml Stool Total 0 ml 870 ml Urine/Stool Mix 50 ml 50 ml Gastric Drainage Total 5 ml Ultrafiltrate 3000 ml # Voids 0 0 # Bowel Movements 5 Exam Gen: Lying at 30degree head tilt, sedated, intubated. HEENT: PERRLA, Anicteric sclerae Neck: supple, no JVD Cardio: sinus rhythm, no murmur rub or gallop appreciated, Right anterior chest central line and left central line in place Pulm: b/l diminished air sound, severe coarse breathing Abd: Soft, nontender, gastric tube in placed, non erythematous. Hypoactive bowel sound, mild distension, positive fluid wave Extremities: No clubbing or lymphadenopathy appreciated. Anasarca, cold extremity Neuro: sedated IVs and Medications Medications Reviewed: Medications were reviewed in detail Lab and Diagnostics Result Diagram: 11/12/160 11/12/16439 Microbiology Urine shows strep pneumo antigen, positive blood cultures 2 for gram-positive cocci activity is pending X-Rays, CTs and MRIs . X-RAY CHEST ONE VIEW, PORTABLE IMPRESSION: Diffuse groundglass and patchy opacities likely representing pulmonary edema although please correlate clinically to exclude superimposed infection. Overall , improved lung volumes with no new consolidation since yesterday. Dictated by: Leonardo Villalba M.D. on 11/05/2016 at 7:56 X-RAY CHEST ONE VIEW, PORTABLE IMPRESSION: Diffuse groundglass and patchy opacities likely representing pulmonary edema although please correlate clinically to exclude superimposed infection. Overall , improved lung volumes with no new consolidation since yesterday. Dictated by: Leonardo Villalba M.D. on 11/05/2016 at 7:56 US ABDOMEN, LIMITED IMPRESSION: 1. Increased periportal echogenicity in the liver is nonspecific but may reflect acute hepatitis. Recommend correlation with laboratory values. 2. Round echogenic non-shadowing structure in the gallbladder is incompletely evaluated. The findings may represent a non-shadowing stone or polyp. No evidence of cholecystitis. Dictated by: Yoshi Kendall M.D. on 11/05/2016 at 17:49 X-RAY CHEST ONE VIEW, PORTABLE IMPRESSION: Stable appearing bilateral moderately severe to severe pneumonia, right greater than left. Lines and tubes in normal position. Dictated by: Jeff Duggan M.D. on 11/06/2016 at 11:07 X-RAY CHEST ONE VIEW, PORTABLE IMPRESSION: No change is seen in the bilateral extensive infiltrates in the lungs or in the position of the tubes and catheters as described. Dictated by: Danny Hauser M.D. on 11/07/2016 at 12:42 X-RAY CHEST ONE VIEW, PORTABLE IMPRESSION: Pulmonary edema and/or diffuse bilateral pneumonia not significantly changed from prior examination and there is a small left pleural effusion. ARDS cannot be excluded. Dictated by: Derik Spears RRMelva Interpreted: Andra Lopez MD on 11/09/2016 at 13:04 US ABDOMEN, LIMITED IMPRESSION: 1. "Starry night" appearance of the liver redemonstrated which could be associated with acute hepatic inflammatory process such as hepatitis. Correlate clinically. 2. Multiple gallbladder polyps and non-shadowing echogenic focus present as well as thickening of the gallbladder wall. Although gallbladder wall thickening could be related to hepatic disease, developing cholecystitis cannot be excluded. Correlate clinically. 3. Trace perihepatic fluid. 4. Small right pleural effusion. Dictated by: Derik RODRIGUEZ Interpreted: Lorraine Pickens MD on 11/09/2016 at 12:05 X-RAY CHEST ONE VIEW, PORTABLE IMPRESSION: Unchanged appearance of bilateral pulmonary opacities consistent with diffuse edema and/or pneumonia versus ARDS. Dictated by: Derik RODRIGUEZ Interpreted: Pauline Radford MD on 11/12/2016 at 9:52 Cardiac Echo Impressions . Echocardiogram Report Interpretation Summary There is normal left ventricular wall thickness. There are no focal wall motion abnormalities. The ejection fraction is estimated to be 50-55%. There is no significant valvular heart disease. Electronically signed by: Nelson Marquez Additional Diagnostics pH ____7.406 - 7.350 7.450 pCO2 ___46.5__ -mmHg 35.0 45.0 pO2 ___57.7__ -mmHg 69.0 116 HCO3- ___28.6__ -mmol/L 22.0 26.0 Assessment & Plan Patient is a 56yom with MHx significant for cerebral aneurysm, hx methamphetamine, AL, hemorrhagic stroke, anoxic brain injury(2008), and ESRD with recurrent aspiration pneumonia admitted for decrease mentation and SOB, subsequently found be in septic shock with acute hypoxic hypercapnic respiratory failure, thus transferred to CCU for pressor support and ventilation management. His condition however, has spiral downward since admission. Patient likely has severe bacterial pneumonia with sequela of sepsis shock and ARDS. This predispose him to line infection, fungemia. Lines cannot be changed due to critical needs for continuous pressor support. In the setting of ESRD, dialysis would be contraindicated in a hemodynamically unstable patient. Patient condition thus, terminal. Problem list 1. Hypoxic hypercapnic respiratory failure 2. Sepsis shock 3. ESRD 4. ARDS 5. Pneumonia 6. Fungemia 7. Hepatitis Respiratory Hypoxic hypercapnic respiratory failure - 2nd to pneumonia and likely contaminate by pulmonary edema - Cont Nimbex and propofol - Maintain PEEP pressure, balance with BP ARDS - He meets the [place] [address]-chest showing a "diffuse crazy paving pattern" - 2nd to pneumonia - Cont PEEP support Infectious Sepsis Shock - Likely from pneumonia, possible line infection - MAP mid-60's with levophed support. Heart Echo with LV function preserved - Not recommend trending lactic acid in the setting of ESRD Pneumonia - Possible strep pneumo, coag neg staph, or MRSA. He is now at risk for fungal infection as well - Strep pneumo antigen may be false positive, will need to check for any recent strep vaccination. Still possible to have aspiration pna - Cont abx vancomycin and meropenem as direct by Infectious disease Fungemia - Micafungin daily - Monitor liver function daily - Appreciate ID continue following and managing this Cardiovascular - Troponin flat - Initial echocardiogram unremarkable - May have sepsis induced cardiomyopathy - Will obtain echocardiogram as above if MAP unimproved tomorrow Hematologic Thrombocytopenia - Possible HIT, DIC, sepsis induced thrombocytopenia - holding heparin at this time - Monitor bleeding Metabolic ESRD - Will try to dialyze today as BP is maintaining - Line access will be challenging. - Nephrology has been consulted and are actively following. Alimentary Gastrointestinal dysmotility - hypoactive bowel tone, possible 2nd to sepsis - Prophylaxis protonix, change from famodidine as it can depress platelets. Mild transaminitis - He has hx of hepatitis. No cirrhosis on Echo-abd. Patient however, receiving daily lactulose outpatient - Ammonia continues to be mildly elevated - Ultrasound parapneumonic for hepatitis - Infectious disease will continue to follow. Neurologic Possible Seizure - Has hx of anoxic brain injury - Keppra 500mg daily Disposition: Voicing the terminal nature of Mr. Person's disease process, DPOA demonstrated understanding and placed patient on a comfort care track at 3:30pm this afternoon. Compassionate extubation at 17:33. Total time spent: 60min GI Prophylaxis: Proton Pump Inhibitor VTE Prophylaxis: Sub-Q Heparin (Unfractionated) VTE Mechanical Devices: Intermittant Pneumatic CD Resuscitation Status: DNR/DNI:Do Not Resuscitate/Intubate (no chest compressions, cardioversion.) Limited Interventions: Intubation w Mech Vent (do not extubate now, but no reintubation ), Medications and IV Fluid (no ) Attending Statement The patient was seen and examined together with Dr. Taylor on 11/13/2016 and I agree with the history, exam and plan as outlined in the note above. Hector Taylor DO Nov 13, 2016 17:52 Ivan Dias MD December 10, 2016 14:52
--- NOTE | 2016-11-13 17:58 | PCM.DC.MEX ---
Discharge Summary Date of Service Nov 13, 2016 Dates of Hospitalization Date of Hospital Admission Nov 05, 2016 at 09:44 Date of Expiration: Nov 13, 2016 Time of Expiration: 16:42 Providers: Admitting Physician: Miguel Cheatham MD Primary Care Physician: Jonh Attending Physician: Miguel Cheatham MD Diagnosis at Time of . 1. Severe Sepsis/septic shock requiring pressor 2. Acute hypoxic respiratory failure with hypoxia 3. Pneumonia 4. ARDS 5. End stage renal disease 6. Diabetes mellitus 7. Hypernatremia 8. Elevated troponin 9. Hyperlipidemia 10. Transaminitis 11. Thrombocytopenia [address]. Larissa M.D., pulmonology/intensive care Dr. Brooks D.O., nephrology Dr. Kevin M.D., infectious disease CHRISTIANO CohnP, palliative care Dr. Josef M.D., palliative care Procedures XRay, CTs & MRIs . X-RAY CHEST ONE VIEW, PORTABLE IMPRESSION: Diffuse groundglass and patchy opacities likely representing pulmonary edema although please correlate clinically to exclude superimposed infection. Overall , improved lung volumes with no new consolidation since yesterday. Dictated by: Leonardo Villalba M.D. on 11/05/2016 at 7:56 X-RAY CHEST ONE VIEW, PORTABLE IMPRESSION: Diffuse groundglass and patchy opacities likely representing pulmonary edema although please correlate clinically to exclude superimposed infection. Overall , improved lung volumes with no new consolidation since yesterday. Dictated by: Leonardo Villalba M.D. on 11/05/2016 at 7:56 US ABDOMEN, LIMITED IMPRESSION: 1. Increased periportal echogenicity in the liver is nonspecific but may reflect acute hepatitis. Recommend correlation with laboratory values. 2. Round echogenic non-shadowing structure in the gallbladder is incompletely evaluated. The findings may represent a non-shadowing stone or polyp. No evidence of cholecystitis. Dictated by: Yoshi Kendall M.D. on 11/05/2016 at 17:49 X-RAY CHEST ONE VIEW, PORTABLE IMPRESSION: Stable appearing bilateral moderately severe to severe pneumonia, right greater than left. Lines and tubes in normal position. Dictated by: Jeff Duggan M.D. on 11/06/2016 at 11:07 X-RAY CHEST ONE VIEW, PORTABLE IMPRESSION: No change is seen in the bilateral extensive infiltrates in the lungs or in the position of the tubes and catheters as described. Dictated by: Danny Hauser M.D. on 11/07/2016 at 12:42 X-RAY CHEST ONE VIEW, PORTABLE IMPRESSION: Pulmonary edema and/or diffuse bilateral pneumonia not significantly changed from prior examination and there is a small left pleural effusion. ARDS cannot be excluded. Dictated by: Derik RODRIGUEZ Interpreted: Andra Lopez MD on 11/09/2016 at 13:04 US ABDOMEN, LIMITED IMPRESSION: 1. "Starry night" appearance of the liver redemonstrated which could be associated with acute hepatic inflammatory process such as hepatitis. Correlate clinically. 2. Multiple gallbladder polyps and non-shadowing echogenic focus present as well as thickening of the gallbladder wall. Although gallbladder wall thickening could be related to hepatic disease, developing cholecystitis cannot be excluded. Correlate clinically. 3. Trace perihepatic fluid. 4. Small right pleural effusion. Dictated by: Derik RODRIGUEZ Interpreted: Lorraine Pickens MD on 11/09/2016 at 12:05 X-RAY CHEST ONE VIEW, PORTABLE IMPRESSION: Unchanged appearance of bilateral pulmonary opacities consistent with diffuse edema and/or pneumonia versus ARDS. Dictated by: Derik RODRIGUEZ Interpreted: Pauline Radford MD on 11/12/2016 at 9:52 Cardiac Echo Impression . Echocardiogram Report Interpretation Summary There is normal left ventricular wall thickness. There are no focal wall motion abnormalities. The ejection fraction is estimated to be 50-55%. There is no significant valvular heart disease. 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 At baseline patient is bedbound and dialysis dependent. Patient was brought to [facility] - ED via EMS from [facility] secondary to difficulty breathing. EMS states patient was saturating at 70% on room air upon arrival and tachycardic, tachypnea, and hypotensive. Upon interview patient is unable to verbalize answers to questions though he is able to communicate by squeezing his hands with a predetermined response i.e. give me one squeeze for yes. Unable to ascertain events leading up to admission. When asked if patient felt any pain he did not respond in the affirmative. Unable to ascertain review of systems Hospital Course 1. Severe Sepsis/septic shock requiring pressor . - Septic criteria met on admission with tachycardia, tachypnea, hyperthermia, lactic acidosis - Possible sources include pneumonia or GI, possibly hepatitis and/or cholecystitis based on recent ultrasound findings - Infectious Disease followed patient throughout stay and guided antibiotic therapy and later antifungal therapy - Sputum culture and PCR positive for MRSA - Blood cultures showed coag-negative Staphylococcus 2 - Repeat blood cultures coag-negative Staphylococcus - Positive strep pneumo urine antigen - Bronchial washing positive for coronal virus - Pulmonology/ICU service followed and helped to manage patient throughout stay. - Intubated and sedated - IV fluids discontinued secondary to #4 - IV drips of epinephrine and fentanyl remained ongoing throughout stay - Echo shows no wall motion abnormalities, EF 50-55% and no significant valvular heart disease - Repeat CT scan showed no clear evidence of abscess or infectious source 2. Acute hypoxic respiratory failure with hypoxia. - After admission to CCU patient became increasingly dyspneic requiring intubation, most likely secondary to #3 - Remain intubated and sedated throughout hospital admission and up until compassionate extubation - CXR showed a pulmonary edema/pneumonia throughout hospital stay 3. Pneumonia. - Cultures and serologies as in #1 - CXR CXR as a #2 - Procalcitonin remained significantly elevated throughout stay - Antibiotics as in #1 4. ARDS. -[place] criteria met -Pulmonology/ICU service closely manage ventilator settings as well as IV fluid administration 5. End stage renal disease. - Stage IV with GFR of 16 - Nephrology followed patient throughout hospital admission - Patient received HD 3 times per week prior to admission, subsequently received multiple rounds of HD while in hospital - Ultimately continuation of HD was discontinued 6. Diabetes mellitus - A1c 6.6 on admission - Patient on home insulin glargine and insulin aspart - Correctional scale insulin initiated and later insulin drip 7. Hypernatremiad - Most likely secondary to volume depletion -IV fluid replacement with strict monitoring of ins and outs 8. Elevated troponin - Most likely secondary to #5 - EKG showed anterior ST segment abnormalities consistent with previous infarct 9. Hyperlipidemia -Continued home statin medication 10. Transaminitis - ALT AST remained labile throughout hospital stay - Ammonia level trending down, last measurement 55 - Lactulose given with some effect - Ultrasound and abdominal ultrasound showed possible hepatitis, thickening of the gallbladder wall and trace perihepatic fluid with a small right pleural effusion 11. Thrombocytopenia - Platelets of os remained labile initially trending down through stay and remaining at a low level - DC'd heparin -HIT unlikley but possible given timing of thrombocytopenia and patient has been getting heparin on dialysis and no history of HIT Exam Test 11/05/16 06:55 11/05/16 13:08 11/05/16 17:36 11/05/16 17:37 Hemoglobin A1c 6.6% (4.8-5.6) Prealbumin 26mg/dL (20-40) Pro-B-Type Natriuretic Peptide 5573pg/mL (0-121) Thyroid Stimulating Hormone (TSH) 6.640uIU/mL (0.450-4.500) Thyroxine (T4) 4.8ug/dL (4.7-13.3) Urine Color Dark yellow (YELLOW) Urine Appearance Cloudy (CLEAR,HAZY) Urine pH 6.5 (5.0-8.0) Urine Specific [place] 1.010 (1.003-1.035) Urine Protein 100mg/dL (NEG,TRACE) Urine Glucose (UA) 250mg/dL (NEGATIVE) Urine Ketones Negativemg/dL (NEGATIVE) Urine Occult Blood Moderate (NEGATIVE) Urine Nitrite Negative (NEGATIVE) Urine Bilirubin Negative (NEGATIVE) Urine Urobilinogen Normalmg/dL (NORMAL) Urine Leukocyte Esterase Moderate (NEGATIVE) Urine RBC 0-2/hpf (0-2) Urine WBC 6-10/hpf (0-5) Urine Epithelial Cells Occasional/hpf (NONE-MOD) Urine Crystals None seen (NONE SEEN) Urine Bacteria None/hpf (NONE-FEW) Urine Hyaline Casts None/lpf (NONE) Urine Granular Casts None seen (NONE SEEN) Urine Waxy Casts None seen (NONE SEEN) Urine Red Blood Cell Casts None seen (NONE SEEN) Urine White Blood Cell Casts None seen (NONE SEEN) Urine Mucus None seen (None Seen) Urine Trichomonas None seen (NONE SEEN) Urine Yeast Many (NONE SEEN) Urinalysis Comment None Urine Culture Reflexed Indicated Urine Legionella pneumophilia Ag Negative (Negative) Test 11/06/16 04:50 11/06/16 05:00 11/06/16 05:22 11/07/16 04:55 Troponin T 0.082ug/L (0.0-0.011) Hematology Comments Random Gentamicin Level 3.1ug/mL Rx Ammonia 55ug/dL (18-53) Test 11/08/16 10:30 11/09/16 03:13 11/09/16 05:06 11/10/16 05:00 Hold Red Top Tube Received (Received) Metamyelocytes % 3% (0-0) Vancomycin Level Trough 19.2mcg/mL Lipase 3U/L (13-60) Lactic Acid Level 2.3mmol/L (0.4-2.0) Heparin-PF4 Ab Optical Density 0.068OD (<0.4) Heparin-PF4 Antibody Interpretation Not indicated Test 11/11/16 04:15 11/12/16 04:40 Band Neutrophils % 25% (1-5) Phosphorus Level 2.3mg/dL (2.5-4.9) Magnesium Level 1.6mg/dL (1.6-2.6) Lactate Dehydrogenase 358U/L (100-190) Procalcitonin 31.06ng/mL (0.00-0.08) White Blood Count 16.7th/mm3 (3.8-10.1) Red Blood Count 2.43mil/mm3 (4.40-5.80) Hemoglobin 8.3g/dL (13.8-17.2) Hematocrit 26.5% (41.0-50.0) Mean Corpuscular Volume 109.1fL (81-100) Mean Corpuscular Hemoglobin 34.2pg (27.0-35.0) Mean Corpuscular Hemoglobin Concent 31.3% (32.0-37.0) Red Cell Distribution Width 13.8% (12.3-15.4) Platelet Count 79bil/L (150-400) Neutrophils (%) (Auto) 85.1% (40-74) Lymphocytes (%) (Auto) 7.2% (14-46) Monocytes (%) (Auto) 5.8% (4-12) Eosinophils (%) (Auto) 0.1% (0-5) Basophils (%) (Auto) 0.3% (0-3) Sodium Level 146mEq/L (134-144) Potassium Level 4.2mEq/L (3.5-5.2) Chloride Level 105mEq/L (97-108) Carbon Dioxide Level 20mmol/L (18-29) Blood Urea Nitrogen 67mg/dL (6-24) Creatinine 4.09mg/dL (0.76-1.27) Estimat Glomerular Filtration Rate 16mL/min (>59) Glucose Level 134mg/dL (60-99) Calcium Level 8.8mg/dL (8.5-10.1) Total Bilirubin 0.4mg/dL (0.0-1.2) Aspartate Amino Transf (AST/SGOT) 73U/L (0-50) Alanine Aminotransferase (ALT/SGPT) 23U/L (0-44) Alkaline Phosphatase 175U/L (25-150) Total Protein 5.7g/dL (6.4-8.4) Albumin 3.3g/dL (3.4-5.0) Random Vancomycin Level 12.2ug/mL Rx Microbiology Results Bronchial washing showed coronavirus Blood cultures positive for yeast Blood cultures positive for coag-negative Staphylococcus Sputum culture positive for MRSA Nasopharyngeal easier positive for MRSA Urine positive for strep pneumo antigen copies to: Lamont Guerin MD, GILES A DO Nov 13, 2016 17:58
--- NOTE | 2016-11-19 17:13 | PATH ---
SURGICAL PATHOLOGY Attending Physician:Richa Nash MD CASE STATUS: Signed Out PATIENT NAME: JOANNE FIGUEROA PID: [id number] : 1960 DATE COLLECTED:11/11/2016 00:00 SPECIMEN: Lung Biopsy CLINICAL HISTORY: 1). RIGHT LOWER LOBE, LUNG FINAL DIAGNOSIS: 1.RIGHT LOWER LOBE, LUNG, LAVAGE: CANCELLED PER DR. RICHA NASH; PATIENT . REPORTED FOR DOCUMENTATION PURPOSES ONLY. ICD-9 CODES: CPT CODES: Electronically Signed Out Joanna Miller MD [facility] Pathology [facility] [address], [place] [address] Technical component performed at [facility], [address] [place] [address] Ave[address], [place], [address]
== END 2016-11-13 16:42 | disposition expired | DRG 870 ==
LOC: SED 06:02 → CCU 09:44 → EEVIPCON 09:44 → CCU 10:07
PROVIDERS: ADMIT Internal Medicine; ATTEND Internal Medicine
PROC: 5A1955Z Respiratory Ventilation, Greater than 96 Consecutive Hours (ICD-10-PCS; principal; 2016-11-05)
PROC: 4A033R1 Measurement of Arterial Saturation, Peripheral, Percutaneous Approach (ICD-10-PCS; 2016-11-05)
PROC: 0BH17EZ Insertion of Endotracheal Airway into Trachea, Via Natural or Artificial Opening (ICD-10-PCS; 2016-11-05)
PROC: 5A1D60Z (ICD-10-PCS; 2016-11-06)
PROC: 0B9B8ZX Drainage of Left Lower Lobe Bronchus, Via Natural or Artificial Opening Endoscopic, Diagnostic (ICD-10-PCS; 2016-11-11)
PROC: 0B968ZX Drainage of Right Lower Lobe Bronchus, Via Natural or Artificial Opening Endoscopic, Diagnostic (ICD-10-PCS; 2016-11-11)
DX: A41.9 Sepsis, unspecified organism (principal); R65.21 Severe sepsis with septic shock; J96.01 Acute respiratory failure with hypoxia; N18.6 End stage renal disease; J15.9 Unspecified bacterial pneumonia; E87.0 Hyperosmolality and hypernatremia; I69.354 Hemiplegia and hemiparesis following cerebral infarction affecting left non-dominant side; I12.0 Hypertensive chronic kidney disease with stage 5 chronic kidney disease or end stage renal disease; B49 Unspecified mycosis; E78.5 Hyperlipidemia, unspecified; E10.40 Type 1 diabetes mellitus with diabetic neuropathy, unspecified; E03.9 Hypothyroidism, unspecified; Z87.891 Personal history of nicotine dependence; Z99.2 Dependence on renal dialysis; I69.391 Dysphagia following cerebral infarction; R13.10 Dysphagia, unspecified; B95.3 Streptococcus pneumoniae as the cause of diseases classified elsewhere; D69.6 Thrombocytopenia, unspecified; Z51.5 Encounter for palliative care; B95.62 Methicillin resistant Staphylococcus aureus infection as the cause of diseases classified elsewhere